=== PATIENT | male | born 1945 | race Caucasian/White ===

== ENCOUNTER 2020-08-15 08:19 | Outpatient (REF) | payer MEDICARE, SELFPAY ==
--- NOTE | 2020-08-15 08:28 | XR_ITS ---
EXAMINATION: XR BILATERAL KNEES STANDING XR RIGHT KNEE CLINICAL INFORMATION: Pain, right knee. COMPARISON: AP bilateral knee and right knee 1 view 08/13/2019 TECHNIQUE: AP bilateral knee 1 view. Right knee 1 view. FINDINGS: AP BILATERAL KNEES: The total right knee arthroplasty with prosthetic components in satisfactory alignment. No loosening seen. There are small enthesophytes along the anterosuperior patella and likely small joint effusion. There is mild reduction in medial and compartment joint space left knee. No loose bodies seen. RIGHT KNEE: There is a total right knee arthroplasty with the prosthetic components in satisfactory alignment without any loosening. There is mild suprapatellar joint effusion. Small anterosuperior patellar enthesophytes. There is small lucency seen traversing the right proximal fibula, new since 2019. XR/XR knee standing BI IMPRESSION: Total right knee prosthesis with the prosthetic components in satisfactory alignment. There are small anterosuperior patellar enthesophytes and a small suprapatellar joint effusion. Mild degenerative changes medial compartment left knee. There is mild lucency traversing the proximal fibula and lateral view when compared to previous study. Whether this is a small stress fracture or ongoing fracture is questioned. Recommend limited bone scan of the right knee with attention to proximal fibula.
--- NOTE | 2020-08-15 08:28 | XR_ITS ---
EXAMINATION: XR BILATERAL KNEES STANDING XR RIGHT KNEE CLINICAL INFORMATION: Pain, right knee. COMPARISON: AP bilateral knee and right knee 1 view 08/13/2019 TECHNIQUE: AP bilateral knee 1 view. Right knee 1 view. FINDINGS: AP BILATERAL KNEES: The total right knee arthroplasty with prosthetic components in satisfactory alignment. No loosening seen. There are small enthesophytes along the anterosuperior patella and likely small joint effusion. There is mild reduction in medial and compartment joint space left knee. No loose bodies seen. RIGHT KNEE: There is a total right knee arthroplasty with the prosthetic components in satisfactory alignment without any loosening. There is mild suprapatellar joint effusion. Small anterosuperior patellar enthesophytes. There is small lucency seen traversing the right proximal fibula, new since 2019. XR/XR knee RT 2V IMPRESSION: Total right knee prosthesis with the prosthetic components in satisfactory alignment. There are small anterosuperior patellar enthesophytes and a small suprapatellar joint effusion. Mild degenerative changes medial compartment left knee. There is mild lucency traversing the proximal fibula and lateral view when compared to previous study. Whether this is a small stress fracture or ongoing fracture is questioned. Recommend limited bone scan of the right knee with attention to proximal fibula.
== END 2020-08-15 08:20 | disposition home or self-care (01) ==
LOC: HO.HOSX 08:19
PROVIDERS: PCP Internal Medicine; Visit Provider Orthopaedic Surgery
DX: M25.561 Pain in right knee (principal); M25.562 Pain in left knee; Z96.651 Presence of right artificial knee joint
CPT/HCPCS: 73560; 73565; 99212

== ENCOUNTER → 2020-09-20 08:58 | Outpatient (BNVA) | payer MEDICARE, SELFPAY | PROVIDERS: PCP Internal Medicine; Visit Provider Urology | DX: Z13.89 Encounter for screening for other disorder (principal) | CPT/HCPCS: Q3014 ==

== ENCOUNTER → 2020-10-12 13:46 | Outpatient (BNVA) | payer MEDICARE, SELFPAY | PROVIDERS: PCP Internal Medicine; Visit Provider Internal Medicine Cardiovascular Disease | DX: I48.0 Paroxysmal atrial fibrillation (principal); I10 Essential (primary) hypertension | CPT/HCPCS: 99212 ==

== ENCOUNTER → 2021-02-07 09:20 | Outpatient (BNVA) | payer MEDICARE, SELFPAY | PROVIDERS: PCP Internal Medicine; Referring Provider Internal Medicine; Visit Provider Internal Medicine Cardiovascular Disease | DX: I48.0 Paroxysmal atrial fibrillation (principal); I10 Essential (primary) hypertension | CPT/HCPCS: 99212 ==

== ENCOUNTER 2021-03-17 10:49 | Outpatient (REF) | payer MEDICARE, SELFPAY ==
[2021-03-17 11:56] LABS: Prostate Specific Antigen 3.04 ng/mL (<0.05-4.0)
== END 2021-03-17 10:50 | disposition home or self-care (01) ==
LOC: HO.LAB 10:49
PROVIDERS: PCP Internal Medicine; Visit Provider Urology
DX: Z12.5 Encounter for screening for malignant neoplasm of prostate (principal); N40.0 Benign prostatic hyperplasia without lower urinary tract symptoms
CPT/HCPCS: 36415; 84153

== ENCOUNTER → 2021-03-22 08:39 | Outpatient (BNVA) | payer MEDICARE, SELFPAY | PROVIDERS: PCP Internal Medicine; Visit Provider Urology | DX: R39.15 Urgency of urination (principal); N52.9 Male erectile dysfunction, unspecified; N40.0 Benign prostatic hyperplasia without lower urinary tract symptoms; R97.20 Elevated prostate specific antigen [PSA]; I10 Essential (primary) hypertension; Z87.891 Personal history of nicotine dependence | CPT/HCPCS: 51798; 99212 ==

== ENCOUNTER → 2021-05-03 08:48 | Outpatient (BNVA) | payer MEDICARE, SELFPAY | PROVIDERS: PCP Internal Medicine; Visit Provider Urology | DX: N40.1 Benign prostatic hyperplasia with lower urinary tract symptoms (principal); R39.15 Urgency of urination; N52.9 Male erectile dysfunction, unspecified | CPT/HCPCS: 52000; 99212 ==

== ENCOUNTER 2021-06-11 09:25 | Day surgery (SDC) | payer MEDICARE, SELFPAY ==
[2021-06-05 10:17] VITALS: BMI 37.7
--- NOTE | 2021-06-07 13:29 | P.CONAN_ITS ---
Documented by User: Teodora Nicole NP 06/07/21 13:30 HPI - Anesthesia Eval Consult details Narrative: 75yo M for Laser Ablation Prostate w/Green Light ILR in situ (concern for afib and was on anticoag, but no afib noted with remote monitoring and anticoag recently d/c'd) [facility] Active Problems Active Problems: All Active Problems (Updated 06/05/21 @ 10:20 by Melvina Kent RN) BPH (benign prostatic hyperplasia) (Acute) Cellulitis (Acute) Status post placement of implantable loop recorder (Acute) History of total right knee replacement (TKR) (Acute) Folliculitis (Acute) PAF (paroxysmal atrial fibrillation) (Acute) Encounter for initial annual wellness visit (AWV) in Medicare patient (Acute) Sore throat (Acute) Persistent hoarseness (Acute) Obesity (Acute) Erectile dysfunction (Acute) Urgency of micturition (Acute) Hypertension (Acute) Past Medical History Medical History (Updated 06/05/21 @ 10:20 by Melvina Kent RN) Arthritis BPH (benign prostatic hyperplasia) COPD (chronic obstructive pulmonary disease) COVID-19 vaccine series completed Erectile dysfunction Hypertension Obesity Paroxysmal atrial fibrillation Skin cancer Sleep apnea Status post placement of implantable loop recorder Urgency of micturition Family History Family History Father Medical history unknown Mother Lung cancer Surgical History Surgical History (Updated 06/05/21 @ 09:56 by Melvina Kent RN) H/O colonoscopy History of carpal tunnel release History of cystoscopy History of surgery Hx of total knee arthroplasty Social History Social History Housing: House Alcohol intake: current Alcohol intake frequency: a few times a month Patient Tobacco Use Status: Former Tobacco user Quit Date: 2004 Tobacco use type: Cigarette Years Smoked: 30 e-Cigarette/Vaping Use: Never Used Second Hand Smoke Exposure: No Use of substances other than those prescribed or required for medical reasons: No Have you been hit, kicked, punched, or otherwise hurt by someone within the past year? If so, by whom?: No Are you DNR?: No Advance Directives: No (states would be his daughter but no official HCP form) Advance Directives Information Provided: Yes (informational brochure sent) Advance Directives on File: No Recently lost weight without trying: No Eating poorly because of decreased appetite: No Nutrition Risks: No Nutritional Risk Poor oral hygiene: No (upper & lower full dentures) service: No Current occupational status: retired Current occupation: [employer] Med[employer] Allergies Allergy/AdvReac Type Severity Reaction Status Date / Time No Known Allergies Allergy Verified 05/29/21 13:54 [No Known Allergies*] Home Medications Medication Instructions Recorded Confirmed Last Taken Type tiotropium bromide 18 mcg capsule 1 cap INHALATION DAILY 06/14/20 06/05/21 Unknown History with inhalation device Exam Exam Date and Time: June 07, 2021 1329 Height,Weight and Vital Signs: Height 5 ft 8 in Weight 112.491 kg Narrative Narrative: EKG 09/2020 NSR @ 65 Assessment and Plan Assessment Anesthesia Assessment: Chart Reviewed Documented by User: Michaela Michelle MD 06/11/21 11:23 [facility] Past Medical History Medical History (Updated 06/05/21 @ 10:20 by Melvina Kent RN) Arthritis BPH (benign prostatic hyperplasia) COPD (chronic obstructive pulmonary disease) COVID-19 vaccine series completed Erectile dysfunction Hypertension Obesity Paroxysmal atrial fibrillation Skin cancer Sleep apnea Status post placement of implantable loop recorder Urgency of micturition Family History Family History Father Medical history unknown Mother Lung cancer Family history of problems with anesthesia: No Surgical History Surgical History (Updated 06/05/21 @ 09:56 by Melvina Kent RN) H/O colonoscopy History of carpal tunnel release History of cystoscopy History of surgery Hx of total knee arthroplasty History of Problems with Anesthesia: No ( woke up during knee surgery. Explained Spinal with sedation for surgery so expected that may wake up especially with h/o PRAVEEN and possible obstruction and desaturation) Social History Social History Housing: House Alcohol intake: current Alcohol intake frequency: a few times a month Patient Tobacco Use Status: Former Tobacco user Quit Date: 2004 Tobacco use type: Cigarette Years Smoked: 30 e-Cigarette/Vaping Use: Never Used Second Hand Smoke Exposure: No Use of substances other than those prescribed or required for medical reasons: No Have you been hit, kicked, punched, or otherwise hurt by someone within the past year? If so, by whom?: No Are you DNR?: No Advance Directives: No (states would be his daughter but no official HCP form) Advance Directives Information Provided: Yes (informational brochure sent) Advance Directives on File: No Recently lost weight without trying: No Eating poorly because of decreased appetite: No Nutrition Risks: No Nutritional Risk Poor oral hygiene: No (upper & lower full dentures) service: No Current occupational status: retired Current occupation: [employer] Allergies Allergy/AdvReac Type Severity Reaction Status Date / Time No Known Allergies Allergy Verified 05/29/21 13:54 [No Known Allergies*] Home Medications Medication Instructions Recorded Confirmed Last Taken Type tiotropium bromide 18 mcg capsule 1 cap INHALATION DAILY 06/14/20 06/05/21 Unknown History with inhalation device Exam Height,Weight and Vital Signs: Height 5 ft 8 in Weight 112.491 kg Vital Signs Temp Pulse Resp BP Pulse Ox 06/11/21 11:04 96.9 F 60 20 141/77 H 96 Airway Mallampati Class: II TM Dist: >3cm Neck ROM: Full Denture: Upper and Lower Heart: RRR Lungs: CTAB Assessment and Plan Assessment Anesthesia Assessment: Anesthesia Plan Discussed Final Anesthetic Review Family History of Problems with Anesthesia: No History of Problems with Anesthesia: No ( woke up during knee surgery. Explained Spinal with sedation for surgery so expected that may wake up especially with h/o PRAVEEN and possible obstruction and desaturation) NPO: Yes ASA Class: III Final Preanesthetic Review: No Changes in Pt Med Stat, Meds/Allgs Chart Reviewed, Consent Obtained/Reviewed and Anes Risks/Benef Reviewed Patient Risk: Intermediate Procedure Risk: Low Assessment/Block/Sedation in SS: Assess/Block/Sedation-SS Anesthetic Plan Anesthetic Plan: GA Disposition: Standard PACU
[2021-06-11] VITALS (10 sets, daily range): BP systolic 106–141; BP diastolic 52–77; PULSE 54–74; RESP 16–20; TEMP 36.1–36.7; O2SAT 93–98
[2021-06-11] MEDS: Lactated Ringers 1,000 ML 100 ML IVCONT (10:59)
[2021-06-11] MEDS: levoFLOXacin/D5W 500 MG/100 ML PIGGYBACK 100 MG IV (10:59)
--- NOTE | 2021-06-11 11:31 | MHC.SHP ---
Pre-Procedural Eval Section A Date of Service: 06/11/21 Section B Chief Complaint: benign prostatic hyperplasia Relevant Family History (Specify if Yes): No Present Medications: see Short Stay Collaborative assessment Medical History: Significant History History of Previous Operations: Relevant previous surgery/procedure and date(s) Allergies: Allergies Allergy/AdvReac Type Severity Reaction Status Date / Time No Known Allergies Allergy Verified 05/29/21 13:54 [No Known Allergies*] Review of Systems Sugical H&P ROS: Negative: Constitution, Cardiovascular, Respiratory, Neurological, Psychiatric, Hem-Onc, Allergic/Immunologic, Gastrointestinal, Genitourinary, Musculoskeletal, Integumentary, Endocrine and Eyes/Ears/Nose/Throat Exam Surgical H&P Exam: Normal: HEENT, Normal: Heart, Normal: Lungs, Normal: Extremities, Normal: Abdomen, Normal: Skin and Normal: Neurological Plan Diagnosis/Plan: Unchanged (Cystoscopy repeat laser prostatectomy) I have reviewed the history and physical and performed a pertinent physical examination on my patient. No changes have occurred unless specified.
[2021-06-11] MEDS: Acetaminophen 325 MG TABLET 650 MG PO (13:11)
[2021-06-11] MEDS: oxyCODONE HCl Immed Release 5 MG TABLET PO (13:29)
[2021-06-11] MEDS: fentaNYL citrate/PF 100 MCG/2 ML VIAL 25 MCG IVPUSH ×2 (13:38→13:45)
--- NOTE | 2021-06-11 15:08 | PC.NURSE ---
PT LEFT WITH A FULL SIZE AVELAR CATHETER BAG. TRACTOR DRIVER STATES PATIENT DID NOT WANT A LEG BAG. PATIENT ENCOURAGED TO BE CAREFUL AND TAPE TUBING TO HIS THIGH.
--- NOTE | 2021-06-13 08:34 | W.PM.OPN ---
Operative Note Operative Note Date of Service: 06/13/21 Narrative: PreOperative Diagnosis: Bladder outlet obstruction Post Operative Diagnosis: Bladder outlet obstruction Procedure: GreenLight laser enucleation of the prostate Surgeon: Dr Federico Donnelly Anesthesia: General Indications for procedure: Prior TURP a number of years ago. Progression recurrence of symptoms. Cystoscopy with prostatic regrowth. Recommendation for laser ablation with GreenLight laser. Risks, benefits and with postprocedure course have been discussed. Procedure: After informed consent was verified the patient was brought to the operating room and placed in a supine position. Anesthesia was administered per protocol. Patient was placed in modified dorsal lithotomy position and prepped and draped in a sterile fashion. Safety pause time-out was confirmed. Antibiotics have been given. Twenty-four Bangladeshi laser cystoscope was inserted per urethra. No abnormalities found the anterior posterior urethra. The bladder was filled on both ureteric orifices were seen in normal position away from our area of interest. Using a GreenLight laser settings of 80 w recurring tissue was carefully ablated. Prominent on the left side. Care was taken around the apical area to leave apical question to allow urinary control. Regrowth was taken up and removed to the bladder neck. Bladder neck was left intact as this was wide and easy to enter. When this was completed debris and pieces of prostate removed from the bladder. Both ureteric orifices were reviewed again in shown to be patent in away from any areas of energy damage. The apical area was reviewed in any stray ooze was controlled. A 22 Bangladeshi 30 cc balloon Giang catheter was placed over stylet into the bladder. Clear efflux was obtained. 30 cc was placed in the balloon and gentle traction was placed. A snap was used to hold tension once the patient will be moved and transported. Once transportation its finish this novel be removed. A belladonna and opiate suppository was placed for postprocedure pain management. He tolerated procedure well was extubated in the operating and transferred in a stable condition to the recovery area. Pathology: Prostate tissue Drains: Giang catheter
== END 2021-06-11 15:11 | disposition home or self-care (01) ==
PROVIDERS: PCP Internal Medicine; Visit Provider Urology
PROC: (CPT 52648; principal; 2021-06-11 11:40)
DX: N40.1 Benign prostatic hyperplasia with lower urinary tract symptoms (principal); R39.15 Urgency of urination; N13.8 Other obstructive and reflux uropathy; N52.9 Male erectile dysfunction, unspecified; I10 Essential (primary) hypertension; I48.0 Paroxysmal atrial fibrillation; Z79.01 Long term (current) use of anticoagulants; J44.9 Chronic obstructive pulmonary disease, unspecified; Z95.818 Presence of other cardiac implants and grafts; Z87.891 Personal history of nicotine dependence; Z79.899 Other long term (current) drug therapy
CPT/HCPCS: 52648; 88305; J1100; J1956; J2405; J3010

== ENCOUNTER → 2021-06-14 10:27 | Outpatient (BNVA) | payer MEDICARE, SELFPAY | PROVIDERS: PCP Internal Medicine; Visit Provider Urology | DX: N40.0 Benign prostatic hyperplasia without lower urinary tract symptoms (principal); R39.15 Urgency of urination | CPT/HCPCS: 51700; 51798 ==

== ENCOUNTER → 2021-07-04 09:17 | Outpatient (BNVA) | payer MEDICARE, SELFPAY | PROVIDERS: PCP Internal Medicine; Referring Provider Internal Medicine; Visit Provider Internal Medicine Cardiovascular Disease | DX: I10 Essential (primary) hypertension (principal); I48.0 Paroxysmal atrial fibrillation; J44.9 Chronic obstructive pulmonary disease, unspecified; Z87.891 Personal history of nicotine dependence; Z86.010 Personal history of colon polyps; Z95.818 Presence of other cardiac implants and grafts; Z99.89 Dependence on other enabling machines and devices; Z79.899 Other long term (current) drug therapy | CPT/HCPCS: 93005; 99212 ==

== ENCOUNTER → 2021-07-31 09:15 | Outpatient (BNVA) | payer MEDICARE, SELFPAY | PROVIDERS: PCP Internal Medicine; Visit Provider Urology | DX: N40.1 Benign prostatic hyperplasia with lower urinary tract symptoms (principal); N52.9 Male erectile dysfunction, unspecified; R33.9 Retention of urine, unspecified; R39.15 Urgency of urination | CPT/HCPCS: 51798; 99212 ==

== ENCOUNTER 2021-08-27 08:34 | Outpatient (REF) | payer MEDICARE, SELFPAY ==
--- NOTE | ~2021-08-27 | XR_ITS ---
EXAMINATION: XR KNEES, STANDING AP XR KNEE, RIGHT CLINICAL INFORMATION: Knee pain COMPARISON: Standing AP knees and right knee 08/15/2020. TECHNIQUE: Standing AP view of both knees is performed. The right knee is imaged in lateral and axial patella views. FINDINGS: Right: Status post prior total knee arthroplasty. Hardware intact. No fracture, dislocation, destructive process, or osteolysis. There is old mild posttraumatic deformity proximal fibular neck on lateral view similar to prior study. No definite effusion. Axial view patella shows no definite lateralization. Left: No significant joint narrowing and no erosive change. Question trace chondrocalcinosis lateral compartment. Small lateral femoral condyle central osteophyte stable. No bony destructive process. XR/XR knee standing BI IMPRESSION: Right: Prior knee arthroplasty. Hardware intact. No osteolysis. Left: No acute abnormality.
--- NOTE | ~2021-08-27 | XR_ITS ---
EXAMINATION: XR KNEES, STANDING AP XR KNEE, RIGHT CLINICAL INFORMATION: Knee pain COMPARISON: Standing AP knees and right knee 08/15/2020. TECHNIQUE: Standing AP view of both knees is performed. The right knee is imaged in lateral and axial patella views. FINDINGS: Right: Status post prior total knee arthroplasty. Hardware intact. No fracture, dislocation, destructive process, or osteolysis. There is old mild posttraumatic deformity proximal fibular neck on lateral view similar to prior study. No definite effusion. Axial view patella shows no definite lateralization. Left: No significant joint narrowing and no erosive change. Question trace chondrocalcinosis lateral compartment. Small lateral femoral condyle central osteophyte stable. No bony destructive process. XR/XR knee RT 2V IMPRESSION: Right: Prior knee arthroplasty. Hardware intact. No osteolysis. Left: No acute abnormality.
== END 2021-08-27 08:35 | disposition home or self-care (01) ==
LOC: HO.HOSX 08:34
PROVIDERS: Visit Provider Orthopaedic Surgery
DX: M25.561 Pain in right knee (principal); I10 Essential (primary) hypertension; I48.0 Paroxysmal atrial fibrillation; E66.01 Morbid (severe) obesity due to excess calories; Z68.37 Body mass index [BMI] 37.0-37.9, adult; Z87.891 Personal history of nicotine dependence; Z96.651 Presence of right artificial knee joint; Z95.818 Presence of other cardiac implants and grafts
CPT/HCPCS: 73560; 73565; 99212

== ENCOUNTER → 2021-12-17 11:15 | Outpatient (BNVA) | payer MEDICARE, SELFPAY | PROVIDERS: PCP Internal Medicine; Referring Provider Internal Medicine; Visit Provider Internal Medicine Cardiovascular Disease | DX: J44.9 Chronic obstructive pulmonary disease, unspecified (principal); I48.0 Paroxysmal atrial fibrillation; I10 Essential (primary) hypertension | CPT/HCPCS: 99212 ==

== ENCOUNTER 2022-01-08 10:29 | Outpatient (REF) | payer MEDICARE, SELFPAY ==
[2022-01-08 11:55] LABS: Basophils Absolute Auto 0.1 X10*3/uL (0.0-0.2); Basophils Percent Auto 0.8 % (0-2); Eosinophils Absolute Auto 0.7 X10*3/uL (0.0-0.4); Eosinophils Percent Auto 5.6 % (0-4); Hematocrit 47.6 % (42.0-52.0); Hemoglobin 15.6 g/dl (14.0-18.0); Imm Gran Abs Auto 0.04 X10*3/uL (0.00-0.03); Imm Gran Pct Auto 0.3 % (0.0-0.4); Lymphocytes Percent Auto 50.6 % (20-40); MANUAL DIFF FLAG SCAN; Mean Corpuscular HGB Conc 32.8 g/dl (31.0-36.0); Mean Corpuscular Hemoglobin 30.5 pg (27.0-33.0); Mean Corpuscular Volume 93.2 fL (80.0-98.0); Mean Platelet Volume 10.2 fL (9.4-12.4); Monocytes Absolute Auto 1.1 X10*3/uL (0.1-1.2); Monocytes Percent Auto 8.4 % (2-11); Neutrophils Absolute Auto 4.5 x10*3/uL (2.0-8.3); Neutrophils Percent Auto 34.3 % (45-73); Platelet Count 248 X10*3/uL (160-400); Red Blood Count 5.11 X10*6/uL (4.60-5.80); SCAN SMEAR FLAG 1; White Blood Count 13.2 X10*3/uL (4.8-10.8)
[2022-01-08 11:56] LABS: Lymphocytes Absolute Auto 6.7 X10*3/uL (1.2-4.9)
[2022-01-08 12:14] LABS: Alanine Aminotransferase 16 U/L (0-40); Albumin Level 3.7 g/dL (3.5-5.0); Alkaline Phosphatase 85 U/L (39-117); Anion Gap 10 (12-20); Aspartate Amino Transferase 21 U/L (5-37); Bilirubin Total 0.7 mg/dL (0.0-1.0); Blood Urea Nitrogen 16 mg/dL (9-16); Calcium 9.4 mg/dL (8.4-10.2); Carbon Dioxide 25 mmol/L (22-29); Chloride 103 mmol/L (96-108); Estimated Glomerular Filt Rate 50; Glucose Random 110 mg/dL (60-115); Magnesium 2.2 mg/dL (1.6-2.6); Potassium 4.3 mmol/L (3.3-5.1); Sodium 134 mmol/L (135-145); Total Protein 6.5 g/dL (6.5-8.0)
[2022-01-08 12:21] LABS: SLIDE REVIEW VERIFIED
[2022-01-08 12:27] LABS: Thyroid Stimulating Hormone 1.99 uIU/mL (0.32-4.0)
== END 2022-01-08 10:30 | disposition home or self-care (01) ==
LOC: HO.LAB 10:29
PROVIDERS: PCP Internal Medicine; Visit Provider Nurse Practitioner Family
DX: I49.1 Atrial premature depolarization (principal); I49.3 Ventricular premature depolarization; I48.91 Unspecified atrial fibrillation; R00.2 Palpitations; R00.0 Tachycardia, unspecified
CPT/HCPCS: 36415; 80053; 83735; 84443; 85025

== ENCOUNTER 2022-01-22 08:57 | Outpatient (REF) | payer MEDICARE, SELFPAY ==
--- NOTE | 2022-01-22 17:30 | PFT_ITS ---
Forced vital capacity 80%, normal. FEV1 70%. FEV1/FVC ratio is 62. UVC12-28 39% and MVV 67%. Post bronchodilator therapy, there is a significant improvement in FEV1 by 13% and in TWT14-66 by 67%. Total lung capacity 77%. Residual volume 79%. Diffusion capacity is 54%. CONCLUSION: Mild restrictive pulmonary disorder. Mild to moderate obstructive airway disorder with partial reversibility after bronchodilator therapy. Clinical correlation is recommended. Mann Chester MD MSB/MODL / [id number]
== END 2022-01-22 08:58 | disposition home or self-care (01) ==
LOC: HO.RESP 08:57
PROVIDERS: PCP Internal Medicine; Visit Provider Internal Medicine Cardiovascular Disease
DX: J44.9 Chronic obstructive pulmonary disease, unspecified (principal)
CPT/HCPCS: 94060; 94727; 94729

== ENCOUNTER → 2022-01-25 14:42 | Outpatient (BNVA) | payer MEDICARE, SELFPAY | PROVIDERS: PCP Internal Medicine; Visit Provider Urology | DX: N40.1 Benign prostatic hyperplasia with lower urinary tract symptoms (principal); R39.15 Urgency of urination; N52.9 Male erectile dysfunction, unspecified | CPT/HCPCS: 51798; 99212 ==

== ENCOUNTER → 2022-02-27 10:53 | Outpatient (BNVA) | payer MEDICARE, SELFPAY | PROVIDERS: PCP Internal Medicine; Visit Provider Internal Medicine | DX: J44.9 Chronic obstructive pulmonary disease, unspecified (principal); E66.9 Obesity, unspecified; Z68.37 Body mass index [BMI] 37.0-37.9, adult; G47.33 Obstructive sleep apnea (adult) (pediatric); Z99.89 Dependence on other enabling machines and devices | CPT/HCPCS: 99202 ==

== ENCOUNTER 2022-04-04 08:52 | Outpatient (REF) | payer MEDICARE, SELFPAY ==
[2022-04-04 09:38] LABS: Hematocrit 46.5 % (42.0-52.0); Hemoglobin 15.9 g/dl (14.0-18.0); Mean Corpuscular HGB Conc 34.2 g/dl (31.0-36.0); Mean Corpuscular Hemoglobin 30.9 pg (27.0-33.0); Mean Corpuscular Volume 90.5 fL (80.0-98.0); Mean Platelet Volume 9.6 fL (9.4-12.4); Platelet Count 258 X10*3/uL (160-400); Red Blood Count 5.14 X10*6/uL (4.60-5.80); Red Cell Distribution Width 12.9 % (11.0-16.0); White Blood Count 14.4 X10*3/uL (4.8-10.8)
[2022-04-04 10:01] LABS: Alanine Aminotransferase 14 U/L (0-40); Albumin Level 3.9 g/dL (3.5-5.0); Alkaline Phosphatase 83 U/L (39-117); Anion Gap 16 (12-20); Aspartate Amino Transferase 20 U/L (5-37); Bilirubin Total 0.8 mg/dL (0.0-1.0); Blood Urea Nitrogen 17 mg/dL (9-16); Calcium 9.2 mg/dL (8.4-10.2); Carbon Dioxide 24 mmol/L (22-29); Chloride 98 mmol/L (96-108); Cholesterol 143 mg/dL; Estimated Glomerular Filt Rate 53; Glucose Fasting 100 mg/dL (60-99); HDL Cholesterol 37 mg/dL; LDL Cholesterol Calculated 85 mg/dl; Potassium 4.6 mmol/L (3.3-5.1); Sodium 133 mmol/L (135-145); Total Protein 6.7 g/dL (6.5-8.0); Triglycerides 105 mg/dL
[2022-04-04 10:25] LABS: Thyroid Stimulating Hormone 1.97 uIU/mL (0.32-4.0)
[2022-04-04 10:46] LABS: Atypical Lymph Absolute Manual 0.1 x10*3/uL; Atypical Lymphs Percent Manual 1 % (0-6); Band Neutrophils Percent 0 % (3-5); Lymphocytes Absolute Manual 7.9 X10*3/uL (1.2-4.9); Lymphocytes Percent Manual 55 % (20-40); Monocytes Absolute Manual 0.7 X10*3/uL (0.1-1.2); Monocytes Percent Manual 5 % (2-11); Neutrophils Absolute Manual 5.6 X10*3/uL (2.0-8.3); Neutrophils Percent Manual 39 % (45-73)
[2022-04-04 10:48] LABS: Platelet Estimate NORMAL (NORMAL); Platelet Morphology Comment NORMAL; RBC Morphology NORMAL; Smudge Cells PRESENT
== END 2022-04-04 08:53 | disposition home or self-care (01) ==
LOC: HO.LAB 08:52
PROVIDERS: PCP Internal Medicine; Visit Provider Internal Medicine
DX: I10 Essential (primary) hypertension (principal); E78.5 Hyperlipidemia, unspecified; E03.9 Hypothyroidism, unspecified
CPT/HCPCS: 36415; 80053; 80061; 84443; 85007; 85025; 85027

== ENCOUNTER → 2022-04-09 09:49 | Outpatient (BNV) | payer MEDICARE, SELFPAY | PROVIDERS: PCP Internal Medicine; Referring Provider Internal Medicine; Visit Provider Internal Medicine | DX: C91.10 Chronic lymphocytic leukemia of B-cell type not having achieved remission (principal); N17.9 Acute kidney failure, unspecified | CPT/HCPCS: 99203; 99212; 99213; 99214; G2211 ==

== ENCOUNTER → 2022-06-26 10:44 | Outpatient (BNVA) | payer MEDICARE, SELFPAY | PROVIDERS: PCP Internal Medicine; Referring Provider Internal Medicine; Visit Provider Internal Medicine Cardiovascular Disease | DX: I48.0 Paroxysmal atrial fibrillation (principal); I10 Essential (primary) hypertension; J44.9 Chronic obstructive pulmonary disease, unspecified | CPT/HCPCS: 93005; 99212 ==

== ENCOUNTER 2022-06-28 10:11 | Outpatient (REF) | payer MEDICARE, SELFPAY ==
--- NOTE | ~2022-06-28 | US_ITS ---
EXAMINATION: US ABDOMEN COMPLETE CLINICAL INFORMATION: ?hepatosplenomegaly. COMPARISON: Renal ultrasound 05/30/2011. TECHNIQUE: Real-time imaging of the abdominal viscera. FINDINGS: PANCREAS: Normal. ABDOMINAL AORTA: The proximal, mid, and distal segments are normal in caliber. INFERIOR VENA CAVA: Visualized portions are normal. LIVER: The liver is normal in size. The liver contour is normal. Parenchymal echogenicity is heterogeneous No focal hepatic lesion. There is no intrahepatic biliary duct dilatation seen. GALLBLADDER: Gallbladder wall thickness is 0.4 cm. The gallbladder is physiologically distended. Multiple mobile gallstones are present. No evidence of pericholecystic fluid. COMMON BILE DUCT: Normal in caliber measuring 0.5 cm in diameter. RIGHT KIDNEY: There are anechoic cysts in the upper and lower poles. Upper pole cyst measures 0.8 x 0.7 x 0.8 cm. Lower pole cyst measures 7.6 x 5.9 x 7.4 cm and 1.1 x 1.1 x 1.2 cm. No hydronephrosis or renal calculi. The kidney measures 10.3 cm in maximum dimension. LEFT KIDNEY: There are anechoic cysts in upper mid and lower poles. Upper pole cyst measures 7.7 x 6.4 x 8.7 cm, midpole cyst measures 4.4 x 3.4 x 4.0 cm and lower pole cyst measures 4.3 x 2.8 x 4.0 cm. No hydronephrosis or renal calculi. The kidney measures 11.3 cm in maximum dimension. SPLEEN: Normal. The spleen measures 9.6 cm in maximum dimension. FREE FLUID: None. US/US abdomen complete IMPRESSION: 1. Multiple anechoic cysts in bilateral kidneys with no echogenic stones or hydronephrosis. 2. Cholelithiasis with a gallbladder stone measuring 1.4 cm. 3. Heterogeneous echotexture of the liver with no focal lesion seen.
== END 2022-06-28 10:12 | disposition home or self-care (01) ==
LOC: HO.US 10:11
PROVIDERS: Visit Provider Internal Medicine
DX: C91.10 Chronic lymphocytic leukemia of B-cell type not having achieved remission (principal)
CPT/HCPCS: 76700

== ENCOUNTER 2022-08-29 08:48 | Outpatient (REF) | payer MEDICARE, SELFPAY ==
--- NOTE | ~2022-08-29 | XR_ITS ---
EXAMINATION: XR BILATERAL KNEE AP STANDING. LATERAL AND SUNRISE VIEWS OF THE RIGHT KNEE. CLINICAL INFORMATION: Pain in unspecified knee COMPARISON: 08/27/2021 TECHNIQUE: AP bilateral standing view of both knees, lateral view of the right knee, and sunrise view of the right knee were obtained. FINDINGS: Right knee: Status post right total knee arthroplasty with patellar resurfacing. Hardware appears well seated. No complication evident. Left knee: Mild medial compartment joint space narrowing. Tibial spine hypertrophy. No fracture or dislocation seen. XR/XR knee standing BI IMPRESSION: Intact right total knee arthroplasty. Mild medial compartment joint space narrowing of the left knee.
--- NOTE | ~2022-08-29 | XR_ITS ---
EXAMINATION: XR BILATERAL KNEE AP STANDING. LATERAL AND SUNRISE VIEWS OF THE RIGHT KNEE. CLINICAL INFORMATION: Pain in unspecified knee COMPARISON: 08/27/2021 TECHNIQUE: AP bilateral standing view of both knees, lateral view of the right knee, and sunrise view of the right knee were obtained. FINDINGS: Right knee: Status post right total knee arthroplasty with patellar resurfacing. Hardware appears well seated. No complication evident. Left knee: Mild medial compartment joint space narrowing. Tibial spine hypertrophy. No fracture or dislocation seen. XR/XR knee RT 2V IMPRESSION: Intact right total knee arthroplasty. Mild medial compartment joint space narrowing of the left knee.
== END 2022-08-29 08:49 | disposition home or self-care (01) ==
LOC: HO.HOSX 08:48
PROVIDERS: Visit Provider Orthopaedic Surgery
DX: T84.84XA Pain due to internal orthopedic prosthetic devices, implants and grafts, initial encounter (principal); Z96.651 Presence of right artificial knee joint
CPT/HCPCS: 73560; 73565; 99212

== ENCOUNTER 2022-09-02 09:47 | Outpatient (REF) | payer MEDICARE, SELFPAY ==
--- NOTE | ~2022-09-02 | XR_ITS ---
EXAMINATION: XR CHEST CLINICAL INFORMATION: Bronchitis COMPARISON: 08/30/2019 TECHNIQUE: 2 views of the chest were obtained. FINDINGS: Lungs are well expanded and without evidence of acute disease. No interstitial infiltrate, consolidation or pleural effusion. Cardiac silhouette is normal in size. Cardiac loop recorder of the left anterior chest wall. Diffuse idiopathic skeletal hyperostosis as manifest by presence of extensive bulky flowing anterior ligament ossification of the thoracic spine. XR/XR chest 2V IMPRESSION: No acute cardiopulmonary disease.
== END 2022-09-02 09:48 | disposition home or self-care (01) ==
LOC: HO.XRAY 09:47
PROVIDERS: PCP Internal Medicine; Visit Provider Internal Medicine
DX: J40 Bronchitis, not specified as acute or chronic (principal); G47.30 Sleep apnea, unspecified; G47.33 Obstructive sleep apnea (adult) (pediatric); E66.9 Obesity, unspecified; Z79.899 Other long term (current) drug therapy; Z87.891 Personal history of nicotine dependence; Z99.89 Dependence on other enabling machines and devices
CPT/HCPCS: 71046; 99212

== ENCOUNTER → 2022-09-30 10:09 | Outpatient (BNVA) | payer MEDICARE, SELFPAY | PROVIDERS: PCP Internal Medicine; Visit Provider Internal Medicine | DX: J44.9 Chronic obstructive pulmonary disease, unspecified (principal); G47.33 Obstructive sleep apnea (adult) (pediatric); E66.9 Obesity, unspecified; Z68.36 Body mass index [BMI] 36.0-36.9, adult; Z99.89 Dependence on other enabling machines and devices | CPT/HCPCS: 99212 ==

== ENCOUNTER 2023-01-09 09:36 | Outpatient (REF) | payer MEDICARE, SELFPAY ==
--- NOTE | 2023-01-09 09:38 | EMG_ITS ---
Right median and ulnar motor and sensory studies were performed. Right radial sensory study was performed and paraspinal muscles were tested with a needle. IMPRESSION: 1. Moderately severe right median neuropathy across carpal tunnel. 2. Mild right ulnar neuropathy across cubital tunnel. MD VLADISLAV Nesbitt/ZOHREH / [id number]
== END 2023-01-09 09:37 | disposition home or self-care (01) ==
LOC: HO.NEURO 09:36
PROVIDERS: PCP Internal Medicine; Visit Provider Internal Medicine
DX: G56.01 Carpal tunnel syndrome, right upper limb (principal)
CPT/HCPCS: 95886; 95909

== ENCOUNTER 2023-01-14 11:30 | Outpatient (REF) | payer MEDICARE, SELFPAY ==
[2023-01-14 13:12] LABS: Prostate Specific Antigen 2.63 ng/mL (<0.05-4.0)
== END 2023-01-14 11:31 | disposition home or self-care (01) ==
LOC: HO.LAB 11:30
PROVIDERS: Visit Provider Urology
DX: N40.1 Benign prostatic hyperplasia with lower urinary tract symptoms (principal); N13.8 Other obstructive and reflux uropathy; Z12.5 Encounter for screening for malignant neoplasm of prostate
CPT/HCPCS: 36415; 84153

== ENCOUNTER → 2023-01-24 10:31 | Outpatient (BNVA) | payer MEDICARE, SELFPAY | PROVIDERS: PCP Internal Medicine; Visit Provider Urology | DX: N40.0 Benign prostatic hyperplasia without lower urinary tract symptoms (principal) | CPT/HCPCS: 51798; 99212 ==

== ENCOUNTER → 2023-02-03 10:22 | Outpatient (BNVA) | payer MEDICARE, SELFPAY | PROVIDERS: PCP Internal Medicine; Visit Provider Internal Medicine | DX: J44.9 Chronic obstructive pulmonary disease, unspecified (principal); G47.33 Obstructive sleep apnea (adult) (pediatric); E66.9 Obesity, unspecified; Z99.89 Dependence on other enabling machines and devices; Z68.38 Body mass index [BMI] 38.0-38.9, adult | CPT/HCPCS: 99212 ==

== ENCOUNTER → 2023-02-13 14:18 | Outpatient (BNVA) | payer MEDICARE, SELFPAY | PROVIDERS: PCP Internal Medicine; Referring Provider Internal Medicine; Visit Provider Internal Medicine Cardiovascular Disease ==

== ENCOUNTER → 2023-02-14 09:43 | Outpatient (BNVA) | payer MEDICARE, SELFPAY | PROVIDERS: PCP Internal Medicine; Visit Provider Internal Medicine Cardiovascular Disease | DX: I48.0 Paroxysmal atrial fibrillation (principal); I10 Essential (primary) hypertension; J44.9 Chronic obstructive pulmonary disease, unspecified | CPT/HCPCS: 93005; 99212 ==

== ENCOUNTER → 2023-02-25 23:59 | Outpatient (BNV) | payer MEDICARE, SELFPAY ==
--- NOTE | 2023-03-18 10:08 | MHC.OFFVIS ---
Intake Intake Visit Reasons: Remote ILR Check- [employer] Allergies No Known Allergies [No Known Allergies*] Allergy (Verified 02/19/23 10:22) PFSH Medical History Arthritis BPH (benign prostatic hyperplasia) Bronchitis COPD (chronic obstructive pulmonary disease) COVID-19 vaccine series completed Erectile dysfunction Hypertension Obesity Obesity Obstructive sleep apnea on CPAP Paroxysmal atrial fibrillation Skin cancer Sleep apnea Status post placement of implantable loop recorder Urgency of micturition Surgical History H/O colonoscopy History of carpal tunnel release History of cystoscopy History of prostate surgery History of surgery Hx of total knee arthroplasty Family History Father Medical history unknown Mother Lung cancer Social History Household Members: None Housing: House Alcohol intake: current Alcohol intake frequency: a few times a month Patient Tobacco Use Status: Former Tobacco user Quit Date: 2004 Tobacco use type: Cigarette Years Smoked: 30 e-Cigarette/Vaping Use: Never Used Second Hand Smoke Exposure: No service: No Current occupational status: retired Current occupation: [employer] Cognitive needs: No Hearing needs: No Vision needs: No Office Procedures Cardiac Device Check Cardiac Device Check Details: ILR No new alerts. [id number] Cardiac Interrogation, subcut cardiac rhythm monitor Procedure code (CPT) selection complete Assessment & Plan Assessment & Plan (1) Status post placement of implantable loop recorder: Code(s): Z95.818 - Presence of other cardiac implants and grafts Coding Level of Care Code Procedure Only Diagnoses Status post placement of implantable loop recorder Z95.818 CPT Codes Cardiac Device Check - Cardiac Device 16: [id number] Cardiac Interrogation, subcut cardiac rhythm monitor ([id number])
== END ==
PROVIDERS: PCP Internal Medicine; Visit Provider Internal Medicine Cardiovascular Disease
DX: I48.0 Paroxysmal atrial fibrillation (principal); Z95.818 Presence of other cardiac implants and grafts
CPT/HCPCS: 93298

== ENCOUNTER → 2023-04-01 23:59 | Outpatient (BNV) | payer MEDICARE, SELFPAY ==
--- NOTE | 2023-04-20 19:12 | MHC.OFFVIS ---
Intake Intake Visit Reasons: Remote ILR Check- [employer]tr[employer] Allergies No Known Allergies [No Known Allergies*] Allergy (Verified 02/19/23 10:22) PFSH Medical History Arthritis BPH (benign prostatic hyperplasia) Bronchitis COPD (chronic obstructive pulmonary disease) COVID-19 vaccine series completed Erectile dysfunction Hypertension Obesity Obesity Obstructive sleep apnea on CPAP Paroxysmal atrial fibrillation Skin cancer Sleep apnea Status post placement of implantable loop recorder Urgency of micturition Surgical History H/O colonoscopy History of carpal tunnel release History of cystoscopy History of prostate surgery History of surgery Hx of total knee arthroplasty Family History Father Medical history unknown Mother Lung cancer Social History Household Members: None Housing: House Alcohol intake: current Alcohol intake frequency: a few times a month Patient Tobacco Use Status: Former Tobacco user Quit Date: 2004 Tobacco use type: Cigarette Years Smoked: 30 e-Cigarette/Vaping Use: Never Used Second Hand Smoke Exposure: No service: No Current occupational status: retired Current occupation: [employer] Cognitive needs: No Hearing needs: No Vision needs: No Office Procedures Cardiac Device Check Cardiac Device Check Details: ILR Episode of atrial fibrillation recorded. [id number] Cardiac Interrogation, subcut cardiac rhythm monitor Procedure code (CPT) selection complete Assessment & Plan Assessment & Plan (1) PAF (paroxysmal atrial fibrillation): Code(s): I48.0 - Paroxysmal atrial fibrillation Coding Level of Care Code Procedure Only Diagnoses PAF (paroxysmal atrial fibrillation) I48.0 CPT Codes Cardiac Device Check - Cardiac Device 16: [id number] Cardiac Interrogation, subcut cardiac rhythm monitor ([id number])
== END ==
PROVIDERS: PCP Internal Medicine; Visit Provider Internal Medicine Cardiovascular Disease
DX: I48.0 Paroxysmal atrial fibrillation (principal)
CPT/HCPCS: 93298

== ENCOUNTER → 2023-05-06 23:59 | Outpatient (BNV) | payer MEDICARE, SELFPAY ==
[2023-05-01 07:38] VITALS: BP 102/52; BP 152/60; BMI 37.8
--- NOTE | 2023-05-21 21:19 | MHC.OFFVIS ---
Intake Intake Visit Reasons: Remote ILR Check-[employer] Allergies No Known Allergies [No Known Allergies*] Allergy (Verified 05/20/23 10:28) PFSH Medical History Bronchitis Obstructive sleep apnea on CPAP Obesity Sleep apnea COVID-19 vaccine series completed Arthritis COPD (chronic obstructive pulmonary disease) Skin cancer Status post placement of implantable loop recorder BPH (benign prostatic hyperplasia) Paroxysmal atrial fibrillation Obesity Erectile dysfunction Urgency of micturition Hypertension Surgical History History of prostate surgery H/O colonoscopy History of cystoscopy Hx of total knee arthroplasty History of carpal tunnel release History of surgery Family History Father Medical history unknown Mother Lung cancer Social History Household Members: None Housing: House Alcohol intake: current Alcohol intake frequency: a few times a month Patient Tobacco Use Status: Former Tobacco user Quit Date: 2002 Tobacco use type: Cigarette Cigarette Packs Per Day: 2 Years Smoked: 30 e-Cigarette/Vaping Use: Never Used Patient Interested in Nicotine Replacement: No (NOT NEEDED) Second Hand Smoke Exposure: No service: No Current occupational status: retired Current occupation: [employer] Cognitive needs: No Hearing needs: No Vision needs: No Office Procedures Cardiac Device Check Cardiac Device Check Details: ILR 1 episode of Afib recorded. The patient is already on Apixaban. [id number] Cardiac Interrogation, subcut cardiac rhythm monitor Procedure code (CPT) selection complete Coding Level of Care Code Procedure Only CPT Codes Cardiac Device Check - Cardiac Device 16: [id number] Cardiac Interrogation, subcut cardiac rhythm monitor ([id number])
== END ==
PROVIDERS: PCP Internal Medicine; Visit Provider Internal Medicine Cardiovascular Disease
DX: I48.91 Unspecified atrial fibrillation (principal)
CPT/HCPCS: 93298

== ENCOUNTER 2023-05-20 10:25 | Outpatient (AMB) | payer MEDICARE, SELFPAY ==
[2023-05-01 07:38] VITALS: BP 102/52; BP 152/60; BMI 37.8
--- NOTE | 2023-05-20 10:27 | A.OFFPC_ITS ---
Vital Signs 05/20/23 10:28 Height 5 ft 8 in Weight 245 lb BMI 37.2 BP 124/60 Blood Pressure Location Lt brachial Position Sitting Pulse 82 Pulse Source Pulse Oximeter Pulse Oximetry (%) 93 Oxygen Delivery Method Room Air Intake Visit Reasons: 3 month f/u Occupational Therapist Assistants: Not Required per policy Accompanied by: Self / Same As Patient Allergies No Known Allergies [No Known Allergies*] Allergy (Verified 05/20/23 10:28) Medication List - Last Reconciled 05/20/23 by José Luis Martell MD albuterol sulfate 90 mcg/actuation 2 puffs PO Q6H PRN apixaban (Eliquis) 5 mg PO BID 90 days cholecalciferol (vitamin D3) 25 mcg PO DAILY CPAP (CPAP Machine/Device) 12CM H20 PREVIOUS MACHINE HAS BEEN RECALLED AND NOW NEEDS A NEW MACHINE BHAVANA hydrochlorothiazide 12.5 mg PO DAILY lisinopril 10 mg PO DAILY meloxicam 15 mg PO DAILY metoprolol succinate ER 50 mg PO DAILY multivitamin 1 tab PO DAILY tamsulosin 0.8 mg (2 x 0.4 mg) PO BEDTIME 90 days tiotropium bromide (Spiriva with HandiHaler) 1 cap inhalation DAILY Tobacco use date assessed: 02/19/23 Fall risk assessment: No Falls in past year Last assessed Fall Risk: 05/20/23 Dental Screening Dental Screen Date: 05/20/23 Did you have a dental visit in the last 12 months?: Yes Did you have a dental problem in the last 6 months where you did not have access to dental care?: No Was dental information given to patient?: Patient has dentist HPI 3 month f/u HPI Details afib htn and PRAVEEN on CPAP; doing well and compliant [facility] Medical History Bronchitis Obstructive sleep apnea on CPAP Obesity Sleep apnea COVID-19 vaccine series completed Arthritis COPD (chronic obstructive pulmonary disease) Skin cancer Status post placement of implantable loop recorder BPH (benign prostatic hyperplasia) Paroxysmal atrial fibrillation Obesity Erectile dysfunction Urgency of micturition Hypertension Surgical History History of prostate surgery H/O colonoscopy History of cystoscopy Hx of total knee arthroplasty History of carpal tunnel release History of surgery Family History Father Medical history unknown Mother Lung cancer Social History Household Members: None Housing: House Alcohol intake: current Alcohol intake frequency: a few times a month Patient Tobacco Use Status: Former Tobacco user Quit Date: 2002 Tobacco use type: Cigarette Cigarette Packs Per Day: 2 Years Smoked: 30 e-Cigarette/Vaping Use: Never Used Second Hand Smoke Exposure: No service: No Current occupational status: retired Current occupation: [employer] Cognitive needs: No Hearing needs: No Vision needs: No Questionnaire PHQ-9 Over the last 2 weeks, how often have you been bothered by any of the following problems? 1. Little interest or pleasure in doing things: not at all 2. Feeling down, depressed, or hopeless: not at all 3. Trouble falling or staying asleep, or sleeping too much: not at all 4. Feeling tired or having little energy: not at all 5. Poor appetite or overeating: not at all 6. Feeling bad about yourself - or that you are a failure or have let yourself or your family down: not at all 7. Trouble concentrating on things, such as reading the newspaper or watching television: not at all 8. Moving or speaking so slowly that other people could have noticed. Or the opposite - being so fidgety or restless that you have been moving around a lot more than usual: not at all 9. Thoughts that you would be better off or of hurting yourself in some way: not at all Total score: 0 Depression Screening Interpretation: Negative [id number] - PHQ-9 Billing: Yes Source: Developed by Drs. Jef Singh, Klaudia Saenz, Marek Curran and colleagues, with an educational cherrie from [employer]. Thrive Questionnaire Date Thrive assessed: 11/19/22 AUDIT C Alcohol Use Questionnaire (AUDIT-C) 1. How often do you have a drink containing alcohol?: 4 or more times a week 2. How many drinks containing alcohol do you have on a typical day when you are drinking?: 1 or 2 Total Score: 4 Score Reviewed/Action Taken: Yes YELENA-7 AMB Questionnaire YELENA-7 Date YELENA - 7 assessed: 11/19/22 Source: Developed by Drs. Jef Singh, Klaudia Saenz, Marek Curran and colleagues, with an educational cherrie from [employer]. Review of Systems Const Denies chills, Denies headache(s) and Denies weight loss ENT Denies headache(s) Card Denies chest pain, Denies syncope, Denies irregular heart rhythm and Denies dyspnea Resp Denies chest congestion, Denies cough and Denies dyspnea GI Denies abdominal pain, Denies change in stool character, Denies nausea and Denies vomiting Musc Denies deformity and Denies joint swelling Neuro Denies syncope and Denies headache(s) Physical exam (Primary Care) Vital Signs: Last Vital Signs Pulse 82 05/20/23 10:28 BP 124/60 05/20/23 10:28 Pulse Ox 93 05/20/23 10:28 Oxygen Delivery Method Room Air 05/20/23 10:28 BMI result Body Mass Index 37.2 Tobacco/Smoking Status: Tobacco use Status Tobacco use date assessed 02/19/23 05/20/23 10:28 Patient Tobacco Use Status Former Tobacco user 05/20/23 10:28 Tobacco use type Cigarette 05/20/23 10:28 e-Cigarette/Vaping Use Never Used 05/20/23 10:28 PHQ-9: PHQ-9 Score PHQ-9: Total score 0 05/20/23 10:30 Depression Screening Interpretation: Negative Thrive Assessment: Date of Thrive Assessment Date Thrive assessed 11/19/22 05/20/23 10:28 Const General: cooperative, comfortable, no acute distress and alert Neck Neck: Yes no lymphadenopathy Thyroid: Thyroid normal Resp Effort & Inspection: normal respiratory effort Auscultation: clear to auscultation bilaterally Percussion: percussion normal Cardio Jugular venous distension: no JVD Palpation: normal PMI Rate: regular rate Rhythm: regular rhythm Heart sounds: S1 normal heart sound present and S2 normal heart sound present GI Inspection: Yes normal to inspection Palpation (GI): No hepatosplenomegaly present Skin General skin exam: no rashes or lesions noted Extrem General: Yes no clubbing, cyanosis or edema Assessment and Plan Assessment & Plan (1) Obstructive sleep apnea on CPAP: Code(s): G47.33 - Obstructive sleep apnea (adult) (pediatric); Z99.89 - Dependence on other enabling machines and devices Plan: stable; same rx (2) Hypertension: Code(s): I10 - Essential (primary) hypertension Qualifiers: Hypertension type: essential hypertension Qualified Code(s): I10 - Essential (primary) hypertension Plan: stable; same rx (3) PAF (paroxysmal atrial fibrillation): Code(s): I48.0 - Paroxysmal atrial fibrillation Plan: cont current rx Orders: Orders Lipid Panel Today E78.5 - Hyperlipidemia, unspecified Comprehensive [place]. Panel Fast Today N28.9 - Disorder of kidney and ureter, unspecified Coding Level of Care Code Est Pt Level 4 (86075) Diagnoses Obstructive sleep apnea on CPAP G47.33; Z99.89 Essential hypertension I10 Hypertension type: essential hypertension PAF (paroxysmal atrial fibrillation) I48.0
[2023-05-20 10:28] VITALS: BP 124/60; PULSE 82; O2SAT 93; BMI 37.2
== END 2023-05-20 10:54 | disposition home or self-care (01) ==
PROVIDERS: PCP Internal Medicine; Visit Provider Internal Medicine
DX: G47.33 Obstructive sleep apnea (adult) (pediatric) (principal); Z99.89 Dependence on other enabling machines and devices; I10 Essential (primary) hypertension; I48.0 Paroxysmal atrial fibrillation
CPT/HCPCS: 99214

== ENCOUNTER → 2023-06-10 23:59 | Outpatient (BNV) | payer MEDICARE, SELFPAY ==
[2023-05-01 07:38] VITALS: BP 102/52; BP 152/60
[2023-05-26 17:23] VITALS: BP 112/48; BMI 37.8
--- NOTE | 2023-06-14 16:43 | MHC.OFFVIS ---
Intake Intake Visit Reasons: Remote ILR Check- [employer] Allergies No Known Allergies [No Known Allergies*] Allergy (Verified 05/20/23 10:28) PFSH Medical History Bronchitis Obstructive sleep apnea on CPAP Obesity Sleep apnea COVID-19 vaccine series completed Arthritis COPD (chronic obstructive pulmonary disease) Skin cancer Status post placement of implantable loop recorder BPH (benign prostatic hyperplasia) Paroxysmal atrial fibrillation Obesity Erectile dysfunction Urgency of micturition Hypertension Surgical History History of prostate surgery H/O colonoscopy History of cystoscopy Hx of total knee arthroplasty History of carpal tunnel release History of surgery Family History Father Medical history unknown Mother Lung cancer Social History Household Members: None Housing: House Alcohol intake: current Alcohol intake frequency: a few times a month Patient Tobacco Use Status: Former Tobacco user Quit Date: 2002 Tobacco use type: Cigarette Cigarette Packs Per Day: 2 Years Smoked: 30 e-Cigarette/Vaping Use: Never Used Patient Interested in Nicotine Replacement: No (NOT NEEDED) Second Hand Smoke Exposure: No service: No Current occupational status: retired Current occupation: [employer] Cognitive needs: No Hearing needs: No Vision needs: No Office Procedures Cardiac Device Check Cardiac Device Check Details: ILR No new alerts. [id number] Cardiac Interrogation, subcut cardiac rhythm monitor Procedure code (CPT) selection complete Assessment & Plan Assessment & Plan (1) Status post placement of implantable loop recorder: Code(s): Z95.818 - Presence of other cardiac implants and grafts Orders: Orders AMB Cardiac Device Follow-up 06/10/23 Z95.818 - Presence of other cardiac implants and grafts Coding Level of Care Code Procedure Only Diagnoses Status post placement of implantable loop recorder Z95.818 CPT Codes Cardiac Device Check - Cardiac Device 16: [id number] Cardiac Interrogation, subcut cardiac rhythm monitor ([id number])
== END ==
PROVIDERS: PCP Internal Medicine; Visit Provider Internal Medicine Cardiovascular Disease
DX: I48.0 Paroxysmal atrial fibrillation (principal); Z95.818 Presence of other cardiac implants and grafts
CPT/HCPCS: 93298

== ENCOUNTER 2023-06-27 12:38 | Outpatient (REF) | payer MEDICARE, SELFPAY ==
[2023-05-01 07:38] VITALS: BP 102/52; BP 152/60
[2023-06-25 14:09] VITALS: BP 112/48; BMI 37.8
[2023-06-27 14:40] LABS: Anion Gap 10 (12-20); Blood Urea Nitrogen 17 mg/dL (9-16); Calcium 9.3 mg/dL (8.4-10.2); Carbon Dioxide 26 mmol/L (22-29); Chloride 103 mmol/L (96-108); Estimated Glomerular Filt Rate 46; Glucose Random 107 mg/dL (60-115); Magnesium 2.3 mg/dL (1.6-2.6); Sodium 135 mmol/L (135-145)
== END 2023-06-27 12:39 | disposition home or self-care (01) ==
LOC: HO.LAB 12:38
PROVIDERS: PCP Internal Medicine; Visit Provider Internal Medicine Cardiovascular Disease
DX: I48.0 Paroxysmal atrial fibrillation (principal); I49.1 Atrial premature depolarization; I49.8 Other specified cardiac arrhythmias
CPT/HCPCS: 36415; 80048; 83735

== ENCOUNTER 2023-07-14 21:04 | Emergency (ER) | payer MEDICARE, SELFPAY ==
[2023-05-01 07:38] VITALS: BP 102/52; BP 152/60
[2023-06-25 14:09] VITALS: BP 112/48; BMI 37.8
--- NOTE | ~2023-07-14 | XR_ITS ---
EXAMINATION: XR LUMBOSACRAL SPINE CLINICAL INFORMATION: Back pain COMPARISON: 12/27/2015 TECHNIQUE: Three views of the lumbosacral spine. FINDINGS: There is been a progression of degenerative changes in the spine with more exuberant osteophyte formation. There is disc space narrowing at most levels. There is grade 1 anterolisthesis of L3 upon L4. Degenerative changes also are present at the lower facet joints, but difficult to evaluate. Vascular calcification is seen. No bony destructive lesions. 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
[2023-07-14 21:20] VITALS: BP 161/90; PULSE 55; RESP 18; TEMP 36.3; O2SAT 94; BMI 38.0
[2023-07-14 22:20] VITALS: PULSE 71; RESP 15; TEMP 36.4; O2SAT 96
[2023-07-14 22:35] LABS: Hematocrit 47.3 % (42.0-52.0); Hemoglobin 15.8 g/dl (14.0-18.0); Mean Corpuscular HGB Conc 33.4 g/dl (31.0-36.0); Mean Corpuscular Hemoglobin 31.6 pg (27.0-33.0); Mean Corpuscular Volume 94.6 fL (80.0-98.0); Platelet Count 200 X10*3/uL (160-400); Red Cell Distribution Width 12.6 % (11.0-16.0); White Blood Count 18.1 X10*3/uL (4.8-10.8)
--- NOTE | 2023-07-14 22:42 | ECG_ITS ---
Test Reason : WEAKNESS Blood Pressure : / mmHG Vent. Rate : 068 BPM Atrial Rate : 068 BPM P-R Int : 198 ms QRS Dur : 092 ms QT Int : 378 ms P-R-T Axes : 000 -27 047 degrees QTc Int : 401 ms Sinus rhythm with occasional Premature ventricular complexes Low voltage QRS Abnormal ECG When compared with ECG of 30-AUG-2019 12:39, Premature ventricular complexes are now Present Referred By: Joo Santiago Electronically Signed By:KEELY ROLDAN MD
--- NOTE | 2023-07-14 22:43 | ED.GENADULT ---
HPI - General Adult General Chief complaint: Back Pain/Injury Stated complaint: lower back pain Time Seen by Provider: 07/14/23 22:18 Source: patient, RN notes reviewed and old records reviewed Mode of arrival: ambulatory Limitations: no limitations History of Present Illness HPI narrative: Pt is a 78yo male presenting to the ED with a cc of low back pain radiating down his right anterior thigh stopping at his knee. Pt notes that he has a hx of chronic low back pain, neck pain, and sciatica. Pt states the pain started after walking more than usual this past Friday. Rates the current pain as 8/10 and achey in quality. He denies numbness, tingling, or incontinence. He took a total of 3 acetaminophen earlier in the day with minimal relief. Pt states the pain is consistent with past sciatica flare-ups. Pt denies any falls or trauma. Denies any numbness or weakness Related Data Home Medications Medication Instructions Recorded Confirmed cholecalciferol (vitamin D3) 25 25 mcg PO DAILY 02/14/23 05/20/23 mcg (1,000 unit) capsule multivitamin 1 tab PO DAILY 02/14/23 05/20/23 Previous Rx's Medication Instructions Recorded CPAP (CPAP Machine/Device) #1 ea 06/13/21 albuterol sulfate 90 mcg/actuation 2 puff PO Q6H PRN bronchospasm #18 07/03/22 aerosol inhaler grams tiotropium bromide 18 mcg capsule 1 cap inhalation DAILY #90 09/13/22 with inhalation device (Spiriva inhalations with HandiHaler) meloxicam 15 mg tablet 15 mg PO DAILY #90 tabs 11/19/22 tamsulosin 0.4 mg capsule 0.8 mg (2 x 0.4 mg) PO BEDTIME 90 01/24/23 days #180 caps apixaban 5 mg tablet (Eliquis) 5 mg PO BID 90 days #180 tabs 03/31/23 lisinopril 10 mg tablet 10 mg PO DAILY #90 tabs 04/16/23 metoprolol succinate 50 mg 50 mg PO DAILY #90 tabs 06/23/23 tablet,extended release 24 hr hydrochlorothiazide 12.5 mg tablet 12.5 mg PO DAILY #90 tabs 07/09/23 dexamethasone 4 mg tablet 4 mg PO BID #6 tabs 07/15/23 tramadol 50 mg tablet 50 mg PO Q6H PRN severe pain 07/15/23 (scale score 7-10) #12 tabs Allergies Allergy/AdvReac Type Severity Reaction Status Date / Time No Known Allergies Allergy Verified 05/20/23 10:28 [No Known Allergies*] Review of Systems Constitutional: Constitutional: Denies fever(s), Denies headache(s) and Denies weakness Eyes: Eyes: Denies change in vision ENT: Denies headache(s) Cardiovascular: Cardiovascular: Denies chest pain and Denies dyspnea Respiratory: Respiratory: Denies cough and Denies dyspnea Gastrointestinal: Gastrointestinal: Denies abdominal pain, Denies constipation, Denies fecal incontinence, Denies diarrhea, Denies nausea and Denies vomiting Genitourinary: Genitourinary: Denies difficulty urinating, Denies dysuria, Denies flank pain, Denies urinary frequency, Denies urinary incontinence and Denies urinary urgency Musculoskeletal: Musculoskeletal: Reports no additional musculoskeletal complaints, Reports as per HPI, Reports back pain, Denies numbness and Denies tingling Integumentary/Breasts: Skin/Breast: Denies rash Neurologic: Denies headache(s), Denies numbness, Denies tingling and Denies weakness PMFSH Past Medical History Medical History Bronchitis Obstructive sleep apnea on CPAP Obesity Sleep apnea COVID-19 vaccine series completed Arthritis COPD (chronic obstructive pulmonary disease) Skin cancer Status post placement of implantable loop recorder BPH (benign prostatic hyperplasia) Paroxysmal atrial fibrillation Obesity Erectile dysfunction Urgency of micturition Hypertension Surgical History History of prostate surgery H/O colonoscopy History of cystoscopy Hx of total knee arthroplasty History of carpal tunnel release History of surgery Family History Family History Father Medical history unknown Mother Lung cancer Social History Social History Household Members: None Housing: House Alcohol intake: current Alcohol intake frequency: a few times a month Patient Tobacco Use Status: Former Tobacco user Quit Date: 2002 Tobacco use type: Cigarette Cigarette Packs Per Day: 2 Years Smoked: 30 e-Cigarette/Vaping Use: Never Used Second Hand Smoke Exposure: No Advance Directives: No Advance Directives Information Provided: Yes service: No Current occupational status: retired Current occupation: [employer] Cognitive needs: No Hearing needs: No Vision needs: No Physical Exam ED Vital Signs: Vital Signs - 24 hr 07/14/23 21:20 07/14/23 22:20 Temperature 97.4 F 97.6 F Pulse Rate 55 71 Respiratory Rate 18 15 Blood Pressure 161/90 H Pulse Oximetry 94 96 Oxygen Delivery Method Room Air Room Air BMI result Body Mass Index 38.0 Const General: cooperative, no acute distress and alert Orientation/consciousness: patient oriented x3 HENMT Head: Yes normal to inspection, Yes normocephalic and Yes atraumatic Ears: hearing grossly normal bilaterally General nose exam: Normal external nose present Resp Effort & Inspection: normal respiratory effort and able to speak in complete sentences Back/Spine/Pelvis Other: ROM of right hip intact, right hip strength is 5/5 without causing pain. Vertebrae are nontender to palpation with some tenderness to right paraspinous muscles in the lumbar region. Sensation and pulses intact. Thoracic/Lumbar Spine: thoracic and lumbar spine normal to inspection Neuro General: patient oriented x3 Motor exam (neuro): 5/5 motor strength present throughout Course Reevaluation(s) Reevaluation #1: Discussed patient's relatively unremarkable workup with him the exception of degenerative changes to the lumbar spine. The patient does not feel safe going home tonight as he lives alone. He drove himself here. He would like to stay in the ER overnight for physical therapy and manager social media evaluation. The patient did walk to the bathroom independently. Physician observation will begin now. Patient was given dose of tramadol. Time: 00:45 Medications Administered Discontinued Medications Generic Name Dose Route Start Last Admin Trade Name Freq PRN Reason Stop Dose Admin Acetaminophen 975 mg 07/14/23 22:40 07/14/23 22:51 Acetaminophen 325 Mg Tablet PO 07/14/23 22:41 975 mg ONCE ONE Administration Dexamethasone 4 mg 07/14/23 22:40 07/14/23 22:51 Dexamethasone 4 Mg Tablet PO 07/14/23 22:41 4 mg ONCE ONE Administration Medical Decision Making Medical Decision Making MDM Narrative: 78-year-old male presents for evaluation of right lower back pain. He reports a history of similar pain a history of sciatica. He denies any traumatic injury. His pain is likely exacerbated by walking more than usual on Friday. No fevers, chills, no history of drug abuse, low suspicion for infectious spinal abscess. Patient has no numbness, tingling, weakness, bladder or bowel signs or symptoms. No warning signs for cauda equina syndrome. Patient is on Eliquis for AFib, therefore will withhold NSAIDs. Will check basic labs, UA to rule out obstructive uropathy/pyelonephritis. Patient's pain is quite reproducible examined most consistent with musculoskeletal origin. Patient given dexamethasone and Tylenol for his pain Differential Diagnosis Differential Diagnoses: The differential diagnosis associated with the presentation includes (acute on chronic sciatica flare-up, low back muscle strain, acute vertebral fracture, disc herniation, UTI, obstructive uropathy) Lab Data MDM Lab Attestation statement: I reviewed the patient's lab results. Patient has a leukocytosis to 18.1 K. this is consistent with his recent baseline that he has had leukocytosis to last few visits with no infectious cause. Unclear etiology at this time. Patient's BUN is 18 with a creatinine of 1.47 which is also consistent with his recent baseline dating back to 07/14/23 22:28 07/14/23 22:28 Labs: Lab Results 07/14/23 07/14/23 Range/Units 22:28 23:39 WBC 18.1 H (4.8-10.8) X10*3/uL RBC 5.00 (4.60-5.80) X10*6/uL Hgb 15.8 (14.0-18.0) g/dl Hct 47.3 (42.0-52.0) % MCV 94.6 (80.0-98.0) fL MCH 31.6 (27.0-33.0) pg MCHC 33.4 (31.0-36.0) g/dl RDW 12.6 (11.0-16.0) % Plt Count 200 (160-400) X10*3/uL MPV 10.0 (9.4-12.4) fL Absolute Nucleated RBC 0.000 (0.0-0.012) X10*3/uL Nucleated RBC % (auto) 0.0 (0.0-0.2) /100WBC Sodium 135 (135-145) mmol/L Potassium 4.5 (3.3-5.1) mmol/L Chloride 101 (96-108) mmol/L Carbon Dioxide 26 (22-29) mmol/L Anion Gap 13 (12-20) BUN 18 H (9-16) mg/dL Creatinine 1.47 H (0.5-1.4) mg/dL Estim Creat Clear Calc 49.7 Estimated GFR 46 Random Glucose 101 (60-115) mg/dL Calcium 9.2 (8.4-10.2) mg/dL Total Bilirubin 0.6 (0.0-1.0) mg/dL AST 24 (5-37) U/L ALT 18 (0-40) U/L Alkaline Phosphatase 82 (39-117) U/L Total Protein 7.1 (6.5-8.0) g/dL Albumin 4.0 (3.5-5.0) g/dL Urine Color Yellow Urine Appearance Clear Urine pH 6.5 (5.0-9.0) Ur Specific [place] 1.015 (1.005-1.025) Urine Protein Negative (Neg-Trace) mg/dL Urine Glucose (UA) Negative (Negative) mg/dL Urine Ketones Negative (Negative) mg/dL Urine Blood Negative (Negative) Urine Nitrite Negative (Negative) Ur Leukocyte Esterase Negative (Negative) Urine RBC 0-2 (0-2) /HPF Urine WBC 0-5 (0-5) /HPF Ur Squamous Epith Cells 0-2 (0-2) /HPF Urine Bacteria None Seen (None Seen) Hyaline Casts 0-2 (0-2) /LPF Discharge Plan Discharge Clinical Impression: Acute exacerbation of chronic low back pain Patient Disposition: Home, Self-Care Instructions: Sciatica (ED) Additional Instructions: Take dexamethasone twice daily for the next 3 days Use Tylenol as needed for pain You may use tramadol for more severe, breakthrough pain This may make you sleepy, did not drink alcohol or drive after taking Follow-up with your primary doctor Return for new or worsening symptoms Prescriptions: New dexamethasone 4 mg tablet 4 mg PO BID Qty: 6 0RF tramadol 50 mg tablet 50 mg PO Q6H PRN (Reason: severe pain (scale score 7-10)) Qty: 12 0RF No Action (DME) CPAP Machine/Device Device See Rx Instructions .Route Qty: 1 0RF Rx Instructions: 12CM H20 PREVIOUS MACHINE HAS BEEN RECALLED AND NOW NEEDS A NEW MACHINE BHAVANA albuterol sulfate 90 mcg/actuation HFA aerosol inhaler 2 puff PO Q6H PRN (Reason: bronchospasm) Qty: 18 8RF Spiriva with HandiHaler 18 mcg capsule, w/inhalation device 1 cap inhalation DAILY Qty: 90 5RF Eliquis 5 mg tablet 5 mg PO BID 90 Days Qty: 180 3RF lisinopril 10 mg tablet 10 mg PO DAILY Qty: 90 3RF metoprolol succinate 50 mg tablet extended release 24 hr 50 mg PO DAILY Qty: 90 3RF hydrochlorothiazide 12.5 mg tablet 12.5 mg PO DAILY Qty: 90 3RF meloxicam 15 mg tablet 15 mg PO DAILY Qty: 90 3RF tamsulosin 0.4 mg capsule 0.8 mg PO BEDTIME 90 Days Qty: 180 3RF multivitamin Tablet 1 tab PO DAILY cholecalciferol (vitamin D3) 25 mcg (1,000 unit) capsule 25 mcg PO DAILY
[2023-07-14] MEDS: Acetaminophen 325 MG TABLET 975 MG PO (22:51)
[2023-07-14] MEDS: dexAMETHasone 4 MG TABLET PO (22:51)
[2023-07-14 22:52] LABS: Alanine Aminotransferase 18 U/L (0-40); Alkaline Phosphatase 82 U/L (39-117); Anion Gap 13 (12-20); Aspartate Amino Transferase 24 U/L (5-37); Bilirubin Total 0.6 mg/dL (0.0-1.0); Blood Urea Nitrogen 18 mg/dL (9-16); Calcium 9.2 mg/dL (8.4-10.2); Carbon Dioxide 26 mmol/L (22-29); Chloride 101 mmol/L (96-108); Creatinine Clr Calc Pharmacy 49.7; Estimated Glomerular Filt Rate 46; Glucose Random 101 mg/dL (60-115); Potassium 4.5 mmol/L (3.3-5.1); Sodium 135 mmol/L (135-145); Total Protein 7.1 g/dL (6.5-8.0)
--- NOTE | 2023-07-14 22:55 | PC.NURSE ---
pt changed over to hospital attire, pt place on bed side monitor, ekg completed, labs drawn, pt resting in bed awaiting results.
[2023-07-14 23:46] LABS: Appearance Urine Clear; Color Urine Yellow; Glucose Urine UA Negative (Negative); Leukocyte Esterase Urine Negative (Negative); Nitrite Urine Negative (Negative); PH 6.5 (5.0-9.0); Specific Gravity - Urine 1.015 (1.005-1.025); Urine Blood Negative (Negative); Urine Ketones Negative (Negative); Urine Protein Negative (Neg-Trace)
[2023-07-14 23:51] LABS: Bacteria Urine None Seen (None Seen); Hyaline Casts Urine 0-2 /LPF (0-2); RBC Urine 0-2 /HPF (0-2); Squamous Epithelial Cell Urine 0-2 /HPF (0-2); WBC Urine 0-5 /HPF (0-5)
[2023-07-15] MEDS: LORazepam 1 MG TABLET 2 MG PO (00:54)
[2023-07-15 01:00] VITALS: BP 129/89; PULSE 69; O2SAT 96
--- NOTE | 2023-07-15 01:05 | PC.NURSE ---
pt change into hospital attire, placed in a hospital bed and medicated per Oct.
--- NOTE | 2023-07-15 02:48 | PC.NURSE ---
pt resting in bed no sign of distress.
[2023-07-15 03:23] VITALS: RESP 20
[2023-07-15 06:33] VITALS: BP 117/65; PULSE 64; RESP 20; O2SAT 91
[2023-07-15 08:27] VITALS: BP 111/63; PULSE 77; O2SAT 93
[2023-07-15 08:48] LABS: COVID-19 Test Negative (Negative); IDNOW Serial# BCCEAD1C
[2023-07-15 09:25] VITALS: BP 118/72; PULSE 79; RESP 18; TEMP 36.1; O2SAT 93
[2023-07-15 09:56] VITALS: BP 111/63; PULSE 87; O2SAT 95
--- NOTE | 2023-07-15 10:39 | MHC.CM.PN ---
Received CM consult overnight d/t back pain. Physical Therapy assessed patient, recommended home with no services. Met with patient at bedside, from home alone, independent, no services. Has CPAP, supplies through [employer]. PCP: José Luis Martell MD - HCP: provided education, does not wish to complete at this time, would like to speak with family and PCP first DCP: home, self care, car in lot and able to transport self
== END 2023-07-15 12:16 | disposition home or self-care (01) ==
PROVIDERS: Physician Assistant Medical; Emergency Provider Emergency Medicine Emergency Medical Services; PCP Internal Medicine
DX: M54.50 Low back pain, unspecified (principal); G89.29 Other chronic pain; D72.829 Elevated white blood cell count, unspecified; I10 Essential (primary) hypertension; I48.0 Paroxysmal atrial fibrillation; Z87.891 Personal history of nicotine dependence; Z79.01 Long term (current) use of anticoagulants; Z79.899 Other long term (current) drug therapy; Z11.52 Encounter for screening for COVID-19
CPT/HCPCS: 36415; 72100; 80053; 81001; 85027; 87635; 93005; 97161; 99285; J8540

== ENCOUNTER → 2023-07-15 23:59 | Outpatient (BNV) | payer MEDICARE, SELFPAY ==
[2023-05-01 07:38] VITALS: BP 102/52; BP 152/60
[2023-06-25 14:09] VITALS: BP 112/48; BMI 37.8
--- NOTE | 2023-07-16 14:34 | MHC.OFFVIS ---
Intake Intake Visit Reasons: Remote ILR Check- Medtronic Allergies No Known Allergies [No Known Allergies*] Allergy (Verified 05/20/23 10:28) PFSH Medical History Bronchitis Obstructive sleep apnea on CPAP Obesity Sleep apnea COVID-19 vaccine series completed Arthritis COPD (chronic obstructive pulmonary disease) Skin cancer Status post placement of implantable loop recorder BPH (benign prostatic hyperplasia) Paroxysmal atrial fibrillation Obesity Erectile dysfunction Urgency of micturition Hypertension Surgical History History of prostate surgery H/O colonoscopy History of cystoscopy Hx of total knee arthroplasty History of carpal tunnel release History of surgery Family History Father Medical history unknown Mother Lung cancer Household Members: None Housing: House Alcohol intake: current Alcohol intake frequency: 0-2 drinks per day Patient Tobacco Use Status: Former Tobacco user Quit Date: 2002 Tobacco use type: Cigarette Cigarette Packs Per Day: 2 Years Smoked: 30 e-Cigarette/Vaping Use: Never Used Second Hand Smoke Exposure: No Advance Directives: No Advance Directives Information Provided: Yes service: No Current occupational status: retired Current occupation: Right Cognitive needs: No Hearing needs: No Vision needs: No Office Procedures Cardiac Device Check Cardiac Device Check Details: ILR No new alerts. [id number] Cardiac Interrogation, subcut cardiac rhythm monitor Procedure code (CPT) selection complete Assessment & Plan Assessment & Plan (1) Status post placement of implantable loop recorder: Code(s): Z95.818 - Presence of other cardiac implants and grafts Orders: Orders AMB Cardiac Device Follow-up 07/15/23 Z95.818 - Presence of other cardiac implants and grafts Coding Level of Care Code Procedure Only Diagnoses Status post placement of implantable loop recorder Z95.818 CPT Codes Cardiac Device Check - Cardiac Device 16: [id number] Cardiac Interrogation, subcut cardiac rhythm monitor ([id number])
== END ==
PROVIDERS: PCP Internal Medicine; Visit Provider Internal Medicine Cardiovascular Disease
DX: I48.0 Paroxysmal atrial fibrillation (principal); Z95.818 Presence of other cardiac implants and grafts
CPT/HCPCS: 93298

== ENCOUNTER 2023-08-04 10:07 | Outpatient (AMB) | payer MEDICARE, SELFPAY ==
[2023-05-01 07:38] VITALS: BP 102/52; BP 152/60
[2023-07-22 10:30] VITALS: BP 112/48; BMI 37.8
[2023-08-04 10:18] VITALS: BP 112/60; PULSE 69; O2SAT 95; BMI 37.6
--- NOTE | 2023-08-04 10:18 | MHC.OFFVIS ---
Intake Vital Signs 08/04/23 10:18 Height 5 ft 8 in Weight 247 lb BMI 37.6 BP 112/60 Blood Pressure Location Lt brachial Position Sitting Pulse 69 Pulse Source Pulse Oximeter Pulse Oximetry (%) 95 Oxygen Delivery Method Room Air Intake Visit Reasons: COPD Intake Note: pt is here for follow up and states he has been having headaches, sinus congestion and pressure , not sure if he has an infection, mostly all in head, breathing is doing ok, and using cpap nightly. Tip Tester Required: No Allergies No Known Allergies [No Known Allergies*] Allergy (Verified 08/04/23 10:40) Medication List - Last Reconciled 08/04/23 by Mann Chester MD albuterol sulfate 90 mcg/actuation 2 puffs PO Q6H PRN apixaban (Eliquis) 5 mg PO BID 90 days cholecalciferol (vitamin D3) 25 mcg PO DAILY CPAP (CPAP Machine/Device) 12CM H20 PREVIOUS MACHINE HAS BEEN RECALLED AND NOW NEEDS A NEW MACHINE BHAVANA hydrochlorothiazide 12.5 mg PO DAILY lisinopril 10 mg PO DAILY meloxicam 15 mg PO DAILY metoprolol succinate ER 50 mg PO DAILY multivitamin 1 tab PO DAILY tamsulosin 0.8 mg (2 x 0.4 mg) PO BEDTIME 90 days tiotropium bromide (Spiriva with HandiHaler) 1 cap inhalation DAILY tramadol 50 mg PO Q6H PRN Do you need a note to return to daycare/school/sports/work: No HPI COPD HPI Details 78 YEARS OLD GENTLEMAN WHO IS GROSSLY OBESE AND HAS DIAGNOSIS OF OBSTRUCTIVE SLEEP APNEA, HE IS HERE FOR 6 MONTHS FOLLOW-UP. CLAIMS THAT HE USES THE CPAP EVERY NIGHT ( WITH NASAL PILLOWS ) BUT HIS SLEEP REMAINS SOMEWHAT INTERRUPTED. DENIES DAYTIME SLEEPY. THERE IS NO PROBLEM WITH THE NASAL PILLOWS OR CPAP MACHINE. BREATHING SUAREZ HAS BEEN STABLE BUT HE DOES GET SHORT OF BREATH ON MINIMAL EXERTION. HE CONTINUES TO HAVE ONGOING LOW GRADE HOARSENESS IRRITATION IN THE THROAT. ALSO FEELS SOMEWHAT CONGESTED IN HIS SINUSES. HOWEVER HE HAS HAD NO FEVER OR CHILLS. COUGH IS MOSTLY DRY AND ONLY WHEN HE LIES DOWN . HE USES SPIRIVA HANDIHALER ONCE A DAY AND DOES NOT HAVE ANY RESCUE INHALER ON HAND AT THIS TIME. STILL SMOKES ABOUT 2-3 CIGARETTES A DAY. ONE OF THE MEDICINE LISTED OF HIS DEXAMETHASONE 4 MG B.I.D., I TRY TO CLARIFY WITH HIM HE IS NOT SURE BUT HE DOES NOT THINK HE IS TAKING IT ANY MORE. HE HAD ACUTE BOUT OF BACK ACHE AND MAY HAVE BEEN PRESCRIBED THIS MEDICINE TEMPORARILY. [facility] Medical History (Updated 08/04/23 @ 11:06 by Mann Chester MD) PRAVEEN on CPAP Bronchitis Obstructive sleep apnea on CPAP Obesity Sleep apnea COVID-19 vaccine series completed Arthritis COPD (chronic obstructive pulmonary disease) Skin cancer Status post placement of implantable loop recorder BPH (benign prostatic hyperplasia) Paroxysmal atrial fibrillation Obesity Erectile dysfunction Urgency of micturition Hypertension Surgical History History of prostate surgery H/O colonoscopy History of cystoscopy Hx of total knee arthroplasty History of carpal tunnel release History of surgery Family History Father Medical history unknown Mother Lung cancer Social History Household Members: None Housing: House Alcohol intake: current Alcohol intake frequency: 0-2 drinks per day Patient Tobacco Use Status: Former Tobacco user Quit Date: 2002 Tobacco use type: Cigarette Cigarette Packs Per Day: 2 Years Smoked: 30 e-Cigarette/Vaping Use: Never Used Second Hand Smoke Exposure: No service: No Current occupational status: retired Current occupation: Right Cognitive needs: No Hearing needs: No Vision needs: No Review of Systems Const All systems reviewed & are unremarkable except as noted in HPI and below Eyes Reports no additional complaints ENT Reports no additional complaints Card Denies chest pain, Denies irregular heart rhythm and Denies leg edema Resp Reports as per HPI (He has increased cough and congestion for the last 3-4 weeks) GI Reports no additional complaints Reports no additional complaints Musc Reports no additional complaints Skin/Breast Reports system reviewed and no additional complaints, except as documented Neuro Reports no additional complaints Psych Reports no additional complaints Physical Exam Vital Signs: Last Vital Signs Pulse 69 08/04/23 10:18 BP 112/60 08/04/23 10:18 Pulse Ox 95 08/04/23 10:18 Oxygen Delivery Method Room Air 08/04/23 10:18 BMI result Body Mass Index 37.6 Const Other: Patient is grossly obese with a round face, short and obese neck. General: comfortable, no acute distress, alert and awake Orientation/consciousness: patient oriented x3 HEENT Head: Yes normal to inspection General nose exam: No nasal polyps present, mucous membranes and turbinates abnormal (MODERATE HYPERTROPHY OF THE NASAL TURBINATES) and No nasal discharge present Face and sinus: Yes sinuses nontender Mouth: oropharynx abnormals (Oropharynx is narrow and crowded, Mallampati class 4.) Throat: Yes posterior oropharynx normal Eyes General: appearance normal, both eyes and all related structures Neck Neck: Yes normal visual inspection, Yes no lymphadenopathy, Yes trachea midline and Yes no JVD Thyroid: Thyroid normal Chest Chest palpation & inspection: normal inspection of the chest, normal palpation of entire chest wall and no tenderness Resp Other: Percussion note resonant, breath sounds are diminished and distant with prolonged expiratory phase. No wheezes or crepitations are heard . No cough on taking deep breaths. Cardio Palpation: normal PMI Rate: regular rate Rhythm: regular rhythm Heart sounds: no gallops and no murmurs GI Palpation (GI): Soft to palpation, nontender, No hepatosplenomegaly present, no masses and Other GI palpation findings present (Abdomen is obese and protuberant) Auscultation: normal bowel sounds Back/Spine/Pelvis Thoracic/Lumbar Spine: thoracic and lumbar spine normal to inspection and thoraco-lumbar ROM limited Skin General skin exam: no rashes or lesions noted Neuro General: patient oriented x3 and no focal motor deficits Cranial nerves: Yes CN's II-XII intact bilaterally Extrem General: Yes normal to inspection, Yes no clubbing, cyanosis or edema and Yes no calf tenderness Psych Appearance: grossly normal and well kempt Speech and movement: Normal speech and movement present Results Reviewed Results Reviewed: CPAP compliance report is reviewed. He has been using it on a regular basis . The hours of sleep are somewhat erratic. Assessment & Plan Assessment & Plan (1) COPD (chronic obstructive pulmonary disease): Comment: Known case of chronic obstructive pulmonary disease, moderately severe. Clinically seems to be stable. Code(s): J44.9 - Chronic obstructive pulmonary disease, unspecified Plan: TX: Advised to continue using Spiriva HandiHaler 1 inhalation daily. ProAir 2 puffs Q 4-6 hours only p.r.n., prescription sent to pharmacy. (2) Obesity: Comment: CHRONIC OBESITY,BMI= 37.6 PATIENT IS WELL AWARE OF THIS ISSUE. HE IS ACTIVE IN DOING EXERCISE AND IS TRYING TO LIMIT HIS CALORIES INTAKE. Code(s): E66.9 - Obesity, unspecified Plan: Encouraged to keep on watching his diet and start walking regularly (3) Persistent hoarseness: Comment: This is a chronic nonspecific symptom. There is no obvious infection in the throat Code(s): R49.0 - Dysphonia Plan: Advised to gargle throat with salt and water, t.i.d. regularly. Also advised to start weaning Ng a vaporizer or humidifier in the bedroom every night. (4) PRAVEEN on CPAP: Comment: Known case of obstructive sleep apnea. Using CPAP regularly, with nasal pillows. Sleep hours are somewhat erratically. No issues with the nasal pillows of or CPAP device Code(s): G47.33 - Obstructive sleep apnea (adult) (pediatric) Plan: Continue to use the CPAP every night for at least 6 hours per night . Coding Level of Care Code Est Pt Level 3 (89822) Diagnoses COPD (chronic obstructive pulmonary disease) J44.9 Obesity E66.9 Persistent hoarseness R49.0 PRAVEEN on CPAP G47.33
== END 2023-08-04 10:54 | disposition home or self-care (01) ==
PROVIDERS: PCP Internal Medicine; Visit Provider Internal Medicine
DX: J44.9 Chronic obstructive pulmonary disease, unspecified (principal); E66.9 Obesity, unspecified; R49.0 Dysphonia; G47.33 Obstructive sleep apnea (adult) (pediatric)
CPT/HCPCS: 99213

== ENCOUNTER → 2023-08-04 10:07 | Outpatient (BNVA) | payer MEDICARE, SELFPAY ==
[2023-05-01 07:38] VITALS: BP 102/52; BP 152/60
[2023-07-22 10:30] VITALS: BP 112/48; BMI 37.8
== END ==
PROVIDERS: PCP Internal Medicine; Visit Provider Internal Medicine
DX: J44.9 Chronic obstructive pulmonary disease, unspecified (principal); G47.33 Obstructive sleep apnea (adult) (pediatric); R49.0 Dysphonia; E66.9 Obesity, unspecified; Z68.37 Body mass index [BMI] 37.0-37.9, adult
CPT/HCPCS: 99212

== ENCOUNTER 2023-08-11 13:25 | Outpatient (AMB) | payer MEDICARE, SELFPAY ==
[2023-05-01 07:38] VITALS: BP 102/52; BP 152/60
[2023-07-22 10:30] VITALS: BP 112/48; BMI 37.8
[2023-08-11 13:50] VITALS: BP 130/56; PULSE 60; BMI 37.3
--- NOTE | 2023-08-11 13:50 | A.OFFVIS_ITS ---
Intake Vital Signs 08/11/23 13:50 Height 5 ft 8 in Weight 245 lb 9.519 oz BMI 37.3 BP 130/56 L Blood Pressure Location Lt brachial Position Sitting Pulse 60 Pulse Source Pulse Oximeter Intake Visit Reasons: 6 month follow up Intake Note: 6 mnth f/up pt its feeling good Veneer Stapler Required: No Accompanied by: Self / Same As Patient Allergies No Known Allergies [No Known Allergies*] Allergy (Verified 08/04/23 10:40) Medication List - Last Reconciled 08/11/23 by John Townsend MD albuterol sulfate 90 mcg/actuation 2 puffs PO Q6H PRN apixaban (Eliquis) 5 mg PO BID 90 days cholecalciferol (vitamin D3) 25 mcg PO DAILY CPAP (CPAP Machine/Device) 12CM H20 PREVIOUS MACHINE HAS BEEN RECALLED AND NOW NEEDS A NEW MACHINE BHAVANA hydrochlorothiazide 12.5 mg PO DAILY lisinopril 10 mg PO DAILY meloxicam 15 mg PO DAILY metoprolol succinate ER 50 mg PO DAILY multivitamin 1 tab PO DAILY tamsulosin 0.8 mg (2 x 0.4 mg) PO BEDTIME 90 days tiotropium bromide (Spiriva with HandiHaler) 1 cap inhalation DAILY HPI HPI Comments History of Present Illness Details 78-year-old gentleman here for follow-up . He was thought to have atrial fibrillation when he presented emergency department but no EKG or telemetry strips were documented. He was started on anticoagulation. After that he had cardiac event monitor followed by implantable loop recorder. So far no evidence of atrial fibrillation was seen and he was taken off the anticoagulation. He is denying any symptoms. He has no chest pain or shortness breath otherwise. No palpitations. We have been interrogating in the implantable loop recorder and there has not been any episodes of atrial fibrillation and he continues to be off anticoagulation. Blood pressure is little low but he has no dizziness or lightheadedness. His denying any chest discomfort. He is saying he exercises in approved daily. He has back issues and previous right knee replacement. 08/11/2023: He returns for follow-up. H e is doing well. No palpitations. No chest discomfort shortness of breath. He has noticed some bruising on his arm and does after lb. I have explained to him that this is somewhat expected with Eliquis. He does not have any GI or bleed. [facility] Medical History (Updated 08/04/23 @ 11:06 by Mann Chester MD) PRAVEEN on CPAP Bronchitis Obstructive sleep apnea on CPAP Obesity Sleep apnea COVID-19 vaccine series completed Arthritis COPD (chronic obstructive pulmonary disease) Skin cancer Status post placement of implantable loop recorder BPH (benign prostatic hyperplasia) Paroxysmal atrial fibrillation Obesity Erectile dysfunction Urgency of micturition Hypertension Surgical History History of prostate surgery H/O colonoscopy History of cystoscopy Hx of total knee arthroplasty History of carpal tunnel release History of surgery Family History Father Medical history unknown Mother Lung cancer Social History Household Members: None Housing: House Alcohol intake: current Alcohol intake frequency: 0-2 drinks per day Patient Tobacco Use Status: Former Tobacco user Quit Date: 2002 Tobacco use type: Cigarette Cigarette Packs Per Day: 2 Years Smoked: 30 e-Cigarette/Vaping Use: Never Used Second Hand Smoke Exposure: No service: No Current occupational status: retired Current occupation: Right Cognitive needs: No Hearing needs: No Vision needs: No Review of Systems Const Reports chills, Reports fatigue, Reports fever(s), Reports frequent falls, Reports weakness, Reports weight gain and Reports weight loss ENT Reports dizziness Card Reports chest pain, Reports leg edema, Reports lightheadedness, Reports palpi tations, Reports dyspnea and Reports dyspnea on exertion Resp Reports cough, Reports dyspnea and Reports dyspnea on exertion GI Reports hematochezia Musc Reports abnormal gait, Reports muscle weakness, Reports numbness, Reports radiating pain into limb and Reports tingling Neuro Reports abnormal gait, Reports dizziness, Reports frequent falls, Reports numbness, Reports tingling and Reports weakness Endo Reports fatigue and Reports palpitations Physical Exam Vital Signs: Last Vital Signs Pulse 60 08/11/23 13:50 BP 130/56 L 08/11/23 13:50 BMI result Body Mass Index 37.3 GENERAL APPEARANCE: in no acute distress, well developed, well nourished. NECK/THYROID: no carotid bruit.. SKIN: no suspicious lesions, warm and dry. HEART: no murmurs, regular rate and rhythm, S1, S2 normal. LUNGS: clear to auscultation bilaterally. ABDOMEN: normal, bowel sounds present, soft, nontender, nondistended. EXTREMITIES: no clubbing, cyanosis. 1+ edema PERIPHERAL PULSES: equal. NEUROLOGIC: nonfocal, alert and oriented. PSYCH: mood/affect full range. Assessment & Plan Assessment & Plan (1) Hypertension: Code(s): I10 - Essential (primary) hypertension Qualifiers: Hypertension type: essential hypertension Qualified Code(s): I10 - Essential (primary) hypertension (2) PAF (paroxysmal atrial fibrillation): Code(s): I48.0 - Paroxysmal atrial fibrillation Plan Pleasant 78-year-old gentleman here for follow-up. Clinically stable. No chest discomfort shortness of breath. He has paroxysmal atrial fibrillation and has been on apixaban. Currently taking hydrochlorothiazide, lisinopril and metoprolol succinate. Blood pressure control is reasonable. He will see us back in 6 months. I explained to him that he will be on Eliquis long-term given history of atrial fibrillation. Thank you for allowing me to participate in the care of your patient. Please feel free to contact me if you have any questions. Coding Level of Care Code Est Pt Level 3 (77184) Diagnoses Essential hypertension I10 Hypertension type: essential hypertension PAF (paroxysmal atrial fibrillation) I48.0
== END 2023-08-11 14:15 | disposition home or self-care (01) ==
PROVIDERS: PCP Internal Medicine; Visit Provider Internal Medicine Cardiovascular Disease
DX: I10 Essential (primary) hypertension (principal); I48.0 Paroxysmal atrial fibrillation
CPT/HCPCS: 99213

== ENCOUNTER → 2023-08-11 13:25 | Outpatient (BNVA) | payer MEDICARE, SELFPAY ==
[2023-08-05 07:17] VITALS: BP 112/48; BP 122/56; BP 142/76; BMI 37.8
== END ==
PROVIDERS: PCP Internal Medicine; Visit Provider Internal Medicine Cardiovascular Disease
DX: I10 Essential (primary) hypertension (principal); I48.0 Paroxysmal atrial fibrillation
CPT/HCPCS: 99212

== ENCOUNTER 2023-08-14 10:13 | Outpatient (AMB) | payer MEDICARE, SELFPAY ==
[2023-05-01 07:38] VITALS: BP 102/52; BP 152/60; BMI 37.8
[2023-08-05 07:17] VITALS: BP 112/48; BP 122/56; BP 142/76; BMI 37.8
[2023-08-14 10:15] VITALS: BP 118/62; BMI 37.6
--- NOTE | 2023-08-14 10:15 | MHC.PC.OV ---
Vital Signs 08/14/23 10:15 Height 5 ft 8 in Weight 247 lb BMI 37.6 BP 118/62 Blood Pressure Location Lt brachial Position Sitting Pulse Source Pulse Oximeter Oxygen Delivery Method Room Air Intake Visit Reasons: 3 MONTH F/U Senior Dot Net Developer Required: No Weigher And Crusher: Not Required per policy Accompanied by: Self / Same As Patient Allergies No Known Allergies [No Known Allergies*] Allergy (Verified 08/14/23 10:15) Medication List - Last Reconciled 08/14/23 by José Luis Martell MD albuterol sulfate 90 mcg/actuation 2 puffs PO Q6H PRN apixaban (Eliquis) 5 mg PO BID 90 days cholecalciferol (vitamin D3) 25 mcg PO DAILY CPAP (CPAP Machine/Device) 12CM H20 PREVIOUS MACHINE HAS BEEN RECALLED AND NOW NEEDS A NEW MACHINE BHAVANA hydrochlorothiazide 12.5 mg PO DAILY lisinopril 10 mg PO DAILY meloxicam 15 mg PO DAILY metoprolol succinate ER 50 mg PO DAILY multivitamin 1 tab PO DAILY tamsulosin 0.8 mg (2 x 0.4 mg) PO BEDTIME 90 days tiotropium bromide (Spiriva with HandiHaler) 1 cap inhalation DAILY Tobacco use date assessed: 02/19/23 Fall risk assessment: No Falls in past year Last assessed Fall Risk: 08/14/23 Dental Screening Dental Screen Date: 08/14/23 Did you have a dental visit in the last 12 months?: Yes Did you have a dental problem in the last 6 months where you did not have access to dental care?: No Was dental information given to patient?: Patient has dentist HPI 3 MONTH F/U HPI Details atrial fib hypertension and sleep apnea; doing well and compliant [facility] Medical History PRAVEEN on CPAP Bronchitis Obstructive sleep apnea on CPAP Obesity Sleep apnea COVID-19 vaccine series completed Arthritis COPD (chronic obstructive pulmonary disease) Skin cancer Status post placement of implantable loop recorder BPH (benign prostatic hyperplasia) Paroxysmal atrial fibrillation Obesity Erectile dysfunction Urgency of micturition Hypertension Surgical History History of prostate surgery H/O colonoscopy History of cystoscopy Hx of total knee arthroplasty History of carpal tunnel release History of surgery Family History Father Medical history unknown Mother Lung cancer Social History Household Members: None Housing: House Alcohol intake: current Alcohol intake frequency: 0-2 drinks per day Patient Tobacco Use Status: Former Tobacco user Quit Date: 2002 Tobacco use type: Cigarette Cigarette Packs Per Day: 2 Years Smoked: 30 e-Cigarette/Vaping Use: Never Used Second Hand Smoke Exposure: No service: No Current occupational status: retired Current occupation: Right Cognitive needs: No Hearing needs: No Vision needs: No Questionnaire Thrive Questionnaire Date Thrive assessed: 11/19/22 YELENA-7 AMB Questionnaire YELENA-7 Date YELENA - 7 assessed: 11/19/22 Source: Developed by Drs. Jef Singh, Klaudia Saenz, Marek Curran and colleagues, with an educational cherrie from [employer]. Review of Systems Const Denies chills, Denies headache(s) and Denies weight loss ENT Denies headache(s) Card Denies chest pain, Denies syncope, Denies irregular heart rhythm and Denies dyspnea Resp Denies chest congestion, Denies cough and Denies dyspnea GI Denies abdominal pain, Denies change in stool character, Denies nausea and Denies vomiting Musc Denies deformity and Denies joint swelling Neuro Denies syncope and Denies headache(s) Physical exam (Primary Care) Vital Signs: Last Vital Signs BP 118/62 08/14/23 10:15 Oxygen Delivery Method Room Air 08/14/23 10:15 BMI result Body Mass Index 37.6 Tobacco/Smoking Status: Tobacco use Status Tobacco use date assessed 02/19/23 08/14/23 10:20 Patient Tobacco Use Status Former Tobacco user 08/14/23 10:20 Tobacco use type Cigarette 08/14/23 10:20 e-Cigarette/Vaping Use Never Used 08/14/23 10:20 Thrive Assessment: Date of Thrive Assessment Date Thrive assessed 11/19/22 08/14/23 10:20 Const General: cooperative, comfortable, no acute distress and alert Neck Neck: Yes no lymphadenopathy Thyroid: Thyroid normal Resp Effort & Inspection: normal respiratory effort Auscultation: clear to auscultation bilaterally Percussion: percussion normal Cardio Jugular venous distension: no JVD Palpation: normal PMI Rate: regular rate Rhythm: regular rhythm Heart sounds: S1 normal heart sound present and S2 normal heart sound present GI Inspection: Yes normal to inspection Palpation (GI): No hepatosplenomegaly present Skin General skin exam: no rashes or lesions noted Extrem General: Yes no clubbing, cyanosis or edema Assessment and Plan Assessment & Plan (1) Obstructive sleep apnea on CPAP: Code(s): G47.33 - Obstructive sleep apnea (adult) (pediatric); Z99.89 - Dependence on other enabling machines and devices Plan: stable; same rx (2) PAF (paroxysmal atrial fibrillation): Code(s): I48.0 - Paroxysmal atrial fibrillation Plan: stable; same rx (3) Hypertension: Code(s): I10 - Essential (primary) hypertension Qualifiers: Hypertension type: essential hypertension Qualified Code(s): I10 - Essential (primary) hypertension Plan: stable; same rx Coding Level of Care Code Est Pt Level 4 (39366) Diagnoses Obstructive sleep apnea on CPAP G47.33; Z99.89 PAF (paroxysmal atrial fibrillation) I48.0 Essential hypertension I10 Hypertension type: essential hypertension
== END 2023-08-14 10:32 | disposition home or self-care (01) ==
PROVIDERS: PCP Internal Medicine; Visit Provider Internal Medicine
DX: G47.33 Obstructive sleep apnea (adult) (pediatric) (principal); Z99.89 Dependence on other enabling machines and devices; I48.0 Paroxysmal atrial fibrillation; I10 Essential (primary) hypertension
CPT/HCPCS: 99214

== ENCOUNTER → 2023-08-19 23:59 | Outpatient (BNV) | payer MEDICARE, SELFPAY ==
[2023-08-05 07:17] VITALS: BP 112/48; BP 122/56; BP 142/76; BMI 37.8
--- NOTE | 2023-08-23 17:55 | MHC.OFFVIS ---
Intake Intake Visit Reasons: Remote ILR Check- Medtronic Allergies No Known Allergies [No Known Allergies*] Allergy (Verified 08/21/23 11:13) PFSH Medical History PRAVEEN on CPAP Bronchitis Obstructive sleep apnea on CPAP Obesity Sleep apnea COVID-19 vaccine series completed Arthritis COPD (chronic obstructive pulmonary disease) Skin cancer Status post placement of implantable loop recorder BPH (benign prostatic hyperplasia) Paroxysmal atrial fibrillation Obesity Erectile dysfunction Urgency of micturition Hypertension Surgical History History of prostate surgery H/O colonoscopy History of cystoscopy Hx of total knee arthroplasty History of carpal tunnel release History of surgery Family History Father Medical history unknown Mother Lung cancer Social History Household Members: None Housing: House Alcohol intake: current Alcohol intake frequency: 0-2 drinks per day Patient Tobacco Use Status: Former Tobacco user Quit Date: 2002 Tobacco use type: Cigarette Cigarette Packs Per Day: 2 Years Smoked: 30 e-Cigarette/Vaping Use: Never Used Second Hand Smoke Exposure: No Use of substances other than those prescribed or required for medical reasons: No Have you been hit, kicked, punched, or otherwise hurt by someone within the past year? If so, by whom?: No Do you feel safe in your current relationship?: No Current Relationship Do you have thoughts of harming others: None Do you have a plan to hurt others: No Plan Do you have the means to hurt others: No Recently lost weight without trying: No service: No Current occupational status: retired Current occupation: Right Cognitive needs: No Hearing needs: No Vision needs: No Office Procedures Cardiac Device Check Cardiac Device Check Details: ILR No new alerts. No recent Afib episodes. Recorded EGM has frequent PVCs. [id number] Cardiac Interrogation, subcut cardiac rhythm monitor Procedure code (CPT) selection complete Assessment & Plan Assessment & Plan (1) PAF (paroxysmal atrial fibrillation): Code(s): I48.0 - Paroxysmal atrial fibrillation Plan: Orders: Orders AMB Cardiac Device Follow-up 08/19/23 I48.0 - Paroxysmal atrial fibrillation Coding Level of Care Code Procedure Only Diagnoses PAF (paroxysmal atrial fibrillation) I48.0 CPT Codes Cardiac Device Check - Cardiac Device 16: [id number] Cardiac Interrogation, subcut cardiac rhythm monitor ([id number])
== END ==
PROVIDERS: PCP Internal Medicine; Visit Provider Internal Medicine Cardiovascular Disease
DX: I48.0 Paroxysmal atrial fibrillation (principal); Z95.818 Presence of other cardiac implants and grafts
CPT/HCPCS: 93298

== ENCOUNTER → 2023-08-27 11:59 | Outpatient (BNV) | payer MEDICARE, SELFPAY ==
[2023-08-05 07:17] VITALS: BP 112/48; BP 122/56; BP 142/76; BMI 37.8
== END ==
PROVIDERS: PCP Internal Medicine; Visit Provider Internal Medicine Cardiovascular Disease
DX: I48.0 Paroxysmal atrial fibrillation (principal); Z95.818 Presence of other cardiac implants and grafts
CPT/HCPCS: 33286

== ENCOUNTER → 2023-08-27 11:59 | Day surgery (SDC) | payer MEDICARE, SELFPAY ==
[2023-08-05 07:17] VITALS: BP 112/48; BP 122/56; BP 142/76; BMI 37.8
[2023-08-27 13:37] VITALS: BMI 37.7
[2023-08-27 13:38] VITALS: BP 138/70; PULSE 56; RESP 16; TEMP 36.8; O2SAT 94
--- NOTE | 2023-08-27 14:14 | PM.OP ---
Brief Operative Note Date of Service: 08/27/23 Pre-op diagnosis: Implantable loop recorder in place Post-op diagnosis: same Procedure: Removal of implantable loop recorder. Implants: After obtaining informed consent patient was brought to the minor surgery suite and laid supine on the operating table. Patient is precordial area was then prepped and draped in a sterile fashion. The device was then located. Patient was then given 2% lidocaine with epinephrine intradermally and subcutaneously around the device. A small incision was then made at the head of the device. The device was then removed with help of a Citlaly forcep. Pressure hemostasis was then achieved. The wound was then closed with Steri-Strips and a pressure dressing applied. Surgeon: Ken Valles MD Anesthesia: local Was an Archeologist Classical used for this Procedure?: No Estimated blood loss (mL): 5 Pathology: none sent Condition: stable Disposition: same day
[2023-08-27 14:25] VITALS: BP 135/67; PULSE 61; RESP 16; O2SAT 94
== END ==
PROVIDERS: PCP Internal Medicine; Visit Provider Internal Medicine Cardiovascular Disease
PROC: (CPT 33286; principal; 2023-08-27 14:00)
DX: Z45.09 Encounter for adjustment and management of other cardiac device (principal); Z95.818 Presence of other cardiac implants and grafts; G47.33 Obstructive sleep apnea (adult) (pediatric)
CPT/HCPCS: 33286

== ENCOUNTER 2023-08-27 16:29 | Outpatient (REF) | payer MEDICARE, SELFPAY ==
[2023-08-05 07:17] VITALS: BP 112/48; BP 122/56; BP 142/76; BMI 37.8
== END 2023-08-27 16:30 | disposition home or self-care (01) ==
LOC: HO.HOSX 16:29
PROVIDERS: Visit Provider Orthopaedic Surgery
DX: Z13.89 Encounter for screening for other disorder (principal)

== ENCOUNTER 2023-08-28 08:54 | Outpatient (AMB) | payer MEDICARE, SELFPAY ==
[2023-08-05 07:17] VITALS: BP 112/48; BP 122/56; BP 142/76; BMI 37.8
--- NOTE | 2023-08-28 09:08 | MHC.OFFVIS ---
Intake Vital Signs 08/28/23 09:30 Height 5 ft 8 in Weight 248 lb BMI 37.7 Intake Visit Reasons: OV- Right TKA 07/28/17 Intake Note: Loy is a 78 year old male who presents today for a one year follow up of his right knee s/p Right TKA 07/28/2017 . He reports he is feeling well and reports minimal stiffness at times. Allergies No Known Allergies [No Known Allergies*] Allergy (Verified 08/28/23 09:29) Medication List - Last Reconciled 08/28/23 by Tyra Molina RN albuterol sulfate 90 mcg/actuation 2 puffs PO Q6H PRN apixaban (Eliquis) 5 mg PO BID 90 days cholecalciferol (vitamin D3) 25 mcg PO DAILY CPAP (CPAP Machine/Device) 12CM H20 PREVIOUS MACHINE HAS BEEN RECALLED AND NOW NEEDS A NEW MACHINE BHAVANA hydrochlorothiazide 12.5 mg PO DAILY lisinopril 10 mg PO DAILY meloxicam 15 mg PO DAILY metoprolol succinate ER 50 mg PO DAILY multivitamin 1 tab PO DAILY tamsulosin 0.8 mg (2 x 0.4 mg) PO BEDTIME 90 days tiotropium bromide (Spiriva with HandiHaler) 1 cap inhalation DAILY HPI OV- Right TKA 07/28/17 HPI Details Loy is a 78 year old man who returns for a 1 year follow-up of his generalized right knee stiffness. He has a Hx of right TKA, DOS: 07/28/[address] Lawrence, which he says resolved his pain and he is happy with the results of his surgery. He says he is doing well with only occasional stiffness, but he says this is tolerable. [facility] Medical History PRAVEEN on CPAP Bronchitis Obstructive sleep apnea on CPAP Obesity Sleep apnea COVID-19 vaccine series completed Arthritis COPD (chronic obstructive pulmonary disease) Skin cancer Status post placement of implantable loop recorder BPH (benign prostatic hyperplasia) Paroxysmal atrial fibrillation Obesity Erectile dysfunction Urgency of micturition Hypertension Surgical History History of prostate surgery H/O colonoscopy History of cystoscopy Hx of total knee arthroplasty History of carpal tunnel release History of surgery Family History Father Medical history unknown Mother Lung cancer Social History Household Members: None Housing: House Alcohol intake: current Alcohol intake frequency: 0-2 drinks per day Patient Tobacco Use Status: Former Tobacco user Quit Date: 2002 Tobacco use type: Cigarette Cigarette Packs Per Day: 2 Years Smoked: 30 e-Cigarette/Vaping Use: Never Used Second Hand Smoke Exposure: No service: No Current occupational status: retired Current occupation: Right Cognitive needs: No Hearing needs: No Vision needs: No Review of Systems Const All systems reviewed & are unremarkable except as noted in HPI and below Physical Exam Vital Signs: BMI result Body Mass Index 37.7 Const General: no acute distress, alert and awake Orientation/consciousness: patient oriented x3 HEENT Head: Yes normocephalic and Yes atraumatic Eyes EOM: EOMs intact bilaterally Resp Effort & Inspection: normal respiratory effort and able to speak in complete sentences Cardio Jugular venous distension: no JVD Skin General skin exam: turgor normal Rashes: no rashes Neuro General: patient oriented x3 Extrem Other: 0-124 well healed inc stable to v/v stress Psych Appearance: grossly normal Affect: normal affect Attitude: cooperative Results Reviewed Results Reviewed: I personally reviewed relevant radiographs Right total knee arthroplasty in expected post operative position with no hardware complications or evidence of loosening Assessment & Plan Assessment & Plan (1) History of total right knee replacement (TKR): Code(s): Z96.651 - Presence of right artificial knee joint Plan: Doing well. Occasional knee pain but also with occasional back and leg pain. Not taking Meloxicam. Can try Celebrex given age and comorbidities. f/u as needed. Plan Scribed for Kenroy Brown MD by Magen Benitez, electromedical service engineer, on 08/28/23 at 9:40 AM, EST. Orders: Orders XR knee RT 2V 08/28/23 M25.569 - Pain in unspecified knee XR knee standing BI 08/28/23 M25.569 - Pain in unspecified knee Medications: New celecoxib (Celebrex) 200 mg PO DAILY 30 caps 1RF Discontinued meloxicam Discontinued Reason: Doctor's Order 15 mg PO DAILY 90 tabs 3RF Coding Level of Care Code Est Pt Level 3 (60273) Diagnoses History of total right knee replacement (TKR) Z96.651
[2023-08-28 09:30] VITALS: BMI 37.7
== END 2023-08-28 10:08 | disposition home or self-care (01) ==
PROVIDERS: Visit Provider Orthopaedic Surgery
DX: Z47.1 Aftercare following joint replacement surgery (principal); Z96.651 Presence of right artificial knee joint
CPT/HCPCS: 99213

== ENCOUNTER 2023-08-28 11:27 | Outpatient (REF) | payer MEDICARE, SELFPAY ==
[2023-08-05 07:17] VITALS: BP 112/48; BP 122/56; BP 142/76; BMI 37.8
--- NOTE | ~2023-08-28 | XR_ITS ---
EXAMINATION: XR BILATERAL KNEE AP STANDING XR LATERAL AND SUNRISE VIEWS OF THE RIGHT KNEE CLINICAL INFORMATION: Pain in unspecified knee. COMPARISON: 08/29/2022 TECHNIQUE: AP bilateral standing view of both knees, lateral view of the right knee, and sunrise view of the right knee were obtained. FINDINGS: Right Knee: Status post right total knee arthroplasty. Hardware appears intact. Moderate joint effusion. The bones are diffusely demineralized. Left Knee: Mild medial joint space narrowing. Tiny medial and lateral marginal osteophytes. The bones are diffusely demineralized. XR/XR knee RT 2V IMPRESSION: 1. Status post right total knee arthroplasty. Hardware appears intact. Moderate joint effusion. 2. Mild degenerative changes left knee.
--- NOTE | ~2023-08-28 | XR_ITS ---
EXAMINATION: XR BILATERAL KNEE AP STANDING XR LATERAL AND SUNRISE VIEWS OF THE RIGHT KNEE CLINICAL INFORMATION: Pain in unspecified knee. COMPARISON: 08/29/2022 TECHNIQUE: AP bilateral standing view of both knees, lateral view of the right knee, and sunrise view of the right knee were obtained. FINDINGS: Right Knee: Status post right total knee arthroplasty. Hardware appears intact. Moderate joint effusion. The bones are diffusely demineralized. Left Knee: Mild medial joint space narrowing. Tiny medial and lateral marginal osteophytes. The bones are diffusely demineralized. XR/XR knee standing BI IMPRESSION: 1. Status post right total knee arthroplasty. Hardware appears intact. Moderate joint effusion. 2. Mild degenerative changes left knee.
== END 2023-08-28 11:28 | disposition home or self-care (01) ==
LOC: HO.HOSX 11:27
PROVIDERS: Visit Provider Orthopaedic Surgery
DX: M25.561 Pain in right knee (principal); Z96.651 Presence of right artificial knee joint
CPT/HCPCS: 73560; 73565; 99212

== ENCOUNTER 2023-09-05 13:30 | Outpatient (AMB) | payer MEDICARE, SELFPAY ==
[2023-08-05 07:17] VITALS: BP 112/48; BP 122/56; BP 142/76; BMI 37.8
--- NOTE | 2023-09-05 13:37 | A.OFFVIS_ITS ---
Intake Vital Signs 09/05/23 13:38 Height 5 ft 8 in Weight 249 lb 9.012 oz BMI 37.9 BP 130/62 Blood Pressure Location Rt brachial Position Sitting Pulse 64 Pulse Source Pulse Oximeter Intake Visit Reasons: Wound check/ILR removed 08/27 Transfill Technician Required: No Allergies No Known Allergies [No Known Allergies*] Allergy (Verified 09/05/23 13:39) Medication List - Last Reconciled 09/05/23 by Josselyn Gordillo NP-C albuterol sulfate 90 mcg/actuation 2 puffs PO Q6H PRN apixaban (Eliquis) 5 mg PO BID 90 days cholecalciferol (vitamin D3) 25 mcg PO DAILY CPAP (CPAP Machine/Device) 12CM H20 PREVIOUS MACHINE HAS BEEN RECALLED AND NOW NEEDS A NEW MACHINE BHAVANA hydrochlorothiazide 12.5 mg PO DAILY lisinopril 10 mg PO DAILY metoprolol succinate ER 50 mg PO DAILY multivitamin 1 tab PO DAILY tamsulosin 0.8 mg (2 x 0.4 mg) PO BEDTIME 90 days tiotropium bromide (Spiriva with HandiHaler) 1 cap inhalation DAILY HPI Wound check/ILR removed 08/27 HPI Details Loy is a 78-year-old male with past medical history of obesity, hypertension, obstructive sleep apnea, CLL, PACs and PVCs who had implanted loop recorder in place to evaluate for presence of atrial fibrillation. Strips were identified that appear to be atrial fibrillation. He was placed on anticoagulation. His battery on the loop recorder reached ИВАН and the device was then removed on 08/27/2023. Today he presents for wound check stating that his site is feeling fine. He has not had any tenderness, drainage, fevers at home. No chest discomfort at rest or with activity. No concerning shortness of breath, palpitations, presyncope, syncope, PND, orthopnea or edema. He is asking when he can go back to swimming at the [employer]. He is taking all his medications as directed. No bleeding issues reported. [facility] Medical History PRAVEEN on CPAP Bronchitis Obstructive sleep apnea on CPAP Obesity Sleep apnea COVID-19 vaccine series completed Arthritis COPD (chronic obstructive pulmonary disease) Skin cancer Status post placement of implantable loop recorder BPH (benign prostatic hyperplasia) Paroxysmal atrial fibrillation Obesity Erectile dysfunction Urgency of micturition Hypertension Surgical History History of prostate surgery H/O colonoscopy History of cystoscopy Hx of total knee arthroplasty History of carpal tunnel release History of surgery Family History Father Medical history unknown Mother Lung cancer Social History Household Members: None Housing: House Alcohol intake: current Alcohol intake frequency: 0-2 drinks per day Patient Tobacco Use Status: Former Tobacco user Quit Date: 2002 Tobacco use type: Cigarette Cigarette Packs Per Day: 2 Years Smoked: 30 e-Cigarette/Vaping Use: Never Used Second Hand Smoke Exposure: No service: No Current occupational status: retired Current occupation: Right Cognitive needs: No Hearing needs: No Vision needs: No Review of Systems Const All systems reviewed & are unremarkable except as noted in HPI and below ENT Denies dizziness Card Denies chest pain, Denies chest pain at rest, Denies chest pain with activity, Denies rapid heart rate, Denies pedal edema, Denies edema, Denies leg edema, Denies lightheadedness, Denies palpitations, Denies dyspnea, Denies dyspnea on exertion and Denies orthopnea Resp Denies cough, Denies dyspnea and Denies dyspnea on exertion GI Denies hematochezia and Denies change in stool character Musc Denies abnormal gait, Denies limited range of motion, Denies muscle cramps, Denies muscle weakness, Denies numbness, Denies radiating pain into limb, Denies stiffness and Denies tingling Neuro Denies abnormal gait, Denies dizziness, Denies numbness and Denies tingling Endo Denies palpitations Physical Exam Vital Signs: Last Vital Signs Pulse 64 09/05/23 13:38 BP 130/62 09/05/23 13:38 BMI result Body Mass Index 37.9 Const General: cooperative, healthy appearing, comfortable and no acute distress Orientation/consciousness: patient oriented x3 Neck Neck: Yes normal visual inspection Chest Other: ILR removal site with gauze dressing covered with Tegaderm. Gently removed and Steri-Strips intact with dry blood present. Gently removed showing small incision line fully approximated, small scabbing at the site. Band-Aid applied. Resp Effort & Inspection: normal respiratory effort Auscultation: clear to auscultation bilaterally, no rales, no rhonchi and no wheezes Cardio Jugular venous distension: no JVD Rate: regular rate Rhythm: regular rhythm Heart sounds: S1 normal heart sound present, S2 normal heart sound present, no murmurs and no rubs Neuro General: patient oriented x3 Extrem General: Yes normal to inspection, No no pedal edema and No calf tenderness Psych Appearance: grossly normal Mental Status: mental status grossly normal Speech and movement: Normal speech and movement present Assessment & Plan Assessment & Plan (1) Visit for wound check: Code(s): Z51.89 - Encounter for other specified aftercare Plan: Implanted loop recorder removed on 08/27/[address] Valles. Patient here for wound check today. Dressing and Steri-Strips gently removed. Edges of wound are approximated. Small scab noted at actual wound site, no signs of redness, drainage, swelling or bruising. Band-Aid applied just for coverage. Instructed to remove after 1-2 days. Activity as tolerated. May shower and allow the area to get wet. Can resume swimming at the [facility] in another 3-4 days. Any wound concerns instructed to call this office. (2) PAF (paroxysmal atrial fibrillation): Code(s): I48.0 - Paroxysmal atrial fibrillation Plan: Initially unclear if patient actually had atrial fibrillation or not. EKGs and many loop recorder alerts showing sinus rhythm with frequent PACs. Confirmed to have definitive atrial fibrillation on loop recorder readings March 2023. He denies having any heart palpitations. He was put on anticoagulation to help reduce stroke risk. Continue metoprolol for heart rate control. Continue Eliquis at 5 mg b.i.d. for anticoagulation. Labs done 07/14/2023 showed creatinine 1.47, current dose of Eliquis is appropriate for his age and weight. (3) Hypertension: Code(s): I10 - Essential (primary) hypertension Qualifiers: Hypertension type: essential hypertension Qualified Code(s): I10 - Essential (primary) hypertension Plan: Well controlled at present. No med changes made Plan Time spent on chart review, documentation, interview and assessment Coding Level of Care Code Est Pt Level 3 (77193) Diagnoses Visit for wound check Z51.89 PAF (paroxysmal atrial fibrillation) I48.0 Essential hypertension I10 Hypertension type: essential hypertension Time Spent (min) 22
[2023-09-05 13:38] VITALS: BP 130/62; PULSE 64; BMI 37.9
== END 2023-09-05 13:54 | disposition home or self-care (01) ==
PROVIDERS: PCP Internal Medicine; Visit Provider Nurse Practitioner Family
DX: Z51.89 Encounter for other specified aftercare (principal); I48.0 Paroxysmal atrial fibrillation; I10 Essential (primary) hypertension
CPT/HCPCS: 99213

== ENCOUNTER → 2023-09-05 13:30 | Outpatient (BNVA) | payer MEDICARE, SELFPAY ==
[2023-08-05 07:17] VITALS: BP 112/48; BP 122/56; BP 142/76; BMI 37.8
== END ==
PROVIDERS: PCP Internal Medicine; Visit Provider Nurse Practitioner Family
DX: Z48.812 Encounter for surgical aftercare following surgery on the circulatory system (principal); I48.0 Paroxysmal atrial fibrillation; I10 Essential (primary) hypertension; Z79.01 Long term (current) use of anticoagulants; Z79.899 Other long term (current) drug therapy
CPT/HCPCS: 99212

== ENCOUNTER → 2023-09-23 23:59 | Outpatient (BNV) | payer MEDICARE, SELFPAY ==
[2023-08-05 07:17] VITALS: BP 112/48; BP 122/56; BP 142/76; BMI 37.8
--- NOTE | 2023-10-04 20:38 | MHC.OFFVIS ---
Intake Intake Visit Reasons: Remote ILR Check- [employer] Allergies No Known Allergies [No Known Allergies*] Allergy (Verified 09/05/23 13:39) PFSH Medical History PRAVEEN on CPAP Bronchitis Obstructive sleep apnea on CPAP Obesity Sleep apnea COVID-19 vaccine series completed Arthritis COPD (chronic obstructive pulmonary disease) Skin cancer Status post placement of implantable loop recorder BPH (benign prostatic hyperplasia) Paroxysmal atrial fibrillation Obesity Erectile dysfunction Urgency of micturition Hypertension Surgical History History of prostate surgery H/O colonoscopy History of cystoscopy Hx of total knee arthroplasty History of carpal tunnel release History of surgery Family History Father Medical history unknown Mother Lung cancer Social History Household Members: None Housing: House Alcohol intake: current Alcohol intake frequency: 0-2 drinks per day Patient Tobacco Use Status: Former Tobacco user Quit Date: 2002 Tobacco use type: Cigarette Cigarette Packs Per Day: 2 Years Smoked: 30 e-Cigarette/Vaping Use: Never Used Second Hand Smoke Exposure: No service: No Current occupational status: retired Current occupation: Right Cognitive needs: No Hearing needs: No Vision needs: No Office Procedures Cardiac Device Check Cardiac Device Check Details: ILR No new alerts. [id number] Cardiac Interrogation, subcut cardiac rhythm monitor Procedure code (CPT) selection complete Assessment & Plan Assessment & Plan (1) PAF (paroxysmal atrial fibrillation): Code(s): I48.0 - Paroxysmal atrial fibrillation Plan Coding Level of Care Code Procedure Only Diagnoses PAF (paroxysmal atrial fibrillation) I48.0 CPT Codes Cardiac Device Check - Cardiac Device 16: [id number] Cardiac Interrogation, subcut cardiac rhythm monitor ([id number])
== END ==
PROVIDERS: PCP Internal Medicine; Visit Provider Internal Medicine Cardiovascular Disease
DX: I48.0 Paroxysmal atrial fibrillation (principal); Z95.818 Presence of other cardiac implants and grafts
CPT/HCPCS: 93298

== ENCOUNTER 2023-11-03 10:30 | Outpatient (AMB) | payer MEDICARE, SELFPAY ==
[2023-05-01 07:38] VITALS: BP 102/52; BP 152/60
[2023-07-22 10:30] VITALS: BP 112/48; BMI 37.8
[2023-08-05 07:17] VITALS: BP 112/48; BP 122/56; BP 142/76; BMI 37.8
--- NOTE | 2023-11-03 10:34 | MHC.OFFVIS ---
Intake Vital Signs 11/03/23 10:36 Height 5 ft 8 in Weight 249 lb 1.957 oz BMI 37.9 BP 134/62 Blood Pressure Location Rt brachial Position Sitting Pulse 59 Pulse Source Doppler Pulse Oximetry (%) 93 Oxygen Delivery Method Room Air Intake Visit Reasons: COPD Allergies No Known Allergies [No Known Allergies*] Allergy (Verified 11/03/23 10:39) Medication List - Last Reconciled 11/03/23 by Mann Chester MD albuterol sulfate 90 mcg/actuation 2 puffs PO Q6H PRN apixaban (Eliquis) 5 mg PO BID 90 days cholecalciferol (vitamin D3) 25 mcg PO DAILY CPAP (CPAP Machine/Device) 12CM H20 PREVIOUS MACHINE HAS BEEN RECALLED AND NOW NEEDS A NEW MACHINE BHAVANA hydrochlorothiazide 12.5 mg PO DAILY lisinopril 10 mg PO DAILY metoprolol succinate ER 50 mg PO DAILY multivitamin 1 tab PO DAILY tamsulosin 0.8 mg (2 x 0.4 mg) PO BEDTIME 90 days tiotropium bromide (Spiriva with HandiHaler) 1 cap inhalation DAILY Do you need a note to return to daycare/school/sports/work: No HPI COPD HPI Details MR. SHAH 78 YEARS OLD VERY PLEASANT GENTLEMAN WHO IS GROSSLY OBESE, WITH LONGSTANDING HISTORY OF OBSTRUCTIVE SLEEP APNEA, AND ALSO HAS MODERATE DEGREE OF COPD SECONDARY TO HIS PREVIOUS SMOKING. .HE IS HERE FOR 3 MONTHS FOLLOW-UP CLAIMS THAT HE HAS QUIT SMOKING COMPLETELY. HIS BREATHING IS BETTER AND ALSO HE DOES NOT HAVE MUCH COUGH BEFORE. STILL GETS SHORT OF BREATH IF HE WALKS FAST OR CLIMBS STAIRS. HE USES HIS CPAP REGULARLY WITH NASAL PILLOWS, SKIPS USING FOR 1 OR 2 NIGHTS SOMETIME WHEN HIS NOSE BECOMES IRRITATED. OVERALL HE IS BENEFITING FROM THE USE OF CPAP. HE INQUIRED ABOUT INSPIRE, AND I EXPLAINED TO HIM THAT HE DOES NOT QUALIFY FOR HAVING INSPIRE ANDIS BETTER OFF WITH USE OF CPAP, HIS WEIGHT REMAINS UNCHANGED. [facility] Medical History PRAVEEN on CPAP Bronchitis Obstructive sleep apnea on CPAP Obesity Sleep apnea COVID-19 vaccine series completed Arthritis COPD (chronic obstructive pulmonary disease) Skin cancer Status post placement of implantable loop recorder BPH (benign prostatic hyperplasia) Paroxysmal atrial fibrillation Obesity Erectile dysfunction Urgency of micturition Hypertension Surgical History History of prostate surgery H/O colonoscopy History of cystoscopy Hx of total knee arthroplasty History of carpal tunnel release History of surgery Family History Father Medical history unknown Mother Lung cancer Social History Household Members: None Housing: House Alcohol intake: current Alcohol intake frequency: 0-2 drinks per day Patient Tobacco Use Status: Former Tobacco user Quit Date: 2002 Tobacco use type: Cigarette Cigarette Packs Per Day: 2 Years Smoked: 30 e-Cigarette/Vaping Use: Never Used Second Hand Smoke Exposure: No service: No Current occupational status: retired Current occupation: Right Cognitive needs: No Hearing needs: No Vision needs: No Review of Systems Const All systems reviewed & are unremarkable except as noted in HPI and below Eyes Reports no additional complaints ENT Reports no additional complaints Card Denies chest pain, Denies irregular heart rhythm and Denies leg edema Resp Reports as per HPI (He has increased cough and congestion for the last 3-4 weeks) GI Reports no additional complaints Reports no additional complaints Musc Reports no additional complaints Skin/Breast Reports system reviewed and no additional complaints, except as documented Neuro Reports no additional complaints Psych Reports no additional complaints Physical Exam Vital Signs: Last Vital Signs Pulse 59 11/03/23 10:36 BP 134/62 11/03/23 10:36 Pulse Ox 93 11/03/23 10:36 Oxygen Delivery Method Room Air 11/03/23 10:36 BMI result Body Mass Index 37.9 Const Other: Patient is grossly obese with a round face, short and obese neck. General: comfortable, no acute distress, alert and awake Orientation/consciousness: patient oriented x3 HEENT Head: Yes normal to inspection General nose exam: No nasal polyps present, mucous membranes and turbinates abnormal (MODERATE HYPERTROPHY OF THE NASAL TURBINATES) and No nasal discharge present Face and sinus: Yes sinuses nontender Mouth: oropharynx abnormals (Oropharynx is narrow and crowded, Mallampati class 4.) Throat: Yes posterior oropharynx normal Eyes General: appearance normal, both eyes and all related structures Neck Neck: Yes normal visual inspection, Yes no lymphadenopathy, Yes trachea midline and Yes no JVD Thyroid: Thyroid normal Chest Chest palpation & inspection: normal inspection of the chest, normal palpation of entire chest wall and no tenderness Resp Other: Percussion note resonant, breath sounds are diminished and distant with prolonged expiratory phase. No wheezes or crepitations are heard . No cough on taking deep breaths. Cardio Palpation: normal PMI Rate: regular rate Rhythm: regular rhythm Heart sounds: no gallops and no murmurs GI Palpation (GI): Soft to palpation, nontender, No hepatosplenomegaly present, no masses and Other GI palpation findings present (Abdomen is obese and protuberant) Auscultation: normal bowel sounds Back/Spine/Pelvis Thoracic/Lumbar Spine: thoracic and lumbar spine normal to inspection and thoraco-lumbar ROM limited Skin General skin exam: no rashes or lesions noted Neuro General: patient oriented x3 and no focal motor deficits Cranial nerves: Yes CN's II-XII intact bilaterally Extrem General: Yes normal to inspection, Yes no clubbing, cyanosis or edema and Yes no calf tenderness Psych Appearance: grossly normal and well kempt Speech and movement: Normal speech and movement present Results Reviewed Results Reviewed: COMPLIANCE REPORT FOR THE LAST 90 DAYS IS REVIEWED. HE HAS USED THE CPAP FOR MOST OF THE NIGHTS ONLY SKIPPED ABOUT 3 NIGHTS IN THE LAST 2 WEEKS, BECAUSE OF IRRITATION OF HIS NOSTRIL. Assessment & Plan Assessment & Plan (1) COPD (chronic obstructive pulmonary disease): Comment: Known case of chronic obstructive pulmonary disease, moderately severe. Clinically seems to be stable. Code(s): J44.9 - Chronic obstructive pulmonary disease, unspecified Plan: CONTINUE SPIRIVA HANDIHALER 1 INHALATION DAILY ALBUTEROL HFA 2 PUFFS Q 6 HOURS ONLY P.R.N. (2) PRAVEEN on CPAP: Comment: Known case of obstructive sleep apnea. Using CPAP regularly, with nasal pillows. Sleep hours are somewhat erratic. No issues with the nasal pillows of or CPAP device Code(s): G47.33 - Obstructive sleep apnea (adult) (pediatric) Plan: COMPLIANCE. IS REVIEWED WITH HIM HE IS ENCOURAGED TO CONTINUE USING CPAP EVERY NIGHT. I EXPLAINED TO HIM THAT HE IS NOT CANDIDATE FOR INSPIRE. Coding Level of Care Code Est Pt Level 3 (60634) Diagnoses COPD (chronic obstructive pulmonary disease) J44.9 PRAVEEN on CPAP G47.33
[2023-11-03 10:36] VITALS: BP 134/62; PULSE 59; O2SAT 93; BMI 37.9
== END 2023-11-03 10:48 | disposition home or self-care (01) ==
PROVIDERS: PCP Internal Medicine; Visit Provider Internal Medicine
DX: J44.9 Chronic obstructive pulmonary disease, unspecified (principal); G47.33 Obstructive sleep apnea (adult) (pediatric)
CPT/HCPCS: 99213

== ENCOUNTER → 2023-11-03 10:30 | Outpatient (BNVA) | payer MEDICARE, SELFPAY ==
[2023-08-05 07:17] VITALS: BP 112/48; BP 122/56; BP 142/76; BMI 37.8
== END ==
PROVIDERS: PCP Internal Medicine; Visit Provider Internal Medicine
DX: J44.9 Chronic obstructive pulmonary disease, unspecified (principal); G47.33 Obstructive sleep apnea (adult) (pediatric)
CPT/HCPCS: 99212

== ENCOUNTER 2023-11-13 14:24 | Outpatient (AMB) | payer MEDICARE, SELFPAY ==
[2023-08-05 07:17] VITALS: BP 112/48; BP 122/56; BP 142/76; BMI 37.8
[2023-11-13 14:27] VITALS: BP 140/70; PULSE 67; O2SAT 94; BMI 37.4
--- NOTE | 2023-11-13 14:27 | MHC.PC.OV ---
Vital Signs 11/13/23 14:27 Height 5 ft 8 in Weight 246 lb BMI 37.4 BP 140/70 H Blood Pressure Location Lt brachial Position Sitting Pulse 67 Pulse Source Pulse Oximeter Pulse Oximetry (%) 94 Oxygen Delivery Method Room Air Intake Visit Reasons: 3mth f/u Musical String Maker Required: No Regional Loss Prevention Manager: Not Required per policy Accompanied by: Self / Same As Patient Allergies No Known Allergies [No Known Allergies*] Allergy (Verified 11/13/23 14:27) Medication List - Last Reconciled 11/14/23 by José Luis Martell MD albuterol sulfate 90 mcg/actuation 2 puffs PO Q6H PRN apixaban (Eliquis) 5 mg PO BID 90 days cholecalciferol (vitamin D3) 25 mcg PO DAILY CPAP (CPAP Machine/Device) 12CM H20 PREVIOUS MACHINE HAS BEEN RECALLED AND NOW NEEDS A NEW MACHINE BHAVANA hydrochlorothiazide 12.5 mg PO DAILY lisinopril 10 mg PO DAILY metoprolol succinate ER 50 mg PO DAILY multivitamin 1 tab PO DAILY tamsulosin 0.8 mg (2 x 0.4 mg) PO BEDTIME 90 days tiotropium bromide (Spiriva with HandiHaler) 1 cap inhalation DAILY Tobacco use date assessed: 11/13/23 Fall risk assessment: No Falls in past year Last assessed Fall Risk: 11/13/23 Dental Screening Dental Screen Date: 11/13/23 Did you have a dental visit in the last 12 months?: Yes Did you have a dental problem in the last 6 months where you did not have access to dental care?: No Was dental information given to patient?: Patient has dentist HPI 3mth f/u HPI Details HTN on Rx; doing well; compliant [facility] Medical History PRAVEEN on CPAP Bronchitis Obstructive sleep apnea on CPAP Obesity Sleep apnea COVID-19 vaccine series completed Arthritis COPD (chronic obstructive pulmonary disease) Skin cancer Status post placement of implantable loop recorder BPH (benign prostatic hyperplasia) Paroxysmal atrial fibrillation Obesity Erectile dysfunction Urgency of micturition Hypertension Surgical History History of prostate surgery H/O colonoscopy History of cystoscopy Hx of total knee arthroplasty History of carpal tunnel release History of surgery Family History Father Medical history unknown Mother Lung cancer Social History Household Members: None Housing: House Alcohol intake: current Alcohol intake frequency: 0-2 drinks per day Patient Tobacco Use Status: Former Tobacco user Quit Date: 2002 Tobacco use type: Cigarette Cigarette Packs Per Day: 2 Years Smoked: 30 e-Cigarette/Vaping Use: Never Used Second Hand Smoke Exposure: No service: No Current occupational status: retired Current occupation: Right Cognitive needs: No Hearing needs: No Vision needs: No Questionnaire PHQ-9 Over the last 2 weeks, how often have you been bothered by any of the following problems? 1. Little interest or pleasure in doing things: not at all 2. Feeling down, depressed, or hopeless: not at all 3. Trouble falling or staying asleep, or sleeping too much: not at all 4. Feeling tired or having little energy: not at all 5. Poor appetite or overeating: not at all 6. Feeling bad about yourself - or that you are a failure or have let yourself or your family down: not at all 7. Trouble concentrating on things, such as reading the newspaper or watching television: not at all 8. Moving or speaking so slowly that other people could have noticed. Or the opposite - being so fidgety or restless that you have been moving around a lot more than usual: not at all 9. Thoughts that you would be better off or of hurting yourself in some way: not at all Total score: 0 Depression Screening Interpretation: Negative Depression Screening Done: Yes 93438 - PHQ-9 Billing: Yes Source: Developed by Drs. Jef Singh, Klaudia Saenz, Marek Curran and colleagues, with an educational cherrie from [employer]. Thrive Questionnaire Date Thrive assessed: 11/13/23 I am a: Patient What is your living situation today?: I have a steady place to live Within the past 12 months, did the food you bought not last and you didn't have the money to get more?: Never true Within the past 12 months, did you worry whether your food would run out before you got money to buy more?: Never true Do you have trouble paying for medicines?: No Do you have trouble getting transportation to medical appointments?: No Do you have trouble paying your heating and electricity bill?: No Do you have trouble taking care of your child, family member or friend?: No Do you have trouble with day-to-day activities such as bathing, preparing meals, shopping, managing finances, etc.?: No Are you currently unemployed and looking for a job?: No Are you interested in more education?: No Please select the resources that you would like help with: None THRIVE Score: 0 AUDIT C Alcohol Use Questionnaire (AUDIT-C) 1. How often do you have a drink containing alcohol?: 4 or more times a week 2. How many drinks containing alcohol do you have on a typical day when you are drinking?: 1 or 2 Total Score: 4 Score Reviewed/Action Taken: Yes YELENA-7 AMB Questionnaire YELENA-7 Date YELENA - 7 assessed: 11/13/23 Feeling nervous, anxious, or on edge: 0 = Not at all Not being able to stop or control worryin = Not at all Worrying too much about different things: 0 = Not at all Trouble relaxin = Not at all Being so restless that it is hard to sit still: 0 = Not at all Becoming easily annoyed or irritable: 0 = Not at all Feeling afraid as if something awful might happen: 0 = Not at all Total YELENA-7 score (0-4 normal; 5-9 mild; 10-14 moderate; 15-21 severe): 0 Source: Developed by Drs. Jef Singh, Klaudia Saenz, Marek Curran and colleagues, with an educational cherrie from [employer]. Review of Systems Const Denies chills, Denies headache(s) and Denies weight loss ENT Denies headache(s) Card Denies chest pain, Denies syncope, Denies irregular heart rhythm and Denies dyspnea Resp Denies chest congestion, Denies cough and Denies dyspnea GI Denies abdominal pain, Denies change in stool character, Denies nausea and Denies vomiting Musc Denies deformity and Denies joint swelling Neuro Denies syncope and Denies headache(s) Physical exam (Primary Care) Vital Signs: Last Vital Signs Pulse 67 11/13/23 14:27 BP 140/70 H 11/13/23 14:27 Pulse Ox 94 11/13/23 14:27 Oxygen Delivery Method Room Air 11/13/23 14:27 BMI result Body Mass Index 37.4 Tobacco/Smoking Status: Tobacco use Status Tobacco use date assessed 11/13/23 11/13/23 14:28 Patient Tobacco Use Status Former Tobacco user 11/13/23 14:28 Tobacco use type Cigarette 11/13/23 14:28 e-Cigarette/Vaping Use Never Used 11/13/23 14:28 PHQ-9: PHQ-9 Score PHQ-9: Total score 0 11/13/23 14:28 Depression Screening Interpretation: Negative Thrive Assessment: Date of Thrive Assessment Date Thrive assessed 11/13/23 11/13/23 14:28 Const General: cooperative, comfortable, no acute distress and alert Neck Neck: Yes no lymphadenopathy Thyroid: Thyroid normal Resp Effort & Inspection: normal respiratory effort Auscultation: clear to auscultation bilaterally Percussion: percussion normal Cardio Jugular venous distension: no JVD Palpation: normal PMI Rate: regular rate Rhythm: regular rhythm Heart sounds: S1 normal heart sound present and S2 normal heart sound present GI Inspection: Yes normal to inspection Palpation (GI): No hepatosplenomegaly present Skin General skin exam: no rashes or lesions noted Extrem General: Yes no clubbing, cyanosis or edema Assessment and Plan Assessment & Plan (1) Hypertension: Code(s): I10 - Essential (primary) hypertension Qualifiers: Hypertension type: essential hypertension Qualified Code(s): I10 - Essential (primary) hypertension Plan: stable; same rx Coding Level of Care Code Est Pt Level 3 (43290) Diagnoses Essential hypertension I10 Hypertension type: essential hypertension
== END 2023-11-13 14:51 | disposition home or self-care (01) ==
PROVIDERS: PCP Internal Medicine; Visit Provider Internal Medicine
DX: I10 Essential (primary) hypertension (principal)
CPT/HCPCS: 99213

== ENCOUNTER 2023-12-24 14:04 | Outpatient (AMB) | payer MEDICARE, SELFPAY ==
[2023-08-05 07:17] VITALS: BP 112/48; BP 122/56; BP 142/76; BMI 37.8
[2023-12-24 14:29] VITALS: BP 120/44; PULSE 83; O2SAT 91; BMI 36.9
--- NOTE | 2023-12-24 14:29 | A.OFFVIS_ITS ---
Vital Signs 12/24/23 14:29 Height 5 ft 8 in Weight 242 lb 8.136 oz BMI 36.9 BP 120/44 L Blood Pressure Location Lt brachial Position Sitting Pulse 83 Pulse Source Pulse Oximeter Pulse Oximetry (%) 91 L Oxygen Delivery Method Room Air Intake Visit Reasons: cough Intake Note: pt is here for sick visit had round of antibiotics and prednisone, coughing and shortness of breath, and nasal discharge Knuckler Required: No Allergies No Known Allergies [No Known Allergies*] Allergy (Verified 12/24/23 16:24) Medication List - Last Reconciled 12/24/23 by Mann Chester MD albuterol sulfate 90 mcg/actuation 2 puffs PO Q6H PRN apixaban (Eliquis) 5 mg PO BID 90 days cholecalciferol (vitamin D3) 25 mcg PO DAILY CPAP (CPAP Machine/Device) 12CM H20 PREVIOUS MACHINE HAS BEEN RECALLED AND NOW NEEDS A NEW MACHINE BHAVANA hydrochlorothiazide 12.5 mg PO DAILY lisinopril 10 mg PO DAILY metoprolol succinate ER 50 mg PO DAILY multivitamin 1 tab PO DAILY tamsulosin 0.8 mg (2 x 0.4 mg) PO BEDTIME 90 days tiotropium bromide (Spiriva with HandiHaler) 1 cap inhalation DAILY Do you need a note to return to daycare/school/sports/work: No HPI HPI cough: Details: MR. SHAH'S 78 YEARS OLD GENTLEMAN IS HERE FOR AN URGENT VISIT BECAUSE HE CONTINUES TO HAVE FREQUENT COUGH WITH SOME INCREASE IN SHORTNESS OF BREATH. HE IS BEING TREATED FOR AN ACUTE EXACERBATION FOR THE LAST 7-10 DAYS. HE WAS PRESCRIBED COURSE OF PREDNISONE 20 MG B.I.D. FOR 5 DAYS AND COURSE OF Z- EZRA. HE DID GET BETTER BUT STILL HAS RESIDUAL COUGH WITH IS SOMEWHAT INCREASED SHORTNESS OF BREATH. SO HE PRESENTED TO THE OFFICE TODAY. HE CLAIMS THAT HE IS BETTER BUT NOT COMPLETELY. HE HAS NO FEVER OR CHILLS AT THIS TIME. HE FEELS CONGESTED HE BRINGS UP SMALL AMOUNT OF THE MUCUS WHICH WHICH IS YELLOWISH. COUNT INCLUDES THE [facility] Medical History PRAVEEN on CPAP Bronchitis Obstructive sleep apnea on CPAP Obesity Sleep apnea COVID-19 vaccine series completed Arthritis COPD (chronic obstructive pulmonary disease) Skin cancer Status post placement of implantable loop recorder BPH (benign prostatic hyperplasia) Paroxysmal atrial fibrillation Obesity Erectile dysfunction Urgency of micturition Hypertension Surgical History History of prostate surgery H/O colonoscopy History of cystoscopy Hx of total knee arthroplasty History of carpal tunnel release History of surgery Family History Father Medical history unknown Mother Lung cancer Social History Household Members: None Housing: House Alcohol intake: current Alcohol intake frequency: 0-2 drinks per day Patient Tobacco Use Status: Former Tobacco user Quit Date: 2002 Tobacco use type: Cigarette Cigarette Packs Per Day: 2 Years Smoked: 30 e-Cigarette/Vaping Use: Never Used Second Hand Smoke Exposure: No service: No Current occupational status: retired Current occupation: [employer] Cognitive needs: No Hearing needs: No Vision needs: No Review of Systems Const All systems reviewed & are unremarkable except as noted in HPI and below Eyes Reports no additional complaints ENT Reports no additional complaints Card Denies chest pain, Denies irregular heart rhythm and Denies leg edema Resp Reports as per HPI (He has increased cough and congestion for the last 3-4 weeks) GI Reports no additional complaints Reports no additional complaints Musc Reports no additional complaints Skin/Breast Reports system reviewed and no additional complaints, except as documented Neuro Reports no additional complaints Psych Reports no additional complaints Physical Exam Vital Signs: Last Vital Signs Pulse 83 12/24/23 14:29 BP 120/44 L 12/24/23 14:29 Pulse Ox 91 L 12/24/23 14:29 Oxygen Delivery Method Room Air 12/24/23 14:29 BMI result Body Mass Index 36.9 Const Other: Patient is grossly obese with a round face, short and obese neck. General: comfortable, no acute distress, alert and awake Orientation/consciousness: patient oriented x3 HEENT Head: Yes normal to inspection General nose exam: No nasal polyps present, mucous membranes and turbinates abnormal (MODERATE HYPERTROPHY OF THE NASAL TURBINATES) and No nasal discharge present Face and sinus: Yes sinuses nontender Mouth: oropharynx abnormals (Oropharynx is narrow and crowded, Mallampati class 4.) Throat: Yes posterior oropharynx normal Eyes General: appearance normal, both eyes and all related structures Neck Neck: Yes normal visual inspection, Yes no lymphadenopathy, Yes trachea midline and Yes no JVD Thyroid: Thyroid normal Chest Chest palpation & inspection: normal inspection of the chest, normal palpation of entire chest wall and no tenderness Resp Other: Percussion note resonant, breath sounds are diminished and distant with prolonged expiratory phase. He does have scattered wheezes and a few crepitations at mid chest. Cardio Palpation: normal PMI Rate: regular rate Rhythm: regular rhythm Heart sounds: no gallops and no murmurs GI Palpation (GI): Soft to palpation, nontender, No hepatosplenomegaly present, no masses and Other GI palpation findings present (Abdomen is obese and protuberant) Auscultation: normal bowel sounds Back/Spine/Pelvis Thoracic/Lumbar Spine: thoracic and lumbar spine normal to inspection and thoraco-lumbar ROM limited Skin General skin exam: no rashes or lesions noted Neuro General: patient oriented x3 and no focal motor deficits Cranial nerves: Yes CN's II-XII intact bilaterally Extrem General: Yes normal to inspection, Yes no clubbing, cyanosis or edema and Yes no calf tenderness Psych Appearance: grossly normal and well kempt Speech and movement: Normal speech and movement present Assessment & Plan Assessment & Plan (1) Bronchitis: Comment: NONSPECIFIC BRONCHITIS FOR THE LAST 2 WEEKS WEEKS PROBABLY FOLLOWING AN ACUTE VIRAL INFECTION. HAS BEEN TREATED WITH A COURSE OF PREDNISONE AND Z-EZRA. ,HE IS IMPROVED ABOUT HALF WAY STILL HAS SOME COUGH AND CHEST CONGESTION. Code(s): J40 - Bronchitis, not specified as acute or chronic Category: Medical Plan: DOXYCYCLINE 100 MG B.I.D. FOR 10 DAYS IS PRESCRIBED. MAY USE ROBITUSSIN 2 TSP T.I.D. P.R.N.. (2) COPD (chronic obstructive pulmonary disease): Comment: Known case of chronic obstructive pulmonary disease, moderately severe. Clinically seems to be stable. Except for frequent acute exacerbations due to acute bronchitis, Code(s): J44.9 - Chronic obstructive pulmonary disease, unspecified Category: Medical Plan: Continue Spiriva HandiHaler 1 inhalation daily And use albuterol HFA 2 puffs Q 6 hours only p.r.n. (3) PRAVEEN on CPAP: Comment: Known case of obstructive sleep apnea. Using CPAP regularly, with nasal pillows. Sleep hours are somewhat erratic. No issues with the nasal pillows of or CPAP device Code(s): G47.33 - Obstructive sleep apnea (adult) (pediatric) Category: Medical Plan: Continue to use CPAP regularly (4) CLL (chronic lymphocytic leukemia): Comment: , Stable and being followed by hematology service Code(s): C91.10 - Chronic lymphocytic leukemia of B-cell type not having achieved remission Category: Medical Plan: Continue regular follow-up with Hematology Coding Level of Care Code Est Pt Level 3 (54964) Diagnoses Bronchitis J40 COPD (chronic obstructive pulmonary disease) J44.9 PRAVEEN on CPAP G47.33 CLL (chronic lymphocytic leukemia) C91.10
== END 2023-12-24 14:46 | disposition home or self-care (01) ==
PROVIDERS: PCP Internal Medicine; Visit Provider Internal Medicine
DX: J40 Bronchitis, not specified as acute or chronic (principal); J44.9 Chronic obstructive pulmonary disease, unspecified; G47.33 Obstructive sleep apnea (adult) (pediatric); C91.10 Chronic lymphocytic leukemia of B-cell type not having achieved remission
CPT/HCPCS: 99213

== ENCOUNTER → 2023-12-24 14:04 | Outpatient (BNVA) | payer MEDICARE, SELFPAY ==
[2023-08-05 07:17] VITALS: BP 112/48; BP 122/56; BP 142/76; BMI 37.8
== END ==
PROVIDERS: PCP Internal Medicine; Visit Provider Internal Medicine
DX: J44.9 Chronic obstructive pulmonary disease, unspecified (principal); J40 Bronchitis, not specified as acute or chronic; C91.10 Chronic lymphocytic leukemia of B-cell type not having achieved remission; G47.33 Obstructive sleep apnea (adult) (pediatric)
CPT/HCPCS: 99212

== ENCOUNTER 2024-01-26 10:04 | Outpatient (AMB) | payer MEDICARE, SELFPAY ==
[2023-08-05 07:17] VITALS: BP 112/48; BP 122/56; BP 142/76; BMI 37.8
--- NOTE | 2024-01-26 10:20 | A.OFFVIS_ITS ---
Vital Signs 01/26/24 10:21 Height 5 ft 8 in Weight 245 lb 13.047 oz BMI 37.4 BP 110/50 L Blood Pressure Location Lt brachial Position Sitting Pulse 55 Pulse Source Pulse Oximeter Pulse Oximetry (%) 92 Oxygen Delivery Method Room Air Intake Visit Reasons: Cough Intake Note: pt is here for follow up and states he is feeling pretty good, he is stating that sometimes he is getting a sore in the nose. 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 Allergies No Known Allergies [No Known Allergies*] Allergy (Verified 01/26/24 10:45) Medication List - Last Reconciled 01/26/24 by Mann Chester MD albuterol sulfate 90 mcg/actuation 2 puffs PO Q6H PRN apixaban (Eliquis) 5 mg PO BID 90 days cholecalciferol (vitamin D3) 25 mcg PO DAILY CPAP (CPAP Machine/Device) 12CM H20 PREVIOUS MACHINE HAS BEEN RECALLED AND NOW NEEDS A NEW MACHINE BHAVANA hydrochlorothiazide 12.5 mg PO DAILY lisinopril 10 mg PO DAILY metoprolol succinate ER 50 mg PO DAILY multivitamin 1 tab PO DAILY tamsulosin 0.8 mg (2 x 0.4 mg) PO BEDTIME 90 days tiotropium bromide (Spiriva with HandiHaler) 1 cap inhalation DAILY Do you need a note to return to daycare/school/sports/work: No HPI HPI Cough: Details: Mr. Moreno is here for a short term visit. Finally he has overcome his lingering acute bronchitis. He claims that now he is back to his baseline. STILL SMOKING ABOUT 2 CIGARETTES A DAY. He does have mild intermittent cough and sometimes has to use the albuterol inhaler. Mostly he is just using Spiriva HandiHaler once a day. Cough is only once in a while especially at night when he is using CPAP. He uses his CPAP very regularly and sleeps well. Does complain of irritation in the right Morales, due to nasal pillows, and applies Neosporin cream every night. [facility] Medical History PRAVEEN on CPAP Bronchitis Obstructive sleep apnea on CPAP Obesity Sleep apnea COVID-19 vaccine series completed Arthritis COPD (chronic obstructive pulmonary disease) Skin cancer Status post placement of implantable loop recorder BPH (benign prostatic hyperplasia) Paroxysmal atrial fibrillation Obesity Erectile dysfunction Urgency of micturition Hypertension Surgical History History of prostate surgery H/O colonoscopy History of cystoscopy Hx of total knee arthroplasty History of carpal tunnel release History of surgery Family History Father Medical history unknown Mother Lung cancer Social History Household Members: None Housing: House Alcohol intake: current Alcohol intake frequency: 0-2 drinks per day Patient Tobacco Use Status: Former Tobacco user Tobacco use type: Cigarette Cigarette Packs Per Day: 2 Years Smoked: 30 e-Cigarette/Vaping Use: Never Used Second Hand Smoke Exposure: No service: No Current occupational status: retired Current occupation: Right Cognitive needs: No Hearing needs: No Vision needs: No Review of Systems Const All systems reviewed & are unremarkable except as noted in HPI and below Eyes Reports no additional complaints ENT Reports no additional complaints Card Denies chest pain, Denies irregular heart rhythm and Denies leg edema Resp Reports as per HPI (He has increased cough and congestion for the last 3-4 weeks) GI Reports no additional complaints Reports no additional complaints Musc Reports no additional complaints Skin/Breast Reports system reviewed and no additional complaints, except as documented Neuro Reports no additional complaints Psych Reports no additional complaints Physical Exam Vital Signs: Last Vital Signs Pulse 55 01/26/24 10:21 BP 110/50 L 01/26/24 10:21 Pulse Ox 92 01/26/24 10:21 Oxygen Delivery Method Room Air 01/26/24 10:21 BMI result Body Mass Index 37.4 Const Other: Patient is grossly obese with a round face, short and obese neck. General: comfortable, no acute distress, alert and awake Orientation/consciousness: patient oriented x3 HEENT Head: Yes normal to inspection General nose exam: No nasal polyps present, mucous membranes and turbinates abnormal (MODERATE HYPERTROPHY OF THE NASAL TURBINATES) and No nasal discharge present Face and sinus: Yes sinuses nontender Mouth: oropharynx abnormals (Oropharynx is narrow and crowded, Mallampati class 4.) Throat: Yes posterior oropharynx normal Eyes General: appearance normal, both eyes and all related structures Neck Neck: Yes normal visual inspection, Yes no lymphadenopathy, Yes trachea midline and Yes no JVD Thyroid: Thyroid normal Chest Chest palpation & inspection: normal inspection of the chest, normal palpation of entire chest wall and no tenderness Resp Other: Percussion note resonant, breath sounds are diminished and distant with prolonged expiratory phase. No wheezes or crepitations are heard today. Cardio Palpation: normal PMI Rate: regular rate Rhythm: regular rhythm Heart sounds: no gallops and no murmurs GI Palpation (GI): Soft to palpation, nontender, No hepatosplenomegaly present, no masses and Other GI palpation findings present (Abdomen is obese and protuberant) Auscultation: normal bowel sounds Back/Spine/Pelvis Thoracic/Lumbar Spine: thoracic and lumbar spine normal to inspection and tho raco-lumbar ROM limited Skin General skin exam: no rashes or lesions noted Neuro General: patient oriented x3 and no focal motor deficits Cranial nerves: Yes CN's II-XII intact bilaterally Extrem General: Yes normal to inspection, Yes no clubbing, cyanosis or edema and Yes no calf tenderness Psych Appearance: grossly normal and well kempt Speech and movement: Normal speech and movement present Assessment & Plan Assessment & Plan (1) COPD (chronic obstructive pulmonary disease): Comment: Known case of chronic obstructive pulmonary disease, moderately severe. Clinically seems to be stable. Except for frequent acute exacerbations due to acute bronchitis, Code(s): J44.9 - Chronic obstructive pulmonary disease, unspecified Category: Medical Plan: He seems to have improved from his recent bout of acute nonspecific bronchitis. ADVISED TO CONTINUE USING SPIRIVA HANDIHALER 1 INHALATION DAILY. AND ALBUTEROL HFA Q 6 HOURS P.R.N. FOR ACUTE BOUTS OF COUGH. (2) Bronchitis: Comment: HAD A NONSPECIFIC BRONCHITIS LAST MONTH , WHICH HAS FINALLY RESOLVED. HE GETS COUGH OFF AND ON, WHICH IS MORE LIKE HIS BASELINE. Code(s): J40 - Bronchitis, not specified as acute or chronic Category: Medical Plan: QUIT SMOKING COMPLETELY, MAY USE ROBITUSSIN 2 TSP T.I.D. P.R.N. FOR COUGH. (3) PRAVEEN on CPAP: Comment: Known case of obstructive sleep apnea. Using CPAP regularly, with nasal pillows. Sleep hours are somewhat erratic. No issues with the nasal pillows of or CPAP device Code(s): G47.33 - Obstructive sleep apnea (adult) (pediatric) Category: Medical Plan: CONTINUE TO USE THE CPAP REGULARLY (4) Obesity: Comment: CHRONIC OBESITY,BMI= 37.4 PATIENT IS WELL AWARE OF THIS ISSUE. HE IS ACTIVE IN DOING EXERCISE AND IS TRYING TO LIMIT HIS CALORIES INTAKE. Code(s): E66.9 - Obesity, unspecified Category: Medical Plan: CONTINUE TO WATCH DIET AND DO DAILY EXERCISE LIKE WALKING A FEW MILES Coding Level of Care Code Est Pt Level 3 (56804) Diagnoses COPD (chronic obstructive pulmonary disease) J44.9 Bronchitis J40 PRAVEEN on CPAP G47.33 Obesity E66.9
[2024-01-26 10:21] VITALS: BP 110/50; PULSE 55; O2SAT 92; BMI 37.4
== END 2024-01-26 10:53 | disposition home or self-care (01) ==
PROVIDERS: PCP Internal Medicine; Visit Provider Internal Medicine
DX: J44.9 Chronic obstructive pulmonary disease, unspecified (principal); J40 Bronchitis, not specified as acute or chronic; G47.33 Obstructive sleep apnea (adult) (pediatric); E66.9 Obesity, unspecified
CPT/HCPCS: 99213

== ENCOUNTER → 2024-01-26 10:04 | Outpatient (BNVA) | payer MEDICARE, SELFPAY ==
[2023-08-05 07:17] VITALS: BP 112/48; BP 122/56; BP 142/76; BMI 37.8
== END ==
PROVIDERS: PCP Internal Medicine; Visit Provider Internal Medicine
DX: J44.9 Chronic obstructive pulmonary disease, unspecified (principal); J40 Bronchitis, not specified as acute or chronic; G47.33 Obstructive sleep apnea (adult) (pediatric); E66.9 Obesity, unspecified; Z68.37 Body mass index [BMI] 37.0-37.9, adult; Z99.89 Dependence on other enabling machines and devices
CPT/HCPCS: 99212

== ENCOUNTER 2024-01-27 10:29 | Outpatient (AMB) | payer MEDICARE, SELFPAY ==
[2023-08-05 07:17] VITALS: BP 112/48; BP 122/56; BP 142/76; BMI 37.8
--- NOTE | 2024-01-27 10:50 | A.OFFVIS_ITS ---
Intake Visit Reasons: 1y Intake Note: Patient is Present for PVR/ Urology Med: Tamsulosin Antibiotic Allergy: None Blood Thinner: Eliquis Last PVR: 78 Todays PVR: 29 Allergies No Known Allergies [No Known Allergies*] Allergy (Verified 01/27/24 10:58) Medication List - Last Reconciled 01/27/24 by Federico Donnelly MD albuterol sulfate 90 mcg/actuation 2 puffs PO Q6H PRN apixaban (Eliquis) 5 mg PO BID 90 days cholecalciferol (vitamin D3) 25 mcg PO DAILY CPAP (CPAP Machine/Device) 12CM H20 PREVIOUS MACHINE HAS BEEN RECALLED AND NOW NEEDS A NEW MACHINE BHAVANA hydrochlorothiazide 12.5 mg PO DAILY lisinopril 10 mg PO DAILY metoprolol succinate ER 50 mg PO DAILY multivitamin 1 tab PO DAILY tamsulosin 0.8 mg (2 x 0.4 mg) PO BEDTIME 90 days tiotropium bromide (Spiriva with HandiHaler) 1 cap inhalation DAILY HPI Comments Details: Loy is a pleasant male. He is a patient of Dr. Sun He is seen for the following urologic issues - elevated PSA - lower urinary tract symptoms - urinary urgency - erectile dysfunction PVR 30 PSA normal UA normal Remains on tamsulosin 0.8 mg Continue yearly review Lower urinary tract symptoms Prior laser prostatectomy 2014 Repeat GreenLight laser May 2021 - regrowth on left side Stable urinary pattern PSA - range from 1.8-3. - 03/14 3.0, 01/14 2.6 Erectile dysfunction Response to vacuum pump No longer responsive to oral medications PFSH Medical History PRAVEEN on CPAP Bronchitis Obstructive sleep apnea on CPAP Obesity Sleep apnea COVID-19 vaccine series completed Arthritis COPD (chronic obstructive pulmonary disease) Skin cancer Status post placement of implantable loop recorder BPH (benign prostatic hyperplasia) Paroxysmal atrial fibrillation Obesity Erectile dysfunction Urgency of micturition Hypertension Surgical History History of prostate surgery H/O colonoscopy History of cystoscopy Hx of total knee arthroplasty History of carpal tunnel release History of surgery Family History Father Medical history unknown Mother Lung cancer Social History Household Members: None Housing: House Alcohol intake: current Alcohol intake frequency: 0-2 drinks per day Patient Tobacco Use Status: Former Tobacco user Tobacco use type: Cigarette Cigarette Packs Per Day: 2 Years Smoked: 30 e-Cigarette/Vaping Use: Never Used Second Hand Smoke Exposure: No service: No Current occupational status: retired Current occupation: [employer] Cognitive needs: No Hearing needs: No Vision needs: No Office Procedures Post Void Residual Post Residual Void Post Void Residual (PVR): 29 [id number] Void Residual by ultrasound Assessment & Plan Assessment & Plan (1) Erectile dysfunction: Code(s): N52.9 - Male erectile dysfunction, unspecified Category: Medical (2) BPH (benign prostatic hyperplasia): Code(s): N40.0 - Benign prostatic hyperplasia without lower urinary tract symptoms Category: Medical Plan Twelve month follow-up PSA and PVR Orders: Orders AMB Post Void Residual by ultrasound Today N40.1 - Benign prostatic hyperplasia with lower urinary tract symptoms, R33.9 - Retention of urine, unspecified Prostate Specific Antigen 364 Days N40.0 - Benign prostatic hyperplasia without lower urinary tract symptoms Medications: Refilled tamsulosin 0.8 mg (2 x 0.4 mg) PO BEDTIME 90 days 180 caps 3RF N40.0 - Benign prostatic hyperplasia without lower urinary tract symptoms Patient Instructions: Imaging studies, laboratory and physical exam results were discussed and reviewed in detail. No major barriers to patient understanding were identified. An opportunity to ask questions regarding the treatment plan was provided. All questions were answered. The patient expressed understanding and agreement with the above treatment plan. The patient is aware they should contact our office by phone for worsening of their current condition or the appearance of new urologic symptoms. Compliance is encouraged with any medications and followup testing that is ordered. It is a privilege to participate in the urologic care of your patient. If you have any questions or concerns regarding treatment for the above conditions, or other urologic issues, please do not hesitate to contact me. The office telephone contact is [phone]. This note is constructed using voice recognition software. While every effort has been made to ensure accuracy venue attendant errors may have been included. Yours sincerely, Dr Federico Donnelly MD, [facility] - Urology Providers of Expert, Compassionate Care for the Genitourinary System Coding Level of Care Code Est Pt Level 4 (39855) Diagnoses Erectile dysfunction N52.9 BPH (benign prostatic hyperplasia) N40.0 CPT Codes Post Residual Void - PVR CPT Code: [id number] Void Residual by ultrasound ([id number])
== END 2024-01-27 11:14 | disposition home or self-care (01) ==
PROVIDERS: PCP Internal Medicine; Visit Provider Urology
DX: N52.9 Male erectile dysfunction, unspecified (principal); N40.0 Benign prostatic hyperplasia without lower urinary tract symptoms
CPT/HCPCS: 99213

== ENCOUNTER → 2024-01-27 10:29 | Outpatient (BNVA) | payer MEDICARE, SELFPAY ==
[2023-08-05 07:17] VITALS: BP 112/48; BP 122/56; BP 142/76; BMI 37.8
== END ==
PROVIDERS: PCP Internal Medicine; Visit Provider Urology
DX: N52.9 Male erectile dysfunction, unspecified (principal); N40.1 Benign prostatic hyperplasia with lower urinary tract symptoms; R33.8 Other retention of urine
CPT/HCPCS: 51798; 99212

== ENCOUNTER 2024-02-04 08:40 | Outpatient (AMB) | payer MEDICARE, SELFPAY ==
[2023-08-05 07:17] VITALS: BP 112/48; BP 122/56; BP 142/76; BMI 37.8
[2024-02-04 09:01] VITALS: BP 110/58; PULSE 53; O2SAT 91; BMI 37.3
--- NOTE | 2024-02-04 09:01 | A.OFFVIS_ITS ---
Vital Signs 02/04/24 09:01 Height 5 ft 8 in Weight 245 lb 2.464 oz BMI 37.3 BP 110/58 L Blood Pressure Location Lt brachial Position Sitting Pulse 53 Pulse Source Pulse Oximeter Pulse Oximetry (%) 91 L Oxygen Delivery Method Room Air Intake Visit Reasons: 6 month follow up Intake Note: pt is doing fine. 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 Required: No Accompanied by: Self / Same As Patient Allergies No Known Allergies [No Known Allergies*] Allergy (Verified 01/27/24 10:58) Medication List - Last Reconciled 02/04/24 by John Townsend MD albuterol sulfate 90 mcg/actuation 2 puffs PO Q6H PRN apixaban (Eliquis) 5 mg PO BID 90 days cholecalciferol (vitamin D3) 25 mcg PO DAILY CPAP (CPAP Machine/Device) 12CM H20 PREVIOUS MACHINE HAS BEEN RECALLED AND NOW NEEDS A NEW MACHINE BHAVANA hydrochlorothiazide 12.5 mg PO DAILY lisinopril 10 mg PO DAILY metoprolol succinate ER 50 mg PO DAILY multivitamin 1 tab PO DAILY tamsulosin 0.8 mg (2 x 0.4 mg) PO BEDTIME 90 days tiotropium bromide (Spiriva with HandiHaler) 1 cap inhalation DAILY HPI Comments Details: 78-year-old gentleman here for follow-up. He was thought to have atrial fibrillation when he presented emergency department but no EKG or telemetry strips were documented. He was started on anticoagulation. After that he had cardiac event monitor followed by implantable loop recorder. So far no evidence of atrial fibrillation was seen and he was taken off the anticoagulation. He is denying any symptoms. He has no chest pain or shortness breath otherwise. No palpitations. We have been interrogating in the implantable loop recorder and there has not been any episodes of atrial fibrillation and he continues to be off anticoagulation. Blood pressure is little low but he has no dizziness or lightheadedness. His denying any chest discomfort. He is saying he exercises in approved daily. He has back issues and previous right knee replacement. 08/11/2023: He returns for follow-up. He is doing well. No palpitations. No chest discomfort shortness of breath. He has noticed some bruising on his arm and does after lb. I have explained to him that this is somewhat expected with Eliquis. He does not have any GI or bleed. 02/04/2024: He is here for follow-up. No palpitations. No chest pain or shortness of breath. He has obstructive sleep apnea and he has been using CPAP at night. Blood pressure is well controlled. Denying any exertional symptoms. No bleeding. He is asking about Eliquis that how long he will be on it. I have explained to him that he has atrial fibrillation and usually Eliquis is long- term drug. [facility] Medical History PRAVEEN on CPAP Bronchitis Obstructive sleep apnea on CPAP Obesity Sleep apnea COVID-19 vaccine series completed Arthritis COPD (chronic obstructive pulmonary disease) Skin cancer Status post placement of implantable loop recorder BPH (benign prostatic hyperplasia) Paroxysmal atrial fibrillation Obesity Erectile dysfunction Urgency of micturition Hypertension Surgical History History of prostate surgery H/O colonoscopy History of cystoscopy Hx of total knee arthroplasty History of carpal tunnel release History of surgery Family History Father Medical history unknown Mother Lung cancer Social History Household Members: None Housing: House Alcohol intake: current Alcohol intake frequency: 0-2 drinks per day Patient Tobacco Use Status: Former Tobacco user Tobacco use type: Cigarette Cigarette Packs Per Day: 2 Years Smoked: 30 e-Cigarette/Vaping Use: Never Used Second Hand Smoke Exposure: No service: No Current occupational status: retired Current occupation: Right Cognitive needs: No Hearing needs: No Vision needs: No Review of Systems Const Denies chills, Denies fatigue, Denies fever(s), Denies frequent falls, Denies weakness, Denies weight gain and Denies weight loss ENT Denies dizziness Card Denies chest pain, Denies leg edema, Denies lightheadedness, Denies palpitations, Denies dyspnea and Denies dyspnea on exertion Resp Denies cough, Denies dyspnea and Denies dyspnea on exertion GI Denies hematochezia Musc Denies abnormal gait, Denies muscle weakness, Denies numbness, Denies radiating pain into limb and Denies tingling Neuro Denies abnormal gait, Denies dizziness, Denies frequent falls, Denies numbness, Denies tingling and Denies weakness Endo Denies fatigue and Denies palpitations Physical Exam Vital Signs: Last Vital Signs Pulse 53 02/04/24 09:01 BP 110/58 L 02/04/24 09:01 Pulse Ox 91 L 02/04/24 09:01 Oxygen Delivery Method Room Air 02/04/24 09:01 BMI result Body Mass Index 37.3 GENERAL APPEARANCE: in no acute distress. NECK/THYROID: no carotid bruit.. SKIN: no suspicious lesions, warm and dry. HEART: no murmurs, regular rate and rhythm, S1, S2 normal. LUNGS: clear to auscultation bilaterally. ABDOMEN: normal, bowel sounds present, soft, nontender, nondistended. EXTREMITIES: no clubbing, cyanosis. 1+ edema PERIPHERAL PULSES: equal. NEUROLOGIC: nonfocal, alert and oriented. PSYCH: mood/affect full range. Assessment & Plan Assessment & Plan (1) Hypertension: Code(s): I10 - Essential (primary) hypertension Category: Medical Qualifiers: Hypertension type: essential hypertension Qualified Code(s): I10 - Essential (primary) hypertension (2) PAF (paroxysmal atrial fibrillation): Code(s): I48.0 - Paroxysmal atrial fibrillation Category: Medical Plan Pleasant 78-year-old gentleman who is here for follow-up. He has background of paroxysmal atrial fibrillation. He is in sinus rhythm curr [facility]. He is on Eliquis 5 mg twice a day for anticoagulation has been tolerating it well. He is on metoprolol succinate 50 mg daily. Blood pressure is currently well controlled on hydrochlorothiazide, lisinopril and metoprolol. I have explained to him that Eliquis is a long-term drug. If he has any GI/ bleed then we will consider alternative management like Watchman. Currently he is tolerating anticoagulation we should continue with. He will see us back in 6 months. Thank you for allowing me to participate in the care of your patient. Please feel free to contact me if you have any questions. Coding Level of Care Code Est Pt Level 4 (61891) Diagnoses Essential hypertension I10 Hypertension type: essential hypertension PAF (paroxysmal atrial fibrillation) I48.0
== END 2024-02-04 09:15 | disposition home or self-care (01) ==
PROVIDERS: PCP Internal Medicine; Visit Provider Internal Medicine Cardiovascular Disease
DX: I10 Essential (primary) hypertension (principal); I48.0 Paroxysmal atrial fibrillation
CPT/HCPCS: 99214

== ENCOUNTER → 2024-02-04 08:40 | Outpatient (BNVA) | payer MEDICARE, SELFPAY ==
[2023-08-05 07:17] VITALS: BP 112/48; BP 122/56; BP 142/76; BMI 37.8
== END ==
PROVIDERS: PCP Internal Medicine; Visit Provider Internal Medicine Cardiovascular Disease
DX: I48.0 Paroxysmal atrial fibrillation (principal); I10 Essential (primary) hypertension
CPT/HCPCS: 99212

== ENCOUNTER 2024-02-24 13:58 | Outpatient (AMB) | payer MEDICARE, SELFPAY ==
[2023-08-05 07:17] VITALS: BP 112/48; BP 122/56; BP 142/76; BMI 37.8
[2024-02-24 14:04] VITALS: BP 120/62; PULSE 89; O2SAT 94; BMI 37.2
--- NOTE | 2024-02-24 14:04 | A.OFFPC_ITS ---
Vital Signs 02/24/24 14:04 Height 5 ft 8 in Weight 245 lb BMI 37.2 BP 120/62 Blood Pressure Location Lt brachial Position Sitting Pulse 89 Pulse Source Pulse Oximeter Pulse Oximetry (%) 94 Oxygen Delivery Method Room Air Intake Visit Reasons: 3 Month F/U Materials Technician Required: No Dedicated Intermodal Truck Driver: Not Required per policy Accompanied by: Self / Same As Patient Allergies No Known Allergies [No Known Allergies*] Allergy (Verified 02/24/24 14:05) Medication List - Last Reconciled 02/25/24 by José Luis Martell MD albuterol sulfate 90 mcg/actuation 2 puffs PO Q6H PRN apixaban (Eliquis) 5 mg PO BID 90 days cholecalciferol (vitamin D3) 25 mcg PO DAILY CPAP (CPAP Machine/Device) 12CM H20 PREVIOUS MACHINE HAS BEEN RECALLED AND NOW NEEDS A NEW MACHINE BHAVANA hydrochlorothiazide 12.5 mg PO DAILY lisinopril 10 mg PO DAILY metoprolol succinate ER 50 mg PO DAILY multivitamin 1 tab PO DAILY tamsulosin 0.8 mg (2 x 0.4 mg) PO BEDTIME 90 days tiotropium bromide (Spiriva with HandiHaler) 1 cap inhalation DAILY Tobacco use date assessed: 11/13/23 Fall risk assessment: No Falls in past year Last assessed Fall Risk: 02/24/24 Dental Screening Dental Screen Date: 11/13/23 HPI 3 Month F/U HPI Details hypertension and afib; stable; sees heatology for cll also stable PFSH Medical History PRAVEEN on CPAP Bronchitis Obstructive sleep apnea on CPAP Obesity Sleep apnea COVID-19 vaccine series completed Arthritis COPD (chronic obstructive pulmonary disease) Skin cancer Status post placement of implantable loop recorder BPH (benign prostatic hyperplasia) Paroxysmal atrial fibrillation Obesity Erectile dysfunction Urgency of micturition Hypertension Surgical History History of prostate surgery H/O colonoscopy History of cystoscopy Hx of total knee arthroplasty History of carpal tunnel release History of surgery Family History Father Medical history unknown Mother Lung cancer Social History Household Members: None Housing: House Alcohol intake: current Alcohol intake frequency: 0-2 drinks per day Patient Tobacco Use Status: Former Tobacco user Tobacco use type: Cigarette Cigarette Packs Per Day: 2 Years Smoked: 30 e-Cigarette/Vaping Use: Never Used Second Hand Smoke Exposure: No service: No Current occupational status: retired Current occupation: Right Cognitive needs: No Hearing needs: No Vision needs: No Questionnaire Thrive Questionnaire Date Thrive assessed: 11/13/23 YELENA-7 AMB Questionnaire YELENA-7 Date YELENA - 7 assessed: 11/13/23 Source: Developed by Drs. Jef Singh, Klaudia Saenz, Marek Curran and colleagues, with an educational cherrie from [employer]. Review of Systems Const Denies chills, Denies headache(s) and Denies weight loss ENT Denies headache(s) Card Denies chest pain, Denies syncope, Denies irregular heart rhythm and Denies dyspnea Resp Denies chest congestion, Denies cough and Denies dyspnea GI Denies abdominal pain, Denies change in stool character, Denies nausea and Denies vomiting Musc Denies deformity and Denies joint swelling Neuro Denies syncope and Denies headache(s) Physical exam (Primary Care) Vital Signs: Last Vital Signs Pulse 89 02/24/24 14:04 BP 120/62 02/24/24 14:04 Pulse Ox 94 02/24/24 14:04 Oxygen Delivery Method Room Air 02/24/24 14:04 BMI result Body Mass Index 37.2 Tobacco/Smoking Status: Tobacco use Status Tobacco use date assessed 11/13/23 02/24/24 14:09 Patient Tobacco Use Status Former Tobacco user 02/24/24 14:09 Tobacco use type Cigarette 02/24/24 14:09 e-Cigarette/Vaping Use Never Used 02/24/24 14:09 Thrive Assessment: Date of Thrive Assessment Date Thrive assessed 11/13/23 02/24/24 14:09 Const General: cooperative, comfortable, no acute distress and alert Neck Neck: Yes no lymphadenopathy Thyroid: Thyroid normal Resp Effort & Inspection: normal respiratory effort Auscultation: clear to auscultation bilaterally Percussion: percussion normal Cardio Jugular venous distension: no JVD Palpation: normal PMI Rate: regular rate Rhythm: regular rhythm Heart sounds: S1 normal heart sound present and S2 normal heart sound present GI Inspection: Yes normal to inspection Palpation (GI): No hepatosplenomegaly present Skin General skin exam: no rashes or lesions noted Extrem General: Yes no clubbing, cyanosis or edema Assessment and Plan Assessment & Plan (1) PAF (paroxysmal atrial fibrillation): Code(s): I48.0 - Paroxysmal atrial fibrillation Plan: stable; same rx (2) Hypertension: Code(s): I10 - Essential (primary) hypertension Qualifiers: Hypertension type: essential hypertension Qualified Code(s): I10 - E ssential (primary) hypertension Plan: stable; same rx (3) CLL (chronic lymphocytic leukemia): Comment: , Stable and being followed by hematology service Code(s): C91.10 - Chronic lymphocytic leukemia of B-cell type not having achieved r emission Coding Level of Care Code Est Pt Level 4 (51665) Diagnoses PAF (paroxysmal atrial fibrillation) I48.0 Essential hypertension I10 Hypertension type: essential hypertension CLL (chronic lymphocytic leukemia) C91.10
== END 2024-02-24 14:19 | disposition home or self-care (01) ==
PROVIDERS: PCP Internal Medicine; Visit Provider Internal Medicine
DX: I48.0 Paroxysmal atrial fibrillation (principal); I10 Essential (primary) hypertension; C91.10 Chronic lymphocytic leukemia of B-cell type not having achieved remission
CPT/HCPCS: 99214

== ENCOUNTER 2024-03-30 08:47 | Outpatient (REF) | payer MEDICARE, SELFPAY ==
[2023-08-05 07:17] VITALS: BP 112/48; BP 122/56; BP 142/76; BMI 37.8
--- NOTE | 2024-03-30 08:50 | EMG_ITS ---
Bilateral median and ulnar motor and sensory studies were performed. Bilateral radial sensory studies were performed and paraspinal muscles were tested with a needle. IMPRESSION: 1. [id number] bilateral median neuropathy across carpal tunnel. 2. Mild right ulnar neuropathy across cubital tunnel. MD VLADISLAV Nesbitt/ZOHREH / [id number]
== END 2024-03-30 08:48 | disposition home or self-care (01) ==
LOC: HO.NEURO 08:47
PROVIDERS: PCP Internal Medicine; Visit Provider Internal Medicine
DX: G56.03 Carpal tunnel syndrome, bilateral upper limbs (principal)
CPT/HCPCS: 95886; 95911

== ENCOUNTER 2024-03-31 05:58 | Emergency (ER) | payer MEDICARE, SELFPAY ==
[2023-08-05 07:17] VITALS: BP 112/48; BP 122/56; BP 142/76; BMI 37.8
--- NOTE | ~2024-03-31 | XR_ITS ---
EXAMINATION: XR ANKLE, RIGHT CLINICAL INFORMATION: Patient states no injury, pain in right ankle. COMPARISON: None available. TECHNIQUE: AP, lateral, and mortise views of the right ankle. FINDINGS: Soft tissue swelling at the ankle. Large plantar calcaneal spur. Faint vascular calcifications. Joint effusion at the ankle. Oblique linear lucency along the inferior aspect of the lateral malleolus may represent a nondisplaced fracture, may also represent degenerative change. XR/XR ankle RT min 3V IMPRESSION: 1. Oblique linear lucency along the inferior aspect of the lateral malleolus may represent a nondisplaced fracture, may also represent degenerative change. 2. Plantar calcaneal spur 3. Diffuse demineralization. This study was presented today March 31, 2024 for interpretation. Stat results provided at this time as requested by referring provider.
[2024-03-31 06:14] VITALS: BP 106/60; PULSE 54; O2SAT 97
[2024-03-31 06:43] VITALS: BP 163/81; PULSE 69; RESP 18; TEMP 36.3; O2SAT 94; BMI 37.2
--- NOTE | 2024-03-31 06:43 | ED.GENADULT ---
HPI - General Adult General Chief complaint: Extremity Injury, Lower Stated complaint: ankle pain/inj Time Seen by Provider: 03/31/24 06:43 Source: patient Mode of arrival: ambulatory Limitations: no limitations History of Present Illness ED Provider: Edelmira Balbuena PA-C HPI narrative: 78 year old male with PMH of CLL followed by Hematology, Paroxysmal Afib, COPD, and HTN presents to the ED with worsening right ankle and foot pain. Patient states that about 2 days ago his ankle began to hurt, and noticed that it was feeling warm and swollen. He then noticed that last night the warmth and swelling had gotten worse and noticed slight redness to the area. He states that it radiates from his lateral right ankle to his right foot and goes to just above the ankle joint. He did not notice any bruising and is not aware of any injury or trauma to the area. He was recently at a beach last [place] and is unsure if he injured or twisted his ankle at the beach walking in the sand. He is currently on Eliquis. He denies any chest pain or tightness, shortness of breath, fevers or headache and no nausea, vomiting or diarrhea. No numbness or tingling noted. Onset (ago): day(s) (2) Location: right and lower extremity Radiation: proximal and distal Severity: mild Quality: aching and constant Relieving factors: medication Exacerbating factors: movement Associated symptoms: denies other symptoms Related Data Home Medications ?Medication ?Instructions ?Recorded ?Confirmed cholecalciferol (vitamin D3) 25 25 mcg PO DAILY 02/14/23 02/25/24 mcg (1,000 unit) capsule multivitamin 1 tab PO DAILY 02/14/23 02/25/24 Previous Rx's ?Medication ?Instructions ?Recorded CPAP (CPAP Machine/Device) #1 ea 06/13/21 apixaban 5 mg tablet (Eliquis) 5 mg PO BID 90 days #180 tabs 03/31/23 lisinopril 10 mg tablet 10 mg PO DAILY #90 tabs 04/16/23 metoprolol succinate 50 mg 50 mg PO DAILY #90 tabs 06/23/23 tablet,extended release 24 hr hydrochlorothiazide 12.5 mg tablet 12.5 mg PO DAILY #90 tabs 07/09/23 albuterol sulfate 90 mcg/actuation 2 puff PO Q6H PRN bronchospasm #18 08/04/23 aerosol inhaler grams tiotropium bromide 18 mcg capsule 1 cap inhalation DAILY #90 12/15/23 with inhalation device (Spiriva inhalations with HandiHaler) tamsulosin 0.4 mg capsule 0.8 mg (2 x 0.4 mg) PO BEDTIME 90 01/27/24 days #180 caps clotrimazole 10 mg russ 10 mg mucous membrane TID ORAL 03/18/24 THRUSH 10 days #30 tabs cephalexin 500 mg capsule 500 mg PO Q6H 7 days #28 caps 03/31/24 Allergies Allergy/AdvReac Type Severity Reaction Status Date / Time fish derived [fish] Allergy Anaphylaxis Verified 03/31/24 06:44 Review of Systems Constitutional: Constitutional: Reports no additional constitutional complaints, Denies chills, Denies fever(s) and Denies night sweats Eyes: Eyes: Reports no additional eye complaints, Denies blurry vision, Denies change in vision, Denies diplopia, Denies eye discharge, Denies loss of vision and Denies eye pain ENT: Denies dizziness Cardiovascular: Cardiovascular: Reports no additional cardiovascular complaints, Denies chest pain, Denies lightheadedness, Denies Loss of Consciousness and Denies dyspnea Respiratory: Respiratory: Reports no additional respiratory complaints and Denies dyspnea Gastrointestinal: Gastrointestinal: Reports no additional gastrointestinal complaints, Denies abdominal pain, Denies melena, Denies hematochezia, Denies change in bowel habits and Denies change in stool character Genitourinary: Genitourinary: Reports no additional male genitourinary complaints, Denies hematuria, Denies oliguria, Denies difficulty urinating, Denies dysuria, Denies urinary frequency, Denies urinary hesitancy, Denies urinary incontinence and Denies urinary urgency Musculoskeletal: Musculoskeletal: Reports no additional musculoskeletal complaints, Denies numbness and Denies tingling Comments: right ankle pain, right ankle swelling, right ankle warmth Neurologic: Denies dizziness, Denies loss of vision, Denies numbness and Denies tingling Psychiatric: Psychiatric: Reports no additional psychiatric complaints Endocrine: Endocrine: Reports no additional endocrine complaints Hematologic/Lymphatic: Hematologic/Lymphatic: Reports no additional hematologic/lymphatic complaints Allergic/Immunologic: Allergic/Immunologic: Reports no additional allergic/immunologic complaints PMFSH Past Medical History Attestation statement: The following information was validated with the patient. Source: old records reviewed and nursing notes reviewed Medical History PRAVEEN on CPAP Bronchitis Obstructive sleep apnea on CPAP Obesity Sleep apnea COVID-19 vaccine series completed Arthritis COPD (chronic obstructive pulmonary disease) Skin cancer Status post placement of implantable loop recorder BPH (benign prostatic hyperplasia) Paroxysmal atrial fibrillation Obesity Erectile dysfunction Urgency of micturition Hypertension Surgical History History of prostate surgery H/O colonoscopy History of cystoscopy Hx of total knee arthroplasty History of carpal tunnel release History of surgery Family History Family History Father Medical history unknown Mother Lung cancer Social History Social History Household Members: None Housing: House Alcohol intake: current Alcohol intake frequency: 3 or more drinks per day Patient Tobacco Use Status: Former Tobacco user Tobacco use type: Cigarette Cigarette Packs Per Day: 2 Years Smoked: 30 Smoked in Last 30 Days: No e-Cigarette/Vaping Use: Never Used Second Hand Smoke Exposure: No Use of substances other than those prescribed or required for medical reasons: No Advance Directives: No Advance Directives Information Provided: Yes Do you have a plan to hurt others: No Plan service: No Current occupational status: retired Current occupation: Right Cognitive needs: No Hearing needs: No Vision needs: No Physical Exam ED Vital Signs: Vital Signs - 24 hr 03/31/24 06:43 03/31/24 07:04 Temperature 97.4 F Pulse Rate 69 70 Respiratory Rate 18 14 Blood Pressure 163/81 H 159/68 H Pulse Oximetry 94 94 Oxygen Delivery Method Nasal Cannula Room Air BMI result Body Mass Index 37.2 Const General: cooperative, no acute distress, alert, awake and Physically active Nutritional Appearance: well nourished Orientation/consciousness: patient oriented x3 Limitations: no limitations HENMT Head: Yes normal to inspection Ears: hearing grossly normal bilaterally General nose exam: Normal external nose present Face and sinus: Yes normal facial exam Mouth: Normal oral and palatal mucosa present Teeth and gingiva: dentition normal Throat: Yes posterior oropharynx normal Eyes General: appearance normal, both eyes and all related structures Periorbital: periorbital findings normal Eyelids: Yes eyelids normal Conjunctivae: conjunctivae normal Pupils: Equal, round and reactive pupils present EOM: EOMs intact bilaterally Neck Neck: Yes normal visual inspection, Yes full ROM and Yes no lymphadenopathy Chest Chest palpation & inspection: normal inspection of the chest Resp Effort & Inspection: normal respiratory effort and able to speak in complete sentences Auscultation: clear to auscultation bilaterally Cardio Rate: regular rate Rhythm: regular rhythm Heart sounds: S1 normal heart sound present and S2 normal heart sound present GI Inspection: Yes normal to inspection Skin Other: Slight erythema of right lower extremity surrounding ankle joint. Dry skin around feet bilaterally. General skin exam: dry skin and erythema Lesions: no lesions Wounds: no wounds Neuro Other: Strength of right lower ankle joint is 4/5 due to pain compared to 5/5 strength of left side. Sensation is intact and equal bilaterally. General: patient oriented x3 Cranial nerves: Yes Equal, round and reactive pupils present Cognition (Neuro): normal cognition Motor exam (neuro): Normal motor muscle tone present throughout Sensory Exam: Normal double simultaneous stimulation for sensation Extrem Other: Right lower extremity ankle joint has full ROM despite pain with movement, no ecchymosis noted on exam. Slight redness, swelling and warmth noted on palpation. Pain to palpation localized on the lateral right ankle and radiates to surrounding area. General: Yes full ROM and Yes capillary refill normal Right lower extremity: full ROM, edema and ankle Left lower extremity: normal to inspection Psych Appearance: grossly normal Mental Status: mental status grossly normal Affect: normal affect Attitude: cooperative Thought process: Normal thought process present Thought content: Normal thought content present Insight: Good insight present (Psych) Procedures Orthopedic Splinting/Casting Injury #1: Side: right Lower Extremity Injury Location: ankle Lower Extremity Immobilizer: boot orthosis Medical Decision Making Medical Decision Making MDM Narrative: 78 year old male with PMH of Paroxysmal Afib, COPD, and HTN presents to the ED with worsening right ankle and foot pain. The area is warmth and erythema however, the patient has bilateral lower leg redness consistent with venous stasis dermatitis. There is slight swelling noted in his right ankle radiating in to the foot. No history or DVT or PE. Unlikely DVT or gout flare-up due to no history of gout and being anti-coagulated. Area is movable and ROM is intact making septic joint less likely. Obtained right ankle x-ray that showed a possible small fracture. Patient's labs did show elevated inflammatory markers and WBC count so will cover for cellulitis though this is of low likelihood. Patient placed in a walking boot, without incident. Patient's PMS was intact prior to and after boot placement. Patient instructed to follow up with his PCP and an orthopedic provider. Patient verbalized understanding and agreement with this treatment plan and discharge. Differential Diagnosis Differential Diagnoses: The differential diagnosis associated with the presentation includes osteoarthritis, gout, cellulitis, fracture, ankle sprain Admission/Observation Consideration of admission/observation: Escalation of care including admission/observation considered Patient would have been admitted to the hospital had his work up had any findings where hospital admission was appropriate and his clinical presentation warranted hospital admission. Lab Data [facility] Lab Attestation statement: I reviewed the patient's lab results. My interpretation of these results are in the [facility] Rationale portion of this note. 03/31/24 07:16 03/31/24 07:16 Labs: Lab Results 03/31/24 Range/Units 07:16 WBC 21.1 H (4.8-10.8) X10*3/uL RBC 5.02 (4.60-5.80) X10*6/uL Hgb 16.1 (14.0-18.0) g/dl Hct 46.7 (42.0-52.0) % MCV 93.0 (80.0-98.0) fL MCH 32.1 (27.0-33.0) pg MCHC 34.5 (31.0-36.0) g/dl RDW 13.2 (11.0-16.0) % Plt Count 236 (160-400) X10*3/uL MPV 9.1 L (9.4-12.4) fL Immature Gran % (Auto) 0.2 (0.0-0.4) % Neut % (Auto) 33.1 L (45-73) % Lymph % (Auto) 57.8 H (20-40) % Weston % (Auto) 6.7 (2-11) % Eos % (Auto) 1.8 (0-4) % Baso % (Auto) 0.4 (0-2) % Lymph # (Auto) 12.2 H (1.2-4.9) X10*3/uL Weston # (Auto) 1.4 H (0.1-1.2) X10*3/uL Eos # (Auto) 0.4 (0.0-0.4) X10*3/uL Baso # (Auto) 0.1 (0.0-0.2) X10*3/uL Abs Immat Gran (auto) 0.05 H (0.00-0.03) X10*3/uL Absolute Neuts (auto) 7.0 (2.0-8.3) x10*3/uL Absolute Nucleated RBC 0.000 (0.0-0.012) X10*3/uL Nucleated RBC % (auto) 0.0 (0.0-0.2) /100WBC Smear Tech's Comments VERIFIED ESR 2 (0-15) MM/HR Sodium 132 L (135-145) mmol/L Potassium 4.7 (3.3-5.1) mmol/L Chloride 98 (96-108) mmol/L Carbon Dioxide 27 (22-29) mmol/L Anion Gap 12 (12-20) BUN 16 (9-16) mg/dL Creatinine 1.28 (0.5-1.4) mg/dL Estim Creat Clear Calc 56.5 Estimated GFR 54 Random Glucose 106 (60-115) mg/dL Uric Acid 8.4 H (3.4-7.0) mg/dL Calcium 9.9 D (8.4-10.2) mg/dL Magnesium 2.1 (1.6-2.6) mg/dL Total Bilirubin 0.7 (0.0-1.0) mg/dL AST 22 (5-37) U/L ALT 18 (0-40) U/L Alkaline Phosphatase 88 (39-117) U/L C-Reactive Protein 1.70 H (< or = 0.50) mg/dL Total Protein 6.9 (6.5-8.0) g/dL Albumin 4.0 (3.5-5.0) g/dL Independent Interpretation I performed an independent interpretation of an: Plain X-Ray Interpretation: My interpretation is in agreement with the radiologist's impression of this imaging study. EXAMINATION: XR ANKLE, RIGHT CLINICAL INFORMATION: Patient states no injury, pain in right ankle. COMPARISON: None available. TECHNIQUE: AP, lateral, and mortise views of the right ankle. FINDINGS: Soft tissue swelling at the ankle. Large plantar calcaneal spur. Faint vascular calcifications. Joint effusion at the ankle. Oblique linear lucency along the inferior aspect of the lateral malleolus may represent a nondisplaced fracture, may also represent degenerative change. XR/XR ankle RT min 3V IMPRESSION: 1. Oblique linear lucency along the inferior aspect of the lateral malleolus may represent a nondisplaced fracture, may also represent degenerative change. 2. Plantar calcaneal spur 3. Diffuse demineralization. This study was presented today March 31, 2024 for interpretation. Stat results provided at this time as requested by referring provider. Dictated By: Meaghan Jenkins MD Signed By: Electronically signed by Meaghan Jenkins MD 03/31/24 0759 Radiology Impression Discussion of test interpretation with radiology: I have reviewed the radiologist's reading. Prescription Management I considered prescription management with: Antibiotic (patient prescribed an antibiotic for possible cellulitis) Chronic Conditions Patient?s care impacted by: Hypertension Discharge Plan Discharge Clinical Impression: Ankle fracture, Cellulitis Patient Disposition: Home, Self-Care Instructions: Ankle Fracture (DC), Cellulitis (DC) Additional Instructions: Follow up with your primary care provider and an orthopedic provider. Your x-ray showed a possible, small, fracture of the right ankle. Wear your walking boot whenever you ambulate. Return to the emergency department immediately if your symptoms worsen or if you develop any dizziness, shortness of breath, difficulty breathing, chest pain, blurry vision, loss of vision, nausea, vomiting, abdominal pain, fever, chills, back pain, or any other complaints. Prescriptions: New cephalexin 500 mg capsule 500 mg PO Q6H 7 Days Qty: 28 0RF No Action (DME) CPAP Machine/Device Device See Rx Instructions .Route Qty: 1 0RF Rx Instructions: 12CM H20 PREVIOUS MACHINE HAS BEEN RECALLED AND NOW NEEDS A NEW MACHINE BHAVANA Eliquis 5 mg tablet 5 mg PO BID 90 Days Qty: 180 3RF lisinopril 10 mg tablet 10 mg PO DAILY Qty: 90 3RF metoprolol succinate 50 mg tablet extended release 24 hr 50 mg PO DAILY Qty: 90 3RF hydrochlorothiazide 12.5 mg tablet 12.5 mg PO DAILY Qty: 90 3RF Spiriva with HandiHaler 18 mcg capsule, w/inhalation device 1 cap inhalation DAILY Qty: 90 5RF clotrimazole 10 mg russ 10 mg mucous membrane TID 10 Days Qty: 30 2RF tamsulosin 0.4 mg capsule 0.8 mg PO BEDTIME 90 Days Qty: 180 3RF multivitamin Tablet 1 tab PO DAILY cholecalciferol (vitamin D3) 25 mcg (1,000 unit) capsule 25 mcg PO DAILY albuterol sulfate 90 mcg/actuation HFA aerosol inhaler 2 puff PO Q6H PRN (Reason: bronchospasm) Qty: 18 5RF Referrals: [facility] [place] Family Medicine [Provider Group] (Call to establish and follow up with a primary care provider. If you already have a primary care provider, please follow up with them.) [facility] [place] Primary CareShanthi [Provider Group] [facility] [place] Primary CareFroy [Provider Group] [facility] [place] Orthopedic Surgeons [Provider Group] (Call to establish and follow up with an orthopedic provider.) Print Language: Korean
[2024-03-31 07:04] VITALS: BP 159/68; PULSE 70; RESP 14; O2SAT 94
[2024-03-31 07:25] LABS: Basophils Absolute Auto 0.1 X10*3/uL (0.0-0.2); Basophils Percent Auto 0.4 % (0-2); Eosinophils Absolute Auto 0.4 X10*3/uL (0.0-0.4); Eosinophils Percent Auto 1.8 % (0-4); Hematocrit 46.7 % (42.0-52.0); Hemoglobin 16.1 g/dl (14.0-18.0); Imm Gran Abs Auto 0.05 X10*3/uL (0.00-0.03); Imm Gran Pct Auto 0.2 % (0.0-0.4); Lymphocytes Percent Auto 57.8 % (20-40); MANUAL DIFF FLAG SCAN; Mean Corpuscular HGB Conc 34.5 g/dl (31.0-36.0); Mean Corpuscular Hemoglobin 32.1 pg (27.0-33.0); Mean Platelet Volume 9.1 fL (9.4-12.4); Monocytes Absolute Auto 1.4 X10*3/uL (0.1-1.2); Monocytes Percent Auto 6.7 % (2-11); Neutrophils Percent Auto 33.1 % (45-73); Platelet Count 236 X10*3/uL (160-400); Red Blood Count 5.02 X10*6/uL (4.60-5.80); Red Cell Distribution Width 13.2 % (11.0-16.0); SCAN SMEAR FLAG 1; White Blood Count 21.1 X10*3/uL (4.8-10.8)
[2024-03-31 07:28] LABS: Lymphocytes Absolute Auto 12.2 X10*3/uL (1.2-4.9)
[2024-03-31 07:37] LABS: Alanine Aminotransferase 18 U/L (0-40); Alkaline Phosphatase 88 U/L (39-117); Anion Gap 12 (12-20); Aspartate Amino Transferase 22 U/L (5-37); Bilirubin Total 0.7 mg/dL (0.0-1.0); Blood Urea Nitrogen 16 mg/dL (9-16); Calcium 9.9 mg/dL (8.4-10.2); Carbon Dioxide 27 mmol/L (22-29); Chloride 98 mmol/L (96-108); Creatinine Clr Calc Pharmacy 56.5; Estimated Glomerular Filt Rate 54; Glucose Random 106 mg/dL (60-115); Magnesium 2.1 mg/dL (1.6-2.6); Potassium 4.7 mmol/L (3.3-5.1); Sodium 132 mmol/L (135-145); Total Protein 6.9 g/dL (6.5-8.0); Uric Acid 8.4 mg/dL (3.4-7.0)
[2024-03-31 08:09] LABS: Erythrocyte Sedimentation Rate 2 MM/HR (0-15); SLIDE REVIEW VERIFIED
--- NOTE | 2024-03-31 09:11 | PC.NURSE ---
Pt. awaiting transport home at this time - cannot drive with his right foot in a walking boot. This RN left a voicemail for his son, Gilles Moreno at 09:10.
[2024-03-31 09:59] VITALS: BP 159/68; PULSE 70; RESP 14; TEMP 36.3; O2SAT 94
== END 2024-03-31 09:59 | disposition home or self-care (01) ==
PROVIDERS: Physician Assistant Medical; Emergency Provider Emergency Medicine
DX: S82.61XA Displaced fracture of lateral malleolus of right fibula, initial encounter for closed fracture (principal); L03.115 Cellulitis of right lower limb; M25.571 Pain in right ankle and joints of right foot; X58.XXXA Exposure to other specified factors, initial encounter; Y93.89 Activity, other specified; Y92.89 Other specified places as the place of occurrence of the external cause; Y99.8 Other external cause status; Z79.899 Other long term (current) drug therapy
CPT/HCPCS: 29515; 36415; 73610; 80053; 83735; 84550; 85025; 85652; 86140; 99283; 99284

== ENCOUNTER 2024-04-07 11:32 | Outpatient (AMB) | payer MEDICARE, SELFPAY ==
[2023-08-05 07:17] VITALS: BP 112/48; BP 122/56; BP 142/76; BMI 37.8
--- NOTE | 2024-04-07 11:35 | MHC.PC.OV ---
Vital Signs 04/07/24 11:36 Height 5 ft 8 in Weight 244 lb BMI 37.1 BP 138/76 Blood Pressure Location Lt brachial Position Sitting Pulse 64 Pulse Source Pulse Oximeter Pulse Oximetry (%) 94 Oxygen Delivery Method Room Air Intake Visit Reasons: swollen ankle Cnc Technician Required: No Accompanied by: Self / Same As Patient Allergies fish derived [fish] Allergy (Verified 04/07/24 11:36) Anaphylaxis Medication List - Last Reconciled 04/07/24 by José Luis Martell MD albuterol sulfate 90 mcg/actuation 2 puffs PO Q6H PRN apixaban (Eliquis) 5 mg PO BID 90 days cephalexin 500 mg PO Q6H 7 days cholecalciferol (vitamin D3) 25 mcg PO DAILY clotrimazole 10 mg mucous membrane TID 10 days CPAP (CPAP Machine/Device) 12CM H20 PREVIOUS MACHINE HAS BEEN RECALLED AND NOW NEEDS A NEW MACHINE BHAVANA hydrochlorothiazide 12.5 mg PO DAILY lisinopril 10 mg PO DAILY metoprolol succinate ER 50 mg PO DAILY multivitamin 1 tab PO DAILY tamsulosin 0.8 mg (2 x 0.4 mg) PO BEDTIME 90 days tiotropium bromide (Spiriva with HandiHaler) 1 cap inhalation DAILY Tobacco use date assessed: 11/13/23 Fall risk assessment: 1 Fall in past year Last assessed Fall Risk: 04/07/24 Dental Screening Dental Screen Date: 11/13/23 HPI swollen ankle HPI Details had an ankle injury with possible fracture of lateral malleolus; has a splint; has appt with ortho through [facility] Medical History PRAVEEN on CPAP Bronchitis Obstructive sleep apnea on CPAP Obesity Sleep apnea COVID-19 vaccine series completed Arthritis COPD (chronic obstructive pulmonary disease) Skin cancer Status post placement of implantable loop recorder BPH (benign prostatic hyperplasia) Paroxysmal atrial fibrillation Obesity Erectile dysfunction Urgency of micturition Hypertension Surgical History History of prostate surgery H/O colonoscopy History of cystoscopy Hx of total knee arthroplasty History of carpal tunnel release History of surgery Family History Father Medical history unknown Mother Lung cancer Social History Household Members: None Housing: House Alcohol intake: current Alcohol intake frequency: 3 or more drinks per day Patient Tobacco Use Status: Former Tobacco user Tobacco use type: Cigarette Cigarette Packs Per Day: 2 Years Smoked: 30 Packs Per Year: 60 e-Cigarette/Vaping Use: Never Used Second Hand Smoke Exposure: No service: No Current occupational status: retired Current occupation: Right Cognitive needs: No Hearing needs: No Vision needs: No Questionnaire PHQ-9 Over the last 2 weeks, how often have you been bothered by any of the following problems? 1. Little interest or pleasure in doing things: not at all 2. Feeling down, depressed, or hopeless: not at all 3. Trouble falling or staying asleep, or sleeping too much: not at all 4. Feeling tired or having little energy: not at all 5. Poor appetite or overeating: not at all 6. Feeling bad about yourself - or that you are a failure or have let yourself or your family down: not at all 7. Trouble concentrating on things, such as reading the newspaper or watching television: not at all 8. Moving or speaking so slowly that other people could have noticed. Or the opposite - being so fidgety or restless that you have been moving around a lot more than usual: not at all 9. Thoughts that you would be better off or of hurting yourself in some way: not at all Total score: 0 Depression Screening Interpretation: Negative Depression Screening Done: Yes 08481 - PHQ-9 Billing: Yes Source: Developed by Drs. Jef Singh, Marek Higgins and colleagues, with an educational cherrie from [email or web address]. Thrive Questionnaire Date Thrive assessed: 11/13/23 AUDIT C Alcohol Use Questionnaire (AUDIT-C) 1. How often do you have a drink containing alcohol?: 4 or more times a week 2. How many drinks containing alcohol do you have on a typical day when you are drinking?: 1 or 2 Total Score: 4 Score Reviewed/Action Taken: Yes YELENA-7 AMB Questionnaire YELENA-7 Date YELENA - 7 assessed: 11/13/23 Source: Developed by Drs. Jef Singh, Marek iHggins and colleagues, with an educational cherrie from [email or web address]. Review of Systems Const Denies chills, Denies headache(s) and Denies weight loss ENT Denies headache(s) Card Denies chest pain, Denies syncope, Denies irregular heart rhythm and Denies dyspnea Resp Denies chest congestion, Denies cough and Denies dyspnea GI Denies abdominal pain, Denies change in stool character, Denies nausea and Denies vomiting Musc Denies deformity and Denies joint swelling Neuro Denies syncope and Denies headache(s) Physical exam (Primary Care) Vital Signs: Last Vital Signs Pulse 64 04/07/24 11:36 BP 138/76 04/07/24 11:36 Pulse Ox 94 04/07/24 11:36 Oxygen Delivery Method Room Air 04/07/24 11:36 BMI result Body Mass Index 37.1 Tobacco/Smoking Status: Tobacco use Status Tobacco use date assessed 11/13/23 04/07/24 11:41 Patient Tobacco Use Status Former Tobacco user 04/07/24 11:41 Tobacco use type Cigarette 04/07/24 11:41 e-Cigarette/Vaping Use Never Used 04/07/24 11:41 PHQ-9: PHQ-9 Score PHQ-9: Total score 0 04/07/24 11:41 Depression Screening Interpretation: Negative Thrive Assessment: Date of Thrive Assessment Date Thrive assessed 11/13/23 04/07/24 11:41 Const General: cooperative, comfortable, no acute distress and alert Neck Neck: Yes no lymphadenopathy Thyroid: Thyroid normal Resp Effort & Inspection: normal respiratory effort Auscultation: clear to auscultation bilaterally Percussion: percussion normal Cardio Jugular venous distension: no JVD Palpation: normal PMI Rate: regular rate Rhythm: regular rhythm Heart sounds: S1 normal heart sound present and S2 normal heart sound present GI Inspection: Yes normal to inspection Palpation (GI): No hepatosplenomegaly present Skin General skin exam: no rashes or lesions noted Extrem General: Yes no clubbing, cyanosis or edema Assessment and Plan Assessment & Plan (1) Ankle fracture: Code(s): S82.899A - Other fracture of unspecified lower leg, initial encounter for closed fracture Plan: seems stable; f/u with ortho Coding Level of Care Code Est Pt Level 3 (04437) Diagnoses Ankle fracture S82.899A
[2024-04-07 11:36] VITALS: BP 138/76; PULSE 64; O2SAT 94; BMI 37.1
== END 2024-04-07 12:51 | disposition home or self-care (01) ==
PROVIDERS: Visit Provider Internal Medicine
DX: S82.891A Other fracture of right lower leg, initial encounter for closed fracture (principal)
CPT/HCPCS: 99213

== ENCOUNTER 2024-04-30 10:15 | Outpatient (REF) | payer MEDICARE, SELFPAY ==
[2023-08-05 07:17] VITALS: BP 112/48; BP 122/56; BP 142/76; BMI 37.8
--- NOTE | ~2024-04-30 | XR_ITS ---
EXAMINATION: XR ANKLE, RIGHT CLINICAL INFORMATION: Right ankle pain COMPARISON: Radiographs 03/31/2024 TECHNIQUE: AP, lateral, and mortise views of the right ankle. FINDINGS: Questionable fracture at the posterior aspect of the distal fibula on the lateral view only. There are chronic ossifications at the tip of the lateral malleolus compatible with a remote injury and there are mild degenerative osteophytes of the talocrural joint. The ankle mortise is preserved. Large heel spur. Posterior calcaneal enthesophyte. XR/XR ankle RT min 3V IMPRESSION: Questionable fracture at the posterior aspect of the distal fibula on the lateral view only. Correlate for point tenderness in this location. This could be further evaluated with CT or MRI. Electronically signed by: Iván Mendoza MD 05/06/2024 09:44 AM EDT
== END 2024-04-30 10:16 | disposition home or self-care (01) ==
LOC: HO.HOSX 10:15
PROVIDERS: PCP Internal Medicine
DX: M25.571 Pain in right ankle and joints of right foot (principal); S82.892A Other fracture of left lower leg, initial encounter for closed fracture
CPT/HCPCS: 73610; 99212

== ENCOUNTER 2024-04-30 10:43 | Outpatient (AMB) | payer MEDICARE, SELFPAY ==
[2023-08-05 07:17] VITALS: BP 112/48; BP 122/56; BP 142/76; BMI 37.8
[2024-04-30 10:44] VITALS: BMI 37.1
--- NOTE | 2024-04-30 10:44 | MHC.OFFVIS ---
Vital Signs 04/30/24 10:44 Height 5 ft 8 in Weight 244 lb BMI 37.1 Intake Visit Reasons: Newprob-Ankle fracture, Cellulitis right Intake Note: Loy is a 78 year old male, unsure of the nature o f his pain. Patient states that [place] No numbness or tingling. Patient has been taking Tylenol for pain and recently removed the boot he was given at the ER. Patient states the he oinly wore the boot for about 2 weeks after the injury. Allergies No Known Allergies Allergy (Verified 05/06/24 10:44) HPI HPI Newprob-Ankle fracture, Cellulitis right: Details: Patient is a 78-year-old male who presents for evaluation of right ankle fracture. On approximately 03/29/2024, the patient reports that he was [place] beach, when he rolled his right ankle and began to experience pain. The patient was previously evaluated in the emergency department, where x-rays were taken, revealing a questionable area of lucency on the distal lateral malleolus of the right ankle. Today, the patient reports that his ankle is feeling much better, and then he is not experiencing any pain at this time. Patient denies any numbness or tingling in the right lower extremity. Patient reports that he has not been wearing the boot as of late, as he found it very uncomfortable. No other acute complaints or concerns this time. [facility] Medical History PRAVEEN on CPAP Bronchitis Obstructive sleep apnea on CPAP Obesity Sleep apnea COVID-19 vaccine series completed Arthritis COPD (chronic obstructive pulmonary disease) Skin cancer Status post placement of implantable loop recorder BPH (benign prostatic hyperplasia) Paroxysmal atrial fibrillation Obesity Erectile dysfunction Urgency of micturition Hypertension Surgical History History of prostate surgery H/O colonoscopy History of cystoscopy Hx of total knee arthroplasty History of carpal tunnel release History of surgery Family History Father Medical history unknown Mother Lung cancer Social History Household Members: None Housing: House Alcohol intake: current Alcohol intake frequency: 3 or more drinks per day Patient Tobacco Use Status: Former Tobacco user Tobacco use type: Cigarette Cigarette Packs Per Day: 2 Years Smoked: 30 e-Cigarette/Vaping Use: Never Used Second Hand Smoke Exposure: No service: No Current occupational status: retired Current occupation: Right Cognitive needs: No Hearing needs: No Vision needs: No Review of Systems Const All systems reviewed & are unremarkable except as noted in HPI and below Physical Exam Vital Signs: BMI result Body Mass Index 37.1 Extrem Other: On inspection, some very mild edema noted on the lateral R ankle No erythema, ecchymosis No lacerations, abrasions, open areas No evidence of infection Mild tenderness to palpation of the ATFL and lateral malleolus No tenderness to palpation of the medial malleolus, syndesmosis, anterior or posterior ankle No palpable deformity of the Achilles Patient is able to plantar flex and dorsiflex the R foot without difficulty Able to invert and jimy without difficulty Distal sensation intact Capillary refill brisk Results Reviewed Results Reviewed: X-rays obtained in the office today and independently reviewed by me, Lupillo Colon PA-C, demonstrate small avulsion fracture of the inferior aspect of the lateral malleolus with evidence of interval bony healing. Assessment & Plan Assessment & Plan (1) Closed avulsion fracture of left ankle: Code(s): S82.892A - Other fracture of left lower leg, initial encounter for closed fracture Category: Medical Plan 1. Left ankle sprain with associated avulsion fracture of the lateral malleolus Date of injury 03/29/2024 Patient is educated about this injury and the typical recovery course At this time, due to the injury being approximately 1 month ago and the patient being unable to tolerate the walking boot well, the patient was provided with a lace-up ankle brace to be worn with daytime activities for additional ankle support Patient is advised that he should not be wearing this ankle brace for more than 3-4 weeks Patient is advised to avoid walking on uneven surfaces, running, or other activities that may lead to re-injury or worsening of current injury Patient is amenable to this plan Patient will follow-up as needed with any acute concerns Orders: Orders XR ankle RT min 3V 04/30/24 M25.571 - Pain in right ankle and joints of right foot Coding Level of Care Code Est Pt Level 3 (12435) Diagnoses Closed avulsion fracture of left ankle S82.892A
== END 2024-04-30 11:27 | disposition home or self-care (01) ==
DX: S82.892A Other fracture of left lower leg, initial encounter for closed fracture (principal)
CPT/HCPCS: 99213

== ENCOUNTER 2024-05-06 10:17 | Outpatient (AMB) | payer MEDICARE, SELFPAY ==
[2023-08-05 07:17] VITALS: BP 112/48; BP 122/56; BP 142/76; BMI 37.8
[2024-05-06 10:26] VITALS: BP 120/62; PULSE 60; O2SAT 93; BMI 37.4
--- NOTE | 2024-05-06 10:26 | A.OFFVIS_ITS ---
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 Required: No Allergies No Known Allergies Allergy (Verified 05/06/24 10:44) Medication List - Last Reconciled 05/06/24 by Mann Chester MD albuterol sulfate 90 mcg/actuation 2 puffs PO Q6H PRN apixaban (Eliquis) 5 mg PO BID 90 days cephalexin 500 mg PO Q6H 7 days cholecalciferol (vitamin D3) 25 mcg PO DAILY clotrimazole 10 mg mucous membrane TID 10 days CPAP (CPAP Machine/Device) 12CM H20 PREVIOUS MACHINE HAS BEEN RECALLED AND NOW NEEDS A NEW MACHINE BHAVANA hydrochlorothiazide 12.5 mg PO DAILY lisinopril 10 mg PO DAILY metoprolol succinate ER 50 mg PO DAILY multivitamin 1 tab PO DAILY tamsulosin 0.8 mg (2 x 0.4 mg) PO BEDTIME 90 days tiotropium bromide (Spiriva with HandiHaler) 1 cap inhalation DAILY Do you need a note to return to daycare/school/sports/work: No HPI HPI COPD: Details: Missed ahuja 78 years old gentleman with chronic obstructive pulmonary disease, gross obesity, round face and known case of obstructive sleep apnea is here for follow-up after 4 months. HE IS PAST SMOKER, SMOKES ONLY 1 OR 2 CIGARETTES A DAY, BUT SAY IS HE HAS NOT SMOKED FOR THE LAST MANY WEEKS. BREATHING IS REMAINING VERY STABLE JUST WITH SPIRIVA HANDIHALER 1 INHALATION DAILY. HE USES CPAP EVERY NIGHT VERY REGULARLY, AND SLEEPS WELL. HE HAS NO ISSUES WITH THE CURRENT CPAP DEVICE, OR THE MASK. HE IS NOT ABLE TO LOSE MUCH WEIGHT. [facility] Medical History PRAVEEN on CPAP Bronchitis Obstructive sleep apnea on CPAP Obesity Sleep apnea COVID-19 vaccine series completed Arthritis COPD (chronic obstructive pulmonary disease) Skin cancer Status post placement of implantable loop recorder BPH (benign prostatic hyperplasia) Paroxysmal atrial fibrillation Obesity Erectile dysfunction Urgency of micturition Hypertension Surgical History History of prostate surgery H/O colonoscopy History of cystoscopy Hx of total knee arthroplasty History of carpal tunnel release History of surgery Family History Father Medical history unknown Mother Lung cancer Social History Household Members: None Housing: House Alcohol intake: current Alcohol intake frequency: 3 or more drinks per day Patient Tobacco Use Status: Former Tobacco user Tobacco use type: Cigarette Cigarette Packs Per Day: 2 Years Smoked: 30 e-Cigarette/Vaping Use: Never Used Second Hand Smoke Exposure: No service: No Current occupational status: retired Current occupation: Right Cognitive needs: No Hearing needs: No Vision needs: No Review of Systems Const All systems reviewed & are unremarkable except as noted in HPI and below Eyes Reports no additional complaints ENT Reports no additional complaints Card Denies chest pain, Denies irregular heart rhythm and Denies leg edema Resp Reports as per HPI (He has increased cough and congestion for the last 3-4 weeks) GI Reports no additional complaints Reports no additional complaints Musc Reports no additional complaints Skin/Breast Reports system reviewed and no additional complaints, except as documented Neuro Reports no additional complaints Psych Reports no additional complaints Physical Exam Vital Signs: Last Vital Signs Pulse 60 05/06/24 10:26 BP 120/62 05/06/24 10:26 Pulse Ox 93 05/06/24 10:26 Oxygen Delivery Method Room Air 05/06/24 10:26 BMI result Body Mass Index 37.4 Const Other: Patient is grossly obese with a round face, short and obese neck. General: comfortable, no acute distress, alert and awake Orientation/consciousness: patient oriented x3 HEENT Head: Yes normal to inspection General nose exam: No nasal polyps present, mucous membranes and turbinates abnormal (MODERATE HYPERTROPHY OF THE NASAL TURBINATES) and No nasal discharge present Face and sinus: Yes sinuses nontender Mouth: oropharynx abnormals (Oropharynx is narrow and crowded, Mallampati class 4.) Throat: Yes posterior oropharynx normal Eyes General: appearance normal, both eyes and all related structures Neck Neck: Yes normal visual inspection, Yes no lymphadenopathy, Yes trachea midline and Yes no JVD Thyroid: Thyroid normal Chest Chest palpation & inspection: normal inspection of the chest, normal palpation of entire chest wall and no tenderness Resp Other: Percussion note resonant, breath sounds are diminished and distant with prolonged expiratory phase. No wheezes or crepitations are heard today. Cardio Palpation: normal PMI Rate: regular rate Rhythm: regular rhythm Heart sounds: no gallops and no murmurs GI Palpation (GI): Soft to palpation, nontender, No hepatosplenomegaly present, no masses and Other GI palpation findings present (Abdomen is obese and protuberant) Auscultation: normal bowel sounds Back/Spine/Pelvis Thoracic/Lumbar Spine: thoracic and lumbar spine normal to inspection and thoraco-lumbar ROM limited Skin General skin exam: no rashes or lesions noted Neuro General: patient oriented x3 and no focal motor deficits Cranial nerves: Yes CN's II-XII intact bilaterally Extrem General: Yes normal to inspection, Yes no clubbing, cyanosis or edema and Yes no calf tenderness Psych Appearance: grossly normal and well kempt Speech and movement: Normal speech and movement present Results Reviewed Results Reviewed: COMPLIANCE REPORT FOR THE LAST 90 DAYS IS REVIEWED. HE HAS USED 84/90 DAYS, 93%. AVERAGE USE IT PER NIGHT 5 HOURS 43 MINUTES. PRESSURE USED IS 12 CM. NO SIGNIFICANT AIR LEAK RESIDUAL AHI 2.6 Assessment & Plan Assessment & Plan (1) Obesity: Comment: CHRONIC OBESITY,BMI= 37.4 PATIENT IS WELL AWARE OF THIS ISSUE. HE IS ACTIVE IN DOING EXERCISE AND IS TRYING TO LIMIT HIS CALORIES INTAKE. Code(s): E66.9 - Obesity, unspecified Category: Medical Plan: CONTINUE TO DO REGULAR EXERCISE. CONTINUE TO WATCH DIET (2) COPD (chronic obstructive pulmonary disease): Comment: Known case of chronic obstructive pulmonary disease, moderately severe. Clinically seems to be stable except for frequent acute exacerbations due to acute bronchitis, Code(s): J44.9 - Chronic obstructive pulmonary disease, unspecified Category: Medical Plan: Advised to continue using Spiriva HandiHaler 1 capsule daily Albuterol HFA 2 puffs Q 6 hours only p.r.n.. (3) PRAVEEN on CPAP: Comment: Known case of obstructive sleep apnea. Using CPAP regularly, with nasal pillows. Sleep hours are somewhat erratic. No issues with the nasal pillows of or CPAP device. He loves to keep on using the CPAP every night. Code(s): G47.33 - Obstructive sleep apnea (adult) (pediatric) Category: Medical Plan: Commended for good compliance. Advised to keep on using every night. Call the [employer] or my office if the CPAP device is giving any problems. Coding Level of Care Code Est Pt Level 3 (61845) Diagnoses Obesity E66.9 COPD (chronic obstructive pulmonary disease) J44.9 PRAVEEN on CPAP G47.33
== END 2024-05-06 10:52 | disposition home or self-care (01) ==
PROVIDERS: PCP Internal Medicine; Visit Provider Internal Medicine
DX: E66.9 Obesity, unspecified (principal); J44.9 Chronic obstructive pulmonary disease, unspecified; G47.33 Obstructive sleep apnea (adult) (pediatric)
CPT/HCPCS: 99213

== ENCOUNTER → 2024-05-06 10:17 | Outpatient (BNVA) | payer MEDICARE, SELFPAY ==
[2023-08-05 07:17] VITALS: BP 112/48; BP 122/56; BP 142/76; BMI 37.8
== END ==
PROVIDERS: PCP Internal Medicine; Visit Provider Internal Medicine
DX: J44.9 Chronic obstructive pulmonary disease, unspecified (principal); G47.33 Obstructive sleep apnea (adult) (pediatric); E66.9 Obesity, unspecified; Z68.37 Body mass index [BMI] 37.0-37.9, adult
CPT/HCPCS: 99212

== ENCOUNTER 2024-05-26 10:48 | Outpatient (AMB) | payer MEDICARE, SELFPAY ==
[2023-08-05 07:17] VITALS: BP 112/48; BP 122/56; BP 142/76; BMI 37.8
--- NOTE | 2024-05-26 10:49 | MHC.PC.OV ---
Vital Signs 05/26/24 10:50 Height 5 ft 8 in Weight 243 lb BMI 36.9 BP 138/64 Blood Pressure Location Lt brachial Position Sitting Pulse 65 Pulse Source Pulse Oximeter Pulse Oximetry (%) 94 Oxygen Delivery Method Room Air Intake Visit Reasons: 3mth f/u Allergies No Known Allergies Allergy (Verified 05/26/24 10:51) Medication List - Last Reconciled 05/31/24 by José Luis Martell MD albuterol sulfate 90 mcg/actuation 2 puffs PO Q6H PRN apixaban (Eliquis) 5 mg PO BID 90 days cholecalciferol (vitamin D3) 25 mcg PO DAILY clotrimazole 10 mg mucous membrane TID 10 days CPAP (CPAP Machine/Device) 12CM H20 PREVIOUS MACHINE HAS BEEN RECALLED AND NOW NEEDS A NEW MACHINE BHAVANA hydrochlorothiazide 12.5 mg PO DAILY lisinopril 10 mg PO DAILY metoprolol succinate ER 50 mg PO DAILY multivitamin 1 tab PO DAILY tamsulosin 0.8 mg (2 x 0.4 mg) PO BEDTIME 90 days tiotropium bromide (Spiriva with HandiHaler) 1 cap inhalation DAILY Tobacco use date assessed: 11/13/23 Fall risk assessment: No Falls in past year Last assessed Fall Risk: 05/26/24 Dental Screening Dental Screen Date: 11/13/23 HPI 3mth f/u HPI Details HTN on rx; doing well and compliant [facility] Medical History PRAVEEN on CPAP Bronchitis Obstructive sleep apnea on CPAP Obesity Sleep apnea COVID-19 vaccine series completed Arthritis COPD (chronic obstructive pulmonary disease) Skin cancer Status post placement of implantable loop recorder BPH (benign prostatic hyperplasia) Paroxysmal atrial fibrillation Obesity Erectile dysfunction Urgency of micturition Hypertension Surgical History History of prostate surgery H/O colonoscopy History of cystoscopy Hx of total knee arthroplasty History of carpal tunnel release History of surgery Family History Father Medical history unknown Mother Lung cancer Social History Household Members: None Housing: House Alcohol intake: current Alcohol intake frequency: 3 or more drinks per day Patient Tobacco Use Status: Former Tobacco user Tobacco use type: Cigarette Cigarette Packs Per Day: 2 Years Smoked: 30 e-Cigarette/Vaping Use: Never Used Second Hand Smoke Exposure: No service: No Current occupational status: retired Current occupation: Right Cognitive needs: No Hearing needs: No Vision needs: No Questionnaire PHQ-9 Over the last 2 weeks, how often have you been bothered by any of the following problems? 1. Little interest or pleasure in doing things: not at all 2. Feeling down, depressed, or hopeless: not at all 3. Trouble falling or staying asleep, or sleeping too much: not at all 4. Feeling tired or having little energy: not at all 5. Poor appetite or overeating: not at all 6. Feeling bad about yourself - or that you are a failure or have let yourself or your family down: not at all 7. Trouble concentrating on things, such as reading the newspaper or watching television: not at all 8. Moving or speaking so slowly that other people could have noticed. Or the opposite - being so fidgety or restless that you have been moving around a lot more than usual: not at all 9. Thoughts that you would be better off or of hurting yourself in some way: not at all Total score: 0 Depression Screening Interpretation: Negative Depression Screening Done: Yes 98536 - PHQ-9 Billing: Yes Source: Developed by Drs. Jef Singh, Klaudia Saenz, Marek Curran and colleagues, with an educational cherrie from [email or web address]. Thrive Questionnaire Date Thrive assessed: 11/13/23 Are you currently unemployed and looking for a job?: No AUDIT C Alcohol Use Questionnaire (AUDIT-C) 1. How often do you have a drink containing alcohol?: 4 or more times a week 2. How many drinks containing alcohol do you have on a typical day when you are drinking?: 1 or 2 Total Score: 4 Score Reviewed/Action Taken: Yes YELENA-7 AMB Questionnaire YELENA-7 Date YELENA - 7 assessed: 11/13/23 Source: Developed by Drs. Jef Singh, Klaudia Saenz, Marek Curran and colleagues, with an educational cherrie from [email or web address]. Review of Systems Const Denies chills, Denies headache(s) and Denies weight loss ENT Denies headache(s) Card Denies chest pain, Denies syncope, Denies irregular heart rhythm and Denies dyspnea Resp Denies chest congestion, Denies cough and Denies dyspnea GI Denies abdominal pain, Denies change in stool character, Denies nausea and Denies vomiting Musc Denies deformity and Denies joint swelling Neuro Denies syncope and Denies headache(s) Physical exam (Primary Care) Vital Signs: Last Vital Signs Pulse 65 05/26/24 10:50 BP 138/64 05/26/24 10:50 Pulse Ox 94 05/26/24 10:50 Oxygen Delivery Method Room Air 05/26/24 10:50 BMI result Body Mass Index 36.9 Tobacco/Smoking Status: Tobacco use Status Tobacco use date assessed 11/13/23 05/26/24 10:57 Patient Tobacco Use Status Former Tobacco user 05/26/24 10:57 Tobacco use type Cigarette 05/26/24 10:57 e-Cigarette/Vaping Use Never Used 05/26/24 10:57 PHQ-9: PHQ-9 Score PHQ-9: Total score 0 05/26/24 16:20 Depression Screening Interpretation: Negative Thrive Assessment: Date of Thrive Assessment Date Thrive assessed 11/13/23 05/26/24 10:57 Const General: cooperative, comfortable, no acute distress and alert Neck Neck: Yes no lymphadenopathy Thyroid: Thyroid normal Resp Effort & Inspection: normal respiratory effort Auscultation: clear to auscultation bilaterally Percussion: percussion normal Cardio Jugular venous distension: no JVD Palpation: normal PMI Rate: regular rate Rhythm: regular rhythm Heart sounds: S1 normal heart sound present and S2 normal heart sound present GI Inspection: Yes normal to inspection Palpation (GI): No hepatosplenomegaly present Skin General skin exam: no rashes or lesions noted Extrem General: Yes no clubbing, cyanosis or edema Office Procedures Flu Questionnaire Does the patient have a severe egg allergy?: No Does the patient have severe life threatening allergies?: No Does the patient have a fever or illness today?: No Has the patient ever had Guillain-[place] Syndrome?: No Has the patient ever had any past reaction to a flu shot?: No Immunizations Fluarix Triv [id number] (PF) 45 mcg (15 mcg x 3)/0.5 mL IM syringe Performing Provider: José Luis Martell MD [facility] Documented (not given) by: YOJANA Bledsoe on 05/26/24 16:03 Reason Not Given: Not Given Coding Level of Care Code Est Pt Level 3 (27341) Diagnoses Essential hypertension I10 Hypertension type: essential hypertension Assessment & Plan Assessment & Plan (1) Hypertension: Code(s): I10 - Essential (primary) hypertension Category: Medical Qualifiers: Hypertension type: essential hypertension Qualified Code(s): I10 - Essential (primary) hypertension Plan: stable; same rx Orders: Orders Influenza [id number] Immunization 05/26/24 Z23 - Encounter for immunization
[2024-05-26 10:50] VITALS: BP 138/64; PULSE 65; O2SAT 94; BMI 36.9
== END 2024-05-26 11:11 | disposition home or self-care (01) ==
PROVIDERS: PCP Internal Medicine; Visit Provider Internal Medicine
DX: I10 Essential (primary) hypertension (principal)

== ENCOUNTER → 2024-05-26 10:48 | Outpatient (BNVA) | payer MEDICARE, SELFPAY ==
[2023-08-05 07:17] VITALS: BP 112/48; BP 122/56; BP 142/76; BMI 37.8
== END ==
PROVIDERS: PCP Internal Medicine; Visit Provider Internal Medicine
DX: Z23 Encounter for immunization (principal); I10 Essential (primary) hypertension
CPT/HCPCS: 90471; 90656; 96127; 99212

== ENCOUNTER 2024-06-09 13:04 | Outpatient (AMB) | payer MEDICARE, SELFPAY ==
[2023-08-05 07:17] VITALS: BP 112/48; BP 122/56; BP 142/76; BMI 37.8
--- NOTE | 2024-06-09 13:18 | A.OFFVIS_ITS ---
Intake Visit Reasons: New prob- Right Hand CTS Intake Note: Loy is a 78 yo right hand dominant male who presents today for a new problem visit regarding right hand CTS, confirmed on EMG performed on 03/30/24. 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 Has tried braces, steroid injections, PT, OT meds with little relief. Pt states he had a previous CTR surgery on his right hand in 2018. Allergies No Known Allergies Allergy (Verified 06/09/24 13:33) HPI HPI New prob- Right Hand CTS: Details: Loy is a 78 year old right hand dominant man who presents for a NCS review of his right hand numbness. He complains of constant numbness in his right thumb, index, middle, and half of his ring fingers. He denies any small finger numbness. He reports a Hx of a right carpal tunnel release done in ~2018. He says prior to surgery he had constant numbness, and his symptoms perhaps slightly improved following surgery, but he says he still had numbness in his right hand after the surgery. He says his sensation has not worsened since after his previous surgery. He denies any pain. He denies any locking or catching at this time, but says he has had a history of trigger fingers in the past, which resolve on their own. He says he found limited relief from bracing, PT, or OT in the past. He says he also had a left carpal tunnel release in ~2018 as well. He says this went well and his symptoms somewhat improved after surgery. He has no complaints of his left hand at this time. FORMERLY [facility] Medical History PRAVEEN on CPAP Bronchitis Obstructive sleep apnea on CPAP Obesity Sleep apnea COVID-19 vaccine series completed Arthritis COPD (chronic obstructive pulmonary disease) Skin cancer Status post placement of implantable loop recorder BPH (benign prostatic hyperplasia) Paroxysmal atrial fibrillation Obesity Erectile dysfunction Urgency of micturition Hypertension Surgical History History of prostate surgery H/O colonoscopy History of cystoscopy Hx of total knee arthroplasty History of carpal tunnel release History of surgery Family History Father Medical history unknown Mother Lung cancer Social History Household Members: None Housing: House Alcohol intake: current Alcohol intake frequency: 3 or more drinks per day Patient Tobacco Use Status: Former Tobacco user Tobacco use type: Cigarette Cigarette Packs Per Day: 2 Years Smoked: 30 e-Cigarette/Vaping Use: Never Used Second Hand Smoke Exposure: No service: No Current occupational status: retired Current occupation: Right Cognitive needs: No Hearing needs: No Vision needs: No Review of Systems Const All systems reviewed & are unremarkable except as noted in HPI and below Physical Exam Const General: cooperative, healthy appearing and no acute distress Orientation/consciousness: patient oriented x3 HEENT Head: Yes normocephalic and Yes atraumatic Eyes EOM: EOMs intact bilaterally Resp Effort & Inspection: normal respiratory effort and able to speak in complete sentences Cardio Jugular venous distension: no JVD Skin General skin exam: turgor normal Rashes: no rashes Neuro General: patient oriented x3 Extrem Other: Evaluation of Right Upper Extremity: The patient is alert, oriented, and in no acute distress Neuro: Dense numbness in the index, middle, and radial ring fingers, with decreased but slightly better sensation to his thumb. Normal sensation to the ulnar ring finger & small finger. No thenar or intrinsic wasting Good APB muscle belly firing and good finger cross Vascular: Cap refill brisk ROM: He can make a fist and extend all his digits No locking or catching today in clinic Skin: No lacerations or abrasions. General: No Ecchymosis. No Erythema or evidence of infection. Nerve Conduction Study IMPRESSION: 1. [id number] bilateral median neuropathy across carpal tunnel. 2. Mild right ulnar neuropathy across cubital tunnel. 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 Right carpal tunnel syndrome, mild-moderate S/P right carpal tunnel release in ~2018 at an outside clinic With dense numbness prior to his surgery, to the best of his recollection there was no improvement following his surgery Still with dense numbness today in clinic. Perhaps some slightly better sensation in his thumb I educated him about this condition I discussed operative and non-operative treatment options I recommend he wait and see if his symptoms are worsening in his right hand. He is going to try to pay attention. He will follow up in 6 weeks to see how he is doing. 2. Right cubital tunnel syndrome, mild Asymptomatic I educated him about this condition If he develops any small finger numbness, he can follow up to discuss treatment options 3. Left carpal tunnel syndrome, mild-moderate S/P right carpal tunnel release in ~2017 at an outside clinic With dense numbness prior to his surgery, some improvement following his surgery Normal sensation today in clinic No complaints Scribed for Kacey Amato MD by Magen Benitez, medical reception specialist, on 06/09/24 at 1:45 PM, EST. 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
== END 2024-06-09 13:50 | disposition home or self-care (01) ==
PROVIDERS: PCP Internal Medicine; Visit Provider Orthopaedic Surgery
DX: G56.03 Carpal tunnel syndrome, bilateral upper limbs (principal); G56.21 Lesion of ulnar nerve, right upper limb; Z98.890 Other specified postprocedural states
CPT/HCPCS: 99203

== ENCOUNTER → 2024-06-09 13:04 | Outpatient (BNVA) | payer MEDICARE, SELFPAY ==
[2023-08-05 07:17] VITALS: BP 112/48; BP 122/56; BP 142/76; BMI 37.8
== END ==
PROVIDERS: PCP Internal Medicine; Visit Provider Orthopaedic Surgery
DX: G56.01 Carpal tunnel syndrome, right upper limb (principal); G56.21 Lesion of ulnar nerve, right upper limb; G56.02 Carpal tunnel syndrome, left upper limb; Z98.890 Other specified postprocedural states
CPT/HCPCS: 99202

== ENCOUNTER 2024-06-30 14:49 | Outpatient (AMB) | payer MEDICARE, SELFPAY ==
[2023-08-05 07:17] VITALS: BP 112/48; BP 122/56; BP 142/76; BMI 37.8
--- NOTE | 2024-06-30 14:52 | HO.NEPHOV ---
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 Moreno in consultation for his chronic kidney disease and hypertension. He is known to have CLL and follows up with Oncology. He has longstanding hypertension and has been on hydrochlorothiazide, lisinopril and metoprolol. He has history of atrial fibrillation and has been on Eliquis. He drinks about 3-4 beers a day. He has obstructive sleep apnea and is on CPAP. He denies taking excessive nonsteroidal anti-inflammatories. He has no new bone pain, back pain, epistaxis, photosensitivity, new skin rashes, joint swellings, hematuria, orthostatic symptoms. He claims to be keeping up with good hydration. He denies any coronary artery disease, carotid stenosis, congestive heart failure, CVA, peripheral arterial disease. His recent serum creatinine has been 1.43 FOR[facility]LY [facility] Medical History PRAVEEN on CPAP Bronchitis Obstructive sleep apnea on CPAP Obesity Sleep apnea COVID-19 vaccine series completed Arthritis COPD (chronic obstructive pulmonary disease) Skin cancer Status post placement of implantable loop recorder BPH (benign prostatic hyperplasia) Paroxysmal atrial fibrillation Obesity Erectile dysfunction Urgency of micturition Hypertension Surgical History History of prostate surgery H/O colonoscopy History of cystoscopy Hx of total knee arthroplasty History of carpal tunnel release History of surgery Family History Father Medical history unknown Mother Lung cancer Social History Household Members: None Housing: House Alcohol intake: current Alcohol intake frequency: 3 or more drinks per day Patient Tobacco Use Status: Former Tobacco user Tobacco use type: Cigarette Cigarette Packs Per Day: 2 Years Smoked: 30 e-Cigarette/Vaping Use: Never Used Second Hand Smoke Exposure: No service: No Current occupational status: retired Current occupation: Right Cognitive needs: No Hearing needs: No Vision needs: No Review of Systems Const All systems reviewed & are unremarkable except as noted in HPI and below Physical Exam Vital Signs: Last Vital Signs Pulse 66 06/30/24 14:53 BP 120/60 06/30/24 14:53 Pulse Ox 93 06/30/24 14:53 Oxygen Delivery Method Room Air 06/30/24 14:53 BMI result Body Mass Index 38.2 Const General: comfortable and no acute distress Orientation/consciousness: patient oriented x3 HEENT Head: Yes normocephalic Mouth: Normal oral and palatal mucosa present Eyes EOM: EOMs intact bilaterally Neck Neck: Yes supple Resp Auscultation: clear to auscultation bilaterally Cardio Jugular venous distension: no JVD Rate: regular rate GI Palpation (GI): Soft to palpation Auscultation: normal bowel sounds General: Yes no CVA tenderness Back/Spine/Pelvis Back: no CVA tenderness Skin General skin exam: no rashes or lesions noted Neuro General: patient oriented x3 and moves all extremities Extrem General: Yes no pedal edema Results Reviewed Nephrology Results: Hgb 16.0 g/dl (14.0-18.0) 06/02/24 WBC 20.4 X10*3/uL (4.8-10.8) H 06/02/24 Plt Count 212 X10*3/uL (160-400) 06/02/24 Sodium 137 mmol/L (135-145) 06/02/24 Potassium 4.7 mmol/L (3.3-5.1) 06/02/24 Chloride 102 mmol/L (96-108) 06/02/24 Carbon Dioxide 30 mmol/L (22-29) H 06/02/24 BUN 18 mg/dL (9-16) H 06/02/24 Creatinine 1.43 mg/dL (0.5-1.4) H 06/02/24 Calcium 9.4 mg/dL (8.4-10.2) 06/02/24 Assessment & Plan Assessment & Plan (1) CKD stage 3a, GFR 45-59 ml/min: Code(s): N18.31 - Chronic kidney disease, stage 3a Category: Medical (2) Hypertension: Code(s): I10 - Essential (primary) hypertension Category: Medical Qualifiers: Hypertension type: essential hypertension Qualified Code(s): I10 - Essential (primary) hypertension Plan Mr Moreno likely has CKD from vascular disease and age-related loss of renal function. He has been on hydrochlorothiazide, lisinopril and metoprolol to keep his blood pressure at goal. I ordered a renal ultrasound and Doppler of renal arteries. I discontinued his hydrochlorothiazide and asked him to continue lisinopril and metoprolol for now. He should maintain good hydration and avoid nonsteroidal anti-inflammatories. He has no orthostatic symptoms. There is no reason to suspect any glomerular, interstitial or thrombotic microangiopathy to have rise in serum creatinine. He may be a candidate for Jardiance in the future. Further management is pending evolving data. All questions answered Orders: Orders Blood Urea Nitrogen 4 Weeks I10 - Essential (primary) hypertension, N18.31 - Chronic kidney disease, stage 3a Electrolytes 4 Weeks I10 - Essential (primary) hypertension, N18.31 - Chronic kidney disease, stage 3a Calcium 4 Weeks I10 - Essential (primary) hypertension, N18.31 - Chronic kidney disease, stage 3a US renal BI 4 Weeks I10 - Essential (primary) hypertension, N18.31 - Chronic kidney disease, stage 3a US renal doppler 4 Weeks I10 - Essential (primary) hypertension, N18.31 - Chronic kidney disease, stage 3a Vitamin D 25-OH Total 4 Weeks I10 - Essential (primary) hypertension, N18.31 - Chronic kidney disease, stage 3a Creatinine 4 Weeks I10 - Essential (primary) hypertension, N18.31 - Chronic kidney disease, stage 3a UA and rflx microscopic 4 Weeks I10 - Essential (primary) hypertension, N18.31 - Chronic kidney disease, stage 3a Protein Creatinine Ratio, Ur 4 Weeks I10 - Essential (primary) hypertension, N18.31 - Chronic kidney disease, stage 3a Uric Acid 4 Weeks N18.31 - Chronic kidney disease, stage 3a Coding Level of Care Code New Pt Level 4 (92768) Diagnoses CKD stage 3a, GFR 45-59 ml/min N18.31 Essential hypertension I10 Hypertension type: essential hypertension
[2024-06-30 14:53] VITALS: BP 120/60; PULSE 66; O2SAT 93; BMI 38.2
== END 2024-06-30 15:36 | disposition home or self-care (01) ==
LOC: HO.HKA 14:49
PROVIDERS: PCP Internal Medicine; Visit Provider Internal Medicine Nephrology
DX: I12.9 Hypertensive chronic kidney disease with stage 1 through stage 4 chronic kidney disease, or unspecified chronic kidney disease (principal); N18.31 Chronic kidney disease, stage 3a
CPT/HCPCS: 99204

== ENCOUNTER → 2024-06-30 14:49 | Outpatient (BNVA) | payer MEDICARE, SELFPAY ==
[2023-08-05 07:17] VITALS: BP 112/48; BP 122/56; BP 142/76; BMI 37.8
== END ==
PROVIDERS: PCP Internal Medicine; Visit Provider Internal Medicine Nephrology
DX: I12.9 Hypertensive chronic kidney disease with stage 1 through stage 4 chronic kidney disease, or unspecified chronic kidney disease (principal); I48.91 Unspecified atrial fibrillation; N18.31 Chronic kidney disease, stage 3a; Z79.01 Long term (current) use of anticoagulants
CPT/HCPCS: 99202

== ENCOUNTER 2024-07-14 09:40 | Outpatient (REF) | payer MEDICARE, SELFPAY ==
[2023-08-05 07:17] VITALS: BP 112/48; BP 122/56; BP 142/76; BMI 37.8
--- NOTE | ~2024-07-14 | US_ITS ---
EXAMINATION: US RETROPERITONEAL LIMITED (RENAL ONLY) CLINICAL INFORMATION: Chronic kidney disease. COMPARISON: May 20, 2014. TECHNIQUE: Real-time ultrasound examination of the kidneys and urinary bladder was performed including duplex Doppler evaluation of the renal arteries, bilaterally. FINDINGS: The study is significantly limited by patient body habitus and overlying bowel gas. The abdominal aorta could not be visualized by the technologist, limiting the study. The right kidney measures 10.7 cm in length, without evidence of stone or hydronephrosis. There are benign right simple renal cysts for which no further dedicated follow-up imaging as indicated. The echotexture of the right kidney otherwise appears unremarkable. No fluid is seen in Morison's pouch. The proximal and mid right renal artery could not be visualized by the technologist. Peak systolic velocity in the distal main right renal artery measure 76 cm/sec. Question tardus parvus waveforms. Interlobar resistive index within the right mid kidney measures 0.85. Flow is seen within the right renal vein. The left kidney measures 11.0 cm in length, without evidence of stone or hydronephrosis. There are benign left simple renal cysts for which no further dedicated follow-up imaging as indicated. The echotexture of the left kidney otherwise appears unremarkable. The proximal and mid left renal artery could not be visualized by the technologist. Peak systolic velocity in the distal main left renal artery measure 63 cm/sec. Question tardus parvus waveforms. Interlobar resistive index within the left mid kidney measures 0.83. Flow is seen within the left renal vein. The urinary bladder was not evaluated. US/US renal BI IMPRESSION: Limited study. Cannot confirm or exclude renal artery stenosis. For further imaging is clinically desired, CTA may be of use. Electronically signed by: Jason Farias MD 07/14/2024 02:12 PM [facility]
--- NOTE | ~2024-07-14 | US_ITS ---
EXAMINATION: US RETROPERITONEAL LIMITED (RENAL ONLY) CLINICAL INFORMATION: Chronic kidney disease. COMPARISON: May 20, 2014. TECHNIQUE: Real-time ultrasound examination of the kidneys and urinary bladder was performed including duplex Doppler evaluation of the renal arteries, bilaterally. FINDINGS: The study is significantly limited by patient body habitus and overlying bowel gas. The abdominal aorta could not be visualized by the technologist, limiting the study. The right kidney measures 10.7 cm in length, without evidence of stone or hydronephrosis. There are benign right simple renal cysts for which no further dedicated follow-up imaging as indicated. The echotexture of the right kidney otherwise appears unremarkable. No fluid is seen in Morison's pouch. The proximal and mid right renal artery could not be visualized by the technologist. Peak systolic velocity in the distal main right renal artery measure 76 cm/sec. Question tardus parvus waveforms. Interlobar resistive index within the right mid kidney measures 0.85. Flow is seen within the right renal vein. The left kidney measures 11.0 cm in length, without evidence of stone or hydronephrosis. There are benign left simple renal cysts for which no further dedicated follow-up imaging as indicated. The echotexture of the left kidney otherwise appears unremarkable. The proximal and mid left renal artery could not be visualized by the technologist. Peak systolic velocity in the distal main left renal artery measure 63 cm/sec. Question tardus parvus waveforms. Interlobar resistive index within the left mid kidney measures 0.83. Flow is seen within the left renal vein. The urinary bladder was not evaluated. US/US renal doppler IMPRESSION: Limited study. Cannot confirm or exclude renal artery stenosis. For further imaging is clinically desired, CTA may be of use. Electronically signed by: Jason Farias MD 07/14/2024 02:12 PM [facility]
== END 2024-07-14 09:41 | disposition home or self-care (01) ==
LOC: HO.US 09:40
PROVIDERS: PCP Internal Medicine; Visit Provider Internal Medicine Nephrology
DX: I12.9 Hypertensive chronic kidney disease with stage 1 through stage 4 chronic kidney disease, or unspecified chronic kidney disease (principal); N18.31 Chronic kidney disease, stage 3a
CPT/HCPCS: 76775; 93975

== ENCOUNTER 2024-07-19 15:02 | Outpatient (REF) | payer MEDICARE, SELFPAY ==
[2023-08-05 07:17] VITALS: BP 112/48; BP 122/56; BP 142/76; BMI 37.8
[2024-07-19 16:38] LABS: Appearance Urine Clear; Color Urine Yellow; Glucose Urine UA Negative (Negative); Leukocyte Esterase Urine Negative (Negative); Nitrite Urine Negative (Negative); PH 6.5 (5.0-9.0); Urine Blood Negative (Negative); Urine Ketones Negative (Negative); Urine Protein Negative (Neg-Trace)
[2024-07-19 16:51] LABS: Anion Gap 9 (12-20); Blood Urea Nitrogen 17 mg/dL (9-16); Carbon Dioxide 24 mmol/L (22-29); Chloride 107 mmol/L (96-108); Estimated Glomerular Filt Rate 51; Potassium 4.1 mmol/L (3.3-5.1); Sodium 136 mmol/L (135-145)
[2024-07-19 17:02] LABS: Vitamin D 25-OH Total 64.7 ng/mL (>30)
[2024-07-19 17:11] LABS: Uric Acid 7.2 mg/dL (3.4-7.0)
[2024-07-19 17:37] LABS: Creatinine Urine 66.78 mg/dL; Total Protein Urine Random < 7 mg/dL (<12)
== END 2024-07-19 15:03 | disposition home or self-care (01) ==
LOC: HO.LAB 15:02
PROVIDERS: PCP Internal Medicine; Visit Provider Internal Medicine Nephrology
DX: N18.31 Chronic kidney disease, stage 3a (principal); I10 Essential (primary) hypertension
CPT/HCPCS: 36415; 80051; 81003; 82306; 82310; 82565; 82570; 84156; 84520; 84550

== ENCOUNTER 2024-07-21 12:52 | Outpatient (AMB) | payer MEDICARE, SELFPAY ==
[2023-08-05 07:17] VITALS: BP 112/48; BP 122/56; BP 142/76; BMI 37.8
--- NOTE | 2024-07-21 12:53 | MHC.PC.OV ---
Intake Visit Reasons: sore throat, chest tightness [id number] Allergies No Known Allergies Allergy (Verified 07/21/24 12:54) Medication List - Last Reconciled 07/21/24 by José Luis Martell MD albuterol sulfate 90 mcg/actuation 2 puffs PO Q6H PRN apixaban (Eliquis) 5 mg PO BID 90 days cholecalciferol (vitamin D3) 25 mcg PO DAILY CPAP (CPAP Machine/Device) 12CM H20 PREVIOUS MACHINE HAS BEEN RECALLED AND NOW NEEDS A NEW MACHINE BHAVANA hydrochlorothiazide 12.5 mg PO DAILY lisinopril 10 mg PO DAILY metoprolol succinate ER 50 mg PO DAILY multivitamin 1 tab PO DAILY tamsulosin 0.8 mg (2 x 0.4 mg) PO BEDTIME 90 days tiotropium bromide (Spiriva with HandiHaler) 1 cap inhalation DAILY Tobacco use date assessed: 11/13/23 Dental Screening Dental Screen Date: 11/13/23 HPI sore throat, chest tightness [id number] HPI Details productive cough for a week; has copd PFSH Medical History PRAVEEN on CPAP Bronchitis Obstructive sleep apnea on CPAP Obesity Sleep apnea COVID-19 vaccine series completed Arthritis COPD (chronic obstructive pulmonary disease) Skin cancer Status post placement of implantable loop recorder BPH (benign prostatic hyperplasia) Paroxysmal atrial fibrillation Obesity Erectile dysfunction Urgency of micturition Hypertension Surgical History History of prostate surgery H/O colonoscopy History of cystoscopy Hx of total knee arthroplasty History of carpal tunnel release History of surgery Family History Father Medical history unknown Mother Lung cancer Social History Household Members: None Housing: House Alcohol intake: current Alcohol intake frequency: 3 or more drinks per day Patient Tobacco Use Status: Former Tobacco user Tobacco use type: Cigarette Cigarette Packs Per Day: 2 Years Smoked: 30 e-Cigarette/Vaping Use: Never Used Second Hand Smoke Exposure: No service: No Current occupational status: retired Current occupation: Right Cognitive needs: No Hearing needs: No Vision needs: No Questionnaire Thrive Questionnaire Date Thrive assessed: 11/13/23 AUDIT C Alcohol Use Questionnaire (AUDIT-C) 1. How often do you have a drink containing alcohol?: 4 or more times a week 2. How many drinks containing alcohol do you have on a typical day when you are drinking?: 1 or 2 Total Score: 4 Score Reviewed/Action Taken: Yes YELENA-7 AMB Questionnaire YELENA-7 Date YELENA - 7 assessed: 11/13/23 Source: Developed by Drs. Jef Singh, Klaudia Saenz, Marek Curran and colleagues, with an educational cherrie from [employer]. Review of Systems Const Denies chills, Denies headache(s) and Denies weight loss ENT Denies headache(s) Card Denies chest pain, Denies syncope, Denies irregular heart rhythm and Denies dyspnea Resp Denies dyspnea GI Denies abdominal pain, Denies change in stool character, Denies nausea and Denies vomiting Musc Denies deformity and Denies joint swelling Neuro Denies syncope and Denies headache(s) Physical exam (Primary Care) Tobacco/Smoking Status: Tobacco use Status Tobacco use date assessed 11/13/23 07/21/24 12:54 Patient Tobacco Use Status Former Tobacco user 07/21/24 12:54 Tobacco use type Cigarette 07/21/24 12:54 e-Cigarette/Vaping Use Never Used 07/21/24 12:54 Thrive Assessment: Date of Thrive Assessment Date Thrive assessed 11/13/23 07/21/24 12:54 Telehealth Telehealth Telehealth Platform: Telephone Location of provider rendering services: practice address Location of patient: address on file Patient Identification confirmed using: Name, : Yes Telehealth method: voice only Patient verbally consented to treatment: Yes Patient verbally consented to billing insurance company: Yes Patient informed of any privacy concerns related to visit: Yes Minutes spent on Phone/Video with Pt.: 15 (telephone) Coding Level of Care Code Tele Est Pt Level 3 (53397) Diagnoses COPD exacerbation J44.1 Assessment & Plan Assessment & Plan (1) COPD exacerbation: Code(s): J44.1 - Chronic obstructive pulmonary disease with (acute) exacerbation Plan: rx sent Medications: New amoxicillin-pot clavulanate 500-125 mg (Augmentin) 1 tab PO BID 10 tabs 0RF
== END 2024-07-21 13:51 | disposition home or self-care (01) ==
LOC: HO.HMCH 12:52
PROVIDERS: PCP Internal Medicine; Visit Provider Internal Medicine
DX: J44.1 Chronic obstructive pulmonary disease with (acute) exacerbation (principal)

== ENCOUNTER 2024-07-28 09:47 | Outpatient (AMB) | payer MEDICARE, SELFPAY ==
[2023-08-05 07:17] VITALS: BP 112/48; BP 122/56; BP 142/76; BMI 37.8
--- NOTE | 2024-07-28 10:01 | HO.NEPHOV ---
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 Moreno was seen in follow up for his chronic kidney disease and hypertension. He is known to have CLL and follows up with Oncology. He has longstanding hypertension and has been on hydrochlorothiazide, lisinopril and metoprolol. He has history of atrial fibrillation and has been on Eliquis. He drinks about 3-4 beers a day. He has obstructive sleep apnea and is on CPAP. He denies taking excessive nonsteroidal anti-inflammatories. He has no new bone pain, back pain, epistaxis, photosensitivity, new skin rashes, joint swellings, hematuria, orthostatic symptoms. He claims to be keeping up with good hydration. He denies any coronary artery disease, carotid stenosis, congestive heart failure, CVA, peripheral arterial disease. His recent serum creatinine is back to baseline [facility] Medical History PRAVEEN on CPAP Bronchitis Obstructive sleep apnea on CPAP Obesity Sleep apnea COVID-19 vaccine series completed Arthritis COPD (chronic obstructive pulmonary disease) Skin cancer Status post placement of implantable loop recorder BPH (benign prostatic hyperplasia) Paroxysmal atrial fibrillation Obesity Erectile dysfunction Urgency of micturition Hypertension Surgical History History of prostate surgery H/O colonoscopy History of cystoscopy Hx of total knee arthroplasty History of carpal tunnel release History of surgery Family History Father Medical history unknown Mother Lung cancer Social History Household Members: None Housing: House Alcohol intake: current Alcohol intake frequency: 3 or more drinks per day Patient Tobacco Use Status: Former Tobacco user Tobacco use type: Cigarette Cigarette Packs Per Day: 2 Years Smoked: 30 e-Cigarette/Vaping Use: Never Used Second Hand Smoke Exposure: No service: No Current occupational status: retired Current occupation: [employer] Cognitive needs: No Hearing needs: No Vision needs: No Review of Systems Const All systems reviewed & are unremarkable except as noted in HPI and below Physical Exam Vital Signs: Last Vital Signs Pulse 60 07/28/24 10:02 BP 120/78 07/28/24 10:02 Pulse Ox 91 L 07/28/24 10:02 Oxygen Delivery Method Room Air 07/28/24 10:02 BMI result Body Mass Index 37.9 Const General: comfortable and no acute distress Orientation/consciousness: patient oriented x3 HEENT Head: Yes normocephalic Mouth: Normal oral and palatal mucosa present Eyes EOM: EOMs intact bilaterally Neck Neck: Yes supple Resp Auscultation: clear to auscultation bilaterally Cardio Jugular venous distension: no JVD Rate: regular rate GI Palpation (GI): Soft to palpation Auscultation: normal bowel sounds General: Yes no CVA tenderness Back/Spine/Pelvis Back: no CVA tenderness Skin General skin exam: no rashes or lesions noted Neuro General: patient oriented x3 and moves all extremities Extrem General: Yes no pedal edema Results Reviewed Nephrology Results: Hgb 16.0 g/dl (14.0-18.0) 06/02/24 WBC 20.4 X10*3/uL (4.8-10.8) H 06/02/24 Plt Count 212 X10*3/uL (160-400) 06/02/24 Sodium 136 mmol/L (135-145) 07/19/24 Potassium 4.1 mmol/L (3.3-5.1) 07/19/24 Chloride 107 mmol/L (96-108) 07/19/24 Carbon Dioxide 24 mmol/L (22-29) 07/19/24 BUN 17 mg/dL (9-16) H 07/19/24 Creatinine 1.34 mg/dL (0.5-1.4) 07/19/24 Calcium 9.0 mg/dL (8.4-10.2) 07/19/24 Urine Protein Negative mg/dL (Neg-Trace) 07/19/24 Urine Creatinine 66.78 mg/dL 07/19/24 Protein/Creatinin Ratio TNP 07/19/24 Renal US 07/14/24 Assessment & Plan Assessment & Plan (1) Renal cyst: Code(s): N28.1 - Cyst of kidney, acquired Category: Medical (2) CKD stage 3a, GFR 45-59 ml/min: Code(s): N18.31 - Chronic kidney disease, stage 3a Category: Medical (3) Hypertension: Code(s): I10 - Essential (primary) hypertension Category: Medical Qualifiers: Hypertension type: essential hypertension Qualified Code(s): I10 - Essential (primary) hypertension Plan Mr Moreno likely has CKD from vascular disease and age-related loss of renal function. His blood pressure at goal. His renal ultrasound and Doppler of renal arteries were reviewed. I discontinued his hydrochlorothiazide at the last visit and asked him to continue lisinopril and metoprolol for now. He should maintain good hydration and avoid nonsteroidal anti-inflammatories. He has no orthostatic symptoms. He may be a candidate for Jardiance in the future. Further management is pending evolving data. All questions answered Orders: Orders Creatinine 3 Months I10 - Essential (primary) hypertension, N18.31 - Chronic kidney disease, stage 3a, N28.1 - Cyst of kidney, acquired Blood Urea Nitrogen 3 Months I10 - Essential (primary) hypertension, N18.31 - Chronic kidney disease, stage 3a, N28.1 - Cyst of kidney, acquired Electrolytes 3 Months I10 - Essential (primary) hypertension, N18.31 - Chronic kidney disease, stage 3a, N28.1 - Cyst of kidney, acquired Coding Level of Care Code Est Pt Level 4 (08468) Diagnoses Renal cyst N28.1 CKD stage 3a, GFR 45-59 ml/min N18.31 Essential hypertension I10 Hypertension type: essential hypertension
[2024-07-28 10:02] VITALS: BP 120/78; PULSE 60; O2SAT 91; BMI 37.9
== END 2024-07-28 10:21 | disposition home or self-care (01) ==
PROVIDERS: PCP Internal Medicine; Visit Provider Internal Medicine Nephrology
DX: N28.1 Cyst of kidney, acquired (principal); I12.9 Hypertensive chronic kidney disease with stage 1 through stage 4 chronic kidney disease, or unspecified chronic kidney disease; N18.31 Chronic kidney disease, stage 3a
CPT/HCPCS: 99214

== ENCOUNTER → 2024-07-28 09:47 | Outpatient (BNVA) | payer MEDICARE, SELFPAY ==
[2023-08-05 07:17] VITALS: BP 112/48; BP 122/56; BP 142/76; BMI 37.8
== END ==
PROVIDERS: PCP Internal Medicine; Visit Provider Internal Medicine Nephrology
DX: I12.9 Hypertensive chronic kidney disease with stage 1 through stage 4 chronic kidney disease, or unspecified chronic kidney disease (principal); N18.31 Chronic kidney disease, stage 3a; N28.1 Cyst of kidney, acquired
CPT/HCPCS: 99212

== ENCOUNTER 2024-08-10 13:49 | Outpatient (REF) | payer MEDICARE, SELFPAY ==
[2023-08-05 07:17] VITALS: BP 112/48; BP 122/56; BP 142/76; BMI 37.8
--- NOTE | ~2024-08-10 | XR_ITS ---
EXAMINATION: XR CHEST CLINICAL INFORMATION: Bronchitis, not specified as acute or chronic J40. COMPARISON: XR Chest 09/02/2022 TECHNIQUE: 2 views of the chest were obtained. FINDINGS: Enlarged cardiomediastinal silhouette is stable. Lungs are hyperexpanded with flattening of the diaphragms. There is mild bronchial wall thickening with diffusely increased interstitial markings. Blunting of the costophrenic sulci. No pneumothorax. Degenerative changes in the spine. XR/XR chest 2V IMPRESSION: 1. Hyperexpanded lungs suggesting underlying COPD. Bronchial wall thickening with diffusely increased interstitial markings suggest underlying small airways disease. No dense consolidation. 2. Enlarged cardiomediastinal silhouette. Electronically signed by: Jef Busby MD 09/22/2024 12:43 PM [facility]
== END 2024-08-10 13:50 | disposition home or self-care (01) ==
LOC: HO.XRAY 13:49
PROVIDERS: PCP Internal Medicine; Visit Provider Internal Medicine
DX: J40 Bronchitis, not specified as acute or chronic (principal); J44.9 Chronic obstructive pulmonary disease, unspecified
CPT/HCPCS: 71046; 99212

== ENCOUNTER 2024-08-10 13:49 | Outpatient (AMB) | payer MEDICARE, SELFPAY ==
[2023-08-05 07:17] VITALS: BP 112/48; BP 122/56; BP 142/76; BMI 37.8
[2024-08-10 13:55] VITALS: BP 132/80; PULSE 62; O2SAT 93; BMI 37.4
--- NOTE | 2024-08-10 13:55 | MHC.OFFVIS ---
Vital Signs 08/10/24 13:55 Height 5 ft 8 in Weight 245 lb 13.047 oz BMI 37.4 BP 132/80 Blood Pressure Location Lt brachial Position Sitting Pulse 62 Pulse Source Pulse Oximeter Pulse Oximetry (%) 93 Oxygen Delivery Method Room Air Intake Visit Reasons: Cough and sob Allergies No Known Allergies Allergy (Verified 08/10/24 14:23) Medication List - Last Reconciled 08/10/24 by Mann Chester MD albuterol sulfate 90 mcg/actuation 2 puffs PO Q6H PRN apixaban (Eliquis) 5 mg PO BID 90 days cholecalciferol (vitamin D3) 25 mcg PO DAILY CPAP (CPAP Machine/Device) 12CM H20 PREVIOUS MACHINE HAS BEEN RECALLED AND NOW NEEDS A NEW MACHINE BHAVANA lisinopril 10 mg PO DAILY metoprolol succinate ER 50 mg PO DAILY multivitamin 1 tab PO DAILY tamsulosin 0.8 mg (2 x 0.4 mg) PO BEDTIME 90 days tiotropium bromide (Spiriva with HandiHaler) 1 cap inhalation DAILY Do you need a note to return to daycare/school/sports/work: No HPI HPI Cough and sob: Details: MR. HIDALGO, 79 YEARS OLD GENTLEMAN IS GROSSLY OBESE ESPECIALLY IN THE FACE AND NECK AREA, AND HAS DIAGNOSIS OF OBSTRUCTIVE SLEEP APNEA BEING TREATED WITH CPAP. HE DOES USE CPAP REGULARLY EVERY NIGHT. HOWEVER HE STILL HAS TO USE SLEEP IN A RECLINER, HE ALSO HAS CHRONIC OBSTRUCTIVE AND RESTRICTIVE PULMONARY DISORDER. HAS BEEN USING SPIRIVA HANDIHALER 1 CAPSULE DAILY. AND ALBUTEROL JUST P.R.N.. NOW FOR THE PAST 2 WEEKS HE IS HAVING UPPER AIRWAYS CONGESTION WITH BARKING TYPE OF COUGH, AND INCREASED SHORTNESS OF BREATH. BUT HE DENIES HAVING FEVER CHILLS OR CHEST PAIN. EMPIRICALLY TREATED WITH A COURSE OF Z-EZRA BUT IT HAS NOT HELPED. COMES IN TODAY HE IS GETTING TIRED OF HAVING COUGH AT NIGHT AND NOT ABLE TO SLEEP. [facility] Medical History PRAVEEN on CPAP Bronchitis Obstructive sleep apnea on CPAP Obesity Sleep apnea COVID-19 vaccine series completed Arthritis COPD (chronic obstructive pulmonary disease) Skin cancer Status post placement of implantable loop recorder BPH (benign prostatic hyperplasia) Paroxysmal atrial fibrillation Obesity Erectile dysfunction Urgency of micturition Hypertension Surgical History History of prostate surgery H/O colonoscopy History of cystoscopy Hx of total knee arthroplasty History of carpal tunnel release History of surgery Family History Father Medical history unknown Mother Lung cancer Social History Household Members: None Housing: House Alcohol intake: current Alcohol intake frequency: 3 or more drinks per day Patient Tobacco Use Status: Former Tobacco user Tobacco use type: Cigarette Cigarette Packs Per Day: 2 Years Smoked: 30 e-Cigarette/Vaping Use: Never Used Second Hand Smoke Exposure: No service: No Current occupational status: retired Current occupation: [employer] Cognitive needs: No Hearing needs: No Vision needs: No Review of Systems Const All systems reviewed & are unremarkable except as noted in HPI and below Eyes Reports no additional complaints ENT Reports no additional complaints Card Denies chest pain, Denies irregular heart rhythm and Denies leg edema Resp Reports as per HPI (He has increased cough and congestion for the last 3-4 weeks) GI Reports no additional complaints Reports no additional complaints Musc Reports no additional complaints Skin/Breast Reports system reviewed and no additional complaints, except as documented Neuro Reports no additional complaints Psych Reports no additional complaints Physical Exam Vital Signs: Last Vital Signs Pulse 62 08/10/24 13:55 BP 132/80 08/10/24 13:55 Pulse Ox 93 08/10/24 13:55 Oxygen Delivery Method Room Air 08/10/24 13:55 BMI result Body Mass Index 37.4 Const Other: Patient is grossly obese with a round face, short and obese neck. General: comfortable, no acute distress, alert and awake Orientation/consciousness: patient oriented x3 HEENT Head: Yes normal to inspection General nose exam: No nasal polyps present, mucous membranes and turbinates abnormal (MODERATE HYPERTROPHY OF THE NASAL TURBINATES) and No nasal discharge present Face and sinus: Yes sinuses nontender Mouth: oropharynx abnormals (Oropharynx is narrow and crowded, Mallampati class 4.) Throat: Yes posterior oropharynx normal Eyes General: appearance normal, both eyes and all related structures Neck Neck: Yes normal visual inspection, Yes no lymphadenopathy, Yes trachea midline and Yes no JVD Thyroid: Thyroid normal Chest Chest palpation & inspection: normal inspection of the chest, normal palpation of entire chest wall and no tenderness Resp Other: Percussion note resonant, breath sounds are diminished and distant with prolonged expiratory phase. Has a few wheezes in the upper chest. Cardio Palpation: normal PMI Rate: regular rate Rhythm: regular rhythm Heart sounds: no gallops and no murmurs GI Palpation (GI): Soft to palpation, nontender, No hepatosplenomegaly present, no masses and Other GI palpation findings present (Abdomen is obese and protuberant) Auscultation: normal bowel sounds Back/Spine/Pelvis Thoracic/Lumbar Spine: thoracic and lumbar spine normal to inspection and thoraco-lumbar ROM limited Skin General skin exam: no rashes or lesions noted Neuro General: patient oriented x3 and no focal motor deficits Cranial nerves: Yes CN's II-XII intact bilaterally Extrem General: Yes normal to inspection, Yes no clubbing, cyanosis or edema and Yes no calf tenderness Psych Appearance: grossly normal and well kempt Speech and movement: Normal speech and movement present Assessment & Plan Assessment & Plan (1) Bronchitis: Comment: HAS HAD NONSPECIFIC BRONCHITIS IN THE LAST FEW WEEKS, WHICH DOES NOT SEEM TO BE GOING AWAY. HE DID COMPLETE COURSE OF AZITHROMYCIN WHICH HAS NOT MADE A DIFFERENCE. Code(s): J40 - Bronchitis, not specified as acute or chronic Category: Medical Plan: CHEST X-RAY ORDERED TO RULE OUT PNEUMONIA. ADVISED TO USE HUMIDIFIER IN THE HOUSE. ADVISED TO USE ROBITUSSIN 2 TSP T.I.D. WILL TREAT HIM WITH A SHORT COURSE OF PREDNISONE, 20 MG B.I.D. FOR 5 DAYS. Orders: Orders XR chest 2V Today J40 - Bronchitis, not specified as acute or chronic, J44.9 - Chronic obstructive pulmonary disease, unspecified Medications: New prednisone 20 mg PO BID 10 tabs 0RF COPD EXCERBATION . 5 days Coding Level of Care Code Est Pt Level 3 (71848) Diagnoses Bronchitis J40
== END 2024-08-10 14:17 | disposition home or self-care (01) ==
PROVIDERS: PCP Internal Medicine; Visit Provider Internal Medicine
DX: J40 Bronchitis, not specified as acute or chronic (principal)
CPT/HCPCS: 99213

== ENCOUNTER 2024-09-01 10:17 | Outpatient (AMB) | payer MEDICARE, SELFPAY ==
[2023-08-05 07:17] VITALS: BP 112/48; BP 122/56; BP 142/76; BMI 37.8
[2024-09-01 10:19] VITALS: BP 120/82; PULSE 65; O2SAT 95; BMI 37.2
--- NOTE | 2024-09-01 10:19 | A.OFFPC_ITS ---
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 Preserves Required: No Accompanied by: Self / Same As Patient Allergies No Known Allergies Allergy (Verified 09/01/24 10:19) Medication List - Last Reconciled 09/02/24 by José Luis Martell MD albuterol sulfate 90 mcg/actuation 2 puffs PO Q6H PRN apixaban (Eliquis) 5 mg PO BID 90 days cholecalciferol (vitamin D3) 25 mcg PO DAILY CPAP (CPAP Machine/Device) 12CM H20 PREVIOUS MACHINE HAS BEEN RECALLED AND NOW NEEDS A NEW MACHINE BHAVANA lisinopril 10 mg PO DAILY metoprolol succinate ER 50 mg PO DAILY multivitamin 1 tab PO DAILY tamsulosin 0.8 mg (2 x 0.4 mg) PO BEDTIME 90 days tiotropium bromide (Spiriva with HandiHaler) 1 cap inhalation DAILY Tobacco use date assessed: 09/01/24 Fall risk assessment: No Falls in past year Last assessed Fall Risk: 09/01/24 Dental Screening Dental Screen Date: 09/01/24 Did you have a dental visit in the last 12 months?: Yes Did you have a dental problem in the last 6 months where you did not have access to dental care?: No Was dental information given to patient?: Patient has dentist HPI 3 month f/u HPI Details HTN on Rx; compliant; feels well PFSH Medical History PRAVEEN on CPAP Bronchitis Obstructive sleep apnea on CPAP Obesity Sleep apnea COVID-19 vaccine series completed Arthritis COPD (chronic obstructive pulmonary disease) Skin cancer Status post placement of implantable loop recorder BPH (benign prostatic hyperplasia) Paroxysmal atrial fibrillation Obesity Erectile dysfunction Urgency of micturition Hypertension Surgical History History of prostate surgery H/O colonoscopy History of cystoscopy Hx of total knee arthroplasty History of carpal tunnel release History of surgery Family History Father Medical history unknown Mother Lung cancer Social History Household Members: None Housing: House Alcohol intake: current Alcohol intake frequency: 3 or more drinks per day Patient Tobacco Use Status: Former Tobacco user Tobacco use type: Cigarette Cigarette Packs Per Day: 2 Years Smoked: 30 e-Cigarette/Vaping Use: Never Used Second Hand Smoke Exposure: No service: No Current occupational status: retired Current occupation: [employer] Cognitive needs: No Hearing needs: No Vision needs: No Questionnaire PHQ-9 Over the last 2 weeks, how often have you been bothered by any of the following problems? 1. Little interest or pleasure in doing things: not at all 2. Feeling down, depressed, or hopeless: not at all 3. Trouble falling or staying asleep, or sleeping too much: not at all 4. Feeling tired or having little energy: not at all 5. Poor appetite or overeating: not at all 6. Feeling bad about yourself - or that you are a failure or have let yourself or your family down: not at all 7. Trouble concentrating on things, such as reading the newspaper or watching television: not at all 8. Moving or speaking so slowly that other people could have noticed. Or the opposite - being so fidgety or restless that you have been moving around a lot more than usual: not at all 9. Thoughts that you would be better off or of hurting yourself in some way: not at all Total score: 0 Depression Screening Interpretation: Negative Depression Screening Done: Yes 33937 - PHQ-9 Billing: Yes Source: Developed by Drs. Jef Singh, Klaudia Saenz, Marek Curran and colleagues, with an educational cherrie from [employer]. Thrive Questionnaire Date Thrive assessed: 09/01/24 I am a: Patient What is your living situation today?: I have a steady place to live Within the past 12 months, did the food you bought not last and you didn't have the money to get more?: Never true Within the past 12 months, did you worry whether your food would run out before you got money to buy more?: Never true Do you have trouble paying for medicines?: No Do you have trouble getting transportation to medical appointments?: No Do you have trouble paying your heating and electricity bill?: No Do you have trouble taking care of your child, family member or friend?: No Do you have trouble with day-to-day activities such as bathing, preparing meals, shopping, managing finances, etc.?: No Are you currently unemployed and looking for a job?: No Are you interested in more education?: No Please select the resources that you would like help with: None Currently or been in a relationship where the following occur: No concerns reported THRIVE Score: 0 AUDIT C Alcohol Use Questionnaire (AUDIT-C) 1. How often do you have a drink containing alcohol?: 4 or more times a week 2. How many drinks containing alcohol do you have on a typical day when you are drinking?: 1 or 2 Total Score: 4 Score Reviewed/Action Taken: Yes YELENA-7 AMB Questionnaire YELENA-7 Date YELENA - 7 assessed: 09/01/24 Feeling nervous, anxious, or on edge: 0 = Not at all Not being able to stop or control worryin = Not at all Worrying too much about different things: 0 = Not at all Trouble relaxin = Not at all Being so restless that it is hard to sit still: 0 = Not at all Becoming easily annoyed or irritable: 0 = Not at all Feeling afraid as if something awful might happen: 0 = Not at all Total YELENA-7 score (0-4 normal; 5-9 mild; 10-14 moderate; 15-21 severe): 0 Source: Developed by Drs. Jef Singh, Klaudia Saenz, Marek Curran and colleagues, with an educational cherrie from [employer]. Review of Systems Const Denies chills, Denies headache(s) and Denies weight loss ENT Denies headache(s) Card Denies chest pain, Denies syncope, Denies irregular heart rhythm and Denies dyspnea Resp Denies chest congestion, Denies cough and Denies dyspnea GI Denies abdominal pain, Denies change in stool character, Denies nausea and Denies vomiting Musc Denies deformity and Denies joint swelling Neuro Denies syncope and Denies headache(s) Physical exam (Primary Care) Vital Signs: Last Vital Signs Pulse 65 09/01/24 10:19 BP 120/82 09/01/24 10:19 Pulse Ox 95 09/01/24 10:19 Oxygen Delivery Method Room Air 09/01/24 10:19 BMI result Body Mass Index 37.2 Tobacco/Smoking Status: Tobacco use Status Tobacco use date assessed 09/01/24 09/01/24 10:24 Patient Tobacco Use Status Former Tobacco user 09/01/24 10:24 Tobacco use type Cigarette 09/01/24 10:24 e-Cigarette/Vaping Use Never Used 09/01/24 10:24 PHQ-9: PHQ-9 Score PHQ-9: Total score 0 09/01/24 10:24 Depression Screening Interpretation: Negative Thrive Assessment: Date of Thrive Assessment Date Thrive assessed 09/01/24 09/01/24 10:24 Currently or been in a relationship where the following occur: No concerns reported Const General: cooperative, comfortable, no acute distress and alert Neck Neck: Yes no lymphadenopathy Thyroid: Thyroid normal Resp Effort & Inspection: normal respiratory effort Auscultation: clear to auscultation bilaterally Percussion: percussion normal Cardio Jugular venous distension: no JVD Palpation: normal PMI Rate: regular rate Rhythm: regular rhythm Heart sounds: S1 normal heart sound present and S2 normal heart sound present GI Inspection: Yes normal to inspection Palpation (GI): No hepatosplenomegaly present Skin General skin exam: no rashes or lesions noted Extrem General: Yes no clubbing, cyanosis or edema Coding Level of Care Code Est Pt Level 3 (83046) Diagnoses Essential hypertension I10 Hypertension type: essential hypertension Additional Codes PHQ-9 - 75675 - PHQ-9 Billing: Yes ([id number]) Assessment & Plan Assessment & Plan (1) Hypertension: Code(s): I10 - Essential (primary) hypertension Category: Medical Qualifiers: Hypertension type: essential hypertension Qualified Code(s): I10 - Essential (primary) hypertension Plan: stable; same rx
== END 2024-09-01 10:39 | disposition home or self-care (01) ==
PROVIDERS: PCP Internal Medicine; Visit Provider Internal Medicine
DX: I10 Essential (primary) hypertension (principal)

== ENCOUNTER → 2024-09-01 10:17 | Outpatient (BNVA) | payer MEDICARE, SELFPAY ==
[2023-08-05 07:17] VITALS: BP 112/48; BP 122/56; BP 142/76; BMI 37.8
== END ==
PROVIDERS: PCP Internal Medicine; Visit Provider Internal Medicine
DX: I10 Essential (primary) hypertension (principal)
CPT/HCPCS: 96127; 99212

== ENCOUNTER 2024-09-07 10:45 | Outpatient (AMB) | payer MEDICARE, SELFPAY ==
[2023-08-05 07:17] VITALS: BP 112/48; BP 122/56; BP 142/76; BMI 37.8
[2024-09-07 11:08] VITALS: BP 130/60; PULSE 74; O2SAT 94; BMI 37.5
--- NOTE | 2024-09-07 11:08 | MHC.OFFVIS ---
Vital Signs 09/07/24 11:08 Height 5 ft 8 in Weight 246 lb 14.684 oz BMI 37.5 BP 130/60 Blood Pressure Location Lt brachial Position Sitting Pulse 74 Pulse Source Pulse Oximeter Pulse Oximetry (%) 94 Oxygen Delivery Method Room Air Intake Visit Reasons: COPD Intake Note: pt is here for follow up and states he is feeling better, he is still hoarse, but better. Show Jumping Instructor Required: No Allergies No Known Allergies Allergy (Verified 09/07/24 11:31) Medication List - Last Reconciled 09/07/24 by Mann Chester MD albuterol sulfate 90 mcg/actuation 2 puffs PO Q6H PRN apixaban (Eliquis) 5 mg PO BID 90 days cholecalciferol (vitamin D3) 25 mcg PO DAILY CPAP (CPAP Machine/Device) 12CM H20 PREVIOUS MACHINE HAS BEEN RECALLED AND NOW NEEDS A NEW MACHINE [place]AVANA lisinopril 10 mg PO DAILY metoprolol succinate ER 50 mg PO DAILY multivitamin 1 tab PO DAILY tamsulosin 0.8 mg (2 x 0.4 mg) PO BEDTIME 90 days tiotropium bromide (Spiriva with HandiHaler) 1 cap inhalation DAILY HPI HPI COPD: Details: This 79 years old gentleman grossly obese, with diagnosis of obstructive sleep apnea, also has chronic obstructive pulmonary disease, being treated mostly with Spiriva HandiHaler once a day. Was seen a few weeks ago with acute bronchitis which was persistent. He was treated with antibiotics and also had a short course of prednisone. Chest x-ray performed last month was negative for pneumonia. He has gradually improved to his baseline. At present he has mild residual hoarseness, ( he is not using any inhaled steroids ) He has mild intermittent cough as usual. He uses his CPAP regularly every night and sleeps well. .He is using humidification regularly Also has a home humidifier. [facility] Medical History PRAVEEN on CPAP Bronchitis Obstructive sleep apnea on CPAP Obesity Sleep apnea COVID-19 vaccine series completed Arthritis COPD (chronic obstructive pulmonary disease) Skin cancer Status post placement of implantable loop recorder BPH (benign prostatic hyperplasia) Paroxysmal atrial fibrillation Obesity Erectile dysfunction Urgency of micturition Hypertension Surgical History History of prostate surgery H/O colonoscopy History of cystoscopy Hx of total knee arthroplasty History of carpal tunnel release History of surgery Family History Father Medical history unknown Mother Lung cancer Social History Household Members: None Housing: House Alcohol intake: current Alcohol intake frequency: 3 or more drinks per day Patient Tobacco Use Status: Former Tobacco user Tobacco use type: Cigarette Cigarette Packs Per Day: 2 Years Smoked: 30 e-Cigarette/Vaping Use: Never Used Second Hand Smoke Exposure: No service: No Current occupational status: retired Current occupation: [employer] Cognitive needs: No Hearing needs: No Vision needs: No Review of Systems Const All systems reviewed & are unremarkable except as noted in HPI and below Eyes Reports no additional complaints ENT Reports no additional complaints Card Denies chest pain, Denies irregular heart rhythm and Denies leg edema Resp Reports as per HPI (He has increased cough and congestion for the last 3-4 weeks) GI Reports no additional complaints Reports no additional complaints Musc Reports no additional complaints Skin/Breast Reports system reviewed and no additional complaints, except as documented Neuro Reports no additional complaints Psych Reports no additional complaints Physical Exam Vital Signs: Last Vital Signs Pulse 74 09/07/24 11:08 BP 130/60 09/07/24 11:08 Pulse Ox 94 09/07/24 11:08 Oxygen Delivery Method Room Air 09/07/24 11:08 BMI result Body Mass Index 37.5 Const Other: Patient is grossly obese with a round face, short and obese neck. General: comfortable, no acute distress, alert and awake Orientation/consciousness: patient oriented x3 HEENT Head: Yes normal to inspection General nose exam: No nasal polyps present, mucous membranes and turbinates abnormal (MODERATE HYPERTROPHY OF THE NASAL TURBINATES) and No nasal discharge present Face and sinus: Yes sinuses nontender Mouth: oropharynx abnormals (Oropharynx is narrow and crowded, Mallampati class 4.) Throat: Yes posterior oropharynx normal Eyes General: appearance normal, both eyes and all related structures Neck Neck: Yes normal visual inspection, Yes no lymphadenopathy, Yes trachea midline and Yes no JVD Thyroid: Thyroid normal Chest Chest palpation & inspection: normal inspection of the chest, normal palpation of entire chest wall and no tenderness Resp Other: Percussion note resonant, breath sounds are diminished and distant with prolonged expiratory phase. There are no wheezes , rhonchi or crepitations heard today . Cardio Palpation: normal PMI Rate: regular rate Rhythm: regular rhythm Heart sounds: no gallops and no murmurs GI Palpation (GI): Soft to palpation, nontender, No hepatosplenomegaly present, no masses and Other GI palpation findings present (Abdomen is obese and protuberant) Auscultation: normal bowel sounds Back/Spine/Pelvis Thoracic/Lumbar Spine: thoracic and lumbar spine normal to inspection and thoraco-lumbar ROM limited Skin General skin exam: no rashes or lesions noted Neuro General: patient oriented x3 and no focal motor deficits Cranial nerves: Yes CN's II-XII intact bilaterally Extrem General: Yes normal to inspection, Yes no clubbing, cyanosis or edema and Yes no calf tenderness Psych Appearance: grossly normal and well kempt Speech and movement: Normal speech and movement present Assessment & Plan Assessment & Plan (1) Obesity: Comment: CHRONIC OBESITY,BMI= 37.5 PATIENT IS WELL AWARE OF THIS ISSUE. HE IS ACTIVE IN DOING EXERCISE AND IS TRYING TO LIMIT HIS CALORIES INTAKE. Code(s): E66.9 - Obesity, unspecified Category: Medical Plan: Discussed about the weight and encouraged to keep on doing some walking every day and also control the calories intake. (2) PRAVEEN on CPAP: Comment: Known case of obstructive sleep apnea. Using CPAP regularly, with nasal pillows. Sleep hours are somewhat erratic. No issues with the nasal pillows of or CPAP device. He loves to keep on using the CPAP every night. Code(s): G47.33 - Obstructive sleep apnea (adult) (pediatric) Category: Medical Plan: Encouraged to keep on using CPAP on a daily basis . (3) CLL (chronic lymphocytic leukemia): Comment: , Stable and being followed by hematology service, it is relatively stable at this time . Code(s): C91.10 - Chronic lymphocytic leukemia of B-cell type not having achieved remission Category: Medical Plan: Continue regular follow-up with Hematology Service (4) COPD (chronic obstructive pulmonary disease): Comment: Known case of chronic obstructive pulmonary disease, moderately severe. Clinically seems to be stable except for frequent acute exacerbations due to acute bronchitis, Recent acute exacerbation has resolved. Code(s): J44.9 - Chronic obstructive pulmonary disease, unspecified Category: Medical Plan: Continue Spiriva HandiHaler 1 inhalation daily Use albuterol HFA 2 puffs Q 6 hours p.r.n.. .Maintain good humidification in the house Due salt and water gargles 2 or 3 times a day , may use Listerine in the water. Coding Level of Care Code Est Pt Level 3 (77715) Diagnoses Obesity E66.9 PRAVEEN on CPAP G47.33 CLL (chronic lymphocytic leukemia) C91.10 COPD (chronic obstructive pulmonary disease) J44.9
== END 2024-09-07 11:31 | disposition home or self-care (01) ==
PROVIDERS: PCP Internal Medicine; Visit Provider Internal Medicine
DX: E66.9 Obesity, unspecified (principal); G47.33 Obstructive sleep apnea (adult) (pediatric); C91.10 Chronic lymphocytic leukemia of B-cell type not having achieved remission; J44.9 Chronic obstructive pulmonary disease, unspecified
CPT/HCPCS: 99213

== ENCOUNTER → 2024-09-07 10:45 | Outpatient (BNVA) | payer MEDICARE, SELFPAY ==
[2023-08-05 07:17] VITALS: BP 112/48; BP 122/56; BP 142/76; BMI 37.8
== END ==
PROVIDERS: PCP Internal Medicine; Visit Provider Internal Medicine
DX: J44.9 Chronic obstructive pulmonary disease, unspecified (principal); C91.10 Chronic lymphocytic leukemia of B-cell type not having achieved remission; G47.33 Obstructive sleep apnea (adult) (pediatric); E66.9 Obesity, unspecified; Z68.37 Body mass index [BMI] 37.0-37.9, adult
CPT/HCPCS: 99212

== ENCOUNTER 2024-11-18 12:22 | Outpatient (REF) | payer MEDICARE, SELFPAY ==
[2023-08-05 07:17] VITALS: BP 112/48; BP 122/56; BP 142/76; BMI 37.8
[2024-11-18 14:38] LABS: Anion Gap 10 (12-20); Blood Urea Nitrogen 16 mg/dL (9-16); Carbon Dioxide 26 mmol/L (22-29); Chloride 107 mmol/L (96-108); Estimated Glomerular Filt Rate 59; Potassium 4.2 mmol/L (3.3-5.1); Sodium 139 mmol/L (135-145)
== END 2024-11-18 12:23 | disposition home or self-care (01) ==
LOC: HO.LAB 12:22
PROVIDERS: PCP Physician Assistant; Visit Provider Internal Medicine Nephrology
DX: N18.31 Chronic kidney disease, stage 3a (principal); N28.1 Cyst of kidney, acquired; I10 Essential (primary) hypertension
CPT/HCPCS: 36415; 80051; 82565; 84520

== ENCOUNTER 2024-11-24 09:40 | Outpatient (AMB) | payer MEDICARE, SELFPAY ==
[2023-08-05 07:17] VITALS: BP 112/48; BP 122/56; BP 142/76; BMI 37.8
--- NOTE | 2024-11-24 09:53 | HO.NEPHOV ---
Vital Signs 11/24/24 09:55 Height 5 ft 8 in Weight 242 lb BMI 36.8 BP 130/80 Blood Pressure Location Lt brachial Position Sitting Pulse 55 Pulse Source Pulse Oximeter Pulse Oximetry (%) 96 Oxygen Delivery Method Room Air Intake Visit Reasons: CKD-Conf Cooling Room Attendant Required: No Accompanied by: Self / Same As Patient Allergies No Known Allergies Allergy (Verified 11/24/24 09:55) HPI Comments Details: Mr. Moreno was seen in follow up for his chronic kidney disease and hypertension. He is known to have CLL and follows up with Oncology. He has longstanding hypertension and has been on hydrochlorothiazide, lisinopril and metoprolol. He has history of atrial fibrillation and has been on Eliquis. He drinks about 3-4 beers a day. He has obstructive sleep apnea and is on CPAP. He denies taking excessive nonsteroidal anti-inflammatories. He has no new bone pain, back pain, epistaxis, photosensitivity, new skin rashes, joint swellings, hematuria, orthostatic symptoms. He claims to be keeping up with good hydration. He denies any coronary artery disease, carotid stenosis, congestive heart failure, CVA, peripheral arterial disease. His recent serum creatinine is back to baseline [facility] Medical History PRAVEEN on CPAP Bronchitis Obstructive sleep apnea on CPAP Obesity Sleep apnea COVID-19 vaccine series completed Arthritis COPD (chronic obstructive pulmonary disease) Skin cancer Status post placement of implantable loop recorder BPH (benign prostatic hyperplasia) Paroxysmal atrial fibrillation Obesity Erectile dysfunction Urgency of micturition Hypertension Surgical History History of prostate surgery H/O colonoscopy History of cystoscopy Hx of total knee arthroplasty History of carpal tunnel release History of surgery Family History Father Medical history unknown Mother Lung cancer Social History Household Members: None Housing: House Alcohol intake: current Alcohol intake frequency: 3 or more drinks per day Patient Tobacco Use Status: Former Tobacco user Tobacco use type: Cigarette Cigarette Packs Per Day: 2 Years Smoked: 30 e-Cigarette/Vaping Use: Never Used Second Hand Smoke Exposure: No service: No Current occupational status: retired Current occupation: [employer] Cognitive needs: No Hearing needs: No Vision needs: No Review of Systems Const All systems reviewed & are unremarkable except as noted in HPI and below Physical Exam Vital Signs: Last Vital Signs Pulse 55 11/24/24 09:55 BP 130/80 11/24/24 09:55 Pulse Ox 96 11/24/24 09:55 Oxygen Delivery Method Room Air 11/24/24 09:55 BMI result Body Mass Index 36.8 Const General: comfortable and no acute distress Orientation/consciousness: patient oriented x3 HEENT Head: Yes normocephalic Mouth: Normal oral and palatal mucosa present Eyes EOM: EOMs intact bilaterally Neck Neck: Yes supple Resp Auscultation: clear to auscultation bilaterally Cardio Jugular venous distension: no JVD Rate: regular rate GI Palpation (GI): Soft to palpation Auscultation: normal bowel sounds General: Yes no CVA tenderness Back/Spine/Pelvis Back: no CVA tenderness Skin General skin exam: no rashes or lesions noted Neuro General: patient oriented x3 and moves all extremities Extrem General: Yes no pedal edema Results Reviewed Nephrology Results: Hgb 15.4 g/dl (14.0-18.0) 09/03/24 WBC 18.5 X10*3/uL (4.8-10.8) H 09/03/24 Plt Count 192 X10*3/uL (160-400) 09/03/24 Sodium 139 mmol/L (135-145) 11/18/24 Potassium 4.2 mmol/L (3.3-5.1) 11/18/24 Chloride 107 mmol/L (96-108) 11/18/24 Carbon Dioxide 26 mmol/L (22-29) 11/18/24 BUN 16 mg/dL (9-16) 11/18/24 Creatinine 1.18 mg/dL (0.5-1.4) 11/18/24 Calcium 8.9 mg/dL (8.4-10.2) 09/03/24 Assessment & Plan Assessment & Plan (1) CKD stage 3a, GFR 45-59 ml/min: Code(s): N18.31 - Chronic kidney disease, stage 3a Category: Medical (2) Hypertension: Code(s): I10 - Essential (primary) hypertension Category: Medical Qualifiers: Hypertension type: essential hypertension Qualified Code(s): I10 - Essential (primary) hypertension Plan Mr Moreno likely has CKD from vascular disease and age-related loss of renal function. His blood pressure at goal. His renal ultrasound and Doppler of renal arteries were reviewed. I discontinued his hydrochlorothiazide at one of the previous visits and asked him to continue lisinopril and metoprolol for now. He should maintain good hydration and avoid nonsteroidal anti-inflammatories. He has no orthostatic symptoms. He may be a candidate for Jardiance in the future. Further management is pending evolving data. All questions answered Orders: Orders Creatinine 6 Months N18.31 - Chronic kidney disease, stage 3a Blood Urea Nitrogen 6 Months N18.31 - Chronic kidney disease, stage 3a Electrolytes 6 Months N18.31 - Chronic kidney disease, stage 3a Coding Level of Care Code Est Pt Level 4 (56754) Diagnoses CKD stage 3a, GFR 45-59 ml/min N18.31 Essential hypertension I10 Hypertension type: essential hypertension
[2024-11-24 09:55] VITALS: BP 130/80; PULSE 55; O2SAT 96; BMI 36.8
== END 2024-11-24 10:08 | disposition home or self-care (01) ==
LOC: HO.HKA 09:41
PROVIDERS: PCP Internal Medicine; Visit Provider Internal Medicine Nephrology
DX: N18.31 Chronic kidney disease, stage 3a (principal); I10 Essential (primary) hypertension
CPT/HCPCS: 99214

== ENCOUNTER → 2024-11-24 09:40 | Outpatient (BNVA) | payer MEDICARE, SELFPAY ==
[2023-08-05 07:17] VITALS: BP 112/48; BP 122/56; BP 142/76; BMI 37.8
== END ==
PROVIDERS: PCP Internal Medicine; Visit Provider Internal Medicine Nephrology
DX: I12.9 Hypertensive chronic kidney disease with stage 1 through stage 4 chronic kidney disease, or unspecified chronic kidney disease (principal); N18.31 Chronic kidney disease, stage 3a
CPT/HCPCS: 99212

== ENCOUNTER 2024-11-30 08:47 | Outpatient (AMB) | payer MEDICARE, SELFPAY ==
[2023-08-05 07:17] VITALS: BP 112/48; BP 122/56; BP 142/76; BMI 37.8
--- NOTE | 2024-11-30 09:23 | A.OFFPC_ITS ---
Vital Signs 11/30/24 09:24 Height 5 ft 8 in Weight 240 lb 2 oz BMI 36.5 BP 134/80 Blood Pressure Location Lt brachial Position Sitting Pulse 74 Pulse Source Pulse Oximeter Temp 97.1 F Temp Source Temporal Artery Scan Pulse Oximetry (%) 95 Oxygen Delivery Method Room Air Intake Visit Reasons: 3 month f/u Allergies No Known Allergies Allergy (Verified 11/30/24 09:31) Medication List - Last Reconciled 11/30/24 by Chadd Monreal PA-C albuterol sulfate 90 mcg/actuation 2 puffs PO Q6H PRN apixaban (Eliquis) 5 mg PO BID 90 days cholecalciferol (vitamin D3) 25 mcg PO DAILY CPAP (CPAP Machine/Device) 12CM H20 PREVIOUS MACHINE HAS BEEN RECALLED AND NOW NEEDS A NEW MACHINE BHAVANA lisinopril 10 mg PO DAILY metoprolol succinate ER 50 mg PO DAILY multivitamin 1 tab PO DAILY tamsulosin 0.8 mg (2 x 0.4 mg) PO BEDTIME 90 days tiotropium bromide (Spiriva with HandiHaler) 1 cap inhalation DAILY Tobacco use date assessed: 09/01/24 Dental Screening Dental Screen Date: 09/01/24 HPI 3 month f/u HPI Details Patient is an 79-year-old male here today for a transfer of care visit. Previous primary care was Dr. Martell. Patient has a past medical history significant for chronic kidney disease stage 3, CLL, COPD, hypertension, AFib on Eliquis, obstructive sleep apnea on CPAP. Concerns--> The patient reports a recent exacerbation of bronchitis symptoms, characterized by congestion and a graspy throat, but denies any fever. He is currently pop ging his condition with the use of a CPAP machine, humidifiers, and an air cleaner wall. The patient received prednisone and another unspecified medication in August from Dr. Chester, which improved his symptoms at that time. There is a concern about the chronic nature of the bronchitis, although nothing acute like pneumonia was detected in a previous chest x-ray. The patient is not using a nebulizer but is compliant with CPAP and utilizes [id number] medications like Mucinex. The patient seeks management to alleviate current symptoms, which are impacting his ability to participate in singing activities. .. COPD: Continues on Spiriva with good effect, followed by [facility]. Also has a obstructive sleep apnea and uses a CPAP machine on a nightly basis .. AFib: Continues on Eliquis for anticoagulation without any overt signs of bleeding, he is rate controlled with metoprolol. .. Chronic kidney disease: Followed by [facility] supervisor safety deposit .. Hypertension: Blood pressure well managed with lisinopril [facility] Medical History PRAVEEN on CPAP Bronchitis Obstructive sleep apnea on CPAP Obesity Sleep apnea COVID-19 vaccine series completed Arthritis COPD (chronic obstructive pulmonary disease) Skin cancer Status post placement of implantable loop recorder BPH (benign prostatic hyperplasia) Paroxysmal atrial fibrillation Obesity Erectile dysfunction Urgency of micturition Hypertension Surgical History History of prostate surgery H/O colonoscopy History of cystoscopy Hx of total knee arthroplasty History of carpal tunnel release History of surgery Family History Father Medical history unknown Mother Lung cancer Social History Household Members: None Housing: House Alcohol intake: current Alcohol intake frequency: 3 or more drinks per day Patient Tobacco Use Status: Former Tobacco user Tobacco use type: Cigarette Cigarette Packs Per Day: 2 Years Smoked: 30 e-Cigarette/Vaping Use: Never Used Second Hand Smoke Exposure: No service: No Current occupational status: retired Current occupation: Right Cognitive needs: No Hearing needs: No Vision needs: No Questionnaire PHQ-9 Over the last 2 weeks, how often have you been bothered by any of the following problems? 1. Little interest or pleasure in doing things: not at all 2. Feeling down, depressed, or hopeless: not at all 3. Trouble falling or staying asleep, or sleeping too much: not at all 4. Feeling tired or having little energy: not at all 5. Poor appetite or overeating: not at all 6. Feeling bad about yourself - or that you are a failure or have let yourself o r your family down: not at all 7. Trouble concentrating on things, such as reading the newspaper or watching television: not at all 8. Moving or speaking so slowly that other people could have noticed. Or the opposite - being so fidgety or restless that you have been moving around a lot more than usual: not at all 9. Thoughts that you would be better off or of hurting yourself in some way: not at all Total score: 0 Depression Screening Interpretation: Negative Depression Screening Done: Yes 80170 - PHQ-9 Billing: Yes Source: Developed by Drs. Jef Singh, Klaudia Saenz, Marek terry nd colleagues, with an educational cherrie from [employer]. Thrive Questionnaire Date Thrive assessed: 11/23/24 I am a: Patient What is your living situation today?: I have a steady place to live Within the past 12 months, did the food you bought not last and you didn't have the money to get more?: Never true Within the past 12 months, did you worry whether your food would run out before you got money to buy more?: Never true Do you have trouble paying for medicines?: No Do you have trouble getting transportation to medical appointments?: No Do you have trouble paying your heating and electricity bill?: No Do you have trouble taking care of your child, family member or friend?: No Do you have trouble with day-to-day activities such as bathing, preparing meals, shopping, managing finances, etc.?: No Are you currently unemployed and looking for a job?: No Are you interested in more education?: No Please select the resources that you would like help with: None Currently or been in a relationship where the following occur: No concerns reported THRIVE Score: 0 AUDIT C Alcohol Use Questionnaire (AUDIT-C) 1. How often do you have a drink containing alcohol?: 2-3 times a week 2. How many drinks containing alcohol do you have on a typical day when you are drinking?: 1 or 2 3. How often do you have six or more drinks on one occasion?: Monthly Total Score: 5 YELENA-7 AMB Questionnaire YELENA-7 Date YELENA - 7 assessed: 11/30/24 Feeling nervous, anxious, or on edge: 0 = Not at all Not being able to stop or control worryin = Not at all Worrying too much about different things: 0 = Not at all Trouble relaxin = Not at all Being so restless that it is hard to sit still: 0 = Not at all Becoming easily annoyed or irritable: 0 = Not at all Feeling afraid as if something awful might happen: 0 = Not at all Total YELENA-7 score (0-4 normal; 5-9 mild; 10-14 moderate; 15-21 severe): 0 Source: Developed by Drs. Jef Singh, Klaudia Saenz, Marek Curran and colleagues, with an educational cherrie from [employer]. YELENA-7 Assessment Billing YELENA-7 Assessment Tool: YELENA-7 Assessment 95842 Review of Systems Const Denies headache(s) Eyes Denies loss of vision ENT Denies vertigo, Denies dizziness, Denies headache(s) and Denies sore throat Card Denies chest pain, Denies leg edema and Denies lightheadedness Resp Denies cough, Denies hemoptysis and Denies wheezing GI Denies abdominal pain, Denies melena, Denies constipation, Denies diarrhea and Denies vomiting Denies dysuria, Denies urinary frequency and Denies urinary urgency Musc Denies arthralgias, Denies joint swelling, Denies numbness and Denies tingling Neuro Denies Abnormal speech present, Denies behavioral changes, Denies vertigo, Denies dizziness, Denies headache(s), Denies loss of vision, Denies memory loss, Denies numbness and Denies tingling Psych Denies anxiety, Denies behavioral changes, Denies depression, Denies memory loss and Denies panic attacks Isaac/Lymph Denies easy bleeding and Denies easy bruising Aller/Immun Denies wheezing Physical exam (Primary Care) Vital Signs: Last Vital Signs Temp 97.1 F 11/30/24 09:24 Pulse 74 11/30/24 09:24 BP 134/80 11/30/24 09:24 Pulse Ox 95 11/30/24 09:24 Oxygen Delivery Method Room Air 11/30/24 09:24 BMI result Body Mass Index 36.5 Tobacco/Smoking Status: Tobacco use Status Tobacco use date assessed 09/01/24 11/30/24 09:27 Patient Tobacco Use Status Former Tobacco user 11/30/24 09:27 Tobacco use type Cigarette 11/30/24 09:27 e-Cigarette/Vaping Use Never Used 11/30/24 09:27 PHQ-9: PHQ-9 Score PHQ-9: Total score 0 11/30/24 09:27 Depression Screening Interpretation: Negative Thrive Assessment: Date of Thrive Assessment Date Thrive assessed 11/23/24 11/30/24 09:27 Currently or been in a relationship where the following occur: No concerns reported Const General: healthy appearing, no acute distress, alert and awake Nutritional Appearance: well nourished Orientation/consciousness: oriented to person, oriented to place and oriented to time HENMT Ears: TM's normal bilaterally General nose exam: Normal nasal mucous membranes and turbinates present Eyes Conjunctivae: conjunctivae normal Sclerae: sclerae normal Pupils: Equal, round and reactive pupils present Neck Neck: Yes no lymphadenopathy and Yes no JVD Thyroid: Thyroid normal Carotids: no bruits Resp Other: NOTED RALES AND RHONCHI OVER UPPER LUNG CORDOVA Effort & Inspection: normal respiratory effort and not tachypneic Auscultation: no crackles, rales, rhonchi and no wheezes Cardio Rate: regular rate Rhythm: regular rhythm Heart sounds: no murmurs and normal S1 and S2 GI Palpation (GI): Soft to palpation, nontender, no hepatomegaly and no splenomegaly Auscultation: normal bowel sounds Skin General skin exam: no rashes or lesions noted and dry skin Neuro General: oriented to person, oriented to place and oriented to time Cranial nerves: Yes Equal, round and reactive pupils present Speech: No Abnormal speech present Gait exam (Neuro): Normal gait present Motor exam (neuro): no tremor noted Extrem Right upper extremity: full ROM Left upper extremity: full ROM Right lower extremity: full ROM; no edema Left lower extremity: full ROM; no edema Psych Mental Status: mental status grossly normal Speech and movement: Normal speech and movement present Affect: normal affect Attitude: cooperative Thought process: Normal thought process present Coding Level of Care Code Est Pt Level 4 (97347) Diagnoses Simple chronic bronchitis J41.0 COPD type: chronic bronchitis Chronic bronchitis type: simple CKD stage 3a, GFR 45-59 ml/min N18.31 PAF (paroxysmal atrial fibrillation) I48.0 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 Clinically seems to be stable except for frequent acute exacerbations due to acute bronchitis, Recent acute exacerbation has resolved. Code(s): J44.9 - Chronic obstructive pulmonary disease, unspecified Category: Medical Qualifiers: COPD type: chronic bronchitis Chronic bronchitis type: simple Qual ified Code(s): J41.0 - Simple chronic bronchitis Plan: Patient followed by [facility]. Recently having some upper respiratory congestion to which he is using [id number] meds for. The patient is prescribed Zithromax and a prednisone taper to manage chronic bronchitis symptoms, promoting pulmonary function and reducing inflammation. (2) CKD stage 3a, GFR 45-59 ml/min: Code(s): N18.31 - Chronic kidney disease, stage 3a Category: Medical Plan: Continues to follow Nephrology, most recent renal function stable. (3) PAF (paroxysmal atrial fibrillation): Code(s): I48.0 - Paroxysmal atrial fibrillation Category: Medical Plan: Maintain current Eliquis regimen to manage paroxysmal atrial fibrillation and prevent thromboembolic stroke risks. (4) SNHL (sensorineural hearing loss): Code(s): H90.5 - Unspecified sensorineural hearing loss Category: Medical Qualifiers: Laterality: bilateral Qualified Code(s): H90.3 - Sensorineural hearing loss, bilateral Plan: Patient's seemingly having difficult time hearing. Bilateral ears without cerumen impaction. Will send for hearing exam to evaluate for the need for amplification. (5) CLL (chronic lymphocytic leukemia): Comment: , Stable and being followed by hematology service, it is relatively stable at this time . Code(s): C91.10 - Chronic lymphocytic leukemia of B-cell type not having achieved remission Category: Medical Plan: Monitoring advised due to light burden of chronic leukemia, requiring no active treatment at present. Orders: Orders Prostate Specific Antigen Scr Today J41.0 - Simple chronic bronchitis, Z12.5 - Encounter for screening for malignant neoplasm of prostate Comprehensive [place]. Panel Fast Today I48.0 - Paroxysmal atrial fibrillation Lipid Panel Today I48.0 - Paroxysmal atrial fibrillation Complete Blood Count no Diff Today J41.0 - Simple chronic bronchitis Referrals Speech and Hearing Referral H90.3 - Sensorineural hearing loss, bilateral Medications: New azithromycin For 250 mg dose pack: take 500 mg today (day 1), then 250 mg for 4 days (days 2-5) PO 6 tabs 0RF I48.0 - Paroxysmal atrial fibrillation prednisone take 3 tabs x 3 days, take 2 tablets x3 days take 1 tablet x3 days 10 mg PO DIRECTED 9 days 18 tabs 0RF J41.0 - Simple chronic bronchitis Patient Instructions: Goal: Blood pressure to remain below 140/90, control COPD Barriers: Adherence to physical activity and healthy eating habits, adhere to maintenance COPD meds
[2024-11-30 09:24] VITALS: BP 134/80; PULSE 74; TEMP 36.2; O2SAT 95; BMI 36.5
== END 2024-11-30 09:48 | disposition home or self-care (01) ==
PROVIDERS: PCP Physician Assistant; Visit Provider Physician Assistant
DX: J41.0 Simple chronic bronchitis (principal); N18.31 Chronic kidney disease, stage 3a; I48.0 Paroxysmal atrial fibrillation; C91.10 Chronic lymphocytic leukemia of B-cell type not having achieved remission; H90.3 Sensorineural hearing loss, bilateral

== ENCOUNTER → 2024-11-30 08:47 | Outpatient (BNVA) | payer MEDICARE, SELFPAY ==
[2023-08-05 07:17] VITALS: BP 112/48; BP 122/56; BP 142/76; BMI 37.8
== END ==
PROVIDERS: PCP Internal Medicine; Visit Provider Physician Assistant
DX: J41.0 Simple chronic bronchitis (principal); I12.9 Hypertensive chronic kidney disease with stage 1 through stage 4 chronic kidney disease, or unspecified chronic kidney disease; N18.30 Chronic kidney disease, stage 3 unspecified; G47.33 Obstructive sleep apnea (adult) (pediatric); I48.0 Paroxysmal atrial fibrillation; H90.3 Sensorineural hearing loss, bilateral; C91.10 Chronic lymphocytic leukemia of B-cell type not having achieved remission; Z79.01 Long term (current) use of anticoagulants; Z99.89 Dependence on other enabling machines and devices
CPT/HCPCS: 96127; 99212

== ENCOUNTER 2024-12-06 14:38 | Outpatient (AMB) | payer MEDICARE, SELFPAY ==
[2023-08-05 07:17] VITALS: BP 112/48; BP 122/56; BP 142/76; BMI 37.8
--- NOTE | 2024-12-06 15:18 | A.OFFVIS_ITS ---
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 Allergies No Known Allergies Allergy (Verified 12/06/24 15:20) Medication List - Last Reconciled 12/06/24 by Josselyn Gordillo, [employer] albuterol sulfate 90 mcg/actuation 2 puffs PO Q6H PRN apixaban (Eliquis) 5 mg PO BID 90 days azithromycin For 250 mg dose pack: take 500 mg today (day 1), then 250 mg for 4 days (days 2-5) PO cholecalciferol (vitamin D3) 25 mcg PO DAILY CPAP (CPAP Machine/Device) 12CM H20 PREVIOUS MACHINE HAS BEEN RECALLED AND NOW NEEDS A NEW MACHINE BHAVANA lisinopril 10 mg PO DAILY metoprolol succinate ER 50 mg PO DAILY multivitamin 1 tab PO DAILY prednisone 10 mg PO DIRECTED 9 days tamsulosin 0.8 mg (2 x 0.4 mg) PO BEDTIME 90 days tiotropium bromide (Spiriva with HandiHaler) 1 cap inhalation DAILY HPI HPI r/s (x 2) 09/01/24 6 mos followup: Details: Loy is an 79-year-old male with past medical history of obesity, hypertension, sleep apnea with CPAP use, paroxysmal atrial fibrillation who presents for follow-up. Today he reports he has been doing generally well since his last visit in January. He denies any recent heart palpitations. No chest discomfort at rest or with activity. No concerning shortness of breath, PND, orthopnea or edema. No lightheadedness, presyncope, syncope. He uses his CPAP mask regularly. Compliant with medications. No bleeding issues reported. Going to the [facility] routinely for exercise. [facility] Medical History PRAVEEN on CPAP Bronchitis Obstructive sleep apnea on CPAP Obesity Sleep apnea COVID-19 vaccine series completed Arthritis COPD (chronic obstructive pulmonary disease) Skin cancer Status post placement of implantable loop recorder BPH (benign prostatic hyperplasia) Paroxysmal atrial fibrillation Obesity Erectile dysfunction Urgency of micturition Hypertension Surgical History History of prostate surgery H/O colonoscopy History of cystoscopy Hx of total knee arthroplasty History of carpal tunnel release History of surgery Family History Father Medical history unknown Mother Lung cancer Social History Household Members: None Housing: House Alcohol intake: current Alcohol intake frequency: 3 or more drinks per day Patient Tobacco Use Status: Former Tobacco user Tobacco use type: Cigarette Cigarette Packs Per Day: 2 Years Smoked: 30 e-Cigarette/Vaping Use: Never Used Second Hand Smoke Exposure: No service: No Current occupational status: retired Current occupation: [employer] Cognitive needs: No Hearing needs: No Vision needs: No Review of Systems Const All systems reviewed & are unremarkable except as noted in HPI and below ENT Denies dizziness Card Denies chest pain, Denies chest pain at rest, Denies chest pain with activity, Denies rapid heart rate, Denies pedal edema, Denies edema, Denies leg edema, Denies lightheadedness, Denies palpitations, Denies dyspnea, Denies dyspnea on exertion and Denies orthopnea Resp Denies cough, Denies dyspnea and Denies dyspnea on exertion GI Denies hematochezia and Denies change in stool character Musc Denies abnormal gait, Denies limited range of motion, Denies muscle cramps, Denies muscle weakness, Denies numbness, Denies radiating pain into limb, Denies stiffness and Denies tingling Neuro Denies abnormal gait, Denies dizziness, Denies numbness and Denies tingling Endo Denies palpitations Physical Exam Vital Signs: Last Vital Signs Pulse 61 12/06/24 15:19 BP 120/58 L 12/06/24 15:19 BMI result Body Mass Index 36.5 Const General: cooperative, healthy appearing, comfortable and no acute distress Orientation/consciousness: patient oriented x3 Neck Neck: Yes normal visual inspection Resp Effort & Inspection: normal respiratory effort Auscultation: clear to auscultation bilaterally, no rales, no rhonchi and no wheezes Cardio Rate: regular rate Rhythm: regular rhythm Heart sounds: S1 normal heart sound present, S2 normal heart sound present, no murmurs and no rubs Neuro General: patient oriented x3 Extrem General: Yes normal to inspection, No no pedal edema and No calf tenderness Psych Appearance: grossly normal Mental Status: mental status grossly normal Speech and movement: Normal speech and movement present Office Procedures EKG Details: Today, read by me, SR, with PAC, cant exclude prior anterior infarct, rate 61, Qtc 378ms [id number], Complete Assessment & Plan Assessment & Plan (1) PAF (paroxysmal atrial fibrillation): Code(s): I48.0 - Paroxysmal atrial fibrillation Category: Medical Plan: History of paroxysmal atrial fibrillation which is currently suppressed. He is on metoprolol for heart rate control. He is on Eliquis for anticoagulation. Labs from 11/18/2024 showed creatinine 1.18. EKG from today shows sinus rhythm with 1 Pac, rate 61. Continue current treatment. Cardiology follow-up 6 months, sooner if needed. (2) PRAEVEN on CPAP: Code(s): G47.33 - Obstructive sleep apnea (adult) (pediatric) Category: Medical Plan: Compliant each night with CPAP mask. (3) Obesity: Comment: CHRONIC OBESITY,BMI= 37.5 PATIENT IS WELL AWARE OF THIS ISSUE. HE IS ACTIVE IN DOING EXERCISE AND IS TRYING TO LIMIT HIS CALORIES INTAKE. Code(s): E66.9 - Obesity, unspecified Category: Medical Plan: Goes to the [facility] 3 times weekly for exercise. (4) Hypertension: Code(s): I10 - Essential (primary) hypertension Category: Medical Qualifiers: Hypertension type: essential hypertension Qualified Code(s): I10 - Essential (primary) hypertension Plan: Blood pressure goal less than 130/80. Well controlled at this time. No med changes made. Plan Time spent on chart review, documentation, interview and assessment Coding Level of Care Code Est Pt Level 4 (42255) Complex EM visit Add On G2211 Diagnoses PAF (paroxysmal atrial fibrillation) I48.0 PRAVEEN on CPAP G47.33 Obesity E66.9 Essential hypertension I10 Hypertension type: essential hypertension CPT Codes EKG - CPT: 77190-[id number], Complete ([id number]) Time Spent (min) 28
[2024-12-06 15:19] VITALS: BP 120/58; PULSE 61; BMI 36.5
== END 2024-12-06 16:08 | disposition home or self-care (01) ==
LOC: HO.HCS 14:38
PROVIDERS: PCP Physician Assistant; Visit Provider Internal Medicine Cardiovascular Disease
DX: I48.0 Paroxysmal atrial fibrillation (principal); G47.33 Obstructive sleep apnea (adult) (pediatric); E66.9 Obesity, unspecified; I10 Essential (primary) hypertension
CPT/HCPCS: 99214; G2211

== ENCOUNTER → 2024-12-06 14:38 | Outpatient (BNVA) | payer MEDICARE, SELFPAY ==
[2023-08-05 07:17] VITALS: BP 112/48; BP 122/56; BP 142/76; BMI 37.8
== END ==
PROVIDERS: PCP Physician Assistant; Visit Provider Internal Medicine Cardiovascular Disease
DX: I48.0 Paroxysmal atrial fibrillation (principal); I10 Essential (primary) hypertension; G47.33 Obstructive sleep apnea (adult) (pediatric); E66.9 Obesity, unspecified; Z68.36 Body mass index [BMI] 36.0-36.9, adult
CPT/HCPCS: 93005; 99212

== ENCOUNTER 2025-01-07 09:12 | Outpatient (REF) | payer MEDICARE, SELFPAY ==
[2023-08-05 07:17] VITALS: BP 112/48; BP 122/56; BP 142/76; BMI 37.8
== END 2025-01-07 09:13 | disposition home or self-care (01) ==
LOC: HO.SH 09:12
PROVIDERS: Visit Provider Physician Assistant
DX: Z01.118 Encounter for examination of ears and hearing with other abnormal findings (principal); H90.3 Sensorineural hearing loss, bilateral
CPT/HCPCS: 92557

== ENCOUNTER 2025-01-11 10:37 | Outpatient (AMB) | payer MEDICARE, SELFPAY ==
[2023-08-05 07:17] VITALS: BP 112/48; BP 122/56; BP 142/76; BMI 37.8
--- NOTE | 2025-01-11 10:41 | A.OFFVIS_ITS ---
Vital Signs 01/11/25 10:42 Height 5 ft 8 in Weight 245 lb 13.047 oz BMI 37.4 BP 130/54 L Blood Pressure Location Lt brachial Position Sitting Pulse 67 Pulse Source Pulse Oximeter Pulse Oximetry (%) 93 Oxygen Delivery Method Room Air Intake Visit Reasons: COPD Intake Note: pt is here for praveen follow up and just received his new cpap that he started yesterday. Compensation Agent Required: No Allergies No Known Allergies Allergy (Verified 01/11/25 11:09) Medication List - Last Reconciled 01/11/25 by Mann Chester MD albuterol sulfate 90 mcg/actuation 2 puffs PO Q6H PRN apixaban (Eliquis) 5 mg PO BID 90 days cholecalciferol (vitamin D3) 25 mcg PO DAILY CPAP (CPAP Machine/Device) 12CM H20 PREVIOUS MACHINE HAS BEEN RECALLED AND NOW NEEDS A NEW MACHINE BHAVANA lisinopril 10 mg PO DAILY metoprolol succinate ER 50 mg PO DAILY multivitamin 1 tab PO DAILY prednisone 10 mg PO DIRECTED 9 days tamsulosin 0.8 mg (2 x 0.4 mg) PO BEDTIME 90 days tiotropium bromide (Spiriva with HandiHaler) 1 cap inhalation DAILY Do you need a note to return to daycare/school/sports/work: No HPI HPI COPD: Details: This 79 years old gentleman grossly obese, with diagnosis of obstructive sleep apnea, also has chronic obstructive pulmonary disease, being treated mostly with Spiriva HandiHaler once a day, and albuterol 2 puffs Q 6 hours p.r.n., also needs a short course of prednisone if he gets any acute exacerbation. He has remained fairly stable since his last visit. He is asking to have a short supply of prednisone on hand, as he is prone to get acute exacerbations. 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 present he has mild residual hoarseness, ( he is not using any inhaled steroids ) He has mild intermittent cough as usual., and does get short of breath if he walks fast or climbs stairs. Overall his breathing status remains stable He uses his CPAP regularly every night and sleeps well. Just got the new rests mid model, and he is practicing to use that. He does use the the old CPAP on a regular basis, and is looking forward to using the new model. Weight aivtia there has been no progress. He is not able to do any vigorous exercise. [facility]LY [facility] Medical History PRAVEEN on CPAP Bronchitis Obstructive sleep apnea on CPAP Obesity Sleep apnea COVID-19 vaccine series completed Arthritis COPD (chronic obstructive pulmonary disease) Skin cancer Status post placement of implantable loop recorder BPH (benign prostatic hyperplasia) Paroxysmal atrial fibrillation Obesity Erectile dysfunction Urgency of micturition Hypertension Surgical History History of prostate surgery H/O colonoscopy History of cystoscopy Hx of total knee arthroplasty History of carpal tunnel release History of surgery Family History Father Medical history unknown Mother Lung cancer Social History Household Members: None Housing: House Alcohol intake: current Alcohol intake frequency: 3 or more drinks per day Patient Tobacco Use Status: Former Tobacco user Tobacco use type: Cigarette Cigarette Packs Per Day: 2 Years Smoked: 30 e-Cigarette/Vaping Use: Never Used Second Hand Smoke Exposure: No service: No Current occupational status: retired Current occupation: Right Cognitive needs: No Hearing needs: No Vision needs: No Review of Systems Const All systems reviewed & are unremarkable except as noted in HPI and below Eyes Reports no additional complaints ENT Reports no additional complaints Card Denies chest pain, Denies irregular heart rhythm and Denies leg edema Resp Reports as per HPI (He has increased cough and congestion for the last 3-4 weeks) GI Reports no additional complaints Reports no additional complaints Musc Reports no additional complaints Skin/Breast Reports system reviewed and no additional complaints, except as documented Neuro Reports no additional complaints Psych Reports no additional complaints Physical Exam Vital Signs: Last Vital Signs Pulse 67 01/11/25 10:42 BP 130/54 L 01/11/25 10:42 Pulse Ox 93 01/11/25 10:42 Oxygen Delivery Method Room Air 01/11/25 10:42 BMI result Body Mass Index 37.4 Const Other: Patient is grossly obese with a round face, short and obese neck. General: comfortable, no acute distress, alert and awake Orientation/consciousness: patient oriented x3 HEENT Head: Yes normal to inspection General nose exam: No nasal polyps present, mucous membranes and turbinates abnormal (MODERATE HYPERTROPHY OF THE NASAL TURBINATES) and No nasal discharge present Face and sinus: Yes sinuses nontender Mouth: oropharynx abnormals (Oropharynx is narrow and crowded, Mallampati class 4.) Throat: Yes posterior oropharynx normal Eyes General: appearance normal, both eyes and all related structures Neck Neck: Yes normal visual inspection, Yes no lymphadenopathy, Yes trachea midline and Yes no JVD Thyroid: Thyroid normal Chest Chest palpation & inspection: normal inspection of the chest, normal palpation of entire chest wall and no tenderness Resp Other: Percussion note resonant, breath sounds are diminished and distant with prolonged expiratory phase. There are no wheezes , rhonchi or crepitations heard today . Cardio Palpation: normal PMI Rate: regular rate Rhythm: regular rhythm Heart sounds: no gallops and no murmurs GI Palpation (GI): Soft to palpation, nontender, No hepatosplenomegaly present, no masses and Other GI palpation findings present (Abdomen is obese and protuberant) Auscultation: normal bowel sounds Back/Spine/Pelvis Thoracic/Lumbar Spine: thoracic and lumbar spine normal to inspection and thoraco-lumbar ROM limited Skin General skin exam: no rashes or lesions noted Neuro General: patient oriented x3 and no focal motor deficits Cranial nerves: Yes CN's II-XII intact bilaterally Extrem General: Yes normal to inspection, Yes no clubbing, cyanosis or edema and Yes no calf tenderness Psych Appearance: grossly normal and well kempt Speech and movement: Normal speech and movement present Results Reviewed Results Reviewed: Compliance report for the last 30 nights is reviewed and he has used regularly every night main usage per night is 5 hours 34 minutes there is mild air leak residual AHI only 2.1 Assessment & Plan Assessment & Plan (1) COPD (chronic obstructive pulmonary disease): Comment: Known case of chronic obstructive pulmonary disease, moderately severe. Clinically seems to be stable . He remains prone to have frequent acute exacerbations mainly due to acute bronchitis. Code(s): J44.9 - Chronic obstructive pulmonary disease, unspecified Category: Medical Qualifiers: COPD type: chronic bronchitis Chronic bronchitis type: simple Qualified Code(s): J41.0 - Simple chronic bronchitis Plan: Continue to use Spiriva with HandiHaler 1 inhalation daily and albuterol HFA 2 puffs Q 6 hours p.r.n.. Will prescribe him prednisone 5 mg # 10 tablets to keep on hand in case of any minor acute exacerbation. (2) Obstructive sleep apnea on CPAP: Comment: Patient does have chronic obstructive pulmonary disease which is well controlled with the use of CPAP. He is a regular user of CPAP and sleeps fairly good. Just got the new rests mid CPAP model, and is trying to practice using that. His compliance has been good. Code(s): G47.33 - Obstructive sleep apnea (adult) (pediatric); Z99.89 - Dependence on other enabling machines and devices Category: Medical Plan: Commended for good compliance. Start using the new CPAP device, and if there is any issue called my office or bring the machine here and will be glad to . Instructed how to use it properly (3) Obesity: Comment: HE REMAINS GROSSLY OBESE.BMI= 37.4 DISCUSSED WITH HIM. HIS ACTIVITY LEVEL IS RATHER LOW. NO SIGNIFICANT WEIGHT LOST IS EXPECTED IN HIS CASE. Code(s): E66.9 - Obesity, unspecified Category: Medical Plan: Again discussed about the diet and need to do more physical exercise/activity (4) CLL (chronic lymphocytic leukemia): Comment: , Stable and being followed by hematology service, it is relatively stable at this time . Code(s): C91.10 - Chronic lymphocytic leukemia of B-cell type not having achieved remission Category: Medical Plan: No further comment on this Medications: New prednisone 10 mg PO BID 5 days 10 tabs 1RF copd excerbation Coding Level of Care Code Est Pt Level 3 (72997) Diagnoses Simple chronic bronchitis J41.0 COPD type: chronic bronchitis Chronic bronchitis type: simple Obstructive sleep apnea on CPAP G47.33; Z99.89 Obesity E66.9 CLL (chronic lymphocytic leukemia) C91.10
[2025-01-11 10:42] VITALS: BP 130/54; PULSE 67; O2SAT 93; BMI 37.4
== END 2025-01-11 11:14 | disposition home or self-care (01) ==
LOC: HO.HPS 10:38
PROVIDERS: PCP Internal Medicine; Visit Provider Internal Medicine
DX: J41.0 Simple chronic bronchitis (principal); G47.33 Obstructive sleep apnea (adult) (pediatric); Z99.89 Dependence on other enabling machines and devices; E66.9 Obesity, unspecified; C91.10 Chronic lymphocytic leukemia of B-cell type not having achieved remission
CPT/HCPCS: 99213

== ENCOUNTER → 2025-01-11 10:37 | Outpatient (BNVA) | payer MEDICARE, SELFPAY ==
[2023-08-05 07:17] VITALS: BP 112/48; BP 122/56; BP 142/76; BMI 37.8
== END ==
PROVIDERS: PCP Internal Medicine; Visit Provider Internal Medicine
DX: J41.0 Simple chronic bronchitis (principal); G47.33 Obstructive sleep apnea (adult) (pediatric); C91.10 Chronic lymphocytic leukemia of B-cell type not having achieved remission; E66.9 Obesity, unspecified; Z99.89 Dependence on other enabling machines and devices; Z68.37 Body mass index [BMI] 37.0-37.9, adult
CPT/HCPCS: 99212

== ENCOUNTER 2025-01-24 14:30 | Outpatient (REF) | payer MEDICARE, SELFPAY ==
[2023-08-05 07:17] VITALS: BP 112/48; BP 122/56; BP 142/76; BMI 37.8
[2025-01-24 15:58] LABS: Hematocrit 45.3 % (42.0-52.0); Mean Corpuscular HGB Conc 33.1 g/dl (31.0-36.0); Mean Corpuscular Hemoglobin 30.9 pg (27.0-33.0); Mean Corpuscular Volume 93.4 fL (80.0-98.0); Mean Platelet Volume 9.9 fL (9.4-12.4); Platelet Count 325 X10*3/uL (160-400); Red Blood Count 4.85 X10*6/uL (4.60-5.80); Red Cell Distribution Width 13.7 % (11.0-16.0)
[2025-01-24 16:06] LABS: White Blood Count 35.5 X10*3/uL (4.8-10.8)
[2025-01-24 16:42] LABS: Prostate Specific Antigen Scr 3.24 ng/mL (<0.05-4.0)
[2025-01-24 16:43] LABS: Prostate Specific Antigen 3.26 ng/mL (<0.05-4.0)
[2025-01-24 16:49] LABS: Alanine Aminotransferase 26 U/L (0-40); Albumin Level 3.7 g/dL (3.5-5.0); Alkaline Phosphatase 81 U/L (39-117); Anion Gap 11 (12-20); Aspartate Amino Transferase 25 U/L (5-37); Bilirubin Total 0.5 mg/dL (0.0-1.0); Blood Urea Nitrogen 25 mg/dL (9-16); Calcium 9.1 mg/dL (8.4-10.2); Carbon Dioxide 26 mmol/L (22-29); Chloride 107 mmol/L (96-108); Cholesterol 136 mg/dL (<200); Estimated Glomerular Filt Rate 50; Glucose Fasting 97 mg/dL (60-99); HDL Cholesterol 34 mg/dL (>40); LDL Cholesterol Calculated 70 mg/dL (<100); Potassium 4.4 mmol/L (3.3-5.1); Sodium 140 mmol/L (135-145); Total Protein 6.3 g/dL (6.5-8.0); Triglycerides 164 mg/dL (<150)
== END 2025-01-24 14:31 | disposition home or self-care (01) ==
LOC: HO.LAB 14:30
PROVIDERS: PCP Physician Assistant; Visit Provider Urology
DX: N40.0 Benign prostatic hyperplasia without lower urinary tract symptoms (principal); J41.0 Simple chronic bronchitis; I48.0 Paroxysmal atrial fibrillation; Z12.5 Encounter for screening for malignant neoplasm of prostate
CPT/HCPCS: 36415; 80053; 80061; 84153; 85027

== ENCOUNTER 2025-01-26 10:45 | Outpatient (REF) | payer MEDICARE, SELFPAY ==
[2023-08-05 07:17] VITALS: BP 112/48; BP 122/56; BP 142/76; BMI 37.8
[2025-01-26 12:40] LABS: Hematocrit 45.7 % (42.0-52.0); Hemoglobin 15.1 g/dl (14.0-18.0); Mean Corpuscular Hemoglobin 31.1 pg (27.0-33.0); Mean Corpuscular Volume 94.2 fL (80.0-98.0); Mean Platelet Volume 9.8 fL (9.4-12.4); Platelet Count 306 X10*3/uL (160-400); Red Blood Count 4.85 X10*6/uL (4.60-5.80); Red Cell Distribution Width 13.8 % (11.0-16.0)
[2025-01-26 12:52] LABS: White Blood Count 33.2 X10*3/uL (4.8-10.8)
== END 2025-01-26 10:46 | disposition home or self-care (01) ==
LOC: HO.LAB 10:45
PROVIDERS: Absent Provider Physician Assistant; PCP Physician Assistant; Visit Provider Urology
DX: R97.20 Elevated prostate specific antigen [PSA] (principal); N40.0 Benign prostatic hyperplasia without lower urinary tract symptoms; R39.15 Urgency of urination; N52.9 Male erectile dysfunction, unspecified
CPT/HCPCS: 36415; 51798; 85027; 99212

== ENCOUNTER 2025-01-26 10:45 | Outpatient (AMB) | payer MEDICARE, SELFPAY ==
[2023-08-05 07:17] VITALS: BP 112/48; BP 122/56; BP 142/76; BMI 37.8
--- NOTE | 2025-01-26 10:51 | MHC.OFFVIS ---
Intake Visit Reasons: 1yr/PSA/PVR(labs?) Intake Note: Patient is present for 1Y/PSA/PVR Urology Medication:TAMSULOSIN Antibiotic Allergy:NONE Blood Thinner:APIXABAN Last PVR:78ML'S Todays PVR:124ML'S Patient Resource Specialist Required: No Allergies No Known Allergies Allergy (Verified 01/26/25 10:53) HPI Comments Details: Loy is a pleasant male. He is a patient of Dr. Sun He is seen for the following urologic issues - elevated PSA - lower urinary tract symptoms - urinary urgency - erectile dysfunction PVR 120 last PVR 30 PSA normal UA normal Remains on tamsulosin 0.8 mg Urinary Symptoms Review - Frequency of urination is generally stable. - Occasional decrease in urinary stream strength; patient reports variability in urination strength. - No incontinence or nocturnal symptoms discussed. - On treatment with tamsulosin, 2 tablets daily, with noted stability and control over urinary symptoms Lower urinary tract symptoms Prior laser prostatectomy 2014 Repeat GreenLight laser May 2021 - regrowth on left side Stable urinary pattern PSA - range from 1.8-3. - 03/14 3.0, 01/14 2.6, 02/16 3.2 Erectile dysfunction Response to vacuum pump No longer responsive to oral medications PFSH Medical History PRAVEEN on CPAP Bronchitis Obstructive sleep apnea on CPAP Obesity Sleep apnea COVID-19 vaccine series completed Arthritis COPD (chronic obstructive pulmonary disease) Skin cancer Status post placement of implantable loop recorder BPH (benign prostatic hyperplasia) Paroxysmal atrial fibrillation Obesity Erectile dysfunction Urgency of micturition Hypertension Surgical History History of prostate surgery H/O colonoscopy History of cystoscopy Hx of total knee arthroplasty History of carpal tunnel release History of surgery Family History Father Medical history unknown Mother Lung cancer Social History Household Members: None Housing: House Alcohol intake: current Alcohol intake frequency: 3 or more drinks per day Patient Tobacco Use Status: Former Tobacco user Tobacco use type: Cigarette Cigarette Packs Per Day: 2 Years Smoked: 30 e-Cigarette/Vaping Use: Never Used Second Hand Smoke Exposure: No service: No Current occupational status: retired Current occupation: Right Cognitive needs: No Hearing needs: No Vision needs: No Review of Systems Const Denies chills and Denies fever(s) Card Reports no additional complaints and Denies syncope Resp Denies cough GI Denies abdominal pain and Denies heartburn Reports as per HPI and Denies change in libido Neuro Denies syncope Psych Denies change in libido Endo Denies change in libido Physical Exam Const General: cooperative, healthy appearing, comfortable and no acute distress Orientation/consciousness: patient oriented x3 HEENT Face and sinus: Yes normal facial exam Mouth: moist mucous membranes Neck Neck: Yes normal visual inspection, Yes full ROM and Yes trachea midline Chest Chest palpation & inspection: normal inspection of the chest Resp Effort & Inspection: normal respiratory effort, able to speak in complete sentences and no respiratory distress GI Inspection: Yes normal to inspection Back/Spine/Pelvis Cervical Spine: normal cervical lordosis Thoracic/Lumbar Spine: thoracic and lumbar spine normal to inspection Skin General skin exam: no rashes or lesions noted Neuro General: patient oriented x3, gait normal, tone normal and moves all extremities Extrem General: Yes normal to inspection and Yes capillary refill normal Office Procedures Post Void Residual Post Residual Void Post Void Residual (PVR): 124 [id number] Void Residual by ultrasound Assessment & Plan Assessment & Plan (1) BPH (benign prostatic hyperplasia): Code(s): N40.0 - Benign prostatic hyperplasia without lower urinary tract symptoms Category: Medical (2) Urgency of micturition: Code(s): R39.15 - Urgency of urination Category: Medical Plan 1. Benign Prostatic Hyperplasia Bph Continue tamsulosin, 2 tabs daily. Prostate examination conducted; stable findings. PSA level at 3.2 ng/mL; no malignancy concern. Follow-up in one year unless symptoms change. Discussion Notes I discussed the stability of the patient's urinary symptoms and the effectiveness of the current tamsulosin treatment in managing benign prostatic hyperplasia. I emphasized the importance of continuing with the current dosage, which minimizes side effects and maintains blood pressure stability. I reassured that his PSA level of 3.2 is within normal limits, though we will continue monitoring should symptoms change. I highlighted that no immediate invasive interventions are required given the stable examination findings. The patient was instructed to return in one year unless there is a change in symptoms. Patient Instructions - Continue taking tamsulosin as prescribed, 2 tablets daily. - Schedule the next appointment for one year from today for routine follow-up. - Notify me immediately if there are any significant changes in urination strength or frequency. - Continue monitoring for any other symptoms and seek medical care if they arise. Orders: Orders Prostate Specific Antigen 12 Months N40.0 - Benign prostatic hyperplasia without lower urinary tract symptoms Patient Instructions: This note is constructed using voice recognition software. While every effort has been made to ensure accuracy environmental programs specialist errors may have been included. Imaging studies, laboratory and physical exam results were discussed and reviewed in detail. No major barriers to patient understanding were identified. An opportunity to ask questions regarding the treatment plan was provided. All questions were answered. The patient expressed understanding and agreement with the above treatment plan. The patient is aware they should contact our office by phone for worsening of their current condition or the appearance of new urologic symptoms. Compliance is encouraged with any medications and followup testing that is ordered. It is a privilege to participate in the urologic care of your patient. If you have any questions or concerns regarding treatment for the above conditions, or other urologic issues, please do not hesitate to contact me. The office telephone contact is [phone]. Sincerely, Dr Federico Donnelly MD, [facility] - Urology Compassionate Specialist Care for the Genitourinary System Coding Level of Care Code Est Pt Level 4 (72688) Diagnoses BPH (benign prostatic hyperplasia) N40.0 Urgency of micturition R39.15 CPT Codes Post Residual Void - PVR CPT Code: [id number] Void Residual by ultrasound ([id number])
== END 2025-01-26 11:23 | disposition home or self-care (01) ==
LOC: HO.HUSH 10:46
PROVIDERS: PCP Internal Medicine; Visit Provider Urology
DX: N40.0 Benign prostatic hyperplasia without lower urinary tract symptoms (principal); R39.15 Urgency of urination
CPT/HCPCS: 99214

== ENCOUNTER 2025-02-03 12:15 | Outpatient (REF) | payer MEDICARE, SELFPAY ==
[2023-08-05 07:17] VITALS: BP 112/48; BP 122/56; BP 142/76; BMI 37.8
[2025-02-03 12:43] LABS: Basophils Absolute Auto 0.1 X10*3/uL (0.0-0.2); Basophils Percent Auto 0.4 % (0-2); Eosinophils Absolute Auto 0.5 X10*3/uL (0.0-0.4); Hematocrit 47.5 % (42.0-52.0); Hemoglobin 15.9 g/dl (14.0-18.0); Imm Gran Abs Auto 0.07 X10*3/uL (0.00-0.03); Imm Gran Pct Auto 0.3 % (0.0-0.4); Lymphocytes Percent Auto 66.1 % (20-40); MANUAL DIFF FLAG SCAN; Mean Corpuscular HGB Conc 33.5 g/dl (31.0-36.0); Mean Corpuscular Hemoglobin 31.1 pg (27.0-33.0); Mean Corpuscular Volume 92.8 fL (80.0-98.0); Mean Platelet Volume 9.5 fL (9.4-12.4); Monocytes Percent Auto 3.7 % (2-11); Neutrophils Absolute Auto 7.1 x10*3/uL (2.0-8.3); Neutrophils Percent Auto 27.5 % (45-73); Platelet Count 237 X10*3/uL (160-400); Red Blood Count 5.12 X10*6/uL (4.60-5.80); Red Cell Distribution Width 13.8 % (11.0-16.0); SCAN SMEAR FLAG 1
[2025-02-03 12:44] LABS: Lymphocytes Absolute Auto 17.2 X10*3/uL (1.2-4.9)
[2025-02-03 13:21] LABS: Prostate Specific Antigen 2.42 ng/mL (<0.05-4.0)
[2025-02-03 13:31] LABS: SLIDE REVIEW VERIFIED
== END 2025-02-03 12:16 | disposition home or self-care (01) ==
LOC: HO.LAB 12:15
PROVIDERS: Urology; PCP Physician Assistant; Visit Provider Physician Assistant
DX: C91.10 Chronic lymphocytic leukemia of B-cell type not having achieved remission (principal); N40.0 Benign prostatic hyperplasia without lower urinary tract symptoms; Z12.5 Encounter for screening for malignant neoplasm of prostate
CPT/HCPCS: 36415; 84153; 85025

== ENCOUNTER 2025-02-10 09:36 | Outpatient (AMB) | payer MEDICARE, SELFPAY ==
[2023-08-05 07:17] VITALS: BP 112/48; BP 122/56; BP 142/76; BMI 37.8
[2025-02-10 09:47] VITALS: BP 128/50; PULSE 66; O2SAT 92; BMI 37.0
--- NOTE | 2025-02-10 09:47 | A.OFFVIS_ITS ---
Vital Signs 02/10/25 09:47 Height 5 ft 8 in Weight 243 lb 9.773 oz BMI 37.0 BP 128/50 L Blood Pressure Location Lt brachial Position Sitting Pulse 66 Pulse Source Pulse Oximeter Pulse Oximetry (%) 92 Oxygen Delivery Method Room Air Intake Visit Reasons: Obstructive sleep apnea Intake Note: pt is here for follow up and he started his new cpap, doing well Automatic Centrifugal Station Operator Required: No Allergies No Known Allergies Allergy (Verified 02/10/25 10:18) Medication List - Last Reconciled 02/10/25 by Mann Chester MD albuterol sulfate 90 mcg/actuation 2 puffs PO Q6H PRN apixaban (Eliquis) 5 mg PO BID 90 days cholecalciferol (vitamin D3) 25 mcg PO DAILY CPAP (CPAP Machine/Device) 12CM H20 PREVIOUS MACHINE HAS BEEN RECALLED AND NOW NEEDS A NEW MACHINE BHAVANA lisinopril 10 mg PO DAILY metoprolol succinate ER 50 mg PO DAILY multivitamin 1 tab PO DAILY prednisone 10 mg PO DIRECTED 9 days tamsulosin 0.8 mg (2 x 0.4 mg) PO BEDTIME 90 days tiotropium bromide (Spiriva with HandiHaler) 1 cap inhalation DAILY Do you need a note to return to daycare/school/sports/work: No HPI HPI Obstructive sleep apnea: Details: This 79 years old very pleasant gentleman is grossly obese and has diagnosis of obstructive sleep apnea. He has his new CPAP device which he started using last month. Has been very compliant and using up to 6 hours every night. He sleeps well and has no issues with the new CPAP. Breathing avitia remains fairly stable since his last visit he has had no acute exacerbation. He does use Spiriva HandiHaler once a day and albuterol as needed which he usually keeps in his pocket. 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 [facility] Medical History PRAVEEN on CPAP Bronchitis Obstructive sleep apnea on CPAP Obesity Sleep apnea COVID-19 vaccine series completed Arthritis COPD (chronic obstructive pulmonary disease) Skin cancer Status post placement of implantable loop recorder BPH (benign prostatic hyperplasia) Paroxysmal atrial fibrillation Obesity Erectile dysfunction Urgency of micturition Hypertension Surgical History History of prostate surgery H/O colonoscopy History of cystoscopy Hx of total knee arthroplasty History of carpal tunnel release History of surgery Family History Father Medical history unknown Mother Lung cancer Social History Household Members: None Housing: House Alcohol intake: current Alcohol intake frequency: 3 or more drinks per day Patient Tobacco Use Status: Former Tobacco user Tobacco use type: Cigarette Cigarette Packs Per Day: 2 Years Smoked: 30 e-Cigarette/Vaping Use: Never Used Second Hand Smoke Exposure: No service: No Current occupational status: retired Current occupation: Right Cognitive needs: No Hearing needs: No Vision needs: No Review of Systems Const All systems reviewed & are unremarkable except as noted in HPI and below Eyes Reports no additional complaints ENT Reports no additional complaints Card Denies chest pain, Denies irregular heart rhythm and Denies leg edema Resp Reports as per HPI (He has increased cough and congestion for the last 3-4 weeks) GI Reports no additional complaints Reports no additional complaints Musc Reports no additional complaints Skin/Breast Reports system reviewed and no additional complaints, except as documented Neuro Reports no additional complaints Psych Reports no additional complaints Physical Exam Vital Signs: Last Vital Signs Pulse 66 02/10/25 09:47 BP 128/50 L 02/10/25 09:47 Pulse Ox 92 02/10/25 09:47 Oxygen Delivery Method Room Air 02/10/25 09:47 BMI result Body Mass Index 37.0 Const Other: Patient is grossly obese with a round face, short and obese neck. General: comfortable, no acute distress, alert and awake Orientation/consciousness: patient oriented x3 HEENT Head: Yes normal to inspection General nose exam: No nasal polyps present, mucous membranes and turbinates abnormal (MODERATE HYPERTROPHY OF THE NASAL TURBINATES) and No nasal discharge present Face and sinus: Yes sinuses nontender Mouth: oropharynx abnormals (Oropharynx is narrow and crowded, Mallampati class 4.) Throat: Yes posterior oropharynx normal Eyes General: appearance normal, both eyes and all related structures Neck Neck: Yes normal visual inspection, Yes no lymphadenopathy, Yes trachea midline and Yes no JVD Thyroid: Thyroid normal Chest Chest palpation & inspection: normal inspection of the chest, normal palpation of entire chest wall and no tenderness Resp Other: Percussion note resonant, breath sounds are diminished and distant with prolonged expiratory phase. There are no wheezes , rhonchi or crepitations heard today . Cardio Palpation: normal PMI Rate: regular rate Rhythm: regular rhythm Heart sounds: no gallops and no murmurs GI Palpation (GI): Soft to palpation, nontender, No hepatosplenomegaly present, no masses and Other GI palpation findings present (Abdomen is obese and protuberant) Auscultation: normal bowel sounds Back/Spine/Pelvis Thoracic/Lumbar Spine: thoracic and lumbar spine normal to inspection and thoraco-lumbar ROM limited Skin General skin exam: no rashes or lesions noted Neuro General: patient oriented x3 and no focal motor deficits Cranial nerves: Yes CN's II-XII intact bilaterally Extrem General: Yes normal to inspection, Yes no clubbing, cyanosis or edema and Yes no calf tenderness Psych Appearance: grossly normal and well kempt Speech and movement: Normal speech and movement present Results Reviewed Results Reviewed: Compliance report for the last. 30 nights is reviewed He use for 25/30 nights, and for the original 5 days he did not use as he just got the new machine. His compliance has been good on an average he uses for 6 hours 2 minutes. The report shows some moderate to severe air leak, and residual AHI 5.6 Assessment & Plan Assessment & Plan (1) COPD (chronic obstructive pulmonary disease): Comment: Known case of chronic obstructive pulmonary disease, moderately severe. Clinically seems to be stable . He remains prone to have frequent acute exacerbations mainly due to acute bronchitis, lately he has been free of any exacerbations. Code(s): J44.9 - Chronic obstructive pulmonary disease, unspecified Category: Medical Qualifiers: COPD type: chronic bronchitis Chronic bronchitis type: simple Qualified Code(s): J41.0 - Simple chronic bronchitis Plan: Advised to continue using Spiriva HandiHaler 1 inhalation daily,, and albuterol HFA 2 puffs Q 6 hours only p.r.n.. He does have a short supply of prednisone on hand and is advised to use it only for an acute exacerbation. (2) Obstructive sleep apnea on CPAP: Comment: Patient does have chronic obstructive pulmonary disease which is well controlled with the use of CPAP. He is a regular user of CPAP and sleeps fairly good. Just got the new RESMED CPAP model, and is using it well . Air leak is noted and I instructed him to tighten the straps. There is an issue with the humidification. , . Does not use much water His compliance has been good. Code(s): G47.33 - Obstructive sleep apnea (adult) (pediatric); Z99.89 - Dependence on other enabling machines and devices Category: Medical Plan: Continue using CPAP at least 6 hours every night. Tighten the straps to avoid air leak. Use humidification at medium level. He is advised to bring in the CPAP device here or go to the DME office and get the humidity level adjusted. (3) Obesity: Comment: HE REMAINS GROSSLY OBESE.BMI= 37.4 DISCUSSED WITH HIM. HIS ACTIVITY LEVEL IS RATHER LOW. NO SIGNIFICANT WEIGHT LOST IS EXPECTED IN HIS CASE. Code(s): E66.9 - Obesity, unspecified Category: Medical Plan: Again talked to him about the weight and he is trying to watch his diet. Coding Level of Care Code Est Pt Level 3 (28389) Diagnoses Simple chronic bronchitis J41.0 COPD type: chronic bronchitis Chronic bronchitis type: simple Obstructive sleep apnea on CPAP G47.33; Z99.89 Obesity E66.9
== END 2025-02-10 10:19 | disposition home or self-care (01) ==
LOC: HO.HPS 09:37
PROVIDERS: PCP Physician Assistant; Visit Provider Internal Medicine
DX: J41.0 Simple chronic bronchitis (principal); G47.33 Obstructive sleep apnea (adult) (pediatric); Z99.89 Dependence on other enabling machines and devices; E66.9 Obesity, unspecified
CPT/HCPCS: 99213

== ENCOUNTER → 2025-02-10 09:36 | Outpatient (BNVA) | payer MEDICARE, SELFPAY ==
[2023-08-05 07:17] VITALS: BP 112/48; BP 122/56; BP 142/76; BMI 37.8
== END ==
PROVIDERS: PCP Physician Assistant; Visit Provider Internal Medicine
DX: J41.0 Simple chronic bronchitis (principal); G47.33 Obstructive sleep apnea (adult) (pediatric); E66.9 Obesity, unspecified; Z99.89 Dependence on other enabling machines and devices; Z68.37 Body mass index [BMI] 37.0-37.9, adult
CPT/HCPCS: 99212

== ENCOUNTER 2025-03-04 10:18 | Outpatient (REF) | payer MEDICARE, SELFPAY ==
[2023-08-05 07:17] VITALS: BP 112/48; BP 122/56; BP 142/76; BMI 37.8
--- NOTE | ~2025-03-04 | XR_ITS ---
EXAMINATION: XR CHEST 2 VIEWS HISTORY: Decreased breath sounds, mild hypoxemia COMPARISON: Comparison is made with the prior examination dated 08/10/2024. FINDINGS: PA and lateral views of the chest are submitted. The lungs are hyperinflated, consistent with COPD. The lungs are clear. There is no pleural effusion, pneumothorax, or pulmonary vascular congestion. The heart is normal in size. There is degenerative disc disease of the spine. XR/XR chest 2V IMPRESSION: COPD. No acute cardiopulmonary abnormality. Electronically signed by: Jef June MD 03/04/2025 10:40 AM EDT
--- OUTSIDE RECORDS SUMMARY | 2025-03-04 10:48 | XMS_ITS | Patient Health Record ---
Author Organization [facility] Address [address] [place] [address] Care Team Providers Care Distribution Associate Name Role Phone DIVINA CABRERA Primary Care Provider Jef Bob Unavailable [phone] Reason For Referral No Information Medications Medication SIG (Take, Route, Frequency, Duration) Notes Start Date End Date Status Multivitamin/Minerals Active Lisinopril Active Colyte w Flavor Packs 240 GM as directed Orally as directed for 1 day(s) 06/30/2015 Active Aleve 220 MG 1 tablet as needed O rally every 12 hrs Active Glucosamine Active Spiriva HandiHaler A ctive Zantac 75 75 MG Orally prn Act suha Immunizations Vaccine Route Administration Date Status Comme nts Flu vaccine no Preserv 3 and > Unknown 05/25/2015 Admin istered Problems Problem Type SNOMED Code ICD Code Onset Dates Problem Status W/U Status Risk Notes Problem 094062514 Encounter for screening for malignant neoplasm of colon (Z12.11) Active confirmed Problem 868911068 History of adenomatous polyp of colon (Z86.010) Active confirmed Problem History of polyp of colon (situation) (838880507) Personal history of colonic polyps (Z86.010) Active confirmed Problem 06653729 Preprocedural examination (Z01.818) Active confirmed Problem 376181890 Encounter for long-term (current) use of NSAIDs (Z79.1) Active confirmed Plan Of Treatment Future Test Test Name Order Date COLONOSCOPY 06/29/2015 Insurance Providers Payer Name Payer Address Payer Phone Subscriber Number Group Number Insured Name Patient Relationship to Insured Coverage Start Date Coverage End Date MEDICARE OF [place] [address] [place] [address] [phone] [id number] MINO HIDALGO Self - patient is the insured [facility] SUPPLEMENTAL PLAN [address] [place] [address] [id number] MINO HIDALGO Self - patient is the insured Medical (General) History Medical History History ICD Code HTN Tubular adenomas removed in 2004 and 02/2010--his colonoscopies also revealed sigmoid diverticulosis and internal hemorrhoids Sleep apnea--does not use CPAP(although he was told that he should) COPD Denies [place],DM,CVA,renal disease Renal cysts Surgical History Surgery Date(Month/Year) Back surgery Sinus surgery
== END 2025-03-04 10:19 | disposition home or self-care (01) ==
LOC: HO.XRAY 10:18
PROVIDERS: Visit Provider Internal Medicine
DX: G47.33 Obstructive sleep apnea (adult) (pediatric) (principal); Z99.89 Dependence on other enabling machines and devices; J44.9 Chronic obstructive pulmonary disease, unspecified
CPT/HCPCS: 71046

== ENCOUNTER → 2025-03-04 10:27 | Outpatient (BNV) | payer MEDICARE, SELFPAY ==
[2023-08-05 07:17] VITALS: BP 112/48; BP 122/56; BP 142/76; BMI 37.8
== END ==
PROVIDERS: Visit Provider Radiology Diagnostic Radiology
DX: J44.9 Chronic obstructive pulmonary disease, unspecified (principal)
CPT/HCPCS: 71046

== ENCOUNTER 2025-03-16 13:39 | Outpatient (AMB) | payer MEDICARE, SELFPAY ==
[2023-08-05 07:17] VITALS: BP 112/48; BP 122/56; BP 142/76; BMI 37.8
--- NOTE | 2025-03-16 13:55 | A.OFFPC_ITS ---
Vital Signs 03/16/25 13:56 Height 5 ft 8 in Weight 247 lb 2 oz BMI 37.6 BP 126/68 Blood Pressure Location Lt brachial Position Sitting Pulse 67 Pulse Source Pulse Oximeter Temp 97.3 F Temp Source Temporal Artery Scan Pulse Oximetry (%) 92 Oxygen Delivery Method Room Air Intake Visit Reasons: f/u COPD/ AFIB Intake Note: Patient is here to follow up on COPD, AFIB. Commanding Officer Homicide Squad Required: No Timber Repairer: Not Required per policy Accompanied by: Self / Same As Patient Allergies No Known Allergies Allergy (Verified 03/16/25 14:09) Medication List - Last Reconciled 03/16/25 by Chadd Monreal PA-C albuterol sulfate 90 mcg/actuation 2 puffs PO Q6H PRN apixaban (Eliquis) 5 mg PO BID 90 days cholecalciferol (vitamin D3) 25 mcg PO DAILY CPAP (CPAP Machine/Device) 12CM H20 PREVIOUS MACHINE HAS BEEN RECALLED AND NOW NEEDS A NEW MACHINE BHAVANA lisinopril 10 mg PO DAILY metoprolol succinate ER 50 mg PO DAILY multivitamin 1 tab PO DAILY tamsulosin 0.8 mg (2 x 0.4 mg) PO BEDTIME 90 days tiotropium bromide (Spiriva with HandiHaler) 1 cap inhalation DAILY Tobacco use date assessed: 03/16/25 Fall risk assessment: No Falls in past year Last assessed Fall Risk: 03/16/25 Dental Screening Dental Screen Date: 09/01/24 HPI f/u COPD/ AFIB HPI Details Patient is an 79-year-old male here today for a follow-up visit. Previous primary care was Dr. Martell. Patient has a past medical history significant for chronic kidney disease stage 3, CLL, COPD, hypertension, AFib on Eliquis, obstructive sleep apnea on CPAP. Concerns--> The patient reports soreness in the legs, attributed to arthritis, particularly around the knee where a replacement was previously performed. Due to being on a blood thinner, anti-inflammatory medications are not recommended, and acetaminophen is suggested for pain management .. COPD: Continues on Spiriva with good effect, followed by [place] [facility]. Also has a obstructive sleep apnea and uses a CPAP machine on a nightly basis. The patient reports occasional wheezing and mild dyspnea, which are managed with his current medications .. AFib: Continues on Eliquis for anticoagulation without any overt signs of bleeding, he is rate controlled with metoprolol. .. Chronic kidney disease: Followed by [place] [facility] .. Hypertension: Blood pressure well managed with lisinopril. Laboratory Tests 03/31/24 06/02/24 09/03/24 07:16 10:40 09:23 WBC 21.1 H 20.4 H 18.5 H Creatinine 1.28 Cholesterol Prostate Specific Ag 11/18/24 01/24/25 01/26/25 12:32 14:50 11:40 WBC 33.2 H* Creatinine 1.18 Cholesterol 136 Prostate Specific Ag 3.26 02/03/25 12:34 WBC 26.0 H Creatinine Cholesterol Prostate Specific Ag 2.42 PFSH Medical History PRAVEEN on CPAP Bronchitis Obstructive sleep apnea on CPAP Obesity Sleep apnea COVID-19 vaccine series completed Arthritis COPD (chronic obstructive pulmonary disease) Skin cancer Status post placement of implantable loop recorder BPH (benign prostatic hyperplasia) Paroxysmal atrial fibrillation Obesity Erectile dysfunction Urgency of micturition Hypertension Surgical History History of prostate surgery H/O colonoscopy History of cystoscopy Hx of total knee arthroplasty History of carpal tunnel release History of surgery Family History Father Medical history unknown Mother Lung cancer Social History Household Members: None Housing: House Alcohol intake: current Alcohol intake frequency: 3 or more drinks per day Patient Tobacco Use Status: Former Tobacco user Tobacco use type: Cigarette Cigarette Packs Per Day: 2 Years Smoked: 30 e-Cigarette/Vaping Use: Never Used Second Hand Smoke Exposure: Yes service: No Current occupational status: retired Current occupation: Right Cognitive needs: No Hearing needs: No Vision needs: No Questionnaire Thrive Questionnaire Date Thrive assessed: 11/23/24 I am a: Patient What is your living situation today?: I have a steady place to live Within the past 12 months, did the food you bought not last and you didn't have the money to get more?: Never true Within the past 12 months, did you worry whether your food would run out before you got money to buy more?: Never true Do you have trouble paying for medicines?: No Do you have trouble getting transportation to medical appointments?: No Do you have trouble paying your heating and electricity bill?: No Do you have trouble taking care of your child, family member or friend?: No Do you have trouble with day-to-day activities such as bathing, preparing meals, shopping, managing finances, etc.?: No Are you currently unemployed and looking for a job?: No Are you interested in more education?: No Please select the resources that you would like help with: None Currently or been in a relationship where the following occur: No concerns reported THRIVE Score: 0 YELENA-7 AMB Questionnaire YELENA-7 Date YELENA - 7 assessed: 11/30/24 Source: Developed by Drs. Jef Singh, Klaudia Saenz, Marek Curran and colleagues, with an educational cherrie from [employer]. Review of Systems Const Denies headache(s) Eyes Denies loss of vision ENT Denies vertigo, Denies dizziness, Denies headache(s) and Denies sore throat Card Denies chest pain, Denies leg edema and Denies lightheadedness Resp Denies cough, Denies hemoptysis and Denies wheezing GI Denies abdominal pain, Denies melena, Denies constipation, Denies diarrhea and Denies vomiting Denies dysuria, Denies urinary frequency and Denies urinary urgency Musc Reports arthralgias, Denies joint swelling, Denies numbness and Denies tingling Neuro Denies Abnormal speech present, Denies behavioral changes, Denies vertigo, Denies dizziness, Denies headache(s), Denies loss of vision, Denies memory loss, Denies numbness and Denies tingling Psych Denies anxiety, Denies behavioral changes, Denies depression, Denies memory loss and Denies panic attacks Isaac/Lymph Denies easy bleeding and Denies easy bruising Aller/Immun Denies wheezing Physical exam (Primary Care) Vital Signs: Last Vital Signs Temp 97.3 F 03/16/25 13:56 Pulse 67 03/16/25 13:56 BP 126/68 03/16/25 13:56 Pulse Ox 92 03/16/25 13:56 Oxygen Delivery Method Room Air 03/16/25 13:56 BMI result Body Mass Index 37.6 Tobacco/Smoking Status: Tobacco use Status Tobacco use date assessed 03/16/25 03/16/25 14:01 Patient Tobacco Use Status Former Tobacco user 03/16/25 14:01 Tobacco use type Cigarette 03/16/25 14:01 e-Cigarette/Vaping Use Never Used 03/16/25 14:01 Thrive Assessment: Date of Thrive Assessment Date Thrive assessed 11/23/24 03/16/25 14:01 Currently or been in a relationship where the following occur: No concerns reported Const General: healthy appearing, no acute distress, alert and awake Nutritional Appearance: well nourished Orientation/consciousness: oriented to person, oriented to place and oriented to time HENMT Ears: TM's normal bilaterally General nose exam: Normal nasal mucous membranes and turbinates present Eyes Conjunctivae: conjunctivae normal Sclerae: sclerae normal Pupils: Equal, round and reactive pupils present Neck Neck: Yes no lymphadenopathy and Yes no JVD Thyroid: Thyroid normal Carotids: no bruits Resp Other: Multiple wheeze on exam Effort & Inspection: normal respiratory effort and not tachypneic Auscultation: no crackles, no rales, no rhonchi and wheezes Cardio Rate: regular rate Rhythm: regular rhythm Heart sounds: no murmurs and normal S1 and S2 GI Palpation (GI): Soft to palpation, nontender, no hepatomegaly and no splenomegaly Auscultation: normal bowel sounds Skin General skin exam: no rashes or lesions noted and dry skin Neuro General: oriented to person, oriented to place and oriented to time Cranial nerves: Yes Equal, round and reactive pupils present Speech: No Abnormal speech present Gait exam (Neuro): Normal gait present Motor exam (neuro): no tremor noted Extrem Right upper extremity: full ROM Left upper extremity: full ROM Right lower extremity: full ROM; no edema Left lower extremity: full ROM; no edema Psych Mental Status: mental status grossly normal Speech and movement: Normal speech and movement present Affect: normal affect Attitude: cooperative Thought process: Normal thought process present Coding Level of Care Code Est Pt Level 4 (02214) Diagnoses Simple chronic bronchitis J41.0 COPD type: chronic bronchitis Chronic bronchitis type: simple CKD stage 3a, GFR 45-59 ml/min N18.31 PAF (paroxysmal atrial fibrillation) I48.0 CLL (chronic lymphocytic leukemia) C91.10 Primary osteoarthritis of both knees M17.0 Laterality: bilateral Osteoarthritis type: primary Assessment & Plan Assessment & Plan (1) COPD (chronic obstructive pulmonary disease): Comment: Known case of chronic obstructive pulmonary disease, moderately severe. Clinically seems to be stable . He remains prone to have frequent acute exacerbations mainly due to acute bronchitis, lately he has been free of any exacerbations. Code(s): J44.9 - Chronic obstructive pulmonary disease, unspecified Category: Medical Qualifiers: COPD type: chronic bronchitis Chronic bronchitis type: simple Qualified Code(s): J41.0 - Simple chronic bronchitis Plan: Patient followed by [place] [facility]. Continues to use a CPAP machine on any basis. Does have maintenance inhaler he uses daily. Patient noted to have wheezing on exam today thus will send a 6 day prednisone taper. (2) CKD stage 3a, GFR 45-59 ml/min: Code(s): N18.31 - Chronic kidney disease, stage 3a Category: Medical Plan: Continues to follow Nephrology, most recent renal function stable. (3) PAF (paroxysmal atrial fibrillation): Code(s): I48.0 - Paroxysmal atrial fibrillation Category: Medical Plan: Maintain current Eliquis regimen to manage paroxysmal atrial fibrillation and prevent thromboembolic stroke risks. He denies any overt signs of bleeding on anticoagulation (4) CLL (chronic lymphocytic leukemia): Comment: , Stable and being followed by hematology service, it is relatively stable at this time . Code(s): C91.10 - Chronic lymphocytic leukemia of B-cell type not having achieved remission Category: Medical Plan: Monitoring advised due to light burden of chronic leukemia, requiring no active treatment at present. Most recent white blood cell count of 26 (5) Knee osteoarthritis: Code(s): M17.9 - Osteoarthritis of knee, unspecified Category: Medical Qualifiers: Laterality: bilateral Osteoarthritis type: primary Qualified Code(s): M17.0 - Bilateral primary osteoarthritis of knee Plan: Acetaminophen was recommended for pain management due to contraindications with anti-inflammatory medications. The patient is encouraged to maintain physical activity as tolerated. Orders: Orders Complete Blood Count no Diff Today I10 - Essential (primary) hypertension Comprehensive [place]. Panel Fast Today I10 - Essential (primary) hypertension Lipid Panel Today I49.1 - Atrial premature depolarization Medications: New acetaminophen ER (Tylenol Arthritis Pain) 650 mg PO Q12H 60 tabs 1RF 30 days M19.90 - Unspecified osteoarthritis, unspecified site, M54.50 - Low back pain, unspecified prednisone Take 3 tablets x2 days, 2 TABLETS X2 DAYS, 1 TABLET X2 DAYS 10 mg PO DIRECTED 12 tabs 0RF 6 days J41.0 - Simple chronic bronchitis
[2025-03-16 13:56] VITALS: BP 126/68; PULSE 67; TEMP 36.3; O2SAT 92; BMI 37.6
--- OUTSIDE RECORDS SUMMARY | 2025-03-16 14:17 | XMS_ITS | Patient Health Record ---
Author Organization [facility] Address [address] [place] [address] Care Team Providers Care Public Policy Manager Name Role Phone DIVINA CABRERA Primary Care Provider Jef Bob Unavailable [phone] Reason For Referral No Information Medications Medication [...] Problem Status W/U Status Risk Notes Problem [id number] Encounter for screening for malignant neoplasm of colon (Z12.11) Active confirmed Problem 971264214 History of adenomatous polyp of colon (Z86.010) Active confirmed Problem Personal history of colonic polyps (Z86.010) Active confirmed Problem 90483765 Preprocedural examination (Z01.818) Active confirmed Problem 874591712 Encounter for long-term (current) use of NSAIDs (Z79.1) Active confirmed Plan Of Treatment Future Test Test Name Order Date COLONOSCOPY 06/29/2015 Insurance Providers Payer Name Payer Address Payer Phone Subscriber Number Group Number Insured Name Patient Relationship to Insured Coverage Start Date Coverage End Date MEDICARE OF [place] [address] [place] [place] [id number] [phone] [id number] MINO HIDALGO Self - patient is the insured [facility] SUPPLEMENTAL PLAN [address] [place] [address] [phone] [id number] MINO HIDALGO - patient is the insured Medical (General) History Medical History History ICD Code HTN Tubular adenomas removed in 2004 and 02/2010--his colonoscopies also revealed sigmoid diverticulosis and internal hemorrhoids Sleep apnea--does not use CPAP(although he was told that he should) COPD Denies [place],DM,CVA,renal disease Renal cysts Surgical History Surgery Date(Month/Year) Back surgery Sinus surgery
== END 2025-03-16 14:22 | disposition home or self-care (01) ==
LOC: HO.HMCH 13:40
PROVIDERS: PCP Internal Medicine; Visit Provider Physician Assistant
DX: J41.0 Simple chronic bronchitis (principal); N18.31 Chronic kidney disease, stage 3a; I48.0 Paroxysmal atrial fibrillation; C91.10 Chronic lymphocytic leukemia of B-cell type not having achieved remission; M17.0 Bilateral primary osteoarthritis of knee

== ENCOUNTER → 2025-03-16 13:39 | Outpatient (BNVA) | payer MEDICARE, SELFPAY ==
[2023-08-05 07:17] VITALS: BP 112/48; BP 122/56; BP 142/76; BMI 37.8
== END ==
PROVIDERS: PCP Internal Medicine; Visit Provider Physician Assistant
DX: J41.0 Simple chronic bronchitis (principal); N18.31 Chronic kidney disease, stage 3a; I48.0 Paroxysmal atrial fibrillation; C91.10 Chronic lymphocytic leukemia of B-cell type not having achieved remission; M17.0 Bilateral primary osteoarthritis of knee; Z87.891 Personal history of nicotine dependence
CPT/HCPCS: 99212

== ENCOUNTER 2025-04-08 14:02 | Outpatient (AMB) | payer MEDICARE, SELFPAY ==
[2023-08-05 07:17] VITALS: BP 112/48; BP 122/56; BP 142/76; BMI 37.8
--- OUTSIDE RECORDS SUMMARY | 2025-04-08 14:05 | XMS_ITS | Patient Health Record ---
Author Organization [facility] Address [address] [place] [address] Care Team Providers Care Medical Doctor Name Role Phone DIVINA CABRERA Primary Care Provider Jef Bob Unavailable [phone] Reason For Referral No Information Medications Medication [...] Problem Status W/U Status Risk Notes Problem 564546956 Encounter for screening for malignant neoplasm of colon (Z12.11) Active confirmed Problem 478221475 History of adenomatous polyp of colon (Z86.010) Active confirmed Problem History of polyp of colon (situation) (611781129) Personal history of colonic polyps (Z86.010) Active confirmed Problem 76667198 Preprocedural examination (Z01.818) Active confirmed Problem 711649704 Encounter for long-term (current) use of NSAIDs (Z79.1) Active confirmed Plan Of Treatment Future Test Test Name Order Date COLONOSCOPY 06/29/2015 Insurance Providers Payer Name Payer Address Payer Phone Subscriber Number Group Number Insured Name Patient Relationship to Insured Coverage Start Date Coverage End Date MEDICARE OF [place] [address] [place] [address] [id number] MINO HIDALGO Self - patient is the insured [facility] SUPPLEMENTAL PLAN [address] [place] [address] [phone] [id number] MINO HIDALGO Self - patient is the insured Medical (General) History Medical History History ICD Code HTN Tubular adenomas removed in 2004 and 02/2010--his colonoscopies also revealed sigmoid diverticulosis and internal hemorrhoids Sleep apnea--does not use CPAP(although he was told that he should) COPD Denies [place],DM,CVA,renal disease Renal cysts Surgical History Surgery Date(Month/Year) Back surgery Sinus surgery
[2025-04-08 14:11] VITALS: BP 140/70; PULSE 77; TEMP 36.4; O2SAT 91; BMI 37.6
--- NOTE | 2025-04-08 14:11 | AM.OFFWIN_ITS ---
Intake Vital Signs 04/08/25 14:11 Height 5 ft 8 in Weight 247 lb BMI 37.6 BP 140/70 H Blood Pressure Location Lt brachial Position Sitting Pulse 77 Pulse Source Pulse Oximeter Temp 97.5 F Temp Source Oral Pulse Oximetry (%) 91 L Intake Visit Reasons: EP-sob Intake Note: pt is here for SOB, has been an ongoing issue but the last week has been more exaggerated. Pt states hes had slight fever and sniffles, and stated the breathing is difficult with excertion Patient Tobacco Use Status: Former Tobacco user Allergies No Known Allergies Allergy (Verified 04/08/25 14:13) Do you need a note to return to daycare/school/sports/work: No HPI HPI Comments History of Present Illness Details History - The patient is an 79-year-old male pre senting with acute worsening of breathing - Reports difficulty breathing for month s to years, with acute exacerbation a couple of days ago. - Has a cough and congestion but denies ear pain, sinus pain or head congestion. - Denies fever but reports increased alb uterol use, three to four times daily. - History of COPD, uses Spiriva and albu terol inhalers, has been using albuterol more frequently over the last 2 days - Has PRAVEEN, uses CPAP nightly. - Does not use home oxygen or nebulizer. - Denies ear, sinus, or head congestion, focusing on respiratory symptoms. - Previously on Lasix, was taken off of it Physical Exam General: Cooperative, healthy appearing, comfortable and no acute distress Orientation/consciousness: Patient oriented x3 Limitations: No limitations Head: Normal to inspection Ears: Hearing grossly normal bilaterally, external ears normal and TM's normal bilaterally Nose: Normal external nose present, Normal nares present and No nasal discharge present Face and sinus: Normal facial exam and Yes sinuses nontender Mouth: Normal oral and palatal mucosa present and moist mucous membranes Throat: Yes tonsils normal, Yes uvula midline. Posterior oropharynx erythema, no exudates Eyes: Appearance normal, both eyes and all related structures Neck: Normal visual inspection, full ROM Respiratory: Diminished air movement, insp/exp wheezing present. Normal respiratory effort, able to speak in complete sentences, not actively coughing, no respiratory distress, not tachypneic, no tripod positioning and no use of accessory muscles Cardiovascular: Regular rate and rhythm. Normal S1 and S2 Skin: No rashes or lesions noted Neuro: Patient oriented x3 Extremities: Normal to inspection and Yes no clubbing, cyanosis or edema PFSH Medical History PRAVEEN on CPAP Bronchitis Obstructive sleep apnea on CPAP Obesity Sleep apnea COVID-19 vaccine series completed Arthritis COPD (chronic obstructive pulmonary disease) Skin cancer Status post placement of implantable loop recorder BPH (benign prostatic hyperplasia) Paroxysmal atrial fibrillation Obesity Erectile dysfunction Urgency of micturition Hypertension Surgical History History of prostate surgery H/O colonoscopy History of cystoscopy Hx of total knee arthroplasty History of carpal tunnel release History of surgery Family History Father Medical history unknown Mother Lung cancer Social History Household Members: None Housing: House Alcohol intake: current Alcohol intake frequency: 3 or more drinks per day Patient Tobacco Use Status: Former Tobacco user Tobacco use type: Cigarette Cigarette Packs Per Day: 2 Years Smoked: 30 e-Cigarette/Vaping Use: Never Used Second Hand Smoke Exposure: Yes service: No Current occupational status: retired Current occupation: Right Cognitive needs: No Hearing needs: No Vision needs: No Review of Systems Const All systems reviewed & are unremarkable except as noted in HPI and below Physical Exam Vital Signs: Last Vital Signs Temp 97.5 F 04/08/25 14:11 Pulse 77 04/08/25 14:11 BP 140/70 H 04/08/25 14:11 Pulse Ox 91 L 04/08/25 14:11 BMI result Body Mass Index 37.6 Office Procedures Nebulizer Treatment Nebulizer Treatment 33268-Xfzlrfvws/MDI RX initial, or Nebulizer Subsequent Treatment Office Meds ipratropium 0.5 mg-albuterol 3 mg (2.5 mg base)/3 mL nebulization soln Performing Provider: Qing Morales PA-C Performing Location[place] [facility] Administered by: Qing Morales PA-C on 04/08/25 14:58 Dose Route Admin Location Dispensed Lot Number Expiration Date [facility] [employer] 3 mL inhalation 3 mL [id number] 10/22/25 [id number] AHP Assessment & Plan Assessment & Plan (1) Lower respiratory infection (e.g., bronchitis, pneumonia, pneumonitis, pulmonitis): Code(s): J22 - Unspecified acute lower respiratory infection Plan: Plan - O2 91% which seems to be his baseline with COPD, pt well appearing and PE remarkable for diminished lung sounds and insp/exp wheezing. - Obtain a chest x-ray to evaluate for possible pneumonia. - CXR with bilateral lower lobe PNA, prescribeda Augmentin, Z-Trevor and prednisone. - Sent full viral respiratory panel. - Gave Duoneb treatment in office with relief of sob. Patient was informed and verbally consented to the use of an ambient scribe for clinic note documentation during this visit Orders: Orders XR chest 2V Today R05.9 - Cough, unspecified Resp Pathogen Panel [place] [facility] [place] J06.9 - Acute upper respiratory infection, unspecified AMB Nebulizer Treatment Today J22 - Unspecified acute lower respiratory infection Medications: New amoxicillin-pot clavulanate 875-125 mg 1 tab PO Q12H 14 tabs 0RF azithromycin For 250 mg dose pack: take 500 mg today (day 1), then 250 mg for 4 days (days 2-5) PO 6 tabs 0RF prednisone 40 mg (2 x 20 mg) PO QAM 10 tabs 0RF Coding Level of Care Code Est Pt Level 4 (18513) Diagnoses Lower respiratory infection (e.g., bronchitis, pneumonia, pneumonitis, pulmonitis) J22 CPT Codes Nebulizer Treatment - Nebulizer Treatment, initial or subsequent: 01082- Nebulizer/MDI RX initial, or Nebulizer Subsequent Treatment ([id number])
== END 2025-04-08 15:55 | disposition home or self-care (01) ==
PROVIDERS: PCP Physician Assistant; Visit Provider Physician Assistant
DX: J22 Unspecified acute lower respiratory infection (principal)

== ENCOUNTER 2025-04-08 14:02 | Outpatient (REF) | payer MEDICARE, SELFPAY ==
[2023-08-05 07:17] VITALS: BP 112/48; BP 122/56; BP 142/76; BMI 37.8
--- NOTE | ~2025-04-08 | XR_ITS ---
EXAMINATION: XR CHEST 2 VIEWS HISTORY: R05.9 - Cough, unspecified COMPARISON: Comparison is made with the prior examination dated 03/04/2025. FINDINGS: PA and lateral views of the chest are submitted. The lungs remain hyperinflated, consistent with COPD. There is patchy airspace opacities at both lung bases, left greater than right, compatible with pneumonia. There is no pleural effusion, pneumothorax, or pulmonary vascular congestion. The heart is normal in size. There is degenerative disc disease of the spine. XR/XR chest 2V IMPRESSION: COPD. Bilateral lower lobe pneumonia. Follow-up is recommended to document resolution. Electronically signed by: Jef June MD 04/08/2025 03:20 PM EDT
== END 2025-04-08 14:03 | disposition home or self-care (01) ==
LOC: HO.HMGCX 14:02
PROVIDERS: PCP Physician Assistant; Visit Provider Physician Assistant
DX: J22 Unspecified acute lower respiratory infection (principal); G47.33 Obstructive sleep apnea (adult) (pediatric); Z99.89 Dependence on other enabling machines and devices; Z87.891 Personal history of nicotine dependence; R05.9 Cough, unspecified
CPT/HCPCS: 71046; 94640; 99212

== ENCOUNTER → 2025-04-08 14:36 | Outpatient (BNV) | payer MEDICARE, SELFPAY ==
[2023-08-05 07:17] VITALS: BP 112/48; BP 122/56; BP 142/76; BMI 37.8
== END ==
PROVIDERS: PCP Physician Assistant; Visit Provider Radiology Diagnostic Radiology
DX: R06.02 Shortness of breath (principal)
CPT/HCPCS: 71046

== ENCOUNTER 2025-04-08 14:49 | Outpatient (REF) | payer MEDICARE, SELFPAY ==
[2023-08-05 07:17] VITALS: BP 112/48; BP 122/56; BP 142/76; BMI 37.8
[2025-04-09 12:02] LABS: Chlamydia pneumoniae PCR Not Detected (Not Detect.); Coronavirus 229E PCR Not Detected (Not Detect.); Coronavirus HKU1 PCR Not Detected (Not Detect.); Coronavirus NL63 PCR Not Detected (Not Detect.); Coronavirus OC43 PCR Not Detected (Not Detect.); RSV PCR Not Detected (Not Detect.); Rhino/Enterovirus PCR Not Detected (Not Detect.)
[2025-04-09 13:10] LABS: Influenza A H1 PCR Not Detected (Not Detect.); Influenza A H1-2009 PCR Not Detected (Not Detect.); Influenza A H3 PCR Not Detected (Not Detect.); SARS-CoV-2 PCR Not Detected (Not Detect.)
== END 2025-04-08 14:50 | disposition home or self-care (01) ==
LOC: HO.LAB 14:49
PROVIDERS: Visit Provider Physician Assistant
DX: J06.9 Acute upper respiratory infection, unspecified (principal); R05.9 Cough, unspecified
CPT/HCPCS: 87633

== ENCOUNTER 2025-04-10 13:17 | Inpatient (IN) | payer MEDICARE, SELFPAY ==
[2023-08-05 07:17] VITALS: BP 112/48; BP 122/56; BP 142/76; BMI 37.8
[2025-04-10] VITALS (9 sets, daily range): BP systolic 100–144; BP diastolic 48–77; PULSE 75–143; RESP 13–26; TEMP 36.3–36.6; O2SAT 87–93; BMI 37.8
--- NOTE | ~2025-04-10 | XR_ITS ---
CLINICAL HISTORY: pain, injury 3 view right foot Comparison: None provided Findings: No fractures or dislocations. Multiple old nonunited small avulsion fractures in the lateral malleolus. Moqx-wh-wglwujbv arthritic changes with degenerative spurring in the midfoot and hindfoot. No ankle effusion. No radiopaque foreign body. 9 x 5 mm plantar tendon enthesophyte. Extensive arterial calcifications. IMPRESSION: 1. No acute fracture or dislocation. 2. Fzzw-tu-pwsjzwmb arthritic changes. 3. Large plantar heel spur. This document has been electronically signed by: Darling Lofton DO on 04/10/2025 16:41:13
--- NOTE | ~2025-04-10 | US_ITS ---
CLINICAL HISTORY: bilat leg pain, toe redness VENOUS DUPLEX ULTRASOUND BILATERAL LOWER EXTREMITY Comparison: None provided Findings: The visualized deep veins are fully compressible with normal Doppler color flow and spectral tracings. No popliteal cyst. IMPRESSION: 1. Negative for bilateral lower extremity deep vein thrombosis. This document has been electronically signed by: Darling Lofton DO on 04/10/2025 16:33:31
--- NOTE | ~2025-04-10 | XR_ITS ---
CLINICAL HISTORY: shortness of breath 2 view chest x-ray Comparison: CR/SR - XR CHEST 2 VIEWS - 04/08/25 14:48 EDT Findings: The lungs remain hyperaerated. Right lower lobe opacities appear improved. Left lower lobe opacities appear improved. No pleural effusion or pneumothorax. Stable cardiomediastinal silhouette. No acute fracture. IMPRESSION: 1. Improving bilateral lower lobe infiltrates. 2. Underlying emphysematous changes. 3. Borderline to mild cardiomegaly without CHF. This document has been electronically signed by: Darling Lofton DO on 04/10/2025 16:21:08
--- NOTE | 2025-04-10 13:50 | ED_ITS ---
HPI - General Adult General Chief complaint: General Medical Stated complaint: took medication and toes turned red Time Seen by Provider: 04/10/25 14:58 Source: patient Mode of arrival: ambulatory Limitations: no limitations History of Present Illness ED Provider: Edelmira Rodríguez PA-C HPI narrative: Patient is an 79-year-old assigned male at with a past medical history of afib on eliquis, CKD stage 3, COPD (not on home oxygen), PRAVEEN, hypertension, and CLL presenting with shortness of breath, and increased redness and shine to toes bilaterally. He says that they are not painful but feel tight . He endorses numbness and tinging to his feet but says he has had that for years. He tells me that about 10 days ago he went to a spa and got a pedicure and noticed his left middle toe looked red. Then this past [place] the beach with [place] and noticed yesterday, 04/09, that all of his toes looked red. He also went to urgent care on Friday, 04/08, for increased shortness of breath and was diagnosed with bilateral pneumonia and started on amoxicillin, azithromycin, and prednisone. He denies worsening fever, chills. He denies headache, weakness, fatigue, palpitations, abdominal pain, dysuria, changes to bowel movements. Related Data Home Medications ?Medication ?Instructions ?Recorded ?Confirmed cholecalciferol (vitamin D3) 25 25 mcg PO DAILY 03/16/25 mcg (1,000 unit) capsule multivitamin 1 tab PO DAILY 02/14/2302/23 Previous Rx's ?Medication ?Instructions ?Recorded CPAP (CPAP Machine/Device) #1 ea 06/13/21 apixaban 5 mg tablet (Eliquis) 5 mg PO BID 90 days #18 0 tabs 05/24/24 metoprolol succinate 50 mg 50 mg PO DAILY #90 tabs tablet,extended release 24 hr albuterol sulfate 90 mcg/actuation 2 puff PO Q6H PRN b ronchospasm #18 08/04/24 aerosol inhaler grams lisinopril 10 mg tablet 10 mg PO DAILY #90 tabs 12/23 05/19 tiotropium bromide 18 mcg capsule 1 cap inhalation SATNAM LY #90 01/18/25 with inhalation device (Spiriva inhalations with HandiHaler) tamsulosin 0.4 mg capsule 0.8 mg (2 x 0.4 mg) PO BEDTI ME 90 01/26/25 days #180 caps acetaminophen 650 mg 650 mg PO Q12H 30 days #60 t abs 03/16/25 tablet,extended release (Tylenol Arthritis Pain) amoxicillin 875 mg-potassium 1 tab PO Q12H #14 tabs clavulanate 125 mg tablet azithromycin 250 mg tablet See Rx Instructions PO .COM PLEX #6 04/08/25 tabs prednisone 20 mg tablet 40 mg (2 x 20 mg) PO QAM #10 tabs 04/08/25 Allergies Allergy/AdvReac Type Severity Reaction Status Date / Time No Known Allergies Allergy Verified 04/10/25 13:56 Review of Systems 2 Constitutional: Constitutional: Reports no additional constitutional complaints, Denies chills, Denies fever(s) and Denies night sweats Eyes: Eyes: Reports no additional eye complaints, Denies blurry vision, Denies change in vision, Denies diplopia, Denies eye discharge, Denies loss of vision and Denies eye pain ENT: Denies dizziness Cardiovascular: Cardiovascular: Reports no additional cardiovascular complaints, Denies chest pain, Denies lightheadedness, Denies Loss of Consciousness and Reports dyspnea Respiratory: Respiratory: Reports cough and Reports dyspnea Gastrointestinal: Gastrointestinal: Reports no additional gastrointestinal complaints, Denies abdominal pain, Denies melena, Denies hematochezia, Denies change in bowel habits and Denies change in stool character Genitourinary: Genitourinary: Reports no additional male genitourinary complaints, Denies hematuria, Denies oliguria, Denies difficulty urinating, Denies dysuria, Denies urinary frequency, Denies urinary hesitancy, Denies urinary incontinence and Denies urinary urgency Musculoskeletal: Musculoskeletal: Reports no additional musculoskeletal complaints Integumentary/Breasts: Skin/Breast: Reports as per HPI and Reports change in pigmentation (redness of bilateral toes) Neurologic: Denies dizziness and Denies loss of vision Psychiatric: Psychiatric: Reports no additional psychiatric complaints Endocrine: Endocrine: Reports no additional endocrine complaints Hematologic/Lymphatic: Hematologic/Lymphatic: Reports no additional hematologic/lymphatic complaints Allergic/Immunologic: Allergic/Immunologic: Reports no additional allergic/immunologic complaints PMFSH Past Medical History Attestation statement: The following information was validated with the patient. Source: old records reviewed and nursing notes reviewed Medical History PRAVEEN on CPAP Bronchitis Obstructive sleep apnea on CPAP Obesity Sleep apnea COVID-19 vaccine series completed Arthritis COPD (chronic obstructive pulmonary disease) Skin cancer Status post placement of implantable loop recorder BPH (benign prostatic hyperplasia) Paroxysmal atrial fibrillation Obesity Erectile dysfunction Urgency of micturition Hypertension Surgical History History of prostate surgery H/O colonoscopy History of cystoscopy Hx of total knee arthroplasty History of carpal tunnel release History of surgery Family History Family History Father Medical history unknown Mother Lung cancer Social History Social History Household Members: None Housing: House Alcohol intake: current Alcohol intake frequency: 3 or more drinks per day Patient Tobacco Use Status: Former Tobacco user Tobacco use type: Cigarette Cigarette Packs Per Day: 2 Years Smoked: 30 e-Cigarette/Vaping Use: Never Used Second Hand Smoke Exposure: Yes Advance Directives: Yes Advance Directives Information Provided: Yes Advance Directives on File: No Do you have a plan to hurt others: No Plan service: No Current occupational status: retired Current occupation: [employer] Cognitive needs: No Hearing needs: No Vision needs: No Physical Exam ED Vital Signs: Vital Signs - 24 hr 04/10/25 13:50 04/10/25 14:16 04/10/25 15:49 Temperature 97.3 F 97.9 F Pulse Rate 75 84 109 H Respiratory Rate 17 26 H 13 Blood Pressure 144/77 H 135/62 Pulse Oximetry 87 L 92 Oxygen Delivery Method Room Air Nasal Cannula Oxygen Flow Rate 2 04/10/25 15:53 04/10/25 16:29 Temperature Pulse Rate 95 143 H Respiratory Rate 22 H Blood Pressure Pulse Oximetry Oxygen Delivery Method Oxygen Flow Rate BMI result Body Mass Index 37.8 Const General: cooperative, no acute distress, alert and awake Nutritional Appearance: well nourished Orientation/consciousness: patient oriented x3 HENMT Head: Yes normal to inspection and Yes atraumatic Ears: hearing grossly normal bilaterally and external ears normal General nose exam: Normal external nose present, no nasal discharge noted and no epistaxis Face and sinus: Yes normal facial exam, No abrasion and No laceration Mouth: Normal oral and palatal mucosa present, no drooling and no muffled voice Eyes General: appearance normal, both eyes and all related structures Periorbital: periorbital findings normal Eyelids: Yes eyelids normal Conjunctivae: conjunctivae normal Pupils: Equal, round and reactive pupils present EOM: EOMs intact bilaterally Neck Neck: Yes normal visual inspection and Yes full ROM Resp Effort & Inspection: able to speak in complete sentences, Actively coughing Quality: dry and labored Cardio Rate: tachycardic Rhythm: abnormal rhythm irregularly irregular Neuro General: patient oriented x3, moves all extremities and CN's II-XI intact bilaterally Cranial nerves: Yes Equal, round and reactive pupils present Cognition (Neuro): normal cognition Extrem Other: General: Yes full ROM and Yes capillary refill normal Right lower extremity: full ROM and foot Details: abnormal to inspection Details: erythematous and toes with normal ROM Left lower extremity: full ROM and foot Details: abnormal to inspection Details: erythematous, tenderness and toes with normal ROM Psych Appearance: grossly normal Mental Status: mental status grossly normal Affect: normal affect Attitude: cooperative Thought process: Normal thought process present Thought content: Normal thought content present Insight: Good insight present (Psych) Course Course Course Narrative: Medical screening exam performed. Please refer to detailed history, exam, evaluation, and management by primary provider. Shortness of breath on Friday, went to a walk-in clinic, had chest x-ray, diagnosed with bilateral lower lobe pneumonia, started on azithromycin and Augmentin. Now reporting redness and pain in all of his toes. Also reporting increased work of breathing. O2 sat 88% on room air in triage, not on oxygen. Baseline is 91%. Lung sounds diminished with fine wheezes throughout. Medications Administered Discontinued Medications Generic Name Dose Route Start Last Admin Trade Name Freq PRN Reason Stop Dose Admin Albuterol Sulfate 5 mg/ 0 mg 04/10/25 14:11 04/10/25 14:14 Albuterol/Ipratropium 3 ml INHALE 04/10/25 14:12 1 each ONCE ONE Administration Albuterol Sulfate 5 mg/ 0 mg 04/10/25 15:49 04/10/25 15:53 Albuterol/Ipratropium 3 ml INHALE 04/10/25 15:50 1 each ONCE ONE Administration Magnesium Sulfate/Dextrose 1 gm in 100 mls @ 100 mls/hr 04/10/25 15:47 04/10/25 17:25 Magnesium Sulfate/D5w IV 04/10/25 16:46 100 mls/hr ONCE ONE Administration Methylprednisolone Sodium Succinate 60 mg 04/10/25 15:47 04/10/25 17:09 Methylprednisolone Sod Succ 125 Mg/2 Ml Vial IVPUSH 04/10/25 15:48 60 mg ONCE ONE Administration Medical Decision Making Medical Decision Making [facility] Narrative: Patient is an 79-year-old assigned male at with a past medical history of afib on eliquis, CKD stage 3, COPD (not on home oxygen), PRAVEEN, hypertension, and CLL presenting with shortness of breath, and increased redness and shine to toes bilaterally. Patient's physical exam was as noted in the physical exam portion of this note. Patient was initially hypoxic at 87% on room air. He was placed on a couple liters of oxygen via nasal cannula and his saturation increased to 96%. Patient's feet are concerning for bilateral foot cellulitis secondary to a pedicure. Patient given IV solu-medrol and magnesium. Patient's blood work showed an elevated WBC count of 29.1 however the patient has a history of chronically elevated WBC counts for his CLL and he is currently on prednisone. Patient's initial EKG showed atrial fib. However, when talking to the patient about my current concerns about his condition - his heart rate climbed to the low 100s, making it appear as though he was in atrial fibrillation with RVR however - I believe this is secondary to the patient's anxiety and not a true uncontrolled underlying rhythm. Patient's chest x-ray showed bilateral lower lobe infiltrates with borderline - mild cardiomegaly without CHF. Patient's bilateral lower extremity US showed no DVT. Patient's bilateral foot x-rays showed no evidence of osteo. I spoke with the pharmacist who recommended cefepime for appropriate staph / strep / pseudomonas coverage. Cefepime ordered and given. I was suspicious this patient was septic at 1700 however, the patient's clinical presentation is NOT consistent with severe sepsis. I spoke with the hospitalist team who agreed to admission for continued IV antibiotic treatment and oxygenation. I explained my physical exam findings as well as all test results to the patient. I answered all questions asked by the patient. Patient verbalized agreement and understanding with this treatment plan and admission. Differential Diagnosis Differential Diagnoses: The differential diagnosis associated with the presentation includes Hypoxia Sepsis COPD Exacerbation Pneumonia Cellulitis Admission/Observation Consideration of admission/observation: Escalation of care including admission/observation considered Patient admitted to the hospital per the MDM Rationale portion of this note. Consult Healthcare Provider Management of the patient was discussed with: Hospitalist (agreed to admission as noted in the MDM Rationale portion of this note. ) Lab Data [facility] Lab Attestation statement: I reviewed the patient's lab results. My interpretation of these results are in the MDM Rationale portion of this note. 04/10/25 14:41 04/10/25 14:41 Labs: Lab Results 04/10/25 04/10/25 04/10/25 Range/Units 14:40 14:41 15:53 WBC 29.1 H (4.8-10.8) X10*3/uL RBC 4.95 (4.60-5.80) X10*6/uL Hgb 15.7 (14.0-18.0) g/dl Hct 45.6 (42.0-52.0) % MCV 92.1 (80.0-98.0) fL MCH 31.7 (27.0-33.0) pg MCHC 34.4 (31.0-36.0) g/dl RDW 13.3 (11.0-16.0) % Plt Count 270 (160-400) X10*3/uL MPV 9.6 (9.4-12.4) fL Immature Gran % (Auto) 0.3 (0.0-0.4) % Neut % (Auto) 26.7 L (45-73) % Lymph % (Auto) 72.0 H (20-40) % Davis % (Auto) 0.8 L (2-11) % Eos % (Auto) 0.0 (0-4) % Baso % (Auto) 0.2 (0-2) % Lymph # (Auto) 21.0 H (1.2-4.9) X10*3/uL Davis # (Auto) 0.2 (0.1-1.2) X10*3/uL Eos # (Auto) 0.0 (0.0-0.4) X10*3/uL Baso # (Auto) 0.1 (0.0-0.2) X10*3/uL Abs Immat Gran (auto) 0.10 H (0.00-0.03) X10*3/uL Absolute Neuts (auto) 7.8 (2.0-8.3) x10*3/uL Absolute Nucleated RBC 0.000 (0.0-0.012) X10*3/uL Nucleated RBC % (auto) 0.0 (0.0-0.2) /100WBC Smear Tech's Comments VERIFIED VBG pH 7.37 (7.32-7.43) VBG pCO2 36 mmHg VBG pO2 69 mmHg VBG HCO3 21 L (22-26) mmol/L VBG O2 Saturation 91.0 % VBG Base Excess -3.0 mmol/L Sodium 137 (135-145) mmol/L Potassium 4.5 (3.3-5.1) mmol/L Chloride 105 (96-108) mmol/L Carbon Dioxide 21 L (22-29) mmol/L Anion Gap 16 (12-20) BUN 19 H (9-16) mg/dL Creatinine 1.35 (0.5-1.4) mg/dL Estim Creat Clear Calc 53.1 Estimated GFR 51 Random Glucose 154 H (60-115) mg/dL Lactic Acid 2.0 (0.5-2.0) mmol/L Calcium 9.6 (8.4-10.2) mg/dL Total Bilirubin Cancelled 0.6 Direct Bilirubin Cancelled 0.3 AST Cancelled 32 ALT Cancelled 18 Alkaline Phosphatase Cancelled 93 Troponin I High Sens 5.2 (<3.5-35.0) ng/L Total Protein Cancelled 7.0 Albumin Cancelled 4.3 04/10/25 Range/Units 16:45 WBC (4.8-10.8) X10*3/uL RBC (4.60-5.80) X10*6/uL Hgb (14.0-18.0) g/dl Hct (42.0-52.0) % MCV (80.0-98.0) fL MCH (27.0-33.0) pg MCHC (31.0-36.0) g/dl RDW (11.0-16.0) % Plt Count (160-400) X10*3/uL MPV (9.4-12.4) fL Immature Gran % (Auto) (0.0-0.4) % Neut % (Auto) (45-73) % Lymph % (Auto) (20-40) % Davis % (Auto) (2-11) % Eos % (Auto) (0-4) % Baso % (Auto) (0-2) % Lymph # (Auto) (1.2-4.9) X10*3/uL Davis # (Auto) (0.1-1.2) X10*3/uL Eos # (Auto) (0.0-0.4) X10*3/uL Baso # (Auto) (0.0-0.2) X10*3/uL Abs Immat Gran (auto) (0.00-0.03) X10*3/uL Absolute Neuts (auto) (2.0-8.3) x10*3/uL Absolute Nucleated RBC (0.0-0.012) X10*3/uL Nucleated RBC % (auto) (0.0-0.2) /100WBC Smear Tech's Comments VBG pH (7.32-7.43) VBG pCO2 mmHg VBG pO2 mmHg VBG HCO3 (22-26) mmol/L VBG O2 Saturation % VBG Base Excess mmol/L Sodium (135-145) mmol/L Potassium (3.3-5.1) mmol/L Chloride (96-108) mmol/L Carbon Dioxide (22-29) mmol/L Anion Gap (12-20) BUN (9-16) mg/dL Creatinine (0.5-1.4) mg/dL Estim Creat Clear Calc Estimated GFR Random Glucose (60-115) mg/dL Lactic Acid (0.5-2.0) mmol/L Calcium (8.4-10.2) mg/dL Total Bilirubin Direct Bilirubin AST ALT Alkaline Phosphatase Troponin I High Sens 4.0 (<3.5-35.0) ng/L Total Protein Albumin Independent Interpretation I performed an independent interpretation of an: EKG, Plain X-Ray and Ultrasound Interpretation: My interpretation is in agreement with the radiologist's impression of these imaging studies. L CLINICAL HISTORY: pain, injury 3 view right foot Comparison: None provided Findings: No fractures or dislocations. Multiple old nonunited small avulsion fractures in the lateral malleolus. Ozon-[id number] arthritic changes with degenerative spurring in the midfoot and hindfoot. No ankle effusion. No radiopaque foreign body. 9 x 5 mm plantar tendon enthesophyte. Extensive arterial calcifications. IMPRESSION: 1. No acute fracture or dislocation. 2. Jheg-ub-bfobvydv arthritic changes. 3. Large plantar heel spur. This document has been electronically signed by: Darling Lofton DO on 04/10/2025 16:41:13 Dictated By: Darling Lofton MD Signed By: Electronically signed by Darling Lofton MD 04/10/25 1642 CLINICAL HISTORY: bilat leg pain, toe redness VENOUS DUPLEX ULTRASOUND BILATERAL LOWER EXTREMITY Comparison: None provided Findings: The visualized deep veins are fully compressible with normal Doppler color flow and spectral tracings. No popliteal cyst. IMPRESSION: 1. Negative for bilateral lower extremity deep vein thrombosis. This document has been electronically signed by: Darling Lofton DO on 04/10/2025 16:33:31 Dictated By: Darling Lofton MD Signed By: Electronically signed by Darling Lofton MD 04/10/25 1634 CLINICAL HISTORY: shortness of breath 2 view chest x-ray Comparison: CR/SR - XR CHEST 2 VIEWS - 04/08/25 14:48 EDT Findings: The lungs remain hyperaerated. Right lower lobe opacities appear improved. Left lower lobe opacities appear improved. No pleural effusion or pneumothorax. Stable cardiomediastinal silhouette. No acute fracture. IMPRESSION: 1. Improving bilateral lower lobe infiltrates. 2. Underlying emphysematous changes. 3. Borderline to mild cardiomegaly without CHF. This document has been electronically signed by: Darling Lofton DO on 04/10/2025 16:21:08 Dictated By: Darling Lofton MD Signed By: Electronically signed by Darling Lofton MD 04/10/25 1622 I independently interpreted this EKG and am in agreement with the below findings: Vent. Rate: 71 BPM Atrial Rate: 71 BPM P-R Int: 178 ms QRS Dur: 92 ms QT Int: 366 ms P-R-T Axes: 78 12 9 degrees QTcB Int: 397 ms Sinus rhythm with Premature atrial complexes with Aberrant conduction Possible Anterior infarct (cited on or before 14-Jul-2023) When compared with ECG of 14-Jul-2023 22:45, Premature ventricular complexes are no longer Present Aberrant conduction is now Present QRS axis Shifted right DD/ 1412 I independently interpreted this EKG and am in agreement with the below findings: Vent. Rate: 118 BPM Atrial Rate: * BPM P-R Int: * ms QRS Dur: 90 ms QT Int: 322 ms P-R-T Axes: 62 -10 47 degrees QTcB Int: 451 ms Atrial fib with RVR DD/ 1626 Radiology Impression Discussion of test interpretation with radiology: I have reviewed the radiologist's reading. Critical Care Time Critical Care Time Critical Care Time: Yes Total Critical Care Time: 58 Attestation: I spent 58 minutes of Critical Care Time with this patient. This does not include time spent on separately reported billable procedures. Discharge Plan Discharge Clinical Impression: Hypoxia, Pneumonia, Cellulitis, Sepsis, Chronic lymphocytic leukemia Patient Disposition: Admitted As Inpatient
--- NOTE | 2025-04-10 13:59 | ECG_ITS ---
Test Reason : sob Blood Pressure : */* mmHG Vent. Rate : 71 BPM Atrial Rate : 71 BPM P-R Int : 178 ms QRS Dur : 92 ms QT Int : 366 ms P-R-T Axes : 78 12 9 degrees QTcB Int : 397 ms Sinus rhythm with Premature ventricular complexes Possible Anterior infarct (cited on or before 14-Jul-2023) Abnormal ECG When compared with ECG of 14-Jul-2023 22:45, QRS axis Shifted right Referred By: Gary Suarez Electronically Signed By: ARIE RHODES MD
[2025-04-10] MEDS: Albuterol Sulfate 5 MG, Albuterol/Iprat 2.5/0.5MG 3 ML 3 ML INHALE ×2 (14:14→15:53)
[2025-04-10 14:50] LABS: Hematocrit 45.6 % (42.0-52.0); Hemoglobin 15.7 g/dl (14.0-18.0); Imm Gran Abs Auto 0.10 X10*3/uL (0.00-0.03); Imm Gran Pct Auto 0.3 % (0.0-0.4); MANUAL DIFF FLAG SCAN; Mean Corpuscular HGB Conc 34.4 g/dl (31.0-36.0); Mean Corpuscular Hemoglobin 31.7 pg (27.0-33.0); Mean Corpuscular Volume 92.1 fL (80.0-98.0); NRBC Abs Auto 0.000 X10*3/uL (0.0-0.012); NRBC Pct Auto 0.0 /100WBC (0.0-0.2); Platelet Count 270 X10*3/uL (160-400); Red Blood Count 4.95 X10*6/uL (4.60-5.80); SCAN SMEAR FLAG 1; White Blood Count 29.1 X10*3/uL (4.8-10.8)
[2025-04-10 14:51] LABS: Lymphocytes Absolute Auto 21.0 X10*3/uL (1.2-4.9)
--- NOTE | 2025-04-10 14:51 | PC.NURSE ---
PT O2 at 86% RA PT put on 2L of O2 NC O2 at 93% after 2L NC.
[2025-04-10 15:04] LABS: Anion Gap 16 (12-20); Blood Urea Nitrogen 19 mg/dL (9-16); Calcium 9.6 mg/dL (8.4-10.2); Carbon Dioxide 21 mmol/L (22-29); Chloride 105 mmol/L (96-108); Creatinine Clr Calc Pharmacy 53.1; Estimated Glomerular Filt Rate 51; Potassium 4.5 mmol/L (3.3-5.1); Sodium 137 mmol/L (135-145)
[2025-04-10 15:13] LABS: Troponin-I High Sensitivity 5.2 ng/L (<3.5-35.0)
[2025-04-10 15:32] LABS: Alanine Aminotransferase 18 U/L (0-40); Albumin Level 4.3 g/dL (3.5-5.0); Alkaline Phosphatase 93 U/L (39-117); Aspartate Amino Transferase 32 U/L (5-37); Total Protein 7.0 g/dL (6.5-8.0)
[2025-04-10 15:56] LABS: Venous Blood Gas Refer to POC result
[2025-04-10 15:58] LABS: VBG HCO3 21 mmol/L (22-26); VBG O2 % Saturation 91.0 %
--- NOTE | 2025-04-10 16:20 | ECG_ITS ---
Test Reason : tachy Blood Pressure : */* mmHG Vent. Rate : 118 BPM Atrial Rate : 125 BPM P-R Int : * ms QRS Dur : 90 ms QT Int : 322 ms P-R-T Axes : 62 -10 47 degrees QTcB Int : 451 ms Sinus tachycardia with Premature supraventricular complexes ST depression, consider subendocardial injury Abnormal ECG When compared with ECG of 10-Apr-2025 14:12, Premature atrial complexes are now More frequent Vent. rate has increased by [address] now depressed in Anterolateral leads Nonspecific T wave abnormality now evident in Lateral leads Referred By: Edelmira Balbuena Electronically Signed By: ARIE RHODES MD
[2025-04-10 17:16] LABS: Troponin-I High Sensitivity 4.0 ng/L (<3.5-35.0)
--- NOTE | 2025-04-10 17:50 | PM.IMHP ---
History of Present Illness Date of Service: 04/10/25 Chief Complaint: red toes 79M PMH CLL, obesity, PRAVEEN, COPD, paroxysmal AFib on Eliquis, BPH, CKD 3, alcohol dependence, hypertension presented complaining of red toes bilateral. Patient states he had a pedicure 10 days prior to presentation, [place] and then noticed that his toe started to become red. Noted subjective fevers, no chills. Also has been having worsening shortness breath several days on 04/08 went to urgent care and diagnosed with pneumonia given amoxicillin, azithromycin, prednisone. Also notes worsening lower extremity edema. In ED patient noted to be hypoxic and in AFib with RVR Review of Systems Review of Systems: Yes all other systems are reviewed and are negative [facility] Medical History PRAVEEN on CPAP Bronchitis Obstructive sleep apnea on CPAP Obesity Sleep apnea COVID-19 vaccine series completed Arthritis COPD (chronic obstructive pulmonary disease) Skin cancer Status post placement of implantable loop recorder BPH (benign prostatic hyperplasia) Paroxysmal atrial fibrillation Obesity Erectile dysfunction Urgency of micturition Hypertension Family History Father Medical history unknown Mother Lung cancer Surgical History History of prostate surgery H/O colonoscopy History of cystoscopy Hx of total knee arthroplasty History of carpal tunnel release History of surgery Social History Household Members: None Housing: House Alcohol intake: current Alcohol intake frequency: 3 or more drinks per day Patient Tobacco Use Status: Former Tobacco user Tobacco use type: Cigarette Cigarette Packs Per Day: 2 Years Smoked: 30 e-Cigarette/Vaping Use: Never Used Second Hand Smoke Exposure: Yes Advance Directives: Yes Advance Directives Information Provided: Yes Advance Directives on File: No Do you have a plan to hurt others: No Plan service: No Current occupational status: retired Current occupation: [employer] Cognitive needs: No Hearing needs: No Vision needs: No Meds Allergies Allergy/AdvReac Type Severity Reaction Status Date / Time No Known Allergies Allergy Verified 04/10/25 13:56 Active Medications: Current Medications Acetaminophen (Acetaminophen 325 Mg Tablet) 650 mg PO Q6H PRN PRN Reason: Pain, Mild 1-3,fever,headache Albuterol/Ipratropium (Albuterol/Iprat 2.5/0.5mg 3 Ml Ampul.Neb) 3 ml INHALE RQ4H WHILE AWAKE PRN PRN Reason: sob Calcium Carbonate (Calcium Carbonate 750 Mg Tab.Chew) 750 mg PO Q4H PRN PRN Reason: Heartburn Doxycycline Monohydrate (Doxycycline Monohydrate 100 Mg Capsule) 100 mg PO Q12H [facility] Furosemide (Furosemide 40 Mg/4 Ml Vial) 40 mg IVPUSH BID@0900,1800 JENNIFER; Protocol Cefepime HCl (Maxipime) 2 gm in 50 mls @ 100 mls/hr IV Q12H [facility]ENN[facility] Cefepime HCl 1 gm/ Sodium (Chloride) 50 mls @ 100 mls/hr IV Q8H [facility] Magnesium Hydroxide (Milk Of Magnesia 30 Ml Oral.Susp) 30 ml PO DAILY PRN PRN Reason: Constipation Melatonin (Melatonin 3 Mg Tablet) 6 mg PO BEDTIME PRN PRN Reason: Insomnia Methylprednisolone Sodium Succinate (Methylprednisolone Sod Succ 40 Mg/Ml Vial) 40 mg IVPUSH Q12H JENN[facility]ER Sodium Chloride (0.9 % Sodium Chloride Flush 3 Ml Syringe) 3 ml IVFLUSH QSHIFT [facility] Home Medications ?Medication ?Instructions ?Recorded ?Confirmed ?Last Taken ?Type cholecalciferol (vitamin D3) 25 25 mcg PO DAILY 02/14/23 03/16/25 Unknown History mcg (1,000 unit) capsule multivitamin 1 tab PO DAILY 02/14/23 03/16/25 Unknown History Physical Exam Vital Signs and Narrative: Vital Signs: Last Vital Signs Temp 97.9 F 04/10/25 15:49 Pulse 143 H 04/10/25 16:29 Resp 22 H 04/10/25 15:53 BP 135/62 04/10/25 15:49 Pulse Ox 92 04/10/25 15:49 O2 Del Method Nasal Cannula 04/10/25 15:49 O2 Flow Rate 2 04/10/25 15:49 BMI result Body Mass Index 37.8 General: AO X 3, dyspneic Resp: Crackles and wheezes bilateral, accessory muscles used CVS: S1,S2,RRR, 2+ bilateral edema GI: soft, non tender, non distended Neuro: motor grossly intact, alert Psych: appropriate affect, appropriate insight Results Labs 04/10/25 14:41 04/10/25 14:41 Labs: Laboratory Results - last 24 hr 04/10/25 04/10/25 04/10/25 14:40 14:41 15:53 MCV 92.1 MCH 31.7 MCHC 34.4 RDW 13.3 Plt Count 270 MPV 9.6 Immature Gran % (Auto) 0.3 Neut % (Auto) 26.7 L Lymph % (Auto) 72.0 H [place] % (Auto) 0.8 L Eos % (Auto) 0.0 Baso % (Auto) 0.2 Lymph # (Auto) 21.0 H [place] # (Auto) 0.2 Eos # (Auto) 0.0 Baso # (Auto) 0.1 Abs Immat Gran (auto) 0.10 H Absolute Neuts (auto) 7.8 Absolute Nucleated RBC 0.000 Nucleated RBC % (auto) 0.0 Smear Tech's Comments VERIFIED VBG pH 7.37 VBG pCO2 36 VBG pO2 69 VBG HCO3 21 L VBG O2 Saturation 91.0 VBG Base Excess -3.0 Anion Gap 16 Estim Creat Clear Calc 53.1 Estimated GFR 51 Random Glucose 154 H Lactic Acid 2.0 Calcium 9.6 Total Bilirubin Cancelled 0.6 Direct Bilirubin Cancelled 0.3 AST Cancelled 32 ALT Cancelled 18 Alkaline Phosphatase Cancelled 93 Total Protein Cancelled 7.0 Albumin Cancelled 4.3 Assessment and Plan (1) Hypertension: Qualifiers: Hypertension type: essential hypertension Qualified Code(s): I10 - Essential (primary) hypertension Status: Acute Plan 79M PMH CLL, obesity, PRAVEEN, COPD, paroxysmal AFib on Eliquis, BPH, CKD 3, alcohol dependence, hypertension presented complaining of red toes bilateral Acute hypoxic respiratory failure due to COPD with acute decompensation and acute on chronic diastolic CHF with possible bilateral pneumonia IV Lasix, steroids, DuoNebs, cefepime, doxycycline No sepsis, leukocytosis chronic due to CLL, tachycardia due to AFib Check echo Wean O2 as tolerated Paroxysmal AFib with RVR Lopressor 25 q6, continue Eliquis Red toes bilateral Unclear if cellulitis versus fungal versus inflammatory reaction We will cover with doxycycline, topical antifungal and steroid CLL Stable, outpatient follow up Obesity Weight loss recommended PRAVEEN CPAP at night BPH Flomax CKD 3 Stable Alcohol dependence Reports about 4 12 oz beers per day, monitor for withdrawal DVT prophylaxis-Eliquis Full Code Quality Stroke Does the patient have a stroke diagnosis?: No VTE Prior VTE?: No VTE Risk Level:: Medical - moderate - high VTE Device Contraindication: Treatment Not Indicated VTE Drug Contraindication: N/A - Med Ordered
[2025-04-10] MEDS: Furosemide 40 MG/4 ML VIAL IVPUSH (18:53)
--- NOTE | 2025-04-10 19:00 | PC.NURSE ---
Patient medicated per MAR, VSS, O2 Sat 95% on 3 LPM NC. Patient is able to make his needs know. He is currently resting in stretcher bed, call matthew within patient's reach.
--- NOTE | 2025-04-10 19:18 | PC.NURSE ---
Back documentation PT HR in the 140's and dropped to 105 PT has Afib and on Eliquis, Provider Esha Notified EKG obtained.
--- NOTE | 2025-04-10 19:20 | PC.NURSE ---
Back documentation Pt O2 at 89% on 2L, PT O2 now at 3L NC sats at 93%.
[2025-04-10] MEDS: Clotrimazole 1 % Cream 15 GM TUBE 1 APPL TOPICAL (22:34)
[2025-04-10] MEDS: Triamcinolone Acet 0.5 % Cream 15 GM TUBE 1 APPL TOPICAL (22:34)
[2025-04-10] MEDS: 0.9 % Sodium Chloride Flush 3 ML SYRINGE IVFLUSH (23:30)
[2025-04-11] VITALS (11 sets, daily range): BP systolic 103–128; BP diastolic 56–73; PULSE 70–80; RESP 15–20; TEMP 36.6–37.1; O2SAT 91–94
[2025-04-11 04:40] LABS: Hematocrit 42.4 % (42.0-52.0); Hemoglobin 14.4 g/dl (14.0-18.0); Mean Corpuscular HGB Conc 34.0 g/dl (31.0-36.0); Mean Corpuscular Hemoglobin 31.4 pg (27.0-33.0); Mean Corpuscular Volume 92.6 fL (80.0-98.0); NRBC Abs Auto 0.000 X10*3/uL (0.0-0.012); NRBC Pct Auto 0.0 /100WBC (0.0-0.2); Platelet Count 275 X10*3/uL (160-400); Red Blood Count 4.58 X10*6/uL (4.60-5.80)
[2025-04-11 04:47] LABS: White Blood Count 32.7 X10*3/uL (4.8-10.8)
[2025-04-11 05:02] LABS: Anion Gap 15 (12-20); Blood Urea Nitrogen 22 mg/dL (9-16); Calcium 9.0 mg/dL (8.4-10.2); Carbon Dioxide 21 mmol/L (22-29); Chloride 106 mmol/L (96-108); Creatinine Clr Calc Pharmacy 52.0; Estimated Glomerular Filt Rate 50; Magnesium 2.3 mg/dL (1.6-2.6); Potassium 4.4 mmol/L (3.3-5.1); Sodium 138 mmol/L (135-145)
--- NOTE | 2025-04-11 05:23 | PC.NURSE ---
Patient medicated per MAR, currently offers no complaints. VSS.
--- NOTE | 2025-04-11 06:37 | PC.NURSE ---
Patient resting comfortably. RR 16, O2 Sat 94% on 3 LPm NC. Patient tolerated standing to urinate into urinal w/o diff or SOB.
--- NOTE | 2025-04-11 07:00 | CA_ITS ---
Transthoracic Echocardiogram Patient (Last, First, Middle): Loy Moreno H Gender: Male Date of : 1945 Age: 79 Procedure Date: 04/11/2025 Procedure Type: Transthoracic Echocardiogram Location: ER Height: 172.72 cm Weight: 112.49 kg BSA: 2.24 m2 Heart Rate: bpm BP: 116 / 62 mmHg Slide Maker: Referring MD: Ti Mijares MD Research Director: Ken Valles MD Symptoms: chf Study Quality: Adequate w Contrast ECG Rhythm: Sinus with extra beats Conclusions: - 1. Hyperdynamic LV EF of greater than 70% with impaired relaxation filling pattern 2. Normal cardiac valvular Dopplers 3. Normal RV systolic pressure 4. Mildly dilated ascending aorta at 3.9 cm 5. No gross pericardial effusion Findings Procedure Information Contrast agent, definity, is being given per protocol without apparent complications. Left Ventricle Normal left ventricular cavity size. There is mildly increased left ventricular wall thickness. The left ventricular systolic function is hyperdynamic. The visually estimated ejection fraction is >70%. Spectral Doppler is indicative of an impaired relaxation filling pattern. E/E prime ratio is between 8 and 15 consistent with indeterminate filling pressures. Right Ventricle Mildly increased right ventricular cavity size. There is normal right ventricular systolic function. Atria The left atrium is mildly dilated. Interatrial shunt cannot be excluded. The right atrium was not well visualized. Aortic Valve There is mild calcification of the aortic valve. There is no aortic valve stenosis. There is no aortic valve regurgitation. Mitral Valve Likely normal mitral valve structure and function. There is trace mitral valve regurgitation. There is no mitral valve stenosis. Pulmonic Valve The pulmonic valve was not well visualized. Tricuspid Valve Likely normal tricuspid valve structure and function. There is trace tricuspid valve regurgitation. The right ventricular systolic pressure is not calculated. The right ventricular systolic pressure is 32 mmHg. Normal right atrial pressure. There is no evidence of pulmonary hypertension. Great Vessels The pulmonary artery was not well visualized. There is mild dilatation of the ascending aorta measuring 3.90 cm. Venous The inferior vena cava is normal in size and collapses greater than 50% with inspiration. Pericardium/Pleural The pericardium was not well visualized. Measurements 2D Linear Measurements IVSd: 1.22 0.6-0.9/0.6-1.0 cm LVIDd: 5.15 3.9-5.3/4.2-5.9 cm LVIDd Index: 2.30 2.4-3.2/2.2-3.1 cm/m2 LVIDs: 3.69 2.0-3.6 cm LVPWd: 1.20 0.7-1.1 cm Ao Root: 3.20 2.1-3.5 cm LA Diam: 4.60 2.7-3.8/3.0-4.0 cm LAIDs Index: 2.05 1.5-2.3 cm/m2 LV Mass: 309.10 67-162/88-224 g LV Mass Index: 137.99 43-95/49-115 g/m2 LVOT Diam: 2.20 3.0+(-)1.3 cm 2D Systolic Function EF 4C: 74.60 >55% EF 2C: 76.00 >55% EF BiP: 74.80 >55% Mitral Valve MV Pk E: 0.82 MV PK A: 0.95 MV Decel Time: 205.00 E/A: 0.90 E'Lateral: 8.59 E'Medial: 7.18 E/E' Med: 11.40 E/E' Lat: 9.50 PHT: 60.00 MVA PHT: 3.67 Decel Dukes: 3.98 Aortic Valve AoV Pk Triston: 2.04 AoV Mn Triston: 1.23 AoV VTI: 0.41 AoV Pk Grad: 17.00 Aov Mn Grad: 8.00 AISHA Cont.VTI: 2.35 LVOT LVOT Pk Triston: 1.15 LVOT Mn Triston: 0.73 LVOT VTI: 0.25 LVOT Pk Grad: 5.00 LVOT Mn Grad: 3.00 LVOT Diam: 2.20 LVOT Area: 3.80 Diastolic Function MV Pk E: 0.82 MV Pk A: 0.95 E/A: 0.90 E'Medial: 7.18 E/E' Med: 11.40 E' Laterial: 8.59 E/E' Lat: 9.50 Right Ventricle TAPSE (mm): 32.00 TVS' Triston: 20.00 Tricuspid Valve TR Pk Triston: 2.71 TR Pk Grad: 29.00 RA Press: 3.00 RVSP: 32.00 Great Vessels Aorta Ao Root-2D: 3.20 2.0-3.7 cm Ao Asc: 3.90 2.1-3.4 cm Pulmonary Valve PV Pk Triston: 1.05 Peak PV Grad: 4.00 Updated in Other Vendor System with Status of Final Ken Valles MD electronically signed on 04/11/2025 5:15:10 PM with status of Final
--- NOTE | 2025-04-11 07:18 | PC.NURSE ---
resumd care of pt at 0700, he was helped boosted up in bed and given his breakfast tray. Pt denies any SOB/CP at this time, along with any general pain. Pt remains on NC at this time. When laying flat for boosting O2 did dip to 88% when sat back up pt recovered quickly to 91-93%. Lungs in lower lobes have some expiratory wheezing noted, once pt is finished with breakfast this rn talked with pt about a breathing tx, pt is in agreement. Call matthew within reach, pt awaiting a bed assignment at this time
[2025-04-11] MEDS: Albuterol/Iprat 2.5/0.5MG 3 ML AMPUL.NEB INHALE (07:26)
[2025-04-11] MEDS: Furosemide 40 MG/4 ML VIAL IVPUSH ×2 (07:26→18:06)
[2025-04-11] MEDS: 0.9 % Sodium Chloride Flush 3 ML SYRINGE IVFLUSH ×2 (07:26→18:04)
--- NOTE | 2025-04-11 07:32 | PC.NURSE ---
Pt requesting morning medications early with his breakfast. Breathing tx being administered at this time. Pt is 92% on 3L prior to tx. Plan of care and treatment course gone over with pt all questions answered at this time
--- NOTE | 2025-04-11 07:37 | PHA.MEDREC ---
Addendum entered by Lucy Ashby [facility] 04/11/25 08:17: Pt confirmed he takes tamsulosin 0.4mg BID, not to caps at bedtime. Addendum entered by Lucy Ashby [facility] 04/11/25 07:39: Pt started adn took 2 days worth of Z-pack (5 day course), Augmentin (7 day course), Prednisone (5 day course). Original Note: Pharmacy Consult ? Medication Reconciliation Pharmacy has reviewed the medication reconciliation completed by nursing. Spoke with pt who had a list and could confirm medications.
[2025-04-11] MEDS: Metoprolol Succinate ER 50 MG TAB.ER.24H PO (09:51)
--- NOTE | 2025-04-11 10:14 | PC.NURSE ---
This RN checked with pharmacy ([facility]) about Metoprolol dose as pt had received 25mg IR this morning, and then when the rest of his home medications got ordered they had ordered 50mg ER, per [facility] they contacted Dr. camacho who advised that he would like the 50MG ER to be given with 25mg IR. Pt aware, meds given per MAR
--- NOTE | 2025-04-11 10:34 | MHC.CM.PN ---
CM met with Patient at bedside, in the ED, and addressed IMM with him, providing Patient with the original and a copy will be placed on the chart. Patient lives alone in a house and he uses a cane at times. Home/self care is Patient's goal and CM has initiated and will follow for dc planning. PCP/PA is Chadd Monreal. Patient declined a HCP.
[2025-04-11] MEDS: Triamcinolone Acet 0.5 % Cream 15 GM TUBE 1 APPL TOPICAL (21:13)
[2025-04-11] MEDS: Clotrimazole 1 % Cream 15 GM TUBE 1 APPL TOPICAL (21:13)
[2025-04-12] VITALS (7 sets, daily range): BP systolic 129–140; BP diastolic 62–75; PULSE 60–76; RESP 12–20; TEMP 36.1–36.8; O2SAT 88–93
[2025-04-12] MEDS: Metoprolol Succinate ER 50 MG TAB.ER.24H PO (08:13)
[2025-04-12] MEDS: Triamcinolone Acet 0.5 % Cream 15 GM TUBE 1 APPL TOPICAL ×2 (11:13→20:46)
[2025-04-12] MEDS: Clotrimazole 1 % Cream 15 GM TUBE 1 APPL TOPICAL ×2 (11:13→20:46)
--- NOTE | 2025-04-12 11:28 | HO.PM.IMPN ---
Subjective Subjective Date of Service: 04/12/25 Interval History: improving, still sob Physical Exam Exam: Exam: General: AO X 3, no acute distress Resp: wheezing bilateral, mild accessory muscles used CVS: S1,S2,RRR, trace edema GI: soft, non tender, non distended Neuro: motor grossly intact, alert Psych: appropriate affect, appropriate insight Vital Signs: Vital Signs: Last Vital Signs Temp 98.1 F 04/12/25 07:55 Pulse 68 04/12/25 07:55 Resp 20 04/12/25 07:55 BP 129/67 04/12/25 07:55 Pulse Ox 88 L 04/12/25 07:55 O2 Del Method Room Air, CPAP 04/12/25 07:55 O2 Flow Rate 2 04/12/25 01:49 BMI result Body Mass Index 37.8 Objective Data Active Medications Acetaminophen (Acetaminophen 325 Mg Tablet) 650 mg PO Q6H PRN PRN Reason: Pain, Mild 1-3,fever,headache Albuterol/Ipratropium (Albuterol/Iprat 2.5/0.5mg 3 Ml Ampul.Neb) 3 ml INHALE RQ4H WHILE AWAKE PRN PRN Reason: sob Last Admin: 04/11/25 07:26 Dose: 3 ml Documented By: CESAR Apixaban (Apixaban 5 Mg Tablet) 5 mg PO BID [facility] Last Admin: 04/12/25 08:13 Dose: 5 mg Documented By: GUSTABO Calcium Carbonate (Calcium Carbonate 750 Mg Tab.Chew) 750 mg PO Q4H PRN PRN Reason: Heartburn Clotrimazole (Clotrimazole 1 % Cream 15 Gm Tube) 1 appl TOPICAL BID [facility]; Protocol Last Admin: 04/12/25 11:13 Dose: 1 appl Documented By: GUSTABO Doxycycline Monohydrate (Doxycycline Monohydrate 100 Mg Capsule) 100 mg PO Q12H [facility] Last Admin: 04/12/25 05:36 Dose: 100 mg Documented By: OFELIA Cefepime HCl 1 gm/ Sodium (Chloride) 50 mls @ 100 mls/hr IV Q12H [facility] Last Infusion: 04/12/25 06:14 Dose: Infused Documented By: OFELIA Magnesium Hydroxide (Milk Of Magnesia 30 Ml Oral.Susp) 30 ml PO DAILY PRN PRN Reason: Constipation Melatonin (Melatonin 3 Mg Tablet) 6 mg PO BEDTIME PRN PRN Reason: Insomnia Methylprednisolone Sodium Succinate (Methylprednisolone Sod Succ 40 Mg/Ml Vial) 40 mg IVPUSH Q12H [facility] Last Admin: 04/12/25 05:36 Dose: 40 mg Documented By: OFELIA Metoprolol Succinate (Metoprolol Succinate Er 50 Mg Tab.Er.24h) 50 mg PO DAILY [facility]; Protocol Last Admin: 04/12/25 08:13 Dose: 50 mg Documented By: GUSTABO Multivitamins/Vitamin C (Multivitamin Tablet) 1 tab PO DAILY [facility] Last Admin: 04/12/25 08:13 Dose: 1 tab Documented By: GUSTABO Sodium Chloride (0.9 % Sodium Chloride Flush 3 Ml Syringe) 3 ml IVFLUSH QSHIFT [facility] Last Admin: 04/12/25 07:30 Dose: Not Given Documented By: GUSTABO Non-Admin Reason: Previously Administered Tamsulosin HCl (Tamsulosin Hcl 0.4 Mg Capsule) 0.4 mg PO BID [facility] Last Admin: 04/12/25 08:13 Dose: 0.4 mg Documented By: GUSTABO Triamcinolone Acetonide (Triamcinolone Acet 0.5 % Cream 15 Gm Tube) 1 appl TOPICAL BID [facility]; Protocol Last Admin: 04/12/25 11:13 Dose: 1 appl Documented By: GUSTABO Vitamin D (Cholecalciferol (Vitamin D3) 25 Mcg Tablet) 25 mcg PO DAILY [facility] Last Admin: 04/12/25 08:13 Dose: 25 mcg Documented By: GUSTABO Labs 04/11/25 03:37 04/11/25 03:37 Microbiology Microbiology Results: Microbiology 04/10/25 15:46 Blood Culture - Preliminary Blood - Venous No growth after 24 hours. 04/10/25 14:41 Blood Culture - Preliminary Blood - Venous No growth after 24 hours. Assessment and Plan (1) CLL (chronic lymphocytic leukemia): Status: Chronic Plan 79M PMH CLL, obesity, PRAVEEN, COPD, paroxysmal AFib on Eliquis, BPH, CKD 3, alcohol dependence, hypertension presented complaining of red toes bilateral Acute hypoxic respiratory failure due to COPD with acute decompensation and acute on chronic diastolic CHF with possible bilateral pneumonia conitnue steroids, DuoNebs, cefepime, doxycycline No sepsis, leukocytosis chronic due to CLL, tachycardia due to AFib will hold lasix, now euvolemic after iv diuresis Wean O2 as tolerated Paroxysmal AFib with RVR toprol, continue Eliquis Red toes bilateral doubt cellulitis more likely fungal versus inflammatory reaction covered with doxycycline continue topical antifungal and steroid improving CLL Stable, outpatient follow up Obesity Weight loss recommended PRAVEEN CPAP at night BPH Flomax CKD 3 Stable Alcohol dependence Reports about 4 12 oz beers per day, monitor for withdrawal DVT prophylaxis-Eliquis Full Code reason for continued hospitalization:hyopxia, sob Quality Stroke Does the patient have a stroke diagnosis?: No VTE Prior VTE?: No VTE Risk Level:: Medical - moderate - high VTE Device Contraindication: Treatment Not Indicated VTE Drug Contraindication: N/A - Med Ordered
--- NOTE | 2025-04-12 14:12 | PC.NURSE ---
informed pt in and out of vent [facility]. first time going into that rhythm this shift. Patient asymptomatic, was asleep
[2025-04-12] MEDS: 0.9 % Sodium Chloride Flush 3 ML SYRINGE IVFLUSH (20:46)
[2025-04-12] MEDS: Milk of Magnesia 30 ML ORAL.SUSP PO (20:58)
[2025-04-13] VITALS (8 sets, daily range): BP systolic 129–154; BP diastolic 62–77; PULSE 56–70; RESP 12–20; TEMP 36.1–36.7; O2SAT 91–95
[2025-04-13] MEDS: 0.9 % Sodium Chloride Flush 3 ML SYRINGE IVFLUSH ×2 (09:31→17:43)
[2025-04-13] MEDS: Metoprolol Succinate ER 50 MG TAB.ER.24H PO (09:35)
--- NOTE | 2025-04-13 10:46 | MHC.CM.PN ---
Per ROUNDS discussion, Patient is not yet medically cleared for dc (IV ABX & IV Solu Medrol); home is the goal and CM will continue to follow.
[2025-04-13] MEDS: Clotrimazole 1 % Cream 15 GM TUBE 1 APPL TOPICAL ×2 (13:19→20:37)
--- NOTE | 2025-04-13 14:00 | P.PNIM_ITS ---
Subjective Subjective Date of Service: 04/13/25 Interval History: Still wheezy and short of breath. Continues with O2 requirement Review of Systems Denies chest pain Denies shortness of breath Denies nausea vomiting diarrhea Denies fever chills Physical Exam 2 Vital Signs: Vital Signs: Last Vital Signs Temp 97.4 F 04/13/25 12:00 Pulse 67 04/13/25 12:00 Resp 20 04/13/25 12:00 BP 135/62 04/13/25 12:00 Pulse Ox 94 04/13/25 12:00 O2 Del Method Room Air 04/13/25 12:00 O2 Flow Rate 2 04/13/25 08:00 BMI result Body Mass Index 37.8 Const: Other: Awake alert no acute distress Resp: Other: Clear to auscultation bilaterally no rales rhonchi or wheezes Cardio: Other: No S4; positive S1-S2; no S3 murmurs rubs or gallops GI: Other: Soft nontender nondistended normoactive bowel sounds Extrem: Other: No edema bilaterally Objective Data Active Medications Acetaminophen (Acetaminophen 325 Mg Tablet) 650 mg PO Q6H PRN PRN Reason: Pain, Mild 1-3,fever,headache Albuterol/Ipratropium (Albuterol/Iprat 2.5/0.5mg 3 Ml Ampul.Neb) 3 ml INHALE RQ4H WHILE AWAKE PRN PRN Reason: sob Last Admin: 04/11/25 07:26 Dose: 3 ml Documented By: CESAR Apixaban (Apixaban 5 Mg Tablet) 5 mg PO BID [facility] Last Admin: 04/13/25 09:36 Dose: 5 mg Documented By: MARIANA Calcium Carbonate (Calcium Carbonate 750 Mg Tab.Chew) 750 mg PO Q4H PRN PRN Reason: Heartburn Clotrimazole (Clotrimazole 1 % Cream 15 Gm Tube) 1 appl TOPICAL BID [facility]; Protocol Last Admin: 04/13/25 13:19 Dose: 1 appl Documented By: ADELAIDE Doxycycline Monohydrate (Doxycycline Monohydrate 100 Mg Capsule) 100 mg PO Q12H [facility] Last Admin: 04/13/25 05:34 Dose: 100 mg Documented By: EZEQUIEL Cefepime HCl 1 gm/ Sodium (Chloride) 50 mls @ 100 mls/hr IV Q12H [facility] Last Infusion: 04/13/25 06:17 Dose: Infused Documented By: EZEQUIEL Magnesium Hydroxide (Milk Of Magnesia 30 Ml Oral.Susp) 30 ml PO DAILY PRN PRN Reason: Constipation Last Admin: 04/12/25 20:58 Dose: 30 ml Documented By: EZEQUIEL Melatonin (Melatonin 3 Mg Tablet) 6 mg PO BEDTIME PRN PRN Reason: Insomnia Methylprednisolone Sodium Succinate (Methylprednisolone Sod Succ 40 Mg/Ml Vial) 40 mg IVPUSH Q12H [facility] Last Admin: 04/13/25 05:34 Dose: 40 mg Documented By: EZEQUIEL Metoprolol Succinate (Metoprolol Succinate Er 50 Mg Tab.Er.24h) 50 mg PO DAILY [facility]; Protocol Last Admin: 04/13/25 09:35 Dose: 50 mg Documented By: MARIANA Multivitamins/Vitamin C (Multivitamin Tablet) 1 tab PO DAILY [facility] Last Admin: 04/13/25 09:35 Dose: 1 tab Documented By: MARIANA Polyethylene Glycol (Polyethylene Glycol 3350 17 Gm Powd.Pack) 17 gm PO DAILY [facility] Last Admin: 04/13/25 13:21 Dose: Not Given Documented By: ADELAIDE Non-Admin Reason: Patient Refused Sodium Chloride (0.9 % Sodium Chloride Flush 3 Ml Syringe) 3 ml IVFLUSH QSHIFT [facility] Last Admin: 04/13/25 09:31 Dose: 3 ml Documented By: MARIANA Tamsulosin HCl (Tamsulosin Hcl 0.4 Mg Capsule) 0.4 mg PO BID [facility] Last Admin: 04/13/25 09:35 Dose: 0.4 mg Documented By: MARIANA Triamcinolone Acetonide (Triamcinolone Acet 0.5 % Cream 15 Gm Tube) 1 appl TOPICAL BID [facility]; Protocol Last Admin: 04/13/25 13:21 Dose: Not Given Documented By: ADELAIDE Non-Admin Reason: Patient Refused Vitamin D (Cholecalciferol (Vitamin D3) 25 Mcg Tablet) 25 mcg PO DAILY [facility] Last Admin: 04/13/25 09:35 Dose: 25 mcg Documented By: MARIANA Labs 04/11/25 03:37 04/11/25 03:37 Microbiology Microbiology Results: Microbiology 04/10/25 15:46 Blood Culture - Preliminary Blood - Venous No growth after 48 hours. 04/10/25 14:41 Blood Culture - Preliminary Blood - Venous No growth after 48 hours. Assessment and Plan (1) CKD stage 3a, GFR 45-59 ml/min: Status: Acute (2) Hypertension: Status: Acute (3) COPD (chronic obstructive pulmonary disease): Status: Acute Plan 79M PMH CLL, obesity, PRAVEEN, COPD, paroxysmal AFib on Eliquis, BPH, CKD 3, alcohol dependence, hypertension presented complaining of red toes bilateral 1.Acute hypoxic respiratory failure due to COPD with acute decompensation;possible bilateral pneumonia -still with O2 requirement but improved -cefepime/doxycycline (4) -increase Solu-Medrol to q.6 hours ATC -titrate O2 as tolerated to maintain sats greater than equal to 92% 2.Paroxysmal AFib with RVR -acceptable rate control on current therapies -continue Eliquis -adjust therapies as indicated 3.CLL -stable and well compensated 4.CKD 3 -at baseline -follow renals/divalent Eliquis Full Code reason for continued hospitalization:hyopxia, sob Quality Stroke Does the patient have a stroke diagnosis?: No VTE Prior VTE?: No VTE Risk Level:: Medical - moderate - high VTE Device Contraindication: Treatment Not Indicated VTE Drug Contraindication: N/A - Med Ordered
[2025-04-13] MEDS: Triamcinolone Acet 0.5 % Cream 15 GM TUBE 1 APPL TOPICAL (20:37)
[2025-04-14] MEDS: 0.9 % Sodium Chloride Flush 3 ML SYRINGE IVFLUSH ×2 (00:49→09:11)
[2025-04-14 03:39] VITALS: BP 119/68; PULSE 61; RESP 12; TEMP 36.5; O2SAT 93
[2025-04-14 08:00] VITALS: BP 172/82; PULSE 60; RESP 20; TEMP 37.2; O2SAT 93
[2025-04-14] MEDS: Metoprolol Succinate ER 50 MG TAB.ER.24H PO (09:10)
[2025-04-14] MEDS: Triamcinolone Acet 0.5 % Cream 15 GM TUBE 1 APPL TOPICAL (09:11)
[2025-04-14] MEDS: Clotrimazole 1 % Cream 15 GM TUBE 1 APPL TOPICAL (09:11)
[2025-04-14 09:33] VITALS: PULSE 101; PULSE 86; O2SAT 92; O2SAT 93
[2025-04-14 10:59] VITALS: BP 130/69; PULSE 71; RESP 18; TEMP 36.4; O2SAT 92
--- NOTE | 2025-04-14 11:01 | PM.DS ---
DS: Providers Provider Date of Service: 04/14/25 Date of admission: 04/10/25 17:20 Date of discharge: 04/14/25 Primary care physician: Chadd Monreal PA-C DS: Diagnosis Discharge Diagnosis (1) CKD stage 3a, GFR 45-59 ml/min: Status: Acute (2) Hypertension: Status: Acute (3) COPD (chronic obstructive pulmonary disease): Status: Acute DS: Summary Hospital Course Hospital Course: 79M PMH CLL, obesity, PRAVEEN, COPD, paroxysmal AFib on Eliquis, BPH, CKD 3, alcohol dependence, hypertension presented complaining of red toes bilateral. Patient states he had a pedicure 10 days prior to presentation, [place] and then noticed that his toe started to become red. Noted subjective fevers, no chills. Also has been having worsening shortness breath several days on 04/08 went to urgent care and diagnosed with pneumonia given amoxicillin, azithromycin, prednisone. Also notes worsening lower extremity edema. In ED patient noted to be hypoxic and in AFib with RVR. Hospital Course Patient admitted to telemetry and with the aggressive respiratory treatment AFib responded spontaneously. He continued to be in sinus rhythm throughout his stay here on outpatient therapies. He was started on doxycycline and ceftriaxone IV for likely bilateral lower lobe pneumonia. He was also started on pulse dose steroids. Feet treated as topical fungal infection. On the day of discharge respiratory ambulated patient and he was found not to have an O2 requirement. At this point in time he is medically acceptable to be discharged on a course of oral antibiotics and prednisone taper and follow up with his PCP as scheduled Time Attestation Discharge Coordination Time (in mins): 35 Quality: Safe Use of Opioids Does Pt have an Active Cancer Diagnosis on the Problem List?: No Quality: Stroke Does the patient have a stroke diagnosis?: No Physical Exam Vital Signs: Vital Signs: Last Vital Signs Temp 98.9 F 04/14/25 08:00 Pulse 60 04/14/25 08:00 Resp 20 04/14/25 08:00 BP 172/82 H 04/14/25 08:00 Pulse Ox 93 04/14/25 08:00 O2 Del Method Nasal Cannula 04/14/25 08:00 O2 Flow Rate 1.5 04/14/25 08:00 BMI result Body Mass Index 37.8 Const: Other: Awake alert no acute distress Resp: Other: Clear to auscultation bilaterally no rales rhonchi or wheezes Cardio: Other: No S4; positive S1-S2; no S3 murmurs rubs or gallops GI: Other: Soft nontender nondistended normoactive bowel sounds Extrem: Other: No edema bilaterally DS: Data Data Completed and Pending Labs on day of discharge: Preliminary micro results at discharge 04/10/25 15:46 Blood Culture - Preliminary Blood - Venous No growth after 48 hours. 04/10/25 14:41 Blood Culture - Preliminary Blood - Venous No growth after 48 hours. Discharge Plan Discharge Anticipated Discharge Date/Time: 04/14/25 10:53 Patient Disposition: Home, Self-Care Discharge Diagnosis: Bilateral pneumonia Referrals: Chadd Monreal PA-C [Primary Care Provider, Internal Medicine] - 1 Week Discharge Medications: New doxycycline monohydrate 100 mg Capsule 100 mg PO Q12H Qty: 14 0RF cefuroxime axetil 500 mg tablet 500 mg PO BID 7 Days Qty: 14 0RF prednisone 10 mg tablet See Rx Instructions .Route .COMPLEX Qty: 45 0RF Rx Instructions: 10 mg orally; 5 tabs p.o. daily x3 days; 4 tabs p.o. daily x3 days; 3 tabs daily x3 days; 2 tabs daily x3 days; 1 tab daily x3 days Continued (DME) CPAP Machine/Device Device See Rx Instructions .Route Qty: 1 0RF Rx Instructions: 12CM H20 PREVIOUS MACHINE HAS BEEN RECALLED AND NOW NEEDS A NEW MACHINE BHAVANA Eliquis 5 mg tablet 5 mg PO BID 90 Days Qty: 180 3RF metoprolol succinate 50 mg tablet extended release 24 hr 50 mg PO DAILY Qty: 90 3RF albuterol sulfate 90 mcg/actuation HFA aerosol inhaler 2 puff PO Q6H PRN (Reason: bronchospasm) Qty: 18 5RF lisinopril 10 mg tablet 10 mg PO DAILY Qty: 90 3RF tiotropium bromide [Spiriva with HandiHaler] 18 mcg capsule, w/inhalation device 1 cap inhalation DAILY Qty: 90 5RF acetaminophen [Tylenol Arthritis Pain] 650 mg tablet extended release 650 mg PO Q12H PRN (Reason: Pain) tamsulosin 0.4 mg capsule 0.4 mg PO BID Patient Comments: Pt states he does not take both at bed time he takes one in the morning and one at bedtime, even though he knows his provider told him to take dose at bedtime. Took half dose this AM. multivitamin Tablet 1 tab PO DAILY cholecalciferol (vitamin D3) 25 mcg (1,000 unit) capsule 25 mcg PO DAILY Discontinued azithromycin 250 mg tablet 250 mg PO DAILY Rx Instructions: two days remain since 04/08/25 prescribed prednisone 20 mg tablet 40 mg PO DAILY amoxicillin-pot clavulanate 875-125 mg tablet 1 tab PO Q12H Qty: 14 0RF Discharge Orders: Discharge Order (Routine); Ordered 04/14/25 Ordered By: Marco Antonio Real Diet: Advance to usual diet Activity on Discharge: As tolerated Stand Alone Forms: Patient Portal Discharge page Print Language: Brazilian Care Plan Goals: Doxycycline 100 mg twice daily x7 days along with Ceftin 500 twice daily for 7 days and a prednisone taper has been added to your regimen. Complete these as ordered Health Concerns: Resume all other medicines as taken previously as outlined on discharge instructions Plan of Treatment: Follow up with the PCP next available Assessment: See discharge summary
--- NOTE | 2025-04-14 11:24 | MHC.CM.PN ---
Patient has been medically cleared for dc to home today, self care. CM addressed IMM with Patient, providing him with the original and a copy has been placed on the chart.
== END 2025-04-14 12:05 | disposition home or self-care (01) | DRG 193 ==
LOC: HO.ED 17:19 → HO.EDOVER 17:23 → HO.IMC 04-11 23:15
PROVIDERS: Physician Assistant; Physician Assistant Medical; Admitting Provider Internal Medicine; Emergency Provider Emergency Medicine; PCP Physician Assistant; Visit Provider Hospitalist
DX: J18.9 Pneumonia, unspecified organism (principal); I50.33 Acute on chronic diastolic (congestive) heart failure; J96.01 Acute respiratory failure with hypoxia; I13.0 Hypertensive heart and chronic kidney disease with heart failure and stage 1 through stage 4 chronic kidney disease, or unspecified chronic kidney disease; J44.0 Chronic obstructive pulmonary disease with (acute) lower respiratory infection; J44.1 Chronic obstructive pulmonary disease with (acute) exacerbation; C91.10 Chronic lymphocytic leukemia of B-cell type not having achieved remission; I48.0 Paroxysmal atrial fibrillation; N18.31 Chronic kidney disease, stage 3a; B35.3 Tinea pedis; F10.20 Alcohol dependence, uncomplicated; N40.0 Benign prostatic hyperplasia without lower urinary tract symptoms; G47.33 Obstructive sleep apnea (adult) (pediatric); Z87.891 Personal history of nicotine dependence; Z79.01 Long term (current) use of anticoagulants; Z79.899 Other long term (current) drug therapy
CPT/HCPCS: 36415; 71046; 73630; 80048; 80076; 82803; 83605; 83735; 84484; 85025; 85027; 87040; 93005; 93306; 93970; 94640; 94660; 99285; J0692; J1938; J2919; J3475; Q9957

== ENCOUNTER → 2025-04-10 13:59 | Outpatient (BNV) | payer MEDICARE, SELFPAY ==
[2023-08-05 07:17] VITALS: BP 112/48; BP 122/56; BP 142/76; BMI 37.8
== END ==
PROVIDERS: Admitting Provider Internal Medicine; Emergency Provider Emergency Medicine; PCP Physician Assistant; Visit Provider Internal Medicine Cardiovascular Disease
DX: I49.3 Ventricular premature depolarization (principal); I47.10 Supraventricular tachycardia, unspecified
CPT/HCPCS: 93010

== ENCOUNTER → 2025-04-10 13:59 | Outpatient (BNV) | payer MEDICARE, SELFPAY ==
[2023-08-05 07:17] VITALS: BP 112/48; BP 122/56; BP 142/76; BMI 37.8
== END ==
PROVIDERS: PCP Physician Assistant; Visit Provider Radiology Diagnostic Radiology
DX: M79.604 Pain in right leg (principal); M79.605 Pain in left leg; R06.02 Shortness of breath; M19.079 Primary osteoarthritis, unspecified ankle and foot
CPT/HCPCS: 71046; 73630; 93970

== ENCOUNTER 2025-04-10 17:20 | Outpatient (BNV) | payer MEDICARE, SELFPAY ==
[2023-08-05 07:17] VITALS: BP 112/48; BP 122/56; BP 142/76; BMI 37.8
== END 2025-04-11 07:00 ==
PROVIDERS: Admitting Provider Internal Medicine; Emergency Provider Emergency Medicine; PCP Physician Assistant; Visit Provider Internal Medicine Cardiovascular Disease
DX: I51.89 Other ill-defined heart diseases (principal)
CPT/HCPCS: 93306

== ENCOUNTER → 2025-04-10 17:20 | Outpatient (BNV) | payer MEDICARE, SELFPAY ==
[2023-08-05 07:17] VITALS: BP 112/48; BP 122/56; BP 142/76; BMI 37.8
== END ==
PROVIDERS: Admitting Provider Internal Medicine; Emergency Provider Emergency Medicine; PCP Physician Assistant; Visit Provider Internal Medicine
DX: I10 Essential (primary) hypertension (principal)
CPT/HCPCS: 99223; 99232; 99239

== ENCOUNTER 2025-04-22 12:48 | Outpatient (AMB) | payer MEDICARE, SELFPAY ==
[2023-08-05 07:17] VITALS: BP 112/48; BP 122/56; BP 142/76; BMI 37.8
[2025-04-22 12:53] VITALS: BP 132/64; PULSE 68; O2SAT 94
--- NOTE | 2025-04-22 12:53 | A.OFFPC_ITS ---
Vital Signs 3 04/22/25 12:53 Weight 244 lb 5 oz BP 132/64 Blood Pressure Location Lt brachial Position Sitting Pulse 68 Pulse Oximetry (%) 94 Intake Visit Reasons: TCM [facility] 04/14 Cellulitis Order Builder Loader Required: No Accompanied by: Self / Same As Patient Allergies No Known Allergies Allergy (Verified 04/22/25 12:55) Tobacco use date assessed: 04/22/25 Fall risk assessment: No Falls in past year Last assessed Fall Risk: 04/22/25 Dental Screening Dental Screen Date: 09/01/24 Did you have a dental visit in the last 12 months?: No Did you have a dental problem in the last 6 months where you did not have access to dental care?: No Was dental information given to patient?: No HPI TCM 2 TCM Information0 Date of Discharge 04/14/25 Discharged From [facility] Interactive Contact Date (Reference documentation from this date) 04/10/25 HPI Comments 2 History of Present Illness0 Details 79 y/o Male patient who presents to the clinic for TCM and HDF. He was admitted at [facility] on 04/10 - 04/14 for an evaluation and treatment of B/L Pneumonia. He completed his Abx course, and denies any SOB or wheezing. Pt has a Small sore/lesion of the lower lip - on the outside. He does not remember when it started. Non-tender, flat and clear. [facility] Medical History (Updated 04/22/25 @ 13:34 by Neela Archer NP) Post-nasal drip Sore of lower lip Community acquired bacterial pneumonia Chronic lymphocytic leukemia CKD stage 3a, GFR 45-59 ml/min CLL (chronic lymphocytic leukemia) PRAVEEN on CPAP Bronchitis Obstructive sleep apnea on CPAP Obesity Sleep apnea COVID-19 vaccine series completed Arthritis COPD (chronic obstructive pulmonary disease) Skin cancer Status post placement of implantable loop recorder BPH (benign prostatic hyperplasia) Paroxysmal atrial fibrillation Obesity Erectile dysfunction Urgency of micturition Hypertension Surgical History (Updated 04/16/25 @ 00:01 by Mady Lozada) History of prostate surgery H/O colonoscopy History of cystoscopy Hx of total knee arthroplasty History of carpal tunnel release History of surgery Family History Father Medical history unknown Mother Lung cancer Social History Household Members: None Housing: House Alcohol intake: current Alcohol intake frequency: 3 or more drinks per day Alcohol type: beer Patient Tobacco Use Status: Former Tobacco user Tobacco use type: Cigarette Cigarette Packs Per Day: 2 Years Smoked: 30 Packs Per Year: 60 e-Cigarette/Vaping Use: Never Used Second Hand Smoke Exposure: Yes Advance Directives Date on File: 04/12/25 service: No Current occupational status: retired Current occupation: [employer] Cognitive needs: No Hearing needs: No Vision needs: No Questionnaire PHQ-9 Over the last 2 weeks, how often have you been bothered by any of the following problems? 1. Little interest or pleasure in doing things: not at all 2. Feeling down, depressed, or hopeless: not at all 3. Trouble falling or staying asleep, or sleeping too much: not at all 4. Feeling tired or having little energy: not at all 5. Poor appetite or overeating: not at all 6. Feeling bad about yourself - or that you are a failure or have let yourself or your family down: not at all 7. Trouble concentrating on things, such as reading the newspaper or watching television: not at all 8. Moving or speaking so slowly that other people could have noticed. Or the opposite - being so fidgety or restless that you have been moving around a lot more than usual: not at all 9. Thoughts that you would be better off or of hurting yourself in some way: not at all Total score: 0 Depression Screening Interpretation: Negative Depression Screening Done: Yes Source: Developed by Drs. Jef Singh, Klaudia Saenz, aMrek Curran and colleagues, with an educational cherrie from [employer]. Thrive Questionnaire Date Thrive assessed: 11/23/24 I am a: Patient What is your living situation today?: I have a steady place to live Within the past 12 months, did the food you bought not last and you didn't have the money to get more?: Never true Within the past 12 months, did you worry whether your food would run out before you got money to buy more?: Never true Do you have trouble paying for medicines?: No Do you have trouble getting transportation to medical appointments?: No Do you have trouble paying your heating and electricity bill?: No Do you have trouble taking care of your child, family member or friend?: No Do you have trouble with day-to-day activities such as bathing, preparing meals, shopping, managing finances, etc.?: No Are you currently unemployed and looking for a job?: No Are you interested in more education?: No Please select the resources that you would like help with: None Currently or been in a relationship where the following occur: No concerns reported THRIVE Score: 0 AUDIT C Alcohol Use Questionnaire (AUDIT-C) 1. How often do you have a drink containing alcohol?: 2-3 times a week 2. How many drinks containing alcohol do you have on a typical day when you are drinking?: 1 or 2 3. How often do you have six or more drinks on one occasion?: Monthly Total Score: 5 YELENA-7 AMB Questionnaire YELENA-7 Date YELENA - 7 assessed: 11/30/24 Feeling nervous, anxious, or on edge: 0 = Not at all Not being able to stop or control worryin = Not at all Worrying too much about different things: 0 = Not at all Trouble relaxin = Not at all Being so restless that it is hard to sit still: 0 = Not at all Becoming easily annoyed or irritable: 0 = Not at all Feeling afraid as if something awful might happen: 0 = Not at all Total YELENA-7 score (0-4 normal; 5-9 mild; 10-14 moderate; 15-21 severe): 0 Source: Developed by Drs. Jef Singh, Klaudia Saenz, Marek Curran and colleagues, with an educational cherrie from [employer]. YELENA-7 Assessment Billing YELENA-7 Assessment Tool: YELENA-7 Assessment 01179 Physical exam (Primary Care) Vital Signs: Last Vital Signs Pulse 68 04/22/25 12:53 BP 132/64 04/22/25 12:53 Pulse Ox 94 04/22/25 12:53 Tobacco/Smoking Status: Tobacco use Status Tobacco use date assessed 04/22/25 04/22/25 13:02 Patient Tobacco Use Status Former Tobacco user 04/22/25 13:02 Tobacco use type Cigarette 04/22/25 13:02 e-Cigarette/Vaping Use Never Used 04/22/25 13:02 PHQ-9: PHQ-9 Score PHQ-9: Total score 0 04/22/25 13:34 Depression Screening Interpretation: Negative Thrive Assessment: Date of Thrive Assessment Date Thrive assessed 11/23/24 04/22/25 13:02 Currently or been in a relationship where the following occur: No concerns reported Const General: no acute distress Nutritional Appearance: overweight Orientation/consciousness: patient oriented x3 HENMT Head: Yes normocephalic General nose exam: Abnormal mucous membranes and turbinates present erythematous and Nasal discharge present Face and sinus: Yes sinuses nontender Mouth: moist mucous membranes Mouth/tongue images: 2 1. Small lesion clear off white, flat non-tender. Resp Effort & Inspection: normal respiratory effort Auscultation: clear to auscultation bilaterally, no crackles, no rales, no rhonchi and no wheezes Cardio Heart sounds: S1 normal heart sound present and S2 normal heart sound present Neuro General: patient oriented x3 Coding Level of Care Code TCM Mod MDM <= 14 Days Diagnoses Community acquired bacterial pneumonia J15.9 Sore of lower lip K13.0 Post-nasal drip R09.82 Additional Codes YELENA-7 Assessment Billing - YELENA-7 Assessment Tool: YELENA-7 Assessment 86150 ([id number]) Assessment & Plan Assessment & Plan (1) Community acquired bacterial pneumonia: Code(s): J15.9 - Unspecified bacterial pneumonia Category: Medical Plan: Resolved. (2) Sore of lower lip: Code(s): K13.0 - Diseases of lips Category: Medical Plan: Not clear what kind of sore this is, It does look infected. Ordered Topical Abx Advised to RTC if worse. (3) Post-nasal drip: Code(s): R09.82 - Postnasal drip Category: Medical Plan: Ordered Flonase. Medications: New 2 mupirocin 2% 1 appl topical BID 15 grams 0RF K13.0 - Diseases of lips fluticasone furoate 27.5 mcg/actuation (Flonase Sensimist) into each nostril 1 spray intranasal BID 18.2 mL 0RF R09.82 - Postnasal drip
--- OUTSIDE RECORDS SUMMARY | 2025-04-22 13:16 | XMS_ITS | Patient Health Record ---
Author Organization [facility] Address [address] [place] [address] Care Team Providers Care Process Coach Name Role Phone DIVINA CABRERA Primary Care Provider Jef Bob Unavailable [phone] Reason For Referral No Information Medications Medication [...] Problem Status W/U Status Risk Notes Problem 426024034 Encounter for screening for malignant neoplasm of colon (Z12.11) Active confirmed Problem 853571096 History of adenomatous polyp of colon (Z86.010) Active confirmed Problem History of polyp of colon (situation) (402852390) Personal history of colonic polyps (Z86.010) Active confirmed Problem 08641824 Preprocedural examination (Z01.818) Active confirmed Problem 143880052 Encounter for long-term (current) use of NSAIDs (Z79.1) Active confirmed Plan Of Treatment Future Test Test Name Order Date COLONOSCOPY 06/29/2015 Insurance Providers Payer Name Payer Address Payer Phone Subscriber Number Group Number Insured Name Patient Relationship to Insured Coverage Start Date Coverage End Date MEDICARE OF [place] [address] [place] [address] [phone] [id number] MINO HIDALGO Self - patient is the insured [employer] [address] [place] [address] [id number] MINO HIDALGO Self - patient is the insured Medical (General) History Medical History History ICD Code HTN Tubular adenomas removed in 2004 and 02/2010--his colonoscopies also revealed sigmoid diverticulosis and internal hemorrhoids Sleep apnea--does not use CPAP(although he was told that he should) COPD Denies AK,DM,CVA,renal disease Renal cysts Surgical History Surgery Date(Month/Year) Back surgery Sinus surgery
== END 2025-04-22 14:41 | disposition home or self-care (01) ==
LOC: HO.HMCH 12:49
PROVIDERS: PCP Physician Assistant; Visit Provider Nurse Practitioner Family
DX: J15.9 Unspecified bacterial pneumonia (principal); K13.0 Diseases of lips; R09.82 Postnasal drip

== ENCOUNTER → 2025-04-22 12:48 | Outpatient (BNVA) | payer MEDICARE, SELFPAY ==
[2023-08-05 07:17] VITALS: BP 112/48; BP 122/56; BP 142/76; BMI 37.8
== END ==
PROVIDERS: PCP Physician Assistant; Visit Provider Nurse Practitioner Family
DX: J15.9 Unspecified bacterial pneumonia (principal); K13.0 Diseases of lips; R09.82 Postnasal drip
CPT/HCPCS: 96127; 99495

== ENCOUNTER 2025-05-18 13:13 | Outpatient (REF) | payer MEDICARE, SELFPAY ==
[2023-08-05 07:17] VITALS: BP 112/48; BP 122/56; BP 142/76; BMI 37.8
[2025-05-18 13:39] LABS: Hematocrit 45.0 % (42.0-52.0); Hemoglobin 14.9 g/dl (14.0-18.0); Mean Corpuscular HGB Conc 33.1 g/dl (31.0-36.0); Mean Corpuscular Hemoglobin 31.2 pg (27.0-33.0); Mean Corpuscular Volume 94.1 fL (80.0-98.0); NRBC Abs Auto 0.000 X10*3/uL (0.0-0.012); NRBC Pct Auto 0.0 /100WBC (0.0-0.2); Platelet Count 316 X10*3/uL (160-400); Red Blood Count 4.78 X10*6/uL (4.60-5.80); White Blood Count 17.0 X10*3/uL (4.8-10.8)
[2025-05-18 14:16] LABS: Alanine Aminotransferase 15 U/L (0-40); Albumin Level 3.9 g/dL (3.5-5.0); Alkaline Phosphatase 86 U/L (39-117); Anion Gap 12 (12-20); Aspartate Amino Transferase 37 U/L (5-37); Blood Urea Nitrogen 16 mg/dL (9-16); Calcium 9.1 mg/dL (8.4-10.2); Carbon Dioxide 27 mmol/L (22-29); Chloride 108 mmol/L (96-108); Cholesterol 178 mg/dL (<200); Estimated Glomerular Filt Rate 56; HDL Cholesterol 43 mg/dL (>40); Potassium 4.5 mmol/L (3.3-5.1); Sodium 142 mmol/L (135-145); Total Protein 6.4 g/dL (6.5-8.0); Triglycerides 180 mg/dL (<150)
--- OUTSIDE RECORDS SUMMARY | 2025-05-18 15:38 | XMS_ITS | Patient Health Record ---
Author Organization [facility] Address [address] [place] [address] Care Team Providers Care Bracer Name Role Phone DIVINA CABRERA Primary Care Provider Jef Bob Unavailable [phone] Reason For Referral No Information Medications Medication [...] Problem Status W/U Status Risk Notes Problem 353937755 Encounter for screening for malignant neoplasm of colon (Z12.11) Active confirmed Problem 035402864 History of adenomatous polyp of colon (Z86.010) Active confirmed Problem History of polyp of colon (situation) (626156130) Personal history of colonic polyps (Z86.010) Active confirmed Problem 58823075 Preprocedural examination (Z01.818) Active confirmed Problem 453417797 Encounter for long-term (current) use of NSAIDs (Z79.1) Active confirmed Plan Of Treatment Future Test Test Name Order Date COLONOSCOPY 06/29/2015 Insurance Providers Payer Name Payer Address Payer Phone Subscriber Number Group Number Insured Name Patient Relationship to Insured Coverage Start Date Coverage End Date MEDICARE OF [place] [address] [place] [address] [id number] MINO HIDALGO Self - patient is the insured [facility] SUPPLEMENTAL PLAN [address] [place] [address] [id number] MINO HIDALGO Self - patient is the [...]
== END 2025-05-18 13:14 | disposition home or self-care (01) ==
LOC: HO.LAB 13:13
PROVIDERS: PCP Physician Assistant; Visit Provider Internal Medicine Nephrology
DX: I10 Essential (primary) hypertension (principal); I49.1 Atrial premature depolarization
CPT/HCPCS: 36415; 80053; 80061; 85027

== ENCOUNTER 2025-05-25 09:35 | Outpatient (AMB) | payer MEDICARE, SELFPAY ==
[2023-08-05 07:17] VITALS: BP 112/48; BP 122/56; BP 142/76; BMI 37.8
--- NOTE | 2025-05-25 09:41 | HO.NEPHOV_ITS ---
Vital Signs 05/25/25 09:46 Height 5 ft 8 in Weight 252 lb 4 oz BMI 38.4 BP 120/60 Blood Pressure Location Rt brachial Position Sitting Pulse 74 Pulse Source Pulse Oximeter Pulse Oximetry (%) 92 Oxygen Delivery Method Room Air Intake Visit Reasons: 6 MO FU-[facility] .Net Programmer Required: No Accompanied by: Self / Same As Patient Allergies No Known Allergies Allergy (Verified 05/25/25 09:46) HPI Comments Details: Mr. Moreno was seen in follow up for his chronic kidney disease and hypertension. He is known to have CLL and follows up with Oncology. He has longstanding hypertension and has been on hydrochlorothiazide, lisinopril and metoprolol. He has history of atrial fibrillation and has been on Eliquis. He drinks about 3-4 beers a day. He has obstructive sleep apnea and is on CPAP. He denies taking excessive nonsteroidal anti-inflammatories. He has no new bone pain, back pain, epistaxis, photosensitivity, new skin rashes, joint swellings, hematuria, orthostatic symptoms. He claims to be keeping up with good hydration. He denies any coronary artery disease, carotid stenosis, congestive heart failure, CVA, peripheral arterial disease. His recent serum creatinine has been close to baseline [facility] Medical History (Updated 05/25/25 @ 09:43 by Patrick Ge MD) CKD stage 3a, GFR 45-59 ml/min Post-nasal drip Sore of lower lip Community acquired bacterial pneumonia Chronic lymphocytic leukemia CLL (chronic lymphocytic leukemia) PRAVEEN on CPAP Bronchitis Obstructive sleep apnea on CPAP Obesity Sleep apnea COVID-19 vaccine series completed Arthritis COPD (chronic obstructive pulmonary disease) Skin cancer Status post placement of implantable loop recorder BPH (benign prostatic hyperplasia) Paroxysmal atrial fibrillation Obesity Erectile dysfunction Urgency of micturition Hypertension Surgical History History of prostate surgery H/O colonoscopy History of cystoscopy Hx of total knee arthroplasty History of carpal tunnel release History of surgery Family History Father Medical history unknown Mother Lung cancer Social History Household Members: None Housing: House Alcohol intake: current Alcohol intake frequency: 3 or more drinks per day Alcohol type: beer Patient Tobacco Use Status: Former Tobacco user Tobacco use type: Cigarette Cigarette Packs Per Day: 2 Years Smoked: 30 e-Cigarette/Vaping Use: Never Used Second Hand Smoke Exposure: Yes Advance Directives Date on File: 04/12/25 service: No Current occupational status: retired Current occupation: Right Cognitive needs: No Hearing needs: No Vision needs: No Review of Systems Const All systems reviewed & are unremarkable except as noted in HPI and below Physical Exam Vital Signs: Last Vital Signs Pulse 74 05/25/25 09:46 BP 120/60 05/25/25 09:46 Pulse Ox 92 05/25/25 09:46 Oxygen Delivery Method Room Air 05/25/25 09:46 BMI result Body Mass Index 38.4 Const General: comfortable and no acute distress Orientation/consciousness: patient oriented x3 HEENT Head: Yes normocephalic Mouth: Normal oral and palatal mucosa present Eyes EOM: EOMs intact bilaterally Neck Neck: Yes supple Resp Auscultation: clear to auscultation bilaterally Cardio Jugular venous distension: no JVD Rate: regular rate GI Palpation (GI): Soft to palpation Auscultation: normal bowel sounds General: Yes no CVA tenderness Back/Spine/Pelvis Back: no CVA tenderness Skin General skin exam: no rashes or lesions noted Neuro General: patient oriented x3 and moves all extremities Extrem General: Yes no pedal edema Results Reviewed Nephrology Results: Hgb, (14.0-18.0) 14.9 g/dl 05/18/25 WBC, (4.8-10.8) 17.0 X10*3/uL H 05/18/25 Plt Count, (160-400) 316 X10*3/uL 05/18/25 Sodium, (135-145) 142 mmol/L 05/18/25 Potassium, (3.3-5.1) 4.5 mmol/L 05/18/25 Chloride, (96-108) 108 mmol/L 05/18/25 Carbon Dioxide, (22-29) 27 mmol/L 05/18/25 BUN, (9-16) 16 mg/dL 05/18/25 Creatinine, (0.5-1.4) 1.25 mg/dL 05/18/25 Calcium, (8.4-10.2) 9.1 mg/dL 05/18/25 Renal US 07/14/24 Assessment & Plan Assessment & Plan (1) Renal cyst: Code(s): N28.1 - Cyst of kidney, acquired Category: Medical (2) CKD stage 3a, GFR 45-59 ml/min: Code(s): N18.31 - Chronic kidney disease, stage 3a Category: Medical Plan Mr Moreno likely has CKD from vascular disease and age-related loss of renal function. His blood pressure at goal. His renal ultrasound and Doppler of renal arteries were reviewed. I discontinued his hydrochlorothiazide at one of the previous visits and asked him to continue lisinopril and metoprolol for now. He should maintain good hydration and avoid nonsteroidal anti-inflammatories. He has no orthostatic symptoms. He may be a candidate for Jardiance in the future. All questions answered Orders: Orders Protein Creatinine Ratio, Ur 6 Months N18.31 - Chronic kidney disease, stage 3a Blood Urea Nitrogen 6 Months N18.31 - Chronic kidney disease, stage 3a Creatinine 6 Months N18.31 - Chronic kidney disease, stage 3a Electrolytes 6 Months N18.31 - Chronic kidney disease, stage 3a Coding Level of Care Code Est Pt Level 4 (66027) Diagnoses Renal cyst N28.1 CKD stage 3a, GFR 45-59 ml/min N18.31
[2025-05-25 09:46] VITALS: BP 120/60; PULSE 74; O2SAT 92; BMI 38.4
--- OUTSIDE RECORDS SUMMARY | 2025-05-25 10:28 | XMS_ITS | Patient Health Record ---
Author Organization [facility] Address [address] [place] [address] Care Team Providers Care Studio Set Up Worker Name Role Phone DIVINA CABRERA Primary Care Provider Jef Bob Unavailable [phone] Reason For Referral No Information Medications Medication [...] Problem Status W/U Status Risk Notes Problem 787430217 Encounter for screening for malignant neoplasm of colon (Z12.11) Active confirmed Problem 343818571 History of adenomatous polyp of colon (Z86.010) Active confirmed Problem History of polyp of colon (situation) (999346993) Personal history of colonic polyps (Z86.010) Active confirmed Problem 75932860 Preprocedural examination (Z01.818) Active confirmed Problem 201308665 Encounter for long-term (current) use of NSAIDs (Z79.1) Active confirmed Plan Of Treatment Future Test Test Name Order Date COLONOSCOPY 06/29/2015 Insurance Providers Payer Name Payer Address Payer Phone Subscriber Number Group Number Insured Name Patient Relationship to Insured Coverage Start Date Coverage End Date MEDICARE OF [place] [address] [place] [address] [id number] MINO HIDALGO Self - patient is the insured [facility] SUPPLEMENTAL PLAN [address] [place] [address] [id number] MINO HIDALGO Self - patient is the insured Medical (General) History Medical History History ICD Code HTN Tubular adenomas removed in 2004 and 02/2010--his colonoscopies also revealed sigmoid diverticulosis and internal hemorrhoids Sleep apnea--does not use CPAP(although he was told that he should) COPD Denies NV,DM,CVA,renal disease Renal cysts Surgical History Surgery Date(Month/Year) Back surgery Sinus surgery
== END 2025-05-25 10:06 | disposition home or self-care (01) ==
LOC: HO.HKA 09:36
PROVIDERS: PCP Physician Assistant; Visit Provider Internal Medicine Nephrology
DX: N28.1 Cyst of kidney, acquired (principal); N18.31 Chronic kidney disease, stage 3a
CPT/HCPCS: 99214

== ENCOUNTER → 2025-05-25 09:35 | Outpatient (BNVA) | payer MEDICARE, SELFPAY ==
[2023-08-05 07:17] VITALS: BP 112/48; BP 122/56; BP 142/76; BMI 37.8
== END ==
PROVIDERS: PCP Physician Assistant; Visit Provider Internal Medicine Nephrology
DX: N18.31 Chronic kidney disease, stage 3a (principal); N28.1 Cyst of kidney, acquired
CPT/HCPCS: 99212

== ENCOUNTER 2025-06-01 09:48 | Outpatient (AMB) | payer MEDICARE, SELFPAY ==
[2023-08-05 07:17] VITALS: BP 112/48; BP 122/56; BP 142/76; BMI 37.8
[2025-06-01 10:00] VITALS: BP 110/52; PULSE 75; O2SAT 94; BMI 37.5
--- NOTE | 2025-06-01 10:00 | MHC.OFFVIS ---
Vital Signs 06/01/25 10:00 Height 5 ft 8 in Weight 246 lb 14.684 oz BMI 37.5 BP 110/52 L Blood Pressure Location Lt brachial Position Sitting Pulse 75 Pulse Source Pulse Oximeter Pulse Oximetry (%) 94 Oxygen Delivery Method Room Air Intake Visit Reasons: Obstructive sleep apnea Intake Note: pt is here for follow up and states he is feeling pretty good, bro is going well, was in [facility] [place] about a month ago for pneumonia. Placement Manager Required: No Set Up Mechanic Heading Machines: Set Up Mechanic Heading Machines offered & declined Allergies No Known Allergies Allergy (Verified 06/01/25 10:06) Do you need a note to return to daycare/school/sports/work: No HPI HPI Obstructive sleep apnea: Details: This 79 years old very pleasant gentleman is here for his routine follow-up for COPD and obstructive sleep apnea. In mid March he was admitted to the hospital with acute pneumonia . Since then he has had no recurrence of bronchitis or pneumonia. He does have intermittent cough as usual. He walks around without much shortness of breath. Sleeps with his CPAP on regularly. His COPD symptoms are controlled with use of Spiriva HandiHaler and albuterol as needed [facility] Medical History (Updated 06/01/25 @ 10:30 by Mann Chester MD) COPD (chronic obstructive pulmonary disease) CKD stage 3a, GFR 45-59 ml/min Post-nasal drip Sore of lower lip Community acquired bacterial pneumonia Chronic lymphocytic leukemia CLL (chronic lymphocytic leukemia) BRO on CPAP Bronchitis Obstructive sleep apnea on CPAP Obesity Sleep apnea COVID-19 vaccine series completed Arthritis Skin cancer Status post placement of implantable loop recorder BPH (benign prostatic hyperplasia) Paroxysmal atrial fibrillation Obesity Erectile dysfunction Urgency of micturition Hypertension Surgical History History of prostate surgery H/O colonoscopy History of cystoscopy Hx of total knee arthroplasty History of carpal tunnel release History of surgery Family History Father Medical history unknown Mother Lung cancer Social History Household Members: None Housing: House Alcohol intake: current Alcohol intake frequency: 3 or more drinks per day Alcohol type: beer Patient Tobacco Use Status: Former Tobacco user Tobacco use type: Cigarette Cigarette Packs Per Day: 2 Years Smoked: 30 e-Cigarette/Vaping Use: Never Used Second Hand Smoke Exposure: Yes Advance Directives Date on File: 04/12/25 service: No Current occupational status: retired Current occupation: Right Cognitive needs: No Hearing needs: No Vision needs: No Review of Systems Const All systems reviewed & are unremarkable except as noted in HPI and below Eyes Reports no additional complaints ENT Reports no additional complaints Card Denies chest pain, Denies irregular heart rhythm and Denies leg edema Resp Reports as per HPI (He has increased cough and congestion for the last 3-4 weeks) GI Reports no additional complaints Reports no additional complaints Musc Reports no additional complaints Skin/Breast Reports system reviewed and no additional complaints, except as documented Neuro Reports no additional complaints Psych Reports no additional complaints Physical Exam Vital Signs: Last Vital Signs Pulse 75 06/01/25 10:00 BP 110/52 L 06/01/25 10:00 Pulse Ox 94 06/01/25 10:00 Oxygen Delivery Method Room Air 06/01/25 10:00 BMI result Body Mass Index 37.5 Const Other: Patient is grossly obese with a round face, short and obese neck. General: comfortable, no acute distress, alert and awake Orientation/consciousness: patient oriented x3 HEENT Head: Yes normal to inspection General nose exam: No nasal polyps present, mucous membranes and turbinates abnormal (MODERATE HYPERTROPHY OF THE NASAL TURBINATES) and No nasal discharge present Face and sinus: Yes sinuses nontender Mouth: oropharynx abnormals (Oropharynx is narrow and crowded, Mallampati class 4.) Throat: Yes posterior oropharynx normal Eyes General: appearance normal, both eyes and all related structures Neck Neck: Yes normal visual inspection, Yes no lymphadenopathy, Yes trachea midline and Yes no JVD Thyroid: Thyroid normal Chest Chest palpation & inspection: normal inspection of the chest, normal palpation of entire chest wall and no tenderness Resp Other: Percussion note resonant, breath sounds are diminished and distant with prolonged expiratory phase. There are no wheezes , rhonchi or crepitations heard today . Cardio Palpation: normal PMI Rate: regular rate Rhythm: regular rhythm Heart sounds: no gallops and no murmurs GI Palpation (GI): Soft to palpation, nontender, No hepatosplenomegaly present, no masses and Other GI palpation findings present (Abdomen is obese and protuberant) Auscultation: normal bowel sounds Back/Spine/Pelvis Thoracic/Lumbar Spine: thoracic and lumbar spine normal to inspection and thoraco-lumbar ROM limited Skin General skin exam: no rashes or lesions noted Neuro General: patient oriented x3 and no focal motor deficits Cranial nerves: Yes CN's II-XII intact bilaterally Extrem General: Yes normal to inspection, Yes no clubbing, cyanosis or edema and Yes no calf tenderness Psych Appearance: grossly normal and well kempt Speech and movement: Normal speech and movement present Results Reviewed Results Reviewed: Compliance report for the last 30 nights is reviewed. He has used 25-30 nights, 83%. For the 5 nights at start of April he was in the hospital. Average usage per night 6 hours 31 minutes. There is some air leak. Residual AHI 2.0 Assessment & Plan Assessment & Plan (1) Obstructive sleep apnea on CPAP: Comment: Patient does have CHRONIC OBSTRUCTIVE SLEEP APNEA ,which is well controlled with the use of CPAP. He is a regular user of CPAP and sleeps fairly good. Got the new RESMED CPAP model, earlier this year and has been doing very well. Air leak is noted and I instructed him to tighten the straps. There is an issue with the humidification. , . Does not use much water His compliance has been good. Code(s): G47.33 - Obstructive sleep apnea (adult) (pediatric); Z99.89 - Dependence on other enabling machines and devices Category: Medical Plan: Commended for good compliance and advised to keep on using the CPAP every night at least for 6 hours. Tighten the straps little bit mode. Do use the water in the water tank for humidification . (2) COPD (chronic obstructive pulmonary disease): Comment: Known case of chronic obstructive pulmonary disease, moderately severe. Clinically seems to be stable . He remains prone to have frequent acute exacerbations mainly due to acute bronchitis, lately he has been free of any exacerbations. Code(s): J44.9 - Chronic obstructive pulmonary disease, unspecified Category: Medical Qualifiers: COPD type: chronic bronchitis Chronic bronchitis type: simple Qualified Code(s): J41.0 - Simple chronic bronchitis Plan: Spiriva HandiHaler 1 inhalation daily Albuterol HFA 2 puffs Q 6 hours p.r.n. Coding Level of Care Code Est Pt Level 3 (50721) Diagnoses Obstructive sleep apnea on CPAP G47.33; Z99.89 Simple chronic bronchitis J41.0 COPD type: chronic bronchitis Chronic bronchitis type: simple
== END 2025-06-01 10:25 | disposition home or self-care (01) ==
LOC: HO.HPS 09:49
PROVIDERS: PCP Physician Assistant; Visit Provider Internal Medicine
DX: G47.33 Obstructive sleep apnea (adult) (pediatric) (principal); Z99.89 Dependence on other enabling machines and devices; J41.0 Simple chronic bronchitis
CPT/HCPCS: 99213

== ENCOUNTER → 2025-06-01 09:48 | Outpatient (BNVA) | payer MEDICARE, SELFPAY ==
[2023-08-05 07:17] VITALS: BP 112/48; BP 122/56; BP 142/76; BMI 37.8
== END ==
PROVIDERS: PCP Physician Assistant; Visit Provider Internal Medicine
DX: G47.33 Obstructive sleep apnea (adult) (pediatric) (principal); J41.0 Simple chronic bronchitis; Z99.89 Dependence on other enabling machines and devices
CPT/HCPCS: 99212

== ENCOUNTER 2025-06-13 13:42 | Outpatient (AMB) | payer MEDICARE, SELFPAY ==
[2023-08-05 07:17] VITALS: BP 112/48; BP 122/56; BP 142/76; BMI 37.8
[2025-06-13 13:51] VITALS: BP 110/62; PULSE 66; BMI 38.1
--- NOTE | 2025-06-13 13:51 | A.OFFVIS_ITS ---
Vital Signs 06/13/25 13:51 Height 5 ft 8 in Weight 250 lb 14.177 oz BMI 38.1 BP 110/62 Blood Pressure Location Lt brachial Position Sitting Pulse 66 Pulse Source Pulse Oximeter Intake Visit Reasons: 6 mth f/up DC Intake Note: 6 mth f/up Machined Parts Quality Inspector Required: No Accompanied by: Self / Same As Patient Allergies No Known Allergies Allergy (Verified 06/01/25 10:06) Medication List - Last Reconciled 06/13/25 by John Townsend MD acetaminophen ER (Tylenol Arthritis Pain) 650 mg PO Q12H PRN albuterol sulfate 90 mcg/actuation 2 puffs PO Q6H PRN apixaban (Eliquis) 5 mg PO BID 90 days cholecalciferol (vitamin D3) 25 mcg PO DAILY CPAP (CPAP Machine/Device) 12CM H20 PREVIOUS MACHINE HAS BEEN RECALLED AND NOW NEEDS A NEW MACHINE BHAVANA fluticasone furoate 27.5 mcg/actuation (Flonase Sensimist) 1 spray intranasal BID lisinopril 10 mg PO DAILY metoprolol succinate ER 50 mg PO DAILY multivitamin 1 tab PO DAILY mupirocin 2% 1 appl topical BID tamsulosin 0.4 mg PO BID tiotropium bromide (Spiriva with HandiHaler) 1 cap inhalation DAILY HPI Comments Details: 79-year-old gentleman here for follow-up. He was thought to have atrial fibrillation when he presented emergency department but no EKG or telemetry strips were documented. He was started on anticoagulation. After that he had cardiac event monitor followed by implantable loop recorder. So far no evidence of atrial fibrillation was seen and he was taken off the anticoagulation. He is denying any symptoms. He has no chest pain or shortness breath otherwise. No palpitations. We have been interrogating in the implantable loop recorder and there has not been any episodes of atrial fibrillation and he continues to be off anticoagulation. Blood pressure is little low but he has no dizziness or lightheadedness. His denying any chest discomfort. He is saying he exercises in approved daily. He has back issues and previous right knee replacement. 08/11/2023: He returns for follow-up. He is doing well. No palpitations. No chest discomfort shortness of breath. He has noticed some bruising on his arm and does after lb. I have explained to him that this is somewhat expected with Eliquis. He does not have any GI or bleed. 02/04/2024: He is here for follow-up. No palpitations. No chest pain or shortness of breath. He has obstructive sleep apnea and he has been using CPAP at night. Blood pressure is well controlled. Denying any exertional symptoms. No bleeding. He is asking about Eliquis that how long he will be on it. I have explained to him that he has atrial fibrillation and usually Eliquis is long- term drug. 05/2025: He is here for follow-up. He is complaining of some dyspnea with activities. He is on Eliquis without any concerns currently. Denying any palpitations. No chest discomfort. [facility] Medical History COPD (chronic obstructive pulmonary disease) CKD stage 3a, GFR 45-59 ml/min Post-nasal drip Sore of lower lip Community acquired bacterial pneumonia Chronic lymphocytic leukemia CLL (chronic lymphocytic leukemia) PRAVEEN on CPAP Bronchitis Obstructive sleep apnea on CPAP Obesity Sleep apnea COVID-19 vaccine series completed Arthritis Skin cancer Status post placement of implantable loop recorder BPH (benign prostatic hyperplasia) Paroxysmal atrial fibrillation Obesity Erectile dysfunction Urgency of micturition Hypertension Surgical History History of prostate surgery H/O colonoscopy History of cystoscopy Hx of total knee arthroplasty History of carpal tunnel release History of surgery Family History Father Medical history unknown Mother Lung cancer Social History Household Members: None Housing: House Alcohol intake: current Alcohol intake frequency: 3 or more drinks per day Alcohol type: beer Patient Tobacco Use Status: Former Tobacco user Tobacco use type: Cigarette Cigarette Packs Per Day: 2 Years Smoked: 30 e-Cigarette/Vaping Use: Never Used Second Hand Smoke Exposure: Yes Advance Directives Date on File: 04/12/25 service: No Current occupational status: retired Current occupation: Right Cognitive needs: No Hearing needs: No Vision needs: No Review of Systems Const Denies chills, Denies fatigue, Denies fever(s), Denies frequent falls, Denies weakness, Denies weight gain and Denies weight loss ENT Denies dizziness Card Denies chest pain, Denies leg edema, Denies lightheadedness, Denies palpitations, Denies dyspnea and Denies dyspnea on exertion Resp Denies cough, Denies dyspnea and Denies dyspnea on exertion GI Denies hematochezia Musc Denies abnormal gait, Denies muscle weakness, Denies numbness, Denies radiating pain into limb and Denies tingling Neuro Denies abnormal gait, Denies dizziness, Denies frequent falls, Denies numbness, Denies tingling and Denies weakness Endo Denies fatigue and Denies palpitations Physical Exam Vital Signs: Last Vital Signs Pulse 66 06/13/25 13:51 BP 110/62 06/13/25 13:51 BMI result Body Mass Index 38.1 GENERAL APPEARANCE: in no acute distress, pleasant. Obese. NECK: no carotid bruit, no jugular venous distention. SKIN: no suspicious lesions, warm and dry. HEART: no murmurs, regular rate and rhythm. LUNGS: clear to auscultation bilaterally. ABDOMEN: soft, nontender. EXTREMITIES: no edema. PERIPHERAL PULSES: equal. NEUROLOGIC: No gross deficits, AAO X 3 Assessment & Plan Assessment & Plan (1) PAF (paroxysmal atrial fibrillation): Code(s): I48.0 - Paroxysmal atrial fibrillation Category: Medical (2) GARCIA (dyspnea on exertion): Code(s): R06.09 - Other forms of dyspnea Category: Medical Plan Pleasant 79 year gentleman who is here for follow-up. He has background history of paroxysmal atrial fibrillation. He is currently on Eliquis and metoprolol succinate. Continues to be in sinus rhythm. Blood pressure control is good currently. He has COPD and he is overweight-he is complaining of dyspnea with activities. We discussed that dyspnea is multifactorial and most patients especially with lung disease and obesity but he also has risk factors for coronary disease. I have advised him to do a coronary CTA which we will arrange for him. He will follow up with us in few months. Thank you for allowing me to participate in the care of your patient. Please feel free to contact me if you have any questions. Orders: Orders CT Cardiac Coronary Angio Today Basic Metabolic Panel Today R06.09 - Other forms of dyspnea Coding Level of Care Code Est Pt Level 4 (88884) Diagnoses PAF (paroxysmal atrial fibrillation) I48.0 GARCIA (dyspnea on exertion) R06.09
--- OUTSIDE RECORDS SUMMARY | 2025-06-13 16:56 | XMS_ITS | Patient Health Record ---
Author Organization [facility] Address [address] [place] [address] Care Team Providers Care Rn Dialysis Name Role Phone DIVINA CABRERA Primary Care Provider Jef Bob Unavailable [phone] Reason For Referral No Information Medications Medication SIG (Take, Route, Frequency, Duration) Notes Start Date End Date Status Multivitamin/Minerals Active Lisinopril Active Colyte w Flavor Packs 240 GM as directed Orally as directed; Duration: 1 day(s) 06/30/2015 Active Aleve 220 MG [...] Problem Status W/U Status Risk Notes Problem Screening for malignant neoplasm of colon (690888108) Encounter for screening for malignant neoplasm of colon (Z12.11) Active confirmed Problem History of adenomatous polyp of colon (641833251) History of adenomatous polyp of colon (Z86.010) Active confirmed Problem History of polyp of colon (situation) (105755102) Personal history of colonic polyps (Z86.010) Active confirmed Problem Preprocedural examination (939775055809314) Preprocedural examination (Z01.818) Active confirmed Problem [facility] current use of non-steroidal anti-inflammatory drug (049965344453905) Encounter for long-term (current) use of NSAIDs (Z79.1) Active confirmed Plan Of Treatment Future Test Test Name Order Date COLONOSCOPY 06/29/2015 Insurance Providers Payer Name Payer Address Payer Phone Subscriber Number Group Number Insured Name Patient Relationship to Insured Coverage Start Date Coverage End Date MEDICARE OF [place] [address] [place] [address] [phone] [id number] MINO HIDALGO Self - patient is the insured [facility] SUPPLEMENTAL PLAN [address] [place] [address] [id number] MINO HIDALGO Self - patient is the insured Medical (General) History Medical History History ICD Code HTN Tubular adenomas removed in 2004 and 02/2010--his colonoscopies also revealed sigmoid diverticulosis and internal hemorrhoids Sleep apnea--does not use CPAP(although he was told that he should) COPD Denies [place],DM,CVA,renal disease Renal cysts Surgical History Surgery Date(Month/Year) Back surgery Sinus surgery
== END 2025-06-13 14:18 | disposition home or self-care (01) ==
LOC: HO.HCS 13:43
PROVIDERS: PCP Physician Assistant; Visit Provider Internal Medicine Cardiovascular Disease
DX: I48.0 Paroxysmal atrial fibrillation (principal); R06.09 Other forms of dyspnea
CPT/HCPCS: 99214

== ENCOUNTER → 2025-06-13 13:42 | Outpatient (BNVA) | payer MEDICARE, SELFPAY ==
[2023-08-05 07:17] VITALS: BP 112/48; BP 122/56; BP 142/76; BMI 37.8
== END ==
PROVIDERS: PCP Physician Assistant; Visit Provider Internal Medicine Cardiovascular Disease
DX: I48.0 Paroxysmal atrial fibrillation (principal); R06.09 Other forms of dyspnea
CPT/HCPCS: 99212

== ENCOUNTER 2025-06-18 07:14 | Emergency (ER) | payer MEDICARE, SELFPAY ==
[2023-08-05 07:17] VITALS: BP 112/48; BP 122/56; BP 142/76; BMI 37.8
--- NOTE | ~2025-06-18 | CT_ITS ---
CLINICAL HISTORY: fall, on anti-coags CT cervical spine without contrast Comparison: None Findings: There is straightening of the normal cervical lordosis. No fracture or acute malalignment. Multilevel degenerative changes with disc space narrowing throughout the cervical spine. Diffuse endplate sclerosis and marginal osteophyte formation. The facet joints are normally imbricated. No prevertebral soft tissue edema. Lung apices demonstrate no acute process. Impression: Multilevel degenerative changes without evidence of acute fracture or acute malalignment. This document has been electronically signed by: Miguelangel Stacy MD on 06/18/2025 11:18:17
--- NOTE | ~2025-06-18 | XR_ITS ---
CLINICAL HISTORY: cough 1 view chest x-ray. Comparison: CR - XR CHEST 2V - 04/10/25 15:09 EDT Findings: The lungs are adequately expanded. No focal consolidation. No effusion or pneumothorax. Mild interstitial prominence. Cardiac and mediastinal contours are prominent but stable. No acute osseous abnormality Impression: Mild interstitial changes with no overt edema. This document has been electronically signed by: Miguelangel Stacy MD on 06/18/2025 10:12:01
--- NOTE | ~2025-06-18 | XR_ITS ---
CLINICAL HISTORY: fall 4 view left knee Comparison: None provided Findings: No fractures or dislocations. Mild tricompartmental degenerative change. No joint effusion. No radiopaque foreign body. IMPRESSION: 1. No acute findings. 2. Mild tricompartmental degenerative change. This document has been electronically signed by: Miguelangel Stacy MD on 06/18/2025 10:10:38
--- NOTE | ~2025-06-18 | XR_ITS ---
CLINICAL HISTORY: fall 3 view left ankle Comparison: None provided Findings: Bones intact. No dislocations. Moderate degenerative changes of the left ankle. Mild soft tissue edema present. Calcaneal spurs. No ankle effusion. No radiopaque foreign body. IMPRESSION: Moderate degenerative changes. No evidence of acute fracture. This document has been electronically signed by: Miguelangel Stacy MD on 06/18/2025 10:15:07
--- NOTE | ~2025-06-18 | CT_ITS ---
CLINICAL HISTORY: fall, on anti-coags CT head without contrast Comparison: None Findings: Reference sagittal image 66 within the left anterior frontal region there is the question of a small (6 mm) intraparenchymal hemorrhagic contusion. This is in the region of significant artifact and may be artifactual. No evidence of acute territorial infarct. There is patchy low density in the periventricular and subcortical white matter. Diffuse volume loss is noted. No hydrocephalus. No mass effect, mass lesion or midline shift. No calvarial fracture. Left maxillary sinus mucoperiosteal thickening. Impression: Questionable 6 mm left frontal intraparenchymal hemorrhagic contusion. This is in the region of significant artifact and may be artifactual; however, given history short interval follow-up is recommended. This document has been electronically signed by: Miguelangel Stacy MD on 06/18/2025 11:24:32
--- NOTE | ~2025-06-18 | XR_ITS ---
CLINICAL HISTORY: fall AP pelvis and two views of the left hip Comparison: None provided Findings: No acute fracture or dislocation. Moderate degenerative changes of the bilateral femoral-acetabular joints. The soft tissues are unremarkable. IMPRESSION: Moderate degenerative changes. No fracture or malalignment detected. This document has been electronically signed by: Miguelangel Stacy MD on 06/18/2025 10:11:31
[2025-06-18 07:27] VITALS: BP 154/76; BP 160/100; PULSE 90; PULSE 95; RESP 18; TEMP 36.6; O2SAT 93; O2SAT 95; BMI 37.7
--- NOTE | 2025-06-18 07:41 | PC.NURSE ---
patient a&ox3, vss, rr equal/non labored- pt states last month he was admitted here for pneumonia, he had a notable cough upon triage- pt had fine crackles to the bases upon auscultation. c/o left leg pain- notable outward rotation of left leg, pt also stating he has left ankle pain- notable swelling to lt ankle area. He is unsure how long he was down before calling 9a- pt is on thinners- eliquis. c/o 8/10 overall pain. pt awaiting provider evaluation, labs and xr.
--- NOTE | 2025-06-18 08:12 | ED_ITS ---
HPI - General Adult General Chief complaint: Fall Stated complaint: Fell off bed, down for couple of hours per EMS Time Seen by Provider: 06/18/25 08:02 Source: patient, family (patient's daughter provided additional history and confirmed the history provided by the patient) and EMS Mode of arrival: EMS Limitations: no limitations History of Present Illness ED Provider: Edelmira Balbuena PA-C HPI narrative: Patient is an 79 year old assigned male at with a history of afib on eliquis, CKD stage 3, COPD (not on home oxygen), PRAVEEN, back pain, hypertension, and CLL presenting to the emergency department today with left ankle pain, knee pain, and acute on chronic low back pain after a fall. Patient states that he was home when he got up to go to the bathroom and slid down, unable to get back up. Patient states that he did not hit his head or have any loss of consciousness. Patient states that his left ankle hurt, left knee, and back hurt. Patient states that his back always hurts and this is not new but the knee and ankle are. Patient denies any other complaints at this time. Related Data Home Medications ?Medication ?Instructions ?Recorded ?Confirmed cholecalciferol (vitamin D3) 25 25 mcg PO DAILY 06/13/25 mcg (1,000 unit) capsule multivitamin 1 tab PO DAILY 02/14/2305/26 acetaminophen 650 mg 650 mg PO Q12H PRN Pain 03/2506/13/25 tablet,extended release (Tylenol Arthritis Pain) tamsulosin 0.4 mg capsule 0.4 mg PO BID 04/11/2506/13 Previous Rx's ?Medication ?Instructions ?Recorded CPAP (CPAP Machine/Device) #1 ea 06/13/21 lisinopril 10 mg tablet 10 mg PO DAILY #90 tabs 12/23 05/19 tiotropium bromide 18 mcg capsule 1 cap inhalation SATNAM LY #90 01/18/25 with inhalation device (Spiriva inhalations with HandiHaler) fluticasone furoate 27.5 1 spray intranasal BID #18.2 mL 04/22/25 mcg/actuation nasal spray,suspension (Flonase Sensimist) mupirocin 2 % topical ointment 1 appl topical BID #15 grams 08/29/25 albuterol sulfate 90 mcg/actuation 2 puff PO Q6H PRN b ronchospasm #18 05/12/25 aerosol inhaler grams apixaban 5 mg tablet (Eliquis) 5 mg PO BID 90 days #18 0 tabs 05/30/25 metoprolol succinate 50 mg 50 mg PO DAILY #90 tabs 06/18 tablet,extended release 24 hr Allergies Allergy/AdvReac Type Severity Reaction Status Date / Time No Known Allergies Allergy Verified 06/18/25 07:29 Review of Systems 2 Constitutional: Constitutional: Reports as per HPI Eyes: Eyes: Reports as per HPI ENT: Reports as per HPI Cardiovascular: Cardiovascular: Reports as per HPI Respiratory: Respiratory: Reports as per HPI Gastrointestinal: Gastrointestinal: Reports as per HPI Genitourinary: Genitourinary: Reports as per HPI Musculoskeletal: Musculoskeletal: Reports as per HPI Integumentary/Breasts: Skin/Breast: Reports as per HPI Neurologic: Reports as per HPI Psychiatric: Psychiatric: Reports as per HPI Endocrine: Endocrine: Reports as per HPI Hematologic/Lymphatic: Hematologic/Lymphatic: Reports as per HPI Allergic/Immunologic: Allergic/Immunologic: Reports as per HPI PMF Past Medical History Attestation statement: The following information was validated with the patient. Source: old records reviewed and nursing notes reviewed Medical History COPD (chronic obstructive pulmonary disease) CKD stage 3a, GFR 45-59 ml/min Post-nasal drip Sore of lower lip Community acquired bacterial pneumonia Chronic lymphocytic leukemia CLL (chronic lymphocytic leukemia) PRAVEEN on CPAP Bronchitis Obstructive sleep apnea on CPAP Obesity Sleep apnea COVID-19 vaccine series completed Arthritis Skin cancer Status post placement of implantable loop recorder BPH (benign prostatic hyperplasia) Paroxysmal atrial fibrillation Obesity Erectile dysfunction Urgency of micturition Hypertension Surgical History History of prostate surgery H/O colonoscopy History of cystoscopy Hx of total knee arthroplasty History of carpal tunnel release History of surgery Family History Family History Father Medical history unknown Mother Lung cancer Social History Social History Household Members: None Housing: House Alcohol intake: current Alcohol intake frequency: 3 or more drinks per day Alcohol type: beer Patient Tobacco Use Status: Former Tobacco user Tobacco use type: Cigarette Cigarette Packs Per Day: 2 Years Smoked: 30 Smoked in Last 30 Days: No e-Cigarette/Vaping Use: Never Used Second Hand Smoke Exposure: Yes Use of substances other than those prescribed or required for medical reasons: No Advance Directives: Yes Advance Directives on File: Yes Advance Directives Date on File: 04/12/25 Do you have a plan to hurt others: No Plan service: No Current occupational status: retired Current occupation: [employer] Cognitive needs: No Hearing needs: No Vision needs: No Physical Exam ED Vital Signs: Vital Signs - 24 hr 06/18/25 07:27 06/18/25 11:08 06/18/25 11:52 Temperature 97.8 F 98.2 F Pulse Rate 90 90 87 Respiratory Rate 18 16 Blood Pressure 154/76 H 154/76 H 143/72 H Pulse Oximetry 93 93 93 Oxygen Delivery Method Room Air Room Air BMI result Body Mass Index 37.7 Const General: cooperative, no acute distress, alert and awake Nutritional Appearance: well nourished Orientation/consciousness: patient oriented x3 HENMT Head: Yes normal to inspection and Yes atraumatic Ears: hearing grossly normal bilaterally and external ears normal General nose exam: Normal external nose present, no nasal discharge noted and no epistaxis Face and sinus: Yes normal facial exam, No abrasion and No laceration Mouth: Normal oral and palatal mucosa present, no drooling and no muffled voice Eyes General: appearance normal, both eyes and all related structures Periorbital: periorbital findings normal Eyelids: Yes eyelids normal Conjunctivae: conjunctivae normal Pupils: Equal, round and reactive pupils present EOM: EOMs intact bilaterally Neck Neck: Yes normal visual inspection and Yes full ROM Resp Effort & Inspection: normal respiratory effort and able to speak in complete sentences Neuro General: patient oriented x3, moves all extremities and CN's II-XI intact bilaterally Cranial nerves: Yes Equal, round and reactive pupils present Cognition (Neuro): normal cognition Extrem General: Yes normal to inspection, Yes full ROM and Yes capillary refill normal Psych Appearance: grossly normal Mental Status: mental status grossly normal Affect: normal affect Attitude: cooperative Thought process: Normal thought process present Thought content: Normal thought content present Insight: Good insight present (Psych) Medical Decision Making Medical Decision Making MDM Narrative: Patient is an 79 year old assigned male at with a history of afib on eliquis, CKD stage 3, COPD (not on home oxygen), PRAVEEN, back pain, hypertension, and CLL presenting to the emergency department today with left ankle pain, knee pain, and acute on chronic low back pain after a fall. Patient's physical exam was as noted in the physical exam portion of this note. Patient's blood work showed a chronically elevated WBC count secondary to his CLL and was otherwise unremarkable. Patient's left ankle, left knee, left hip / pelvis, and chest x-ray all showed no acute process. Patient's CT c-spine was negative for any acute process. Patient's CT head showed a questionable 6mm left frontal intraparenchymal hemorrhagic contusion. Given patient has fallen and is on anti-coagulation medication (Eliquis), I called and spoke to the [facility] trauma surgeon Dr. Arroyo who accepted the patient as a trauma consult transfer. Recommended giving reversal agent for Eliquis. I explained my physical exam findings as well as all test results to the patient and the patient's daughter. I answered all questions asked by the patient and the patient's daughter. Differential Diagnosis Differential Diagnoses: The differential diagnosis associated with the presentation includes Fall Intracranial hemorrhage Ankle fracture Ankle sprain Ankle strain Knee sprain Knee strain Knee pain Admission/Observation Consideration of admission/observation: Escalation of care including admission/observation considered Patient transferred to [facility] as noted in the MDM Rationale portion of this note, accepted by Consult Healthcare Provider Management of the patient was discussed with: Rn Camp (spoke to Dr. Arroyo at [facility] as noted in the MDM Rationale portion of this note. ) Lab Data [facility] Lab Attestation statement: I reviewed the patient's lab results. My interpretation of these results are in the MDM Rationale portion of this note. 06/18/25 08:34 06/18/25 08:34 Labs: Lab Results 06/18/25 06/18/25 06/18/25 Range/Units 08:34 10:48 11:12 WBC 19.3 H (4.8-10.8) X10*3/uL RBC 4.91 (4.60-5.80) X10*6/uL Hgb 15.4 (14.0-18.0) g/dl Hct 45.9 (42.0-52.0) % MCV 93.5 (80.0-98.0) fL MCH 31.4 (27.0-33.0) pg MCHC 33.6 (31.0-36.0) g/dl RDW 13.2 (11.0-16.0) % Plt Count 253 (160-400) X10*3/uL MPV 9.7 (9.4-12.4) fL Immature Gran % (Auto) 0.4 (0.0-0.4) % Neut % (Auto) 49.4 (45-73) % Lymph % (Auto) 40.7 H (20-40) % Pike % (Auto) 7.9 (2-11) % Eos % (Auto) 1.1 (0-4) % Baso % (Auto) 0.5 (0-2) % Lymph # (Auto) 7.9 H (1.2-4.9) X10*3/uL Pike # (Auto) 1.5 H (0.1-1.2) X10*3/uL Eos # (Auto) 0.2 (0.0-0.4) X10*3/uL Baso # (Auto) 0.1 (0.0-0.2) X10*3/uL Abs Immat Gran (auto) 0.07 H (0.00-0.03) X10*3/uL Absolute Neuts (auto) 9.6 H (2.0-8.3) x10*3/uL Absolute Nucleated RBC 0.000 (0.0-0.012) X10*3/uL Nucleated RBC % (auto) 0.0 (0.0-0.2) /100WBC Smear Tech's Comments VERIFIED Hold Blue Top SEE NOTE Sodium 142 (135-145) mmol/L Potassium 4.5 (3.3-5.1) mmol/L Chloride 110 H (96-108) mmol/L Carbon Dioxide 23 (22-29) mmol/L Anion Gap 14 (12-20) BUN 16 (9-16) mg/dL Creatinine 1.22 (0.5-1.4) mg/dL Estim Creat Clear Calc 58.7 Estimated GFR 57 Random Glucose 88 (60-115) mg/dL Calcium 9.1 (8.4-10.2) mg/dL Total Bilirubin 0.9 (0.0-1.0) mg/dL Direct Bilirubin 0.4 (0.0-0.5) mg/dL AST 27 (5-37) U/L ALT 12 (0-40) U/L Alkaline Phosphatase 87 (39-117) U/L Total Protein 6.7 (6.5-8.0) g/dL Albumin 4.2 (3.5-5.0) g/dL Lipase 16 (8-78) U/L Urine Color Yellow Urine Appearance Clear Urine pH 6.5 (5.0-9.0) Ur Specific Harman 1.010 (1.005-1.025) Urine Protein Negative (Neg-Trace) mg/dL Urine Glucose (UA) Negative (Negative) mg/dL Urine Ketones Negative (Negative) mg/dL Urine Blood Negative (Negative) Urine Nitrite Negative (Negative) Ur Leukocyte Esterase Negative (Negative) Ethyl Alcohol < 10 mg/dL COVID-19 (SHAWN) Negative (Negative) COVID-19 Clin Com See Note Independent Interpretation I performed an independent interpretation of an: EKG, Plain X-Ray and CT Scan Interpretation: My interpretation is in agreement with the radiologist's impression of these imaging studies. L Reason for Exam: fall CLINICAL HISTORY: fall 4 view left knee Comparison: None provided Findings: No fractures or dislocations. Mild tricompartmental degenerative change. No joint effusion. No radiopaque foreign body. IMPRESSION: 1. No acute findings. 2. Mild tricompartmental degenerative change. This document has been electronically signed by: Miguelangel Stacy MD on 06/18/2025 10:10:38 Dictated By: Miguelangel Stacy MD Signed By: Electronically signed by Miguelangel Stacy MD 06/18/25 1011 Reason for Exam: fall CLINICAL HISTORY: fall AP pelvis and two views of the left hip Comparison: None provided Findings: No acute fracture or dislocation. Moderate degenerative changes of the bilateral femoral-acetabular joints. The soft tissues are unremarkable. IMPRESSION: Moderate degenerative changes. No fracture or malalignment detected. This document has been electronically signed by: Miguelangel Stacy MD on 06/18/2025 10:11:31 Dictated By: Miguelangel Stacy MD Signed By: Electronically signed by Miguelangel Stacy MD 06/18/25 1012 Reason for Exam: cough CLINICAL HISTORY: cough 1 view chest x-ray. Comparison: CR - XR CHEST 2V - 04/10/25 15:09 EDT Findings: The lungs are adequately expanded. No focal consolidation. No effusion or pneumothorax. Mild interstitial prominence. Cardiac and mediastinal contours are prominent but stable. No acute osseous abnormality Impression: Mild interstitial changes with no overt edema. This document has been electronically signed by: Miguelangel Stacy MD on 06/18/2025 10:12:01 Dictated By: Miguelangel Stacy MD Signed By: Electronically signed by Miguelangel Stacy MD 06/18/25 101 Reason for Exam: fall CLINICAL HISTORY: fall 3 view left ankle Comparison: None provided Findings: Bones intact. No dislocations. Moderate degenerative changes of the left ankle. Mild soft tissue edema present. Calcaneal spurs. No ankle effusion. No radiopaque foreign body. IMPRESSION: Moderate degenerative changes. No evidence of acute fracture. This document has been electronically signed by: Miguelangel Stacy MD on 06/18/2025 10:15:07 Dictated By: Miguelangel Stacy MD Signed By: Electronically signed by Miguelangel Stacy MD 06/18/25 1015 CLINICAL HISTORY: fall, on anti-coags CT head without contrast Comparison: None Findings: Reference sagittal image 66 within the left anterior frontal region there is the question of a small (6 mm) intraparenchymal hemorrhagic contusion. This is in the region of significant artifact and may be artifactual. No evidence of acute territorial infarct. There is patchy low density in the periventricular and subcortical white matter. Diffuse volume loss is noted. No hydrocephalus. No mass effect, mass lesion or midline shift. No calvarial fracture. Left maxillary sinus mucoperiosteal thickening. Impression: Questionable 6 mm left frontal intraparenchymal hemorrhagic contusion. This is in the region of significant artifact and may be artifactual; however, given history short interval follow-up is recommended. This document has been electronically signed by: Miguelangel Stacy MD on 06/18/2025 11:24:32 Dictated By: Miguelangel Stacy MD Signed By: Electronically signed by Miguelangel Stacy MD 06/18/25 1152 Reason for Exam: fall, on anti-coags CLINICAL HISTORY: fall, on anti-coags CT cervical spine without contrast Comparison: None Findings: There is straightening of the normal cervical lordosis. No fracture or acute malalignment. Multilevel degenerative changes with disc space narrowing throughout the cervical spine. Diffuse endplate sclerosis and marginal osteophyte formation. The facet joints are normally imbricated. No prevertebral soft tissue edema. Lung apices demonstrate no acute process. Impression: Multilevel degenerative changes without evidence of acute fracture or acute malalignment. This document has been electronically signed by: Miguelangel Stacy MD on 06/18/2025 11:18:17 Dictated By: Migeulangel Stacy MD Signed By: Electronically signed by Miguelangel Stacy MD 06/18/25 1119 I independently interpreted this EKG and am in agreement with the below findings: Vent. Rate: 87 BPM Atrial Rate: 87 BPM P-R Int: 186 ms QRS Dur: 86 ms QT Int: 360 ms P-R-T Axes: * 11 32 degrees QTcB Int: 433 ms Sinus rhythm with occasional Premature ventricular complexes and Prematureatrial complexes Septal infarct, age undetermined When compared with ECG of 10-Apr-2025 16:26, Premature ventricular complexes are now Present Sinus rhythm is no longer with 2nd degree A-V block (Mobitz I) ST no longer depressed in Lateral leads DD/ 1101 Radiology Impression Discussion of test interpretation with radiology: I have reviewed the radiologist's reading. Independent Historian Clinical information obtained from an independent historian. History obtained from or confirmed by: EMS (EMS provided additional history and confirmed the history provided by the patient. ) and Other (Patient's daughter provided additional history and confirmed the history provided by the patient) External Record Review External record reviewed: Inpatient record and Outpatient record Discharge Plan Discharge Clinical Impression: Traumatic intraparenchymal hemorrhage, Ankle sprain, Fall Patient Disposition: [facility] Hospital Transfer Details: Accepted at [facility] with Dr. Arroyo Prescriptions: No Action (DME) CPAP Machine/Device Device See Rx Instructions .Route Qty: 1 0RF Rx Instructions: 12CM H20 PREVIOUS MACHINE HAS BEEN RECALLED AND NOW NEEDS A NEW MACHINE BHAVANA lisinopril 10 mg tablet 10 mg PO DAILY Qty: 90 3RF tiotropium bromide [Spiriva with HandiHaler] 18 mcg capsule, w/inhalation device 1 cap inhalation DAILY Qty: 90 5RF albuterol sulfate 90 mcg/actuation HFA aerosol inhaler 2 puff PO Q6H PRN (Reason: bronchospasm) Qty: 18 5RF Eliquis 5 mg tablet 5 mg PO BID 90 Days Qty: 180 3RF metoprolol succinate 50 mg tablet extended release 24 hr 50 mg PO DAILY Qty: 90 3RF acetaminophen [Tylenol Arthritis Pain] 650 mg tablet extended release 650 mg PO Q12H PRN (Reason: Pain) tamsulosin 0.4 mg capsule 0.4 mg PO BID Patient Comments: Pt states he does not take both at bed time he takes one in the morning and one at bedtime, even though he knows his provider told him to take dose at bedtime. Took half dose this AM. multivitamin Tablet 1 tab PO DAILY cholecalciferol (vitamin D3) 25 mcg (1,000 unit) capsule 25 mcg PO DAILY mupirocin 2 % ointment 1 appl topical BID Qty: 15 0RF Flonase Sensimist 27.5 mcg/actuation spray,suspension 1 spray intranasal BID Qty: 18.2 0RF Rx Instructions: into each nostril Print Language: Kazakh
--- OUTSIDE RECORDS SUMMARY | 2025-06-18 08:21 | XMS_ITS | Patient Health Record ---
Author Organization [facility] Address [address] [place] [address] Care Team Providers Care Radiographic Technologist Name Role Phone DIVINA CABRERA Primary Care Provider Jef Bob Unavailable [phone] Reason For Referral No Information Medications Medication [...] Problem Screening for malignant neoplasm of colon (300661036) Encounter for screening for malignant neoplasm of colon (Z12.11) Active confirmed Problem History of adenomatous polyp of colon (294408120) History of adenomatous polyp of colon (Z86.010) Active confirmed Problem History of polyp of colon (situation) (378874184) Personal history of colonic polyps (Z86.010) Active confirmed Problem Preprocedural examination (788781900290516) Preprocedural examination (Z01.818) Active confirmed Problem [facility] current use of non-steroidal anti-inflammatory drug (361380601530430) Encounter for long-term (current) use of NSAIDs (Z79.1) Active confirmed Plan Of Treatment Future Test Test Name Order Date COLONOSCOPY 06/29/2015 Insurance Providers Payer Name Payer Address Payer Phone Subscriber Number Group Number Insured Name Patient Relationship to Insured Coverage Start Date Coverage End Date MEDICARE OF [place] [address] [place] [id number] MINO HIDALGO Self - patient is the insured [facility] SU[employer]AN [address] [place] [address] [phone] [id number] MINO HIDALGO Self - patient is the insured Medical (General) History Medical History History ICD Code HTN Tubular adenomas removed in 2004 and 02/2010--his colonoscopies also revealed sigmoid diverticulosis and internal hemorrhoids Sleep apnea--does not use CPAP(although he was told that he should) COPD Denies NM,DM,CVA,renal disease Renal cysts Surgical History Surgery Date(Month/Year) Back surgery Sinus surgery
[2025-06-18 08:43] LABS: Hematocrit 45.9 % (42.0-52.0); Hemoglobin 15.4 g/dl (14.0-18.0); Imm Gran Abs Auto 0.07 X10*3/uL (0.00-0.03); Imm Gran Pct Auto 0.4 % (0.0-0.4); MANUAL DIFF FLAG SCAN; Mean Corpuscular HGB Conc 33.6 g/dl (31.0-36.0); Mean Corpuscular Hemoglobin 31.4 pg (27.0-33.0); Mean Corpuscular Volume 93.5 fL (80.0-98.0); NRBC Abs Auto 0.000 X10*3/uL (0.0-0.012); NRBC Pct Auto 0.0 /100WBC (0.0-0.2); Platelet Count 253 X10*3/uL (160-400); Red Blood Count 4.91 X10*6/uL (4.60-5.80); SCAN SMEAR FLAG 1; White Blood Count 19.3 X10*3/uL (4.8-10.8)
[2025-06-18 08:45] LABS: Lymphocytes Absolute Auto 7.9 X10*3/uL (1.2-4.9)
[2025-06-18 09:01] LABS: Alanine Aminotransferase 12 U/L (0-40); Albumin Level 4.2 g/dL (3.5-5.0); Alkaline Phosphatase 87 U/L (39-117); Anion Gap 14 (12-20); Aspartate Amino Transferase 27 U/L (5-37); Blood Urea Nitrogen 16 mg/dL (9-16); Calcium 9.1 mg/dL (8.4-10.2); Carbon Dioxide 23 mmol/L (22-29); Chloride 110 mmol/L (96-108); Creatinine Clr Calc Pharmacy 58.7; Estimated Glomerular Filt Rate 57; Lipase 16 U/L (8-78); Potassium 4.5 mmol/L (3.3-5.1); Sodium 142 mmol/L (135-145); Total Protein 6.7 g/dL (6.5-8.0)
--- NOTE | 2025-06-18 10:21 | ECG_ITS ---
Test Reason : WEAKNESS Blood Pressure : */* mmHG Vent. Rate : 87 BPM Atrial Rate : 87 BPM P-R Int : 186 ms QRS Dur : 86 ms QT Int : 360 ms P-R-T Axes : * 11 32 degrees QTcB Int : 433 ms Sinus rhythm with occasional Premature ventricular complexes and Premature atrial complexes Septal infarct , age undetermined Abnormal ECG When compared with ECG of 10-Apr-2025 16:26, Premature ventricular complexes are now Present ST no longer depressed in Lateral leads Referred By: Edelmira Balbuena Electronically Signed By: ARIE RHODES MD
--- NOTE | 2025-06-18 10:52 | MHC.CM.PN ---
Addendum entered by Marlene Reyes 06/18/25 11:44: PER PROVIDER, PT WILL BE TRANSFERRED TO [facility]. Original Note: CM RECEIVED ED CM CONSULT. CM MET WITH PT AND DAUGHTER PETE ([phone]) AT BEDSIDE IN ED. PT LIVES ALONE AND IS FUNCTIONALLY INDEPENDENT AT BASELINE, +DRIVES. PT HAS A CANE AND HAS NOT NEEDED TO USE IN QUITE SOME TIME. NO SERVICES AT THIS TIME. + HCP, DAUGHTER BELIEVES SHE HAS A COPY AT HOME ([place]) PT IS WILLING TO COMPLETE A NEW ONE IF NEEDED. PCP BRIDGET BAXTER. DP: PT AWAITING P.T. EVAL FOR RECOMMENDATIONS. HOME WITH SERVICES/FAMILY SUPPORT VS ACUTE REHAB. PT IS AWARE HE IS NOT ELIGIBLE VIA MEDICARE FOR STR WITHOUT A QHS. CM WILL AWAIT P.T. EVAL
[2025-06-18 11:08] VITALS: BP 154/76; PULSE 90; O2SAT 93
[2025-06-18 11:09] LABS: COVID-19 Test Negative (Negative); IDNOW Serial# 55D5AD1C
[2025-06-18 11:27] LABS: Appearance Urine Clear; Glucose Urine UA Negative (Negative); PH 6.5 (5.0-9.0); Specific Gravity - Urine 1.010 (1.005-1.025)
[2025-06-18 11:52] VITALS: BP 143/72; PULSE 87; RESP 16; TEMP 36.8; O2SAT 93
[2025-06-18 12:51] VITALS: BP 141/64; PULSE 82; RESP 17; O2SAT 93
[2025-06-18] MEDS: Hum Prothrombin Cplx(PCC)4Fact 2,000 UNIT in Container,Empty 0 ML 480 UNIT IV (13:04)
--- NOTE | 2025-06-18 13:30 | HO.NURTONUR ---
Report given to Yamila KOVACS in [facility] ED, questions answered. Awaiting transport.
[2025-06-18 13:47] VITALS: BP 133/84; PULSE 78; RESP 18; TEMP 36.8; O2SAT 94
== END 2025-06-18 13:48 | disposition short-term general hospital (02) ==
PROVIDERS: Physician Assistant Medical; Emergency Provider Emergency Medicine Emergency Medical Services; PCP Physician Assistant
DX: S06.360A Traumatic hemorrhage of cerebrum, unspecified, without loss of consciousness, initial encounter (principal); S93.402A Sprain of unspecified ligament of left ankle, initial encounter; W19.XXXA Unspecified fall, initial encounter; Y93.9 Activity, unspecified; Y92.9 Unspecified place or not applicable; Y99.9 Unspecified external cause status; R53.1 Weakness; R05.9 Cough, unspecified; M54.50 Low back pain, unspecified; M25.572 Pain in left ankle and joints of left foot; M25.562 Pain in left knee; I12.9 Hypertensive chronic kidney disease with stage 1 through stage 4 chronic kidney disease, or unspecified chronic kidney disease; N18.31 Chronic kidney disease, stage 3a; Z79.899 Other long term (current) drug therapy
CPT/HCPCS: 36415; 70450; 71045; 72125; 73502; 73562; 73610; 80048; 80076; 80307; 81003; 83690; 85025; 87635; 93005; 96374; 96375; 97162; 99285; J3010; J7168

== ENCOUNTER → 2025-06-18 08:15 | Outpatient (BNV) | payer MEDICARE, SELFPAY ==
[2023-08-05 07:17] VITALS: BP 112/48; BP 122/56; BP 142/76; BMI 37.8
== END ==
PROVIDERS: Emergency Provider Emergency Medicine Emergency Medical Services; PCP Physician Assistant; Visit Provider Radiology Vascular & Interventional Radiology
DX: Z04.3 Encounter for examination and observation following other accident (principal); M50.30 Other cervical disc degeneration, unspecified cervical region; M16.12 Unilateral primary osteoarthritis, left hip; M17.12 Unilateral primary osteoarthritis, left knee; J84.9 Interstitial pulmonary disease, unspecified; M19.072 Primary osteoarthritis, left ankle and foot; Z79.01 Long term (current) use of anticoagulants
CPT/HCPCS: 70450; 71045; 72125; 73502; 73562; 73610

== ENCOUNTER → 2025-06-18 10:21 | Outpatient (BNV) | payer MEDICARE, SELFPAY ==
[2023-08-05 07:17] VITALS: BP 112/48; BP 122/56; BP 142/76; BMI 37.8
== END ==
PROVIDERS: Emergency Provider Emergency Medicine Emergency Medical Services; PCP Physician Assistant; Visit Provider Internal Medicine Cardiovascular Disease
DX: I49.3 Ventricular premature depolarization (principal); I49.1 Atrial premature depolarization
CPT/HCPCS: 93010

== ENCOUNTER 2025-08-09 10:54 | Outpatient (REF) | payer MEDICARE, SELFPAY ==
[2023-08-05 07:17] VITALS: BP 112/48; BP 122/56; BP 142/76; BMI 37.8
[2025-08-09 12:36] LABS: Anion Gap 11 (12-20); Blood Urea Nitrogen 16 mg/dL (9-16); Calcium 9.3 mg/dL (8.4-10.2); Carbon Dioxide 25 mmol/L (22-29); Chloride 108 mmol/L (96-108); Estimated Glomerular Filt Rate 57; Potassium 4.4 mmol/L (3.3-5.1); Sodium 140 mmol/L (135-145)
--- OUTSIDE RECORDS SUMMARY | 2025-08-09 14:13 | XMS_ITS | Patient Health Record ---
Author Organization [facility] Address [address] [place] [address] Care Team Providers Care Esol Teacher Name Role Phone DIVINA CABRERA Primary Care Provider Jef Bob Unavailable [phone] Reason For Referral No Information Medications Medication SIG (Take, Route, Frequency, Duration) Notes Start Date End Date Status Multivitamin/Minerals Active Lisinopril Active Colyte w Flavor Packs 240 GM Solution Reconstituted as directed Orally as directed; Duration: 1 day(s) 06/30/2015 Active Aleve 220 MG Tablet 1 tablet as needed Orally every 12 hrs Active Glucosamine Active Spiriva HandiHaler A ctive Zantac 75 75 MG Tablet Orally prn Active Immunizations Vaccine Route Administration Date Status Comme nts Flu vaccine no Preserv 3 and > Unknown 05/25/2015 Admin istered Social History Social History Additional Details Category Social Info Options Details Miscellaneous: Marital status: 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 [employer] Notes: Nonsmoker > 10 yrs ago; [place]iam [place] 5 beers QD Problems Problem Type SNOMED Code ICD Code Onset Dates Problem Status W/U Status Risk Notes Problem Screening for malignant neoplasm of colon (093960183) Encounter for screening for malignant neoplasm of colon (Z12.11) Active confirmed Problem History of adenomatous polyp of colon (191457554) History of adenomatous polyp of colon (Z86.010) Active confirmed Problem History of polyp of colon (situation) (811207101) Personal history of colonic polyps (Z86.010) Active confirmed Problem Preprocedural examination (821106318814510) Preprocedural examination (Z01.818) Active confirmed 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 of non-steroidal anti-inflammatory drug (214186212125136) Encounter for long-term (current) use of NSAIDs (Z79.1) Active confirmed Plan Of Treatment Future Test Test Name Order Date COLONOSCOPY 06/29/2015 Insurance Providers Payer Name Payer Address Payer Phone Subscriber Number Group Number Insured Name Patient Relationship to Insured Coverage Start Date Coverage End Date MEDICARE OF [place] [address] [place] [id number] MINO HIDALGO Self - patient is the insured [facility] [employer] [address] [place] [address] [id number] MINO HIDALGO Self - patient is the insured Medical (General) History Medical History History ICD Code HTN Tubular adenomas removed in 2004 and 02/2010--his colonoscopies also revealed sigmoid diverticulosis and internal hemorrhoids Sleep apnea--does not use CPAP(although he was told that he should) COPD Denies CA,DM,CVA,renal disease Renal cysts Surgical History Surgery Date(Month/Year) Back surgery Sinus surgery
== END 2025-08-09 10:55 | disposition home or self-care (01) ==
LOC: HO.LAB 10:54
PROVIDERS: PCP Physician Assistant; Visit Provider Internal Medicine Cardiovascular Disease
DX: R06.09 Other forms of dyspnea (principal)
CPT/HCPCS: 36415; 80048